=== PATIENT | female | born 1960 | race Caucasian/White ===

== ENCOUNTER → 2017-02-14 | Outpatient (CLI) | payer BC ==
[2017-02-14 17:41] LABS: CH 31.9; CHCM 33.4; HCT 45.8 % (34.0-46.0); HDW 2.67; HGB 15.3 gm/dL (11.4-16.0); MCH 32.2 pg (25.0-35.0); MCHC 33.5 g/dL (31.0-37.0); MCV 96.2 fL (80.0-100.0); Mean Platelet Volume 8.6; RBC 4.77 m/uL (3.80-5.40); RDW 13.6 % (11.5-15.5); WBC 6.2 k/uL (3.8-10.6)
[2017-02-14 17:44] LABS: ALT 60 U/L (9-52); AST 26 U/L (14-36); Alkaline Phosphatase 63 U/L (38-126); Anion Gap 8 mmol/L; Blood Urea Nitrogen 16 mg/dL (7-17); Calcium 9.8 mg/dL (8.4-10.2); Carbon Dioxide 28 mmol/L (22-30); Chloride 105 mmol/L (98-107); Cholesterol 174 mg/dL (<200); Glucose 82 mg/dL (74-99); HDL Cholesterol 48 mg/dL (40-60); Non-African American GFR(MDRD) >60 (>60 ml/min/1.73 sqM); Potassium 4.1 mmol/L (3.5-5.1); Sodium 141 mmol/L (137-145); Total Bilirubin 0.6 mg/dL (0.2-1.3); Total Protein 7.1 g/dL (6.3-8.2)
[2017-02-19 15:37] LABS: HCV Qualitative Result DETECTED (Not detected)
== END | disposition home or self-care (01) ==
LOC: LABWHC1 16:55
PROVIDERS: ATTEND Internal Medicine Gastroenterology
DX: E78.5 Hyperlipidemia, unspecified (principal); I10 Essential (primary) hypertension; B18.2 Chronic viral hepatitis C
CPT/HCPCS: 36415; 80053; 80061; 82105; 84443; 85027; 87522; 87902

== ENCOUNTER → 2019-04-04 | Outpatient (CLI) | payer BC ==
--- NOTE | 2019-04-07 09:46 | MM ---
Reason for exam: screening (asymptomatic). Last mammogram was performed 4 years and 2 months ago. History: Family history of premenopausal breast cancer in cousin at age 47. Physical Findings: A clinical breast exam by your physician is recommended on an annual basis and results should be correlated with mammographic findings. MG Screening Mammo w CAD Bilateral CC and MLO view(s) were taken. XCCL view(s) were taken of the right breast. Prior study comparison: January 25, 2015, bilateral MG screening mammo w CAD. February 14, 2010, bilateral digital screening mammogram. There are scattered fibroglandular densities. There is no discrete abnormality. No significant changes when compared with prior studies. ASSESSMENT: Negative, BI-RAD 1 RECOMMENDATION: Routine screening mammogram of both breasts in 1 year.
== END | disposition home or self-care (01) ==
LOC: RADMAMWWP 06:57
PROVIDERS: ATTEND Internal Medicine
DX: Z12.31 Encounter for screening mammogram for malignant neoplasm of breast (principal)
CPT/HCPCS: 77067

== ENCOUNTER → 2019-04-30 | Outpatient (CLI) | payer BC ==
[2019-04-30 13:01] LABS: HCT 40.4 % (34.0-46.0); HGB 13.5 gm/dL (11.4-16.0); MCH 32.2 pg (25.0-35.0); MCHC 33.4 g/dL (31.0-37.0); MCV 96.3 fL (80.0-100.0); Mean Platelet Volume 8.5; Platelet Count 146 k/uL (150-450); RBC 4.19 m/uL (3.80-5.40); RDW 13.3 % (11.5-15.5); WBC 5.5 k/uL (3.8-10.6)
[2019-04-30 13:30] LABS: Potassium 4.6 mmol/L (3.5-5.1)
== END ==
LOC: LABPAT 12:14
PROVIDERS: ATTEND Internal Medicine Interventional Cardiology
DX: Z01.812 Encounter for preprocedural laboratory examination (principal); R94.39 Abnormal result of other cardiovascular function study
CPT/HCPCS: 36415; 80051; 82565; 84520; 85027

== ENCOUNTER → 2019-05-02 | Day surgery (SDC) | payer BC ==
[2019-04-30 10:35] VITALS: BMI 33.9
[~2019-05-02] MED LIST: ALBUTEROL NEBULIZED 2.5 MG/3 ML INHALATION ONE; ALBUTEROL NEBULIZED 2.5 MG/3 ML INHALATION PRN; ALPRAZolam 0.25 MG TAB PO PRN; ALPRAZolam 0.5 MG TAB PO PRN; ASPIRIN 325 MG TAB PO STA; ASPIRIN 81 MG PO SCH; ATORVASTATIN 80 MG TAB PO STA; HEPARIN SODIUM 1,000 UN/ML (10ML VL) ONE; HYDROcodone/APAP 10-325MG 1 EACH TAB PO PRN; IOPAMIDOL-370 125ML BTL INJ ONE; ISOSORBIDE MONONITRATE ER 30 MG TAB.ER.24H PO SCH; LIDOCAINE 1% INJ 10MG/ML (20 ML MDV) ONE; LIDOCAINE 1% INJ 10MG/ML (20 ML MDV) SQ ONE; LISINOPRIL 20 MG TAB PO SCH; METOPROLOL TARTRATE 25 MG TAB PO SCH; MIDAZOLAM 2 MG/2 ML VIAL IV ONE; MONTELUKAST 10 MG TAB PO SCH; NITROGLYCERIN SL TABS 0.4 MG TAB SUBLINGUAL PRN; NON FORMULARY DRUG (Cannabidiol (Cbd) Extract [Epidiolex] 1 DOSE) PO PRN; PANTOPRAZOLE 40 MG TABLET PO PRN; RX INFO: IV CONTRAST WAS GIVEN 1 EACH MISC MISCELLANE PRN; SODIUM CHLORIDE 0.9% 1,000 ML IV SCH; SODIUM CHLORIDE 0.9% 1,000 ML in EMPTY BAG 1 BAG IV ONE; VERAPAMIL 2.5 MG/ML 2 ML AMP ONE; fentaNYL (PF) 50 MCG/ML 2 ML AMP IV ONE; fentaNYL (PF) 50 MCG/ML 2 ML AMP ONE
[2019-05-02 07:15] VITALS: RESP 18; TEMP 97.7
[2019-05-02] MEDS: VERAPAMIL SYRINGE (5 MG/10 ML) INTRAARTER ONE ×2 (07:48→08:00)
--- NOTE | 2019-05-02 08:41 | CC ---
CARDIAC CATHETERIZATION REPORT Mrs. Cain is a 59-year-old female with a known history of hypertension who has been complaining of symptoms of chest discomfort. She underwent a myocardial perfusion imaging that revealed evidence of inducible ischemia. In view of that, recommendation was made regarding cardiac catheterization. The procedure as well as the risks and complication were discussed with the patient who is in full understanding and agreement. PROCEDURE: Patient was brought to farm labor contractor in a fasting semi-sedated state after receiving fentanyl and Benadryl and achieving moderate conscious sedated state. Using Xylocaine anesthesia in the Seldinger technique, a 6-Serbian sheath was introduced in the right radial artery. Selective right and left coronary angiography performed using 5-Serbian 3.5 bend right Zion and 4 bend left Zion catheter. Multiple views of the coronary artery including hemiaxial views obtained. Following that the right Zion catheter was used to cross the aortic valve and pressures were calculated. Following that, the catheter and sheaths were removed. Hemostasis was obtained with deployment of a TR band. There was no immediate complication. Patient was returned to room in stable condition. Of note, the patient received 5000 units of intravenous heparin as well as intra-arterial verapamil. FINDINGS: LEFT MAIN: This is a large-sized vessel bifurcating left circumflex, left anterior descending artery. Left main coronary artery has no evidence of high-grade stenosis. LEFT ANTERIOR DESCENDING ARTERY: This is a large-sized vessel reaching toward the apex that tapers down in the distal third. The left anterior descending artery as well as the large first diagonal branch have no evidence of high-grade stenosis. LEFT CIRCUMFLEX: This is a nondominant vessel, large in caliber giving rise to a large obtuse marginal branch. The left circumflex as well as branches have no evidence of obstructive coronary artery disease. RIGHT CORONARY ARTERY: This is a large dominant vessel tortuous in the proximal mid segment bifurcating distally PDA posterolateral segment and branches. The right PDA reaches toward the inferoapical wall. The right coronary artery as well as branches have no evidence of obstructive coronary artery disease. LEFT VENTRICULOGRAM: Left ventriculogram is not performed. HEMODYNAMICS: There was no gradient across the aortic valve. The left ventricular end-diastolic pressure was 12 to 14 mmHg. CONCLUSION: 1. Normal coronary arteries. 2. Normal left ventricular end-diastolic pressure. RECOMMENDATION: In view of finding anatomy, recommend continue medical therapy with aggressive coronary risk modifications that have been initiated. Those findings and recommendation were discussed with the patient and her family, and they are in full understanding and agreement. DURATION OF PROCEDURE: 19 minutes. JACKELIN / PALMERN: [id number] /
--- NOTE | 2019-05-02 08:47 | LTR ---
May 02, 2019 Re: Alisa Cain Dear Dr. Potts: I had the opportunity to perform cardiac catheterization on Mrs. Cain at [facility] on the 02 of May and a full copy of the procedure note will be forwarded to you. In brief, she was found to have no evidence of high-grade stenosis and based on those findings, I recommend to continue medical therapy with aggressive coronary risk modifications that have been initiated. Thank you again for allowing me the opportunity to participate in her care. Please feel free to call for any questions. Sincerely yours, Bhavana Cutler MD [id number] / PALMERN: [id number] /
[2019-05-02 13:11] VITALS: BP 124/64; PULSE 58
== END | disposition home or self-care (01) ==
LOC: CATHCVL 06:39
PROVIDERS: ATTEND Internal Medicine Interventional Cardiology
DX: R07.89 Other chest pain (principal); I77.1 Stricture of artery; I25.9 Chronic ischemic heart disease, unspecified; R60.9 Edema, unspecified; R06.00 Dyspnea, unspecified; R26.9 Unspecified abnormalities of gait and mobility; I10 Essential (primary) hypertension; Z79.899 Other long term (current) drug therapy; Z79.82 Long term (current) use of aspirin; Z88.0 Allergy status to penicillin; Z82.49 Family history of ischemic heart disease and other diseases of the circulatory system
CPT/HCPCS: 94640; 93458; C1769; C1894; J2250; J2001; J3010; J1644; Q9967

== ENCOUNTER → 2020-08-24 | Outpatient (CLI) | payer OTHER ==
--- NOTE | 2020-08-24 16:01 | BD ---
EXAMINATION TYPE: Axial Bone Density DATE OF EXAM: 08/24/2020 COMPARISON: NONE CLINICAL HISTORY: Height: 5 FT 4 IN Weight: 209 FRAX RISK QUESTIONS: Alcohol (3 or more units per day): NO Family History (Parent hip fracture): YES Glucocorticoids (More than 3mos): NO (Ex: prednisone, prednisolone, methylprednisolone, dexamethasone, and hydrocortisone). History of Fracture in Adulthood: YES Secondary Osteoporosis: 1. Type 1 Diabetes: NO 2. Hyperthyroidism: NO 3. Menopause before 45: NO 4. Malnutrition: NO 5. Chronic liver disease: HEP C Rheumatoid Arthritis: YES Current Tobacco Use: FORMER RISK FACTORS HISTORY OF: Hip Fracture (Right/Left): LEFT HIP FX When: 2019 Surgery to Spine/Hip(right/left)/Wrist (right/left): LEFT HIP REPLACEMENT When: 2019 Family History of Osteoporosis: YES Active: YES Diet low in dairy products/other sources of calcium: NO Postmenopausal woman: PART HYST AGE 34 UNSURE MENOPAUSE SYMPTOMS Take estrogen and/or progesterone medications: NO Lost more than 2 inches in height since high school: YES MEDICATIONS: Additional Medications: METOPROLOL, ASPIRIN, SINGULAIR,PROTONIX, MEDS, FOR TREMERS Additional History: EXAM MEASUREMENTS: Bone mineral densitometry was performed using the [employer] System. Bone mineral density as measured about the Lumbar spine is: ----- L1-L4(G/cm2): 0.993 T Score Values are as follows: ----- L2: -2.7 ----- L3: -1.2 ----- L4: -0.8 ----- L1-L4: -1.6 BASELINE Bone mineral density about the R hip (g/cm2): 0.698 T Score values are as follows: -----R Neck: -2.4 -----R Total: -2.0 BASELINE IMPRESSION: Osteopenia (T Score between -2.5 and -1). There is slightly increased risk of fracture and the patient may be considered for treatment. Re-Screen 2-5 years. NOTE: T-SCORE=SD OF THE YOUNG ADULT MEAN.
--- NOTE | 2020-08-26 08:42 | MM ---
Reason for exam: screening (asymptomatic). Last mammogram was performed 1 year and 5 months ago. History: Family history of premenopausal breast cancer in cousin at age 47. Physical Findings: A clinical breast exam by your physician is recommended on an annual basis and results should be correlated with mammographic findings. MG Screening Mammo w CAD Bilateral CC and MLO view(s) were taken. Prior study comparison: April 04, 2019, bilateral MG screening mammo w CAD. January 25, 2015, bilateral MG screening mammo w CAD. There are scattered fibroglandular densities. No significant changes when compared with prior studies. ASSESSMENT: Benign, BI-RAD 2 RECOMMENDATION: Routine screening mammogram of both breasts in 1 year.
== END | disposition home or self-care (01) ==
LOC: RADMAMWWP 12:42
PROVIDERS: ATTEND Internal Medicine
DX: Z12.31 Encounter for screening mammogram for malignant neoplasm of breast (principal); Z13.820 Encounter for screening for osteoporosis; M85.89 Other specified disorders of bone density and structure, multiple sites; Z80.3 Family history of malignant neoplasm of breast
CPT/HCPCS: 77067; 77080

== ENCOUNTER 2022-06-26 11:44 | Observation (INO) | payer MEDICARE, OTHER ==
[2022-06-26] MEDS ORDERED: IPRATROPIUM-ALBUTEROL 3 ML NEB INHALATION STA ×2 (12:20→13:38)
[2022-06-26] MEDS ORDERED: methylPREDNISolone SOD SUCCI 125 MG/2 ML VIAL IV STA (12:20)
--- NOTE | 2022-06-26 12:24 | ED ---
SOB HPI - General Chief Complaint: Shortness of Breath Stated Complaint: SOPHIA Time Seen by Provider: 06/26/22 12:14 Source: patient, RN notes reviewed Mode of arrival: ambulatory Limitations: no limitations - History of Present Illness Initial Comments: 62-year-old female with a history of hypertension a history of asthma states she's been short of breath for the past 2 days with a nonproductive cough no fevers chills or sweats she states also her blood pressure is been elevated she has recently been on different blood pressure medications for which she has side effects also states she stopped putting much urine out and therefore quit the medication she did recently and put on which included a diuretic. She does state her ankles normally are swollen are not bad today. She states it feels like there is brick sitting on her chest she tried her home medication without much relief. MD Complaint: shortness of breath, cough - Related Data Home Medications Medication Instructions Recorded Confirmed ALPRAZolam [Xanax] 0.5 mg PO TID PRN 04/30/19 06/26/22 Albuterol Inhaler [Ventolin Hfa 1 - 2 puff INHALATION RT-Q6H PRN 04/30/19 06/26/22 Inhaler] Metoprolol Tartrate [Lopressor] 50 mg PO DAILY 04/30/19 06/26/22 Nitroglycerin Sl Tabs [Nitrostat] 0.4 mg SUBLINGUAL Q5M PRN 04/30/19 06/26/22 Pantoprazole Sodium [Protonix] 40 mg PO DAILY 04/30/19 06/26/22 Diclofenac Sodium Gel [Voltaren 1 applic TOPICAL QID PRN 06/26/22 06/26/22 Gel] Allergies Allergy/AdvReac Type Severity Reaction Status Date / Time adhesive tape Allergy Rash/Hives Verified 06/26/22 12:58 Review of Systems ROS Statement: Those systems with pertinent positive or pertinent negative responses have been documented in the HPI. ROS Other: All systems not noted in ROS Statement are negative. Past Medical History Past Medical History: Asthma, Chest Pain / Angina, GERD/Reflux, Hypertension, Renal Disease, Rheumatoid Arthritis (RA) Additional Past Medical History / Comment(s): irregular heart rate. 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 lt knee replacement x2. rt ring finger with screws. rt thumb I&D Past Anesthesia/Blood Transfusion Reactions: No Reported Reaction Additional Past Anesthesia/Blood Transfusion Reaction / Comment(s): previous blood transfusion with reaction Past Psychological History: Anxiety Smoking Status: Current every day smoker Past Alcohol Use History: Occasional Past Drug Use History: Marijuana - Past Family History Sister(s) Family Medical History: Coronary Artery Disease (CAD) Additional Family Medical History / Comment(s): born with hole in main valve surgery 8th grade, cabg x2 during 2nd open heart age 34 Father Family Medical History: Cancer, Myocardial Infarction (IN) Additional Family Medical History / Comment(s): from colon cancer Mother Family Medical History: Cancer Additional Family Medical History / Comment(s): from lung cancer General Exam - General Exam Comments Initial Comments: This is a well-developed well-nourished awake alert oriented 4 female demonstrate audible wheezing Limitations: no limitations General appearance: alert, anxious Head exam: Present: atraumatic, normocephalic, normal inspection Eye exam: Present: normal appearance, PERRL, EOMI. Absent: scleral icterus, conjunctival injection, periorbital swelling ENT exam: Present: normal exam, mucous membranes moist Neck exam: Present: normal inspection, full ROM, other (No surgery or bruits). Absent: tenderness, meningismus, lymphadenopathy Respiratory exam: Present: wheezes, chest wall tenderness, decreased breath sounds. Absent: respiratory distress, rales, rhonchi, stridor Cardiovascular Exam: Present: regular rate, normal rhythm, normal heart sounds. Absent: systolic murmur, diastolic murmur, rubs, gallop, clicks GI/Abdominal exam: Present: soft, normal bowel sounds. Absent: distended, tenderness, guarding, rebound, rigid Extremities exam: Present: normal inspection, full ROM, normal capillary refill. Absent: tenderness, pedal edema, joint swelling, calf tenderness Back exam: Present: normal inspection Neurological exam: Present: alert, oriented X3, CN II-XII intact Psychiatric exam: Present: normal affect, normal mood Skin exam: Present: warm, dry, intact, normal color. Absent: rash Course Vital Signs 06/26/22 06/26/22 06/26/22 12:09 12:27 13:33 Temperature 98.1 F 97.9 F Pulse Rate 90 91 81 Respiratory 18 18 17 Rate Blood Pressure 180/110 182/99 131/84 O2 Sat by Pulse 96 96 97 Oximetry 06/26/22 06/26/22 06/26/22 14:06 14:19 14:22 Temperature Pulse Rate 74 80 80 Respiratory 17 Rate Blood Pressure 165/101 O2 Sat by Pulse 96 Oximetry 06/26/22 16:05 Temperature Pulse Rate 76 Respiratory 17 Rate Blood Pressure 146/92 O2 Sat by Pulse 96 Oximetry - Reevaluation(s) Reevaluation #1: 06/26/22 16:29 Patient continued to have wheezing in spite of the treatment which included updrafts and IV steroids. Medical Decision Making - Medical Decision Making Patient continues to have wheezing in spite of treatment. Imaging does show evidence of bilateral infiltrates/nodularity. Patient will be admitted I did discuss case with Dr. Torres. He is covering for Dr. Potts. Was pt. sent in by a medical professional or institution (, PA, LABOR RELATIONS SPECIALIST, urgent care, hospital, or [facility]...) When possible be specific @ -No Did you speak to anyone other than the patient for history (EMS, parent, family, police, friend...)? What history was obtained from this source @ -No Did you review nursing and triage notes (agree or disagree)? Why? @ -I reviewed and agree with nursing and triage notes Were old charts reviewed (outside hosp., previous admission, EMS record, old EKG, old radiological studies, urgent care reports/EKG's, [facility] records)? Report findings @ - old charts were reviewed Differential Diagnosis (chest pain, altered mental status, abdominal pain women, abdominal pain men, vaginal bleeding, weakness, fever, dyspnea, syncope, headache, dizziness, GI bleed, back pain, seizure, CVA, palpatations, mental health, musculoskeletal)? @ -Dyspnea, asthma exacerbation, and pneumonitis EKG interpreted by me (3pts min.). @ -As above X-rays interpreted by me (1pt min.). @ -Yeses above CT interpreted by me (1pt min.). @ -None done U/S interpreted by me (1pt. min.). @ -None done What testing was considered but not performed or refused? (CT, X-rays, U/S, labs)? Why? @ -None What meds were considered but not given or refused? Why? @ -None Did you discuss the management of the patient with other professionals (professionals i.e. , PA, LABOR RELATIONS SPECIALIST, lab, RT, psych nurse, mental health social worker, recording engineer, teacher, aircraft electronics technical officer, case liner)? Give summary @ -After nursing Was smoking cessation discussed for >3mins.? @ -No Was critical care preformed (if so, how long)? @ -31 minutes Were there social determinants of health that impacted care today? How? (Homelessness, low income, unemployed, alcoholism, drug addiction, transportation, low edu. Level, literacy, decrease access to med. care, retirement, rehab)? @ -No Was there de-escalation of care discussed even if they declined (Discuss DNR or withdrawal of care, Hospice)? DNR status @ -No What co-morbidities impacted this encounter? (DM, HTN, Smoking, COPD, CAD, Cancer, CVA, ARF, Chemo, Hep., AIDS, mental health diagnosis, sleep apnea, morbid obesity)? @ -Asthma, hypertension, renal disease, rheumatoid arthritis Was patient admitted / discharged? Hospital course, mention meds given and route, prescriptions, significant lab abnormalities, going to OR and other pertinent info. @ -Patient was admitted for inpatient evaluation and treatment evidence of extensive and ecchymosis as well as evidence of pneumonia. 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 Clinical and x-ray evidence of pneumonia. Undiagnosed new problem with uncertain prognosis? @ -Status asthmaticus, pneumonia Drug Therapy requiring intensive monitoring for toxicity (Heparin, Nitro, Insulin, Cardizem)? @ -No Were any procedures done? @ -No Diagnosis/symptom? @ -Status asthmaticus, pneumonia, dyspnea Acute, or Chronic, or Acute on Chronic? @ -Acute Uncomplicated (without systemic symptoms) or Complicated (systemic symptoms)? @ -Complicated with systemic symptoms of dyspnea Side effects of treatment? @ -No Exacerbation, Progression, or Severe Exacerbation? @ -Asthma exacerbation Poses a threat to life or bodily function? How? (Chest pain, [place], [place], pneumonia, PE, COPD, DKA, ARF, appy, cholecystitis, CVA, Diverticulitis, Homicidal, Suicidal, threat to staff... and all critical care pts) @ -Dyspnea - Lab Data Result diagrams: 06/26/22 12:56 06/26/22 12:56 Lab Results 06/26/22 06/26/22 06/26/22 Range/Units 00:25 12:56 12:56 WBC 3.3 L (3.8-10.6) k/uL RBC 4.46 (3.80-5.40) m/uL Hgb 13.9 (11.4-16.0) gm/dL Hct 40.8 (34.0-46.0) % MCV 91.5 (80.0-100.0) fL MCH 31.1 (25.0-35.0) pg MCHC 34.0 (31.0-37.0) g/dL RDW 13.0 (11.5-15.5) % Plt Count 99 L (150-450) k/uL MPV 9.3 Neutrophils % 49 % Lymphocytes % 38 % Monocytes % 5 % Eosinophils % 6 % Basophils % 1 % Neutrophils # 1.6 (1.3-7.7) k/uL Lymphocytes # 1.3 (1.0-4.8) k/uL Monocytes # 0.2 (0-1.0) k/uL Eosinophils # 0.2 (0-0.7) k/uL Basophils # 0.0 (0-0.2) k/uL Manual Slide Review Performed PT 10.0 (9.0-12.0) sec INR 0.9 (<1.2) APTT 34.1 H (22.0-30.0) sec D-Dimer 0.41 (<0.60) mg/L FEU Sodium (137-145) mmol/L Potassium (3.5-5.1) mmol/L Chloride (98-107) mmol/L Carbon Dioxide (22-30) mmol/L Anion Gap mmol/L BUN (7-17) mg/dL Creatinine (0.52-1.04) mg/dL Est GFR (CKD-EPI)AfAm (>60 ml/min/1.73 sqM) Est GFR (CKD-EPI)NonAf (>60 ml/min/1.73 sqM) Glucose (74-99) mg/dL Plasma Lactic Acid Vivek (0.7-2.0) mmol/L Calcium (8.4-10.2) mg/dL Magnesium (1.6-2.3) mg/dL Total Bilirubin (0.2-1.3) mg/dL AST (14-36) U/L ALT (4-34) U/L Alkaline Phosphatase (38-126) U/L Creatine Kinase (30-135) U/L Troponin I (0.000-0.034) ng/mL NT-Pro-B Natriuret Pep pg/mL Total Protein (6.3-8.2) g/dL Albumin (3.5-5.0) g/dL Urine Color Urine Appearance (Clear) Urine pH (5.0-8.0) Ur Specific [place] (1.001-1.035) Urine Protein (Negative) Urine Glucose (UA) (Negative) Urine Ketones (Negative) Urine Blood (Negative) Urine Nitrite (Negative) Urine Bilirubin (Negative) Urine Urobilinogen (<2.0) mg/dL Ur Leukocyte Esterase (Negative) Influenza Type A (PCR) Not Detected (Not Detectd) Influenza Type B (PCR) Not Detected (Not Detectd) RSV (PCR) Not Detected (Not Detectd) SARS-CoV-2 (PCR) Not Detected (Not Detectd) 06/26/22 06/26/22 06/26/22 Range/Units 12:56 12:56 12:56 WBC (3.8-10.6) k/uL RBC (3.80-5.40) m/uL Hgb (11.4-16.0) gm/dL Hct (34.0-46.0) % MCV (80.0-100.0) fL MCH (25.0-35.0) pg MCHC (31.0-37.0) g/dL RDW (11.5-15.5) % Plt Count (150-450) k/uL MPV Neutrophils % % Lymphocytes % % Monocytes % % Eosinophils % % Basophils % % Neutrophils # (1.3-7.7) k/uL Lymphocytes # (1.0-4.8) k/uL Monocytes # (0-1.0) k/uL Eosinophils # (0-0.7) k/uL Basophils # (0-0.2) k/uL Manual Slide Review PT (9.0-12.0) sec INR (<1.2) APTT (22.0-30.0) sec D-Dimer (<0.60) mg/L FEU Sodium 140 (137-145) mmol/L Potassium 4.6 (3.5-5.1) mmol/L Chloride 109 H (98-107) mmol/L Carbon Dioxide 27 (22-30) mmol/L Anion Gap 4 mmol/L BUN 16 (7-17) mg/dL Creatinine 0.73 (0.52-1.04) mg/dL Est GFR (CKD-EPI)AfAm >90 (>60 ml/min/1.73 sqM) Est GFR (CKD-EPI)NonAf 88 (>60 ml/min/1.73 sqM) Glucose 112 H (74-99) mg/dL Plasma Lactic Acid Vivek 1.5 (0.7-2.0) mmol/L Calcium 9.3 (8.4-10.2) mg/dL Magnesium 1.9 (1.6-2.3) mg/dL Total Bilirubin 0.6 (0.2-1.3) mg/dL AST 30 (14-36) U/L ALT 45 H (4-34) U/L Alkaline Phosphatase 67 (38-126) U/L Creatine Kinase 31 (30-135) U/L Troponin I <0.012 (0.000-0.034) ng/mL NT-Pro-B Natriuret Pep pg/mL Total Protein 6.7 (6.3-8.2) g/dL Albumin 3.7 (3.5-5.0) g/dL Urine Color Urine Appearance (Clear) Urine pH (5.0-8.0) Ur Specific [place] (1.001-1.035) Urine Protein (Negative) Urine Glucose (UA) (Negative) Urine Ketones (Negative) Urine Blood (Negative) Urine Nitrite (Negative) Urine Bilirubin (Negative) Urine Urobilinogen (<2.0) mg/dL Ur Leukocyte Esterase (Negative) Influenza Type A (PCR) (Not Detectd) Influenza Type B (PCR) (Not Detectd) RSV (PCR) (Not Detectd) SARS-CoV-2 (PCR) (Not Detectd) 06/26/22 06/26/22 Range/Units 13:25 14:23 WBC (3.8-10.6) k/uL RBC (3.80-5.40) m/uL Hgb (11.4-16.0) gm/dL Hct (34.0-46.0) % MCV (80.0-100.0) fL MCH (25.0-35.0) pg MCHC (31.0-37.0) g/dL RDW (11.5-15.5) % Plt Count (150-450) k/uL MPV Neutrophils % % Lymphocytes % % Monocytes % % Eosinophils % % Basophils % % Neutrophils # (1.3-7.7) k/uL Lymphocytes # (1.0-4.8) k/uL Monocytes # (0-1.0) k/uL Eosinophils # (0-0.7) k/uL Basophils # (0-0.2) k/uL Manual Slide Review PT (9.0-12.0) sec INR (<1.2) APTT (22.0-30.0) sec D-Dimer (<0.60) mg/L FEU Sodium (137-145) mmol/L Potassium (3.5-5.1) mmol/L Chloride (98-107) mmol/L Carbon Dioxide (22-30) mmol/L Anion Gap mmol/L BUN (7-17) mg/dL Creatinine (0.52-1.04) mg/dL Est GFR (CKD-EPI)AfAm (>60 ml/min/1.73 sqM) Est GFR (CKD-EPI)NonAf (>60 ml/min/1.73 sqM) Glucose (74-99) mg/dL Plasma Lactic Acid Vivek (0.7-2.0) mmol/L Calcium (8.4-10.2) mg/dL Magnesium (1.6-2.3) mg/dL Total Bilirubin (0.2-1.3) mg/dL AST (14-36) U/L ALT (4-34) U/L Alkaline Phosphatase (38-126) U/L Creatine Kinase (30-135) U/L Troponin I (0.000-0.034) ng/mL NT-Pro-B Natriuret Pep 45 pg/mL Total Protein (6.3-8.2) g/dL Albumin (3.5-5.0) g/dL Urine Color Yellow Urine Appearance Clear (Clear) Urine pH 6.5 (5.0-8.0) Ur Specific [place] 1.022 (1.001-1.035) Urine Protein Negative (Negative) Urine Glucose (UA) Negative (Negative) Urine Ketones Negative (Negative) Urine Blood Negative (Negative) Urine Nitrite Negative (Negative) Urine Bilirubin Negative (Negative) Urine Urobilinogen 2.0 (<2.0) mg/dL Ur Leukocyte Esterase Negative (Negative) Influenza Type A (PCR) (Not Detectd) Influenza Type B (PCR) (Not Detectd) RSV (PCR) (Not Detectd) SARS-CoV-2 (PCR) (Not Detectd) - EKG Data -: EKG Interpreted by Me (EKG interpreted by me shows a normal sinus rhythm a 68 . We'll 152 QRS dura) - Radiology Data Interpreted by me: I did interpret the imaging evidence of bilateral infiltrates/nodularity right lower lobe and left mid lung. Critical Care Time Critical Care Time: Yes Total Critical Care Time: 31 Disposition Clinical Impression: Status asthmaticus, Pneumonia Disposition: ADMITTED IP TO THIS [facility] Condition: Fair Referrals: Telma Potts MD [Primary Care Provider] - 1-2 days Decision Date: 06/26/22 Decision Time: 16:00
[2022-06-26] MEDS ORDERED: ALBUTEROL HFA INHALER INHALATION STA (12:25)
[2022-06-26 13:23] LABS: Basophils % (A) 1 %; Eosinophils # (A) 0.2 k/uL (0-0.7); Eosinophils % (A) 6 %; HCT 40.8 % (34.0-46.0); HGB 13.9 gm/dL (11.4-16.0); Lymphocytes # (A) 1.3 k/uL (1.0-4.8); Lymphocytes % (A) 38 %; MCH 31.1 pg (25.0-35.0); MCV 91.5 fL (80.0-100.0); Mean Platelet Volume 9.3; Monocytes # (A) 0.2 k/uL (0-1.0); Monocytes % (A) 5 %; Neutrophils # (A) 1.6 k/uL (1.3-7.7); Neutrophils % (A) 49 %; RBC 4.46 m/uL (3.80-5.40); WBC 3.3 k/uL (3.8-10.6)
[2022-06-26 13:34] LABS: ALT 45 U/L (4-34); AST 30 U/L (14-36); African American GFR (CKD) >90 (>60 ml/min/1.73 sqM); Albumin 3.7 g/dL (3.5-5.0); Alkaline Phosphatase 67 U/L (38-126); Anion Gap 4 mmol/L; Blood Urea Nitrogen 16 mg/dL (7-17); Calcium 9.3 mg/dL (8.4-10.2); Carbon Dioxide 27 mmol/L (22-30); Chloride 109 mmol/L (98-107); Creatine Kinase 31 U/L (30-135); Glucose 112 mg/dL (74-99); Magnesium 1.9 mg/dL (1.6-2.3); Non-African American GFR(CKD) 88 (>60 ml/min/1.73 sqM); Potassium 4.6 mmol/L (3.5-5.1); Sodium 140 mmol/L (137-145); Total Bilirubin 0.6 mg/dL (0.2-1.3); Total Protein 6.7 g/dL (6.3-8.2)
[2022-06-26 13:35] LABS: INR 0.9 (<1.2); Partial Thromboplastin Time 34.1 sec (22.0-30.0)
[2022-06-26 14:06] LABS: Appearance,Urine Clear (Clear); Bilirubin,Urine Negative (Negative); Blood,Urine Negative (Negative); Color,Urine Yellow; Glucose,Urine (UA) Negative (Negative); Ketones,Urine Negative (Negative); Leukocyte Esterase,Urine Negative (Negative); Nitrite,Urine Negative (Negative); PH, Urine 6.5 (5.0-8.0); Protein,Urine Negative (Negative); Specific Gravity,Urine 1.022 (1.001-1.035)
[2022-06-26 14:16] LABS: Platelet Count 99 k/uL (150-450)
[2022-06-26] MEDS ORDERED: ACETAMINOPHEN TAB 325 MG TAB PO STA (14:20)
--- NOTE | 2022-06-26 15:08 | XR ---
EXAMINATION TYPE: XR chest 2V DATE OF EXAM: 06/26/2022 COMPARISON: 01/22/2015 HISTORY: Shortness of breath TECHNIQUE: Frontal and lateral views of the chest are obtained. FINDINGS: Scattered senescent parenchymal changes noted. Hyperinflation compatible with COPD. Areas of nodular density left mid lung zone and right lower lobe may reflect infiltrate. Follow-up un til resolution is advised. Clinical correlation. Heart size is stable. Mediastinal structures are stable and grossly unremarkable. No evidence for hilar prominence. Degenerative changes dorsal spine. IMPRESSION: 1. Areas of nodular density left mid lung zone and right lower lobe may reflect developing infiltrate . Follow-up until resolution is advised. Clinical correlation.
[2022-06-26] MEDS ORDERED: KETOROLAC 15 MG/ML 1 ML VIAL IVP STA (16:07)
[2022-06-26] MEDS ORDERED: PNEUMONIA PROTOCOL UTILIZED 1 EACH MISC PO PRN (16:37)
[2022-06-26] MEDS ORDERED: AZITHROMYCIN 500 MG in SODIUM CHLORIDE 0.9% 250 ML IVPB STA (16:37)
[2022-06-26] MEDS ORDERED: MAGNESIUM SULFATE-D5W PMX 1 GM in DEXTROSE/WATER 1 100ML.BAG IVPB ONE (16:39)
[2022-06-26] MEDS ORDERED: NITROGLYCERIN SL TABS 0.4 MG TAB SUBLINGUAL PRN (16:40)
[2022-06-26] MEDS: methylPREDNISolone SOD SUCCI 125 MG/2 ML VIAL IV SCH ×2 (18:17→23:07)
[2022-06-26] MEDS ORDERED: MAG HYDROX/AL HYDROX/SIMETH 30 ML, HYOSCYAMINE ELIXIR 10 ML PO ONE ×2 (19:26)
[2022-06-26] MEDS: IPRATROPIUM-ALBUTEROL 3 ML NEB INHALATION PRN ×2 (20:27→23:40)
[2022-06-26] MEDS: ACETAMINOPHEN TAB 500 MG TAB PO PRN (23:08)
[2022-06-26] MEDS: ALPRAZolam 0.5 MG TAB PO PRN (23:08)
[2022-06-27] MEDS: IPRATROPIUM-ALBUTEROL 3 ML NEB INHALATION PRN ×5 (03:02→20:42)
[2022-06-27] MEDS: methylPREDNISolone SOD SUCCI 125 MG/2 ML VIAL IV SCH ×4 (05:57→23:06)
[2022-06-27] MEDS: ALPRAZolam 0.5 MG TAB PO PRN ×3 (06:03→23:07)
[2022-06-27] MEDS: PANTOPRAZOLE 40 MG TABLET PO SCH (08:35)
[2022-06-27] MEDS: ACETAMINOPHEN TAB 500 MG TAB PO PRN ×2 (08:35→23:07)
[2022-06-27] MEDS: METOPROLOL SUCCINATE (ER) 50 MG TAB.ER.24H PO SCH (08:35)
[2022-06-27] MEDS: AZITHROMYCIN 500 MG TAB PO SCH (10:16)
[2022-06-27] MEDS ORDERED: Acetaminophen-Codeine 300-30mg TAB PO STA (11:02)
[2022-06-27] MEDS ORDERED: LOSARTAN 50 MG TAB PO SCH (15:15)
[2022-06-27] MEDS: HEPARIN SODIUM,PORCINE/PF 5,000 UNIT/0.5 ML SYRINGE SQ SCH (17:00)
[2022-06-27] MEDS: NICOTINE 14MG/24HR PATCH TRANSDERM SCH (17:00)
[2022-06-27] MEDS: amLODIPine 5 MG TAB PO SCH (18:31)
[2022-06-28] MEDS: HEPARIN SODIUM,PORCINE/PF 5,000 UNIT/0.5 ML SYRINGE SQ SCH ×4 (01:20→23:46)
--- NOTE | 2022-06-28 01:20 | P.HPIM ---
History of Present Illness H&P Date: 06/27/22 Chief Complaint: Shortness of breath Patient is a 62-year-old female with a known history of asthma, current everyday smoker, anxiety, hypertension, rheumatoid arthritis, hepatitis C and history of drug overdose in December after doing cocaine laced with fentanyl and currently everyday smoker presents to ER with complaints of worsening shortness of breath for the past 2 days. Patient has been having cough but unable to bring out sputum. Denies any fever or chills. No nausea vomiting abdominal pain or diarrhea. Patient states that she was having chest tightness and unable to breathing and tried albuterol inhaler at home., Without much relief. Patient also states that her blood pressure has been elevated recently and was on follow-up with her physician. She was given multiple medications and recently was started on a diuretic. Chest x-ray showed areas of nodular density left midlung zone and right lower lobe, reflecting developing infiltrate. Follow-up until resolution is advised. EKG showed sinus rhythm Laboratory showed WBC 3.3 hemoglobin 13.9 and platelets 99 D-dimer is 0.40 Sodium 140 potassium 4.6 chloride 109 bicarb is 27 BUN 16 and creatinine 0.73 AST 30 ALT 45 alk phos 67 proBNP 45 Urinalysis negative for infection Influenza A B and RSV PCR and COVID-19 PCR not detected. Review of Systems Constitutional: Patient denies any fever or chills . no Generalized weakness. Abdomen: Patient denied any nausea or vomiting or abd. pain Cardiovascular: Patient denies any chest pain or short of breath no palpitations. Respiratory: Patient does have cough without sputum production and chest tightness and shortness of breath. Neurologic: Patient denied any numbness or tingling headache. Musculoskeletal: Patient denies any complaints of joint swelling or deformity. Skin: Negative Psychiatric: Anxiety Endocrine: No heat or cold intolerance. No recent weight gain. Genitourinary: No dysuria or hematuria. All other 14 point ROS negative except the above Past Medical History Past Medical History: Asthma, Chest Pain / Angina, GERD/Reflux, Hypertension, Liver Disease, Rheumatoid Arthritis (RA) Additional Past Medical History / Comment(s): irregular heart rate. 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 Hepatitis C. In December Overdosed after doing cocaine laced with fentanyl. Has quit cocaine since then but smokes marijauana intermitently. History of Any Multi-Drug Resistant Organisms: None Reported Past Surgical History: Hysterectomy, Joint Replacement, Orthopedic Surgery, Tonsillectomy Additional Past Surgical History / Comment(s): lt hip fx 07/05 with pins and screws. lt knee replacement x2. rt ring finger with screws. rt thumb I&D Past Anesthesia/Blood Transfusion Reactions: No Reported Reaction Additional Past Anesthesia/Blood Transfusion Reaction / Comment(s): previous blood transfusion with reaction Past Psychological History: Anxiety Smoking Status: Current every day smoker Past Alcohol Use History: Occasional Additional Past Alcohol Use History / Comment(s): smoked 20 years 1/2ppd quit 06/22/18 Past Drug Use History: Cocaine, Marijuana Additional Drug Use History / Comment(s): cbd, edibles, quit cocaine in December 2021 - Past Family History Sister(s) Family Medical History: Coronary Artery Disease (CAD) Additional Family Medical History / Comment(s): born with hole in main valve surgery 8th grade, cabg x2 during 2nd open heart age 34 Father Family Medical History: Cancer, Myocardial Infarction ([place]) Additional Family Medical History / Comment(s): from colon cancer Mother Family Medical History: Cancer Additional Family Medical History / Comment(s): from lung cancer Medications and Allergies Home Medications Medication Instructions Recorded Confirmed Type ALPRAZolam [Xanax] 0.5 mg PO TID PRN 04/30/19 06/26/22 History Albuterol Inhaler [Ventolin Hfa 1 - 2 puff INHALATION RT-Q6H PRN 04/30/19 06/26/22 History Inhaler] Metoprolol Tartrate [Lopressor] 50 mg PO DAILY 04/30/19 06/26/22 History Nitroglycerin Sl Tabs [Nitrostat] 0.4 mg SUBLINGUAL Q5M PRN 04/30/19 06/26/22 History Pantoprazole Sodium [Protonix] 40 mg PO DAILY 04/30/19 06/26/22 History Diclofenac Sodium Gel [Voltaren 1 applic TOPICAL QID PRN 06/26/22 06/26/22 History Gel] Allergies Allergy/AdvReac Type Severity Reaction Status Date / Time adhesive tape Allergy Rash/Hives Verified 06/26/22 12:58 amoxicillin Allergy Rash/Hives Verified 06/26/22 21:15 losartan Allergy Swelling Verified 06/27/22 17:32 valsartan AdvReac Swelling Verified 06/27/22 17:34 Physical Exam Vitals: Vital Signs Temp Pulse Pulse Resp BP BP Pulse Ox 06/27/22 10:01 84 06/27/22 09:44 80 06/27/22 08:00 97.4 F L 74 20 155/79 96 06/27/22 03:52 22 06/27/22 03:15 88 06/27/22 03:02 90 06/27/22 02:00 98.6 F 95 128/66 96 06/26/22 23:53 80 06/26/22 23:40 78 06/26/22 21:11 98.1 F 96 22 164/78 95 06/26/22 20:38 80 06/26/22 20:28 78 06/26/22 19:54 97.8 F 87 18 159/103 94 L 06/26/22 18:19 89 18 167/105 95 06/26/22 17:34 80 18 161/95 95 06/26/22 16:05 76 17 146/92 96 06/26/22 14:22 80 17 165/101 96 06/26/22 14:19 80 06/26/22 14:06 74 06/26/22 13:33 97.9 F 81 17 131/84 97 Intake and Output 06/26/22 06/27/22 06/27/22 22:59 06:59 14:59 Other: Voiding Method Toilet # Voids 3 Weight 95.254 kg PHYSICAL EXAMINATION: Patient is sitting in the chair, no acute distress, awake alert and oriented.. HEENT: Normocephalic. Neck is supple. Pupils reactive. Nostrils clear. Oral cavity is moist. Neck reveals no JVD, carotid bruits, or thyromegaly. CHEST EXAMINATION: Trachea is central. Symmetrical expansion. Bilateral diffuse wheezing and rhonchi. Nonlabored breathing. CARDIAC: Normal S1, S2 with no gallops. No murmurs ABDOMEN: Soft. Bowel sounds present. Nontender. No organomegaly. No abdominal bruits. Extremities: reveal no edema. No clubbing or cyanosis Neurologically awake, alert, oriented x3 with well-coordinated movements. No focal deficits noted Skin: No rash or skin lesions. Psychiatric: Patient is anxious and agitated., Musculoskeletal: No joint swelling or deformity. Normal range of motion. Results CBC & Chem 7: 06/26/22 12:56 06/26/22 12:56 Labs: Abnormal Lab Results - Last 24 Hours (Table) 06/26/22 06/26/22 06/26/22 Range/Units 12:56 12:56 12:56 WBC 3.3 L (3.8-10.6) k/uL Plt Count 99 L (150-450) k/uL APTT 34.1 H (22.0-30.0) sec Chloride 109 H (98-107) mmol/L Glucose 112 H (74-99) mg/dL ALT 45 H (4-34) U/L Thrombosis Risk Factor Assmnt - DVT/VTE Prophylaxis DVT/VTE Prophylaxis: Pharmacologic Prophylaxis ordered - Choose All That Apply Each Factor Represents 1 point: Abnormal pulmonary function (COPD), Serious lung disease incl. pneumonia (< 1month) Other Risk Factors: Yes Each Risk Factor Represents 2 Points: Age 61-74 years Other congenital or acquired thrombophilia - If yes, enter type in comment: No Thrombosis Risk Factor Assessment Total Risk Factor Score: 4 Thrombosis Risk Factor Assessment Level: Moderate Risk Assessment and Plan Assessment: Shortness of breath secondary to acute severe persistent asthma acute COPD exacerbation. No prior history of PFTs Nodular density left midlung and right lower lobe possible pneumonia Uncontrolled hypertension Anxiety Current everyday smoker History of cocaine laced with fentanyl overdose in December 2022 Polysubstance use Occasional marijuana use Currently everyday smoker Obesity with BMI 36.0 DVT prophylaxis with heparin subcu Plan: Patient will be continued on IV Solu-Medrol 60 mg every 6 hourly continue the DuoNebs and Pulmicort inhalation was added. Patient will be continued on metoprolol and add Norvasc for better blood pressure control. Patient has allergy to losartan. Continue with oxygen supplementation as needed. Can with antibiotics ceftriaxone azithromycin. Procalcitonin level was ordered. Follow-up CBC and BMP and sputum cultures. Smoking cessation has been counseled extensively. Time with Patient: Greater than 30
[2022-06-28] MEDS: methylPREDNISolone SOD SUCCI 125 MG/2 ML VIAL IV SCH ×4 (05:18→23:46)
[2022-06-28 06:25] LABS: Basophils % (A) 0 %; Eosinophils % (A) 0 %; HGB 13.2 gm/dL (11.4-16.0); Lymphocytes # (A) 0.6 k/uL (1.0-4.8); Lymphocytes % (A) 11 %; MCH 31.5 pg (25.0-35.0); MCHC 33.8 g/dL (31.0-37.0); MCV 93.3 fL (80.0-100.0); Mean Platelet Volume 9.5; Monocytes # (A) 0.1 k/uL (0-1.0); Monocytes % (A) 2 %; Neutrophils # (A) 4.8 k/uL (1.3-7.7); Neutrophils % (A) 86 %; Platelet Count 113 k/uL (150-450); RBC 4.18 m/uL (3.80-5.40); RDW 13.1 % (11.5-15.5); WBC 5.5 k/uL (3.8-10.6)
[2022-06-28 06:34] LABS: African American GFR (CKD) 85 (>60 ml/min/1.73 sqM); Anion Gap 5 mmol/L; Blood Urea Nitrogen 19 mg/dL (7-17); Calcium 9.4 mg/dL (8.4-10.2); Carbon Dioxide 29 mmol/L (22-30); Chloride 107 mmol/L (98-107); Glucose 147 mg/dL (74-99); Non-African American GFR(CKD) 74 (>60 ml/min/1.73 sqM); Sodium 141 mmol/L (137-145)
[2022-06-28] MEDS ORDERED: BUDESONIDE 0.5 MG/2 ML NEBU INHALATION SCH ×2 (08:00→20:00)
[2022-06-28] MEDS: PANTOPRAZOLE 40 MG TABLET PO SCH (08:40)
[2022-06-28] MEDS: AZITHROMYCIN 500 MG TAB PO SCH (08:40)
[2022-06-28] MEDS: ALPRAZolam 0.5 MG TAB PO PRN ×2 (08:40→23:46)
[2022-06-28] MEDS: METOPROLOL SUCCINATE (ER) 50 MG TAB.ER.24H PO SCH (08:41)
[2022-06-28] MEDS: NICOTINE 14MG/24HR PATCH TRANSDERM SCH (08:41)
[2022-06-28] MEDS: amLODIPine 5 MG TAB PO SCH (08:41)
[2022-06-28] MEDS: IPRATROPIUM-ALBUTEROL 3 ML NEB INHALATION PRN ×3 (09:09→22:13)
[2022-06-28] MEDS: ACETAMINOPHEN TAB 500 MG TAB PO PRN ×2 (13:47→22:45)
--- NOTE | 2022-06-28 13:57 | P.CNPUL ---
History of Present Illness Consult date: 06/28/22 Requesting physician: Telma Potts Reason for consult: dyspnea, cough, asthma, pneumonia, abnormal CXR/CT Chief complaint: Shortness of breath, wheezing, chest congestion. History of present illness: Pulmonary consult dated 06/28/2022. 62-year-old female seen today in consultation, room 450. The reason for consultation shortness of breath. The patient presented to the emergency department on June 26. She apparently was complaining of shortness of breath, from the previous Sunday. The patient does have a history of chronic bronchial asthma, and hypertension. The patient complained of sweats, off, which is mostly nonproductive, wheezing, and shortness of breath. In addition, the patient had an elevated blood pressure. For this reason, the consultation was initiated. Currently, she is on room air. She's not receiving any IV fluids. Her primary care provider is Dr. Potts. The patient does have about a 15 year history of tobacco use. Other medical history includes gastroesophageal reflux disease, hypertension, rheumatoid arthritis, and chronic back pain. The patient also suffers from anxiety. White count 5.5, hemoglobin 13.2, hematocrit 39, and platelet count 113,000. D-dimer was normal at 0.41. Sodium 141, potassium 5, chlorides 107, CO2 29, BUN 19, creatinine 0.8. Troponin was less than 0.012. N-terminal proBNP was normal. Urine was negative. Testing for influenza, RSV, and coronavirus are all negative. Chest x-ray shows minimal abnormalities in the right and left lung. These areas could be developing pneumonitis, or relate to atelectasis. Review of Systems REVIEW OF SYSTEMS: CONSTITUTIONAL: Chills. NEUROLOGIC: [ Negative.] HEENT: [ Negative.] CARDIAC: [Negative.] PULMONARY: Shortness of breath, nonproductive cough, chest congestion. GI: [Negative.] : [Negative.] RHEUMATOLOGIC: [ Negative.] IMMUNOLOGIC: [ Negative.] ENDOCRINE: [Negative. ] DERMATOLOGIC: [Negative.] Past Medical History Past Medical History: Asthma, Chest Pain / Angina, GERD/Reflux, Hypertension, Liver Disease, Rheumatoid Arthritis (RA) Additional Past Medical History / Comment(s): irregular heart rate. 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 Hepatitis C. In December Overdosed after doing cocaine laced with fentanyl. Has quit cocaine since then but smokes marijauana intermitently. History of Any Multi-Drug Resistant Organisms: None Reported Past Surgical History: Hysterectomy, Joint Replacement, Orthopedic Surgery, Tonsillectomy Additional Past Surgical History / Comment(s): lt hip fx 07/05 with pins and screws. lt knee replacement x2. rt ring finger with screws. rt thumb I&D Past Anesthesia/Blood Transfusion Reactions: No Reported Reaction Additional Past Anesthesia/Blood Transfusion Reaction / Comment(s): previous blood transfusion with reaction Past Psychological History: Anxiety Smoking Status: Current every day smoker Past Alcohol Use History: Occasional Additional Past Alcohol Use History / Comment(s): smoked 20 years 1/2ppd quit 06/22/18 Past Drug Use History: Cocaine, Marijuana Additional Drug Use History / Comment(s): cbd, edibles, quit cocaine in December 2021 - Past Family History Sister(s) Family Medical History: Coronary Artery Disease (CAD) Additional Family Medical History / Comment(s): born with hole in main valve surgery 8th grade, cabg x2 during 2nd open heart age 34 Father Family Medical History: Cancer, Myocardial Infarction ([place]) Additional Family Medical History / Comment(s): from colon cancer Mother Family Medical History: Cancer Additional Family Medical History / Comment(s): from lung cancer Medications and Allergies Home Medications Medication Instructions Recorded Confirmed Type ALPRAZolam [Xanax] 0.5 mg PO TID PRN 04/30/19 06/26/22 History Albuterol Inhaler [Ventolin Hfa 1 - 2 puff INHALATION RT-Q6H PRN 04/30/19 06/26/22 History Inhaler] Metoprolol Tartrate [Lopressor] 50 mg PO DAILY 04/30/19 06/26/22 History Nitroglycerin Sl Tabs [Nitrostat] 0.4 mg SUBLINGUAL Q5M PRN 04/30/19 06/26/22 History Pantoprazole Sodium [Protonix] 40 mg PO DAILY 04/30/19 06/26/22 History Diclofenac Sodium Gel [Voltaren 1 applic TOPICAL QID PRN 06/26/22 06/26/22 History Gel] Allergies Allergy/AdvReac Type Severity Reaction Status Date / Time adhesive tape Allergy Rash/Hives Verified 06/26/22 12:58 amoxicillin Allergy Rash/Hives Verified 06/26/22 21:15 losartan Allergy Swelling Verified 06/27/22 17:32 valsartan AdvReac Swelling Verified 06/27/22 17:34 Physical Exam Osteopathic Statement: *. No significant issues noted on an osteopathic structural exam other than those noted in the History and Physical/Consult. Vitals: Vital Signs Temp Pulse Pulse Resp BP Pulse Ox 06/28/22 13:38 86 06/28/22 13:18 75 20 06/28/22 09:21 97 06/28/22 09:10 84 06/28/22 08:08 74 19 06/28/22 07:05 97.8 F 74 19 145/79 94 L 06/28/22 01:54 98 F 62 100/69 96 06/27/22 20:54 80 06/27/22 20:42 80 06/27/22 20:07 98.2 F 82 17 137/80 94 L 06/27/22 19:57 82 17 06/27/22 19:00 98 F 71 17 152/89 95 06/27/22 18:30 70 137/82 100 06/27/22 16:45 88 06/27/22 16:31 88 Intake and Output 06/27/22 06/28/22 06/28/22 22:59 06:59 14:59 Intake Total 236 Balance 236 Intake: Oral 236 Other: Voiding Method Toilet Toilet # Voids 2 3 No acute distress, oriented 3. Probable wheezing, use of accessory muscles, or conversational dyspnea. The patient is currently on room air. HEENT examination is grossly unremarkable. Neck supple. Full range of motion. No adenopathy thyromegaly or neck vein distention. Cardiovascular examination reveals regular rhythm rate. S1-S2 normal. No S3 or S4. No discernible murmur noted. Heart rate is 86 bpm. Lungs reveal inspiratory and expiratory wheezes. No rhonchi. No crackles. Breath sounds equal. Saturations are 94% on room air. Abdomen soft bowel sounds are heard. No masses or tenderness. Extremities are intact. No cyanosis clubbing or edema. Skin is without rash or lesion. Neurologic examination is brief but nonfocal. Results - Laboratory Findings CBC and BMP: 06/28/22 05:04 06/28/22 05:04 PT/INR, D-dimer PT 10.0 sec (9.0-12.0) 06/26/22 12:56 INR 0.9 (<1.2) 06/26/22 12:56 D-Dimer 0.41 mg/L FEU (<0.60) 06/26/22 12:56 Abnormal lab findings: Abnormal Labs 06/26/22 06/26/22 06/26/22 12:56 12:56 12:56 WBC 3.3 L Plt Count 99 L Lymphocytes # APTT 34.1 H Chloride 109 H BUN Glucose 112 H ALT 45 H 06/28/22 06/28/22 05:04 05:04 WBC Plt Count 113 L Lymphocytes # 0.6 L APTT Chloride BUN 19 H Glucose 147 H ALT - Diagnostic Findings Chest x-ray: image reviewed Assessment and Plan Assessment: Shortness of breath, likely related to acute bronchitis, plus or minus bronchopneumonia. Rule out underlying COPD, from previous and ongoing tobacco use. History of chronic bronchial asthma. History of gastroesophageal reflux disease. History of hypertension. History of anxiety. History of chronic tobacco use. Plan: Plan dated 06/28/2022. The patient may have a developing bronchopneumonia. A pro-calcitonin level will be ordered. Currently, the patient's getting Rocephin, as well as Solu-Medrol, nicotine patch, and budesonide. In addition, the patient is getting DuoNeb's. We will add a long-acting beta agonist to the regimen, and increase the Pulmicort 1 mg. We will check a pro-calcitonin level. Additional recommendations and suggestions are forthcoming. The patient is counseled about the importance of smoking cessation. Time with Patient: Greater than 30
--- NOTE | 2022-06-28 21:41 | P.PN ---
Subjective Progress Note Date: 06/28/22 Patient is a 62-year-old female with a known history of asthma, current everyday smoker, anxiety, hypertension, rheumatoid arthritis, hepatitis C and history of drug overdose in December after doing cocaine laced with fentanyl and currently everyday smoker presents to ER with complaints of worsening shortness of breath for the past 2 days. Patient has been having cough but unable to bring out sputum. Denies any fever or chills. No nausea vomiting abdominal pain or diarrhea. Patient states that she was having chest tightness and unable to breathing and tried albuterol inhaler at home., Without much relief. Patient also states that her blood pressure has been elevated recently and was on follow-up with her physician. She was given multiple medications and recently was started on a diuretic. Chest x-ray showed areas of nodular density left midlung zone and right lower lobe, reflecting developing infiltrate. Follow-up until resolution is advised. EKG showed sinus rhythm Laboratory showed WBC 3.3 hemoglobin 13.9 and platelets 99 D-dimer is 0.40 Sodium 140 potassium 4.6 chloride 109 bicarb is 27 BUN 16 and creatinine 0.73 AST 30 ALT 45 alk phos 67 proBNP 45 Urinalysis negative for infection Influenza A B and RSV PCR and COVID-19 PCR not detected. 06/28/2022 Patient is seen and evaluated in follow-up today continues to have wheezing and reports she does not feel much improved. Patient maintained on steroids along with breathing treatments and ceftriaxone and will consult pulmonary and appreciate input and recommendations. Patient does continue to use tobacco in again encouraged complete tobacco cessation. Patient is afebrile maintained on IV antibiotics while waiting protocol calcitonin which is currently pending. Patient has completed Zithromax and is continued on ceftriaxone. Patient is room air although does report shortness of breath during coughing spells. Gricel ent reports does not use oxygen in the outpatient setting. Patient denies chest pain or palpitations. Patient is tolerating diet no reports of nausea or vomiting noted. Encouraged increased activity as tolerated. Review of systems: Constitutional: No reports of fatigue, fever, or chills Cardiovascular: No reports of chest pain or palpitations Respiratory: reports of shortness of breath and continued cough GI: No reports of nausea, vomiting, or diarrhea : No reports of dysuria or retention Neurovascular: No reports of weakness or numbness All medications have been reviewed Active Medications Acetaminophen (Acetaminophen Tab 500 Mg Tab) 500 mg PO Q4HR PRN PRN Reason: Fever and/ or Pain Last Admin: 06/28/22 13:47 Dose: 500 mg Albuterol/Ipratropium (Ipratropium-Albuterol 3 Ml Neb) 3 ml INHALATION RT-Q4H PRN PRN Reason: shortness of breath Last Admin: 06/28/22 13:37 Dose: 3 ml Alprazolam (Alprazolam 0.5 Mg Tab) 0.5 mg PO TID PRN PRN Reason: Anxiety Last Admin: 06/28/22 08:40 Dose: 0.5 mg Amlodipine Besylate (Amlodipine 5 Mg Tab) 5 mg PO DAILY ON LICENSE OF [facility] Last Admin: 06/28/22 08:41 Dose: 5 mg Budesonide (Budesonide 1 Mg/2 Ml Nebu) 1 mg INHALATION RT-BID ON LICENSE OF [facility] Formoterol Fumarate (Formoterol Fumarate 20 Mcg/2 Ml Nebu) 20 mcg INHALATION RT -BID ON LICENSE OF [facility] Heparin Sodium (Porcine) (Heparin Sodium,Porcine/Pf 5,000 Unit/0.5 Ml Syringe) 5,000 unit SQ Q8HR ON LICENSE OF [facility] Last Admin: 06/28/22 15:04 Dose: Not Given Ceftriaxone Sodium 2 gm/ (Sodium Chloride) 50 mls @ 100 mls/hr IVPB Q24HR ON LICENSE OF [facility]; Protocol Stop: 06/30/22 09:29 Last Admin: 06/28/22 08:41 Dose: 100 mls/hr Methylprednisolone Sodium Succinate (Methylprednisolone Sod Succi 125 Mg/2 Ml Vial) 60 mg IV Q6HR ON LICENSE OF [facility] Last Admin: 06/28/22 12:44 Dose: 60 mg Metoprolol Succinate (Metoprolol Succinate (Er) 50 Mg Tab.Er.24h) 50 mg PO DAILY ON LICENSE OF [facility] Last Admin: 06/28/22 08:41 Dose: 50 mg Miscellaneous Information (Pneumonia Protocol Utilized 1 Each Misc) 1 each PO ONCE PRN PRN Reason: Per Protocol Nicotine (Nicotine 14mg/24hr Patch) 1 patch TRANSDERM DAILY ON LICENSE OF [facility] Last Admin: 06/28/22 08:41 Dose: 1 patch Nitroglycerin (Nitroglycerin Sl Tabs 0.4 Mg Tab) 0.4 mg SUBLINGUAL Q5M PRN PRN Reason: Chest Pain Pantoprazole Sodium (Pantoprazole 40 Mg Tablet) 40 mg PO DAILY ON LICENSE OF [facility] Last Admin: 06/28/22 08:40 Dose: 40 mg PHYSICAL EXAMINATION: Patient is sitting up in the bed, no acute distress, awake alert and oriented.. Obese HEENT: Normocephalic. Neck is supple. Pupils reactive. Nostrils clear. Oral cavity is moist. Neck reveals no JVD, carotid bruits, or thyromegaly. CHEST EXAMINATION: Trachea is central. Symmetrical expansion. Bilateral diffuse wheezing with inspiration and expiration along with coarse rhonchi. Nonlabored breathing. CARDIAC: Normal S1, S2 with no gallops. No murmurs ABDOMEN: Soft. Obese. Bowel sounds present. Nontender. No organomegaly. No abdominal bruits. Extremities: reveal no edema. No clubbing or cyanosis Neurologically awake, alert, oriented x3 with well-coordinated movements. No focal deficits noted Skin: No rash or skin lesions. Psychiatric: Patient is anxious and agitated although somewhat improved today Musculoskeletal: No joint swelling or deformity. Normal range of motion. Assessment: Shortness of breath secondary to acute severe persistent asthma acute COPD exacerbation. No prior history of PFTs Nodular density left midlung and right lower lobe possible pneumonia Uncontrolled hypertension Anxiety Continued ongoing nicotine dependence History of cocaine laced with fentanyl overdose in December 2022 Polysubstance use Occasional marijuana use Obesity with BMI 36.0 DVT prophylaxis with heparin subcu Plan: Patient will be continued on IV Solu-Medrol 60 mg every 6 hourly continue the DuoNebs and Pulmicort inhalation was added. Recommend pulmonary consultation appreciate input and recommendations. Patient reports she follows with Dr. Lan outpatient Patient will be continued on metoprolol and Norvasc added for better blood pressure control. Patient has allergy to losartan. Continue with oxygen supplementation as needed. Patient is currently not requiring any oxygen and maintaining oxygen saturation above 90% on room air Recommend to continue with antibiotics in the form of ceftriaxone, azithromycin has been completed. Awaiting Procalcitonin level Will follow-up with repeat labs and continue to monitor closely Smoking cessation has been counseled extensively. The impression and plan of care has been dictated by Lou Cisse, Nurse Practitioner as directed. Dr. Melissa MD I have performed a history and examination and MDM of this patient, discussed t he same with the dictator, and agree with the dictator's assessment and plan as written ,documented as a scribe. Based on total visit time, I have performed more than 50% of the visit. Objective - Vital Signs Vital signs: Vital Signs Temp 97.8 F 06/28/22 07:05 Pulse 97 06/28/22 09:21 Resp 19 06/28/22 07:05 BP 145/79 06/28/22 07:05 Pulse Ox 94 L 06/28/22 07:05 FiO2 Intake & Output 06/27/22 06/28/22 06/28/22 18:59 06:59 18:59 Intake Total 236 Balance 236 Intake: Oral 236 Other: Voiding Method Toilet Toilet # Voids 2 3 - Labs CBC & Chem 7: 06/28/22 05:04 06/28/22 05:04 Labs: Abnormal Lab Results - Last 24 Hours (Table) 06/28/22 06/28/22 Range/Units 05:04 05:04 Plt Count 113 L (150-450) k/uL Lymphocytes # 0.6 L (1.0-4.8) k/uL BUN 19 H (7-17) mg/dL Glucose 147 H (74-99) mg/dL Microbiology - Last 24 Hours (Table) 06/26/22 16:30 Blood Culture - Preliminary Blood No Growth after 24 hours 06/26/22 16:52 Blood Culture - Preliminary Blood No Growth after 24 hours
[2022-06-28] MEDS: BUDESONIDE 1 MG/2 ML NEBU INHALATION SCH (22:13)
[2022-06-28] MEDS: FORMOTEROL FUMARATE 20 MCG/2 ML NEBU INHALATION SCH (22:13)
[2022-06-29] MEDS: methylPREDNISolone SOD SUCCI 125 MG/2 ML VIAL IV SCH ×2 (05:25→11:16)
[2022-06-29] MEDS: IPRATROPIUM-ALBUTEROL 3 ML NEB INHALATION PRN ×2 (05:48→09:48)
[2022-06-29] MEDS: ACETAMINOPHEN TAB 500 MG TAB PO PRN (06:43)
[2022-06-29] MEDS: amLODIPine 5 MG TAB PO SCH (08:12)
[2022-06-29] MEDS: NICOTINE 14MG/24HR PATCH TRANSDERM SCH (08:12)
[2022-06-29] MEDS: METOPROLOL SUCCINATE (ER) 50 MG TAB.ER.24H PO SCH (08:12)
[2022-06-29] MEDS: PANTOPRAZOLE 40 MG TABLET PO SCH (08:12)
[2022-06-29] MEDS: HEPARIN SODIUM,PORCINE/PF 5,000 UNIT/0.5 ML SYRINGE SQ SCH ×2 (08:12→08:16)
[2022-06-29] MEDS: FORMOTEROL FUMARATE 20 MCG/2 ML NEBU INHALATION SCH (09:48)
[2022-06-29] MEDS: BUDESONIDE 1 MG/2 ML NEBU INHALATION SCH (09:48)
--- NOTE | 2022-06-29 10:22 | P.PN ---
Subjective Progress Note Date: 06/29/22 Principal diagnosis: Asthma exacerbation. Pulmonary consult dated 06/28/2022. 62-year-old female seen today in consultation, room 450. The reason for consultation shortness of breath. The patient presented to the emergency department on June 26. She apparently was complaining of shortness of breath, from the previous Sunday. The patient does have a history of chronic bronchial asthma, and hypertension. The patient complained of sweats, off, which is mostly nonproductive, wheezing, and shortness of breath. In addition, the patient had an elevated blood pressure. For this reason, the consultation was initiated. Currently, she is on room air. She's not receiving any IV fluids. Her primary care provider is Dr. Potts. The patient does have about a 15 year history of tobacco use. Other medical history includes gastroesophageal reflux disease, hypertension, rheumatoid arthritis, and chronic back pain. The patient also suffers from anxiety. White count 5.5, hemoglobin 13.2, hematocrit 39, and platelet count 113,000. D-dimer was normal at 0.41. Sodium 141, potassium 5, chlorides 107, CO2 29, BUN 19, creatinine 0.8. Troponin was less than 0.012. N-terminal proBNP was normal. Urine was negative. Testing for influenza, RSV, and coronavirus are all negative. Chest x-ray shows minimal abnormalities in the right and left lung. These areas could be developing pneumonitis, or relate to atelectasis. Progress note dated 06/29/2022. 62-year-old female seen today in room 450. She was seen in consultation yesterday, June 28. Currently, the patient's on room air. The patient's pro- calcitonin level was 0.05, so antibiotics were discontinued. She's not receiving any IV fluids. We do have her on bronchodilators, and corticosteroids. The patient was quite angry this morning because apparently she did not get breathing treatments last night. No new labs today. Objective - Vital Signs Vital signs: Vital Signs Temp 97.9 F 06/29/22 07:01 Pulse 78 06/29/22 10:03 Resp 17 06/29/22 08:00 BP 135/96 06/29/22 07:01 Pulse Ox 98 06/29/22 09:48 FiO2 Intake & Output 06/28/22 06/29/22 06/29/22 18:59 06:59 18:59 Intake Total 236 240 Balance 236 240 Intake: Oral 236 240 Other: Voiding Method Toilet Toilet # Voids 2 2 - Exam No acute distress, oriented 3. The patient's currently on room air. No audible wheezing, use of accessory muscles. No conversational dyspnea. HEENT examination is grossly unremarkable. Neck supple. Full range of motion. No adenopathy thyromegaly or neck vein distention. Cardiovascular examination reveals regular rhythm rate. S1-S2 normal. No S3 or S4. No discernible murmur noted. Heart rate is 80 bpm. Lungs reveal inspiratory and expiratory wheezes. No rhonchi. No crackles. Breath sounds equal. Saturations are 98 % on room air. Abdomen soft bowel sounds are heard. No masses or tenderness. Extremities are intact. No cyanosis clubbing or edema. Skin is without rash or lesion. Neurologic examination is brief but nonfocal. - Labs CBC & Chem 7: 06/28/22 05:04 06/28/22 05:04 Labs: Microbiology - Last 24 Hours (Table) 06/26/22 16:30 Blood Culture - Preliminary Blood No Growth after 48 hours 06/26/22 16:52 Blood Culture - Preliminary Blood No Growth after 48 hours Assessment and Plan Assessment: Shortness of breath, likely related to acute exacerbation of asthma, likely triggered by viral infection, without clear-cut evidence of bacterial infection. Rule out underlying COPD, from previous and ongoing tobacco use. History of chronic bronchial asthma. History of gastroesophageal reflux disease. History of hypertension. History of anxiety. History of chronic tobacco use. Plan: Plan dated 06/28/2022. The patient may have a developing bronchopneumonia. A pro-calcitonin level will be ordered. Currently, the patient's getting Rocephin, as well as Solu-Medrol, nicotine patch, and budesonide. In addition, the patient is getting DuoNeb's. We will add a long-acting beta agonist to the regimen, and increase the Pulmicort 1 mg. We will check a pro-calcitonin level. Additional recommen dations and suggestions are forthcoming. The patient is counseled about the importance of smoking cessation. Plan dated 06/29/2022. The patient's pro-calcitonin level was quite low. Hence, antibiotics were discontinued. The patient's on room air. She's not receiving any IV fluids. Today, we'll change her updrafts a bit, says that she's getting them or times a day, and as needed. All the other medications are appropriate. We will continue to follow this patient and make recommendations along the way. Prognosis is guarded. Time with Patient: Less than 30
--- NOTE | 2022-06-29 10:39 | XR ---
EXAMINATION TYPE: XR chest 2V DATE OF EXAM: 06/29/2022 COMPARISON: 06/26/2022 HISTORY: Shortness of breath TECHNIQUE: Frontal and lateral views of the chest are obtained. FINDINGS: Scattered senescent parenchymal changes noted. Hyperinflation compatible with COPD. Patchy infiltrate right lower lobe persists essentially unchanged. Improved aeration left midlung zon e. Heart size is stable. Mediastinal structures are stable and grossly unremarkable. No evidence for hilar prominence. Degenerative changes dorsal spine. IMPRESSION: 1. Patchy infiltrate right lower lobe persists essentially unchanged. Improved aeration left midlung zone.
[2022-06-29] MEDS: ALPRAZolam 0.5 MG TAB PO PRN (11:13)
[2022-06-29 11:15] LABS: African American GFR (CKD) 78.3 (60.0-200.0); Anion Gap 10.7 mmol/L (10.00-18.00); BUN/Creat Ratio 24.22 Ratio (12.00-20.00); Blood Urea Nitrogen 21.8 mg/dL (9.0-27.0); Calcium 9.4 mg/dL (8.7-10.3); Carbon Dioxide 24.3 mmol/L (20.0-27.5); Non-African American GFR(CKD) 67.6 (60.0-200.0); Potassium 4.5 mmol/L (3.5-5.5)
[2022-06-29] MEDS ORDERED: IPRATROPIUM-ALBUTEROL 3 ML NEB INHALATION SCH (12:00)
[2022-06-29 14:30] VITALS: BP 183/128; PULSE 94; RESP 18; TEMP 97.1
--- NOTE | 2022-06-30 14:35 | CDI ---
Documentation Clarification Form Date: 06/30/2022 1:58:03 PM From: Africa Landry Admit Date: 06/26/2022 4:37:00 PM Patient Name: Alisa Cain Visit Number: [id number] Discharge Date: 06/29/2022 3:13:00 PM ATTENTION: The Clinical Documentation Specialists (CDI) and [facility] Coding Staff appreciate your assistance in clarifying documentation. Please respond to the clarification below the line at the bottom and electronically sign. The CDI & [facility] Coding staff will review the response and follow-up if needed. Please note: Queries are made part of the Legal Health Record. If you have any questions, please contact the author of this message via ITS. Dr. Madisyn Torres Conflicting documentation has been found in the medical record. As attending physician, please provide clarification regarding pneumonia. 06/27/22 H&P states acute severe persistent asthma, acute COPD exacerbation, possible right lower lobe pneumonia 06/28/22 Pulmonology Consult states SOB likely related to acute bronchitis, plus or minus bronchopneumonia, rule out underlying COPD, history of chronic bronchial asthma 06/29/22 Progress note states SOB likely related to acute asthma exacerbation, likely triggered by viral infection. History/Risk Factors: patient is a 62 year old female who presented with SOB, has a history of chronic bronchial asthma, hypertension, GERD, rheumatoid arthritis, anxiety, and chronic back pain Clinical Indicators: presented with SOB, has elevated blood pressure, has a 15 year hx of tobacco use, pro-calcitonin level was 0.05 so antibiotics were discontinued Chest xray 06/26: "areas of nodular density left mid lung zone and right lower lobe may reflect developing infiltrate" chest xray 06/29: "patchy infiltrate right lower lobe persists essentially unchanged" WBC: 3.3 Treatment: rocephin, solumedrol, nicotine patch, and budesonide, long acting beta agonist, pulmicort. Antibiotics were d/claudia after pro- calcitonin level was found to be low Please clarify which diagnosis is most appropriate: [ ] Bronchopneumonia [ ] Pneumonia - viral [ x ] Pneumonia ruled out [ ] Other (please specify) [ ] Unable to determine MTDD
--- NOTE | 2022-06-30 14:36 | CDI ---
Date: 06/30/2022 1:58:03 PM From: Africa Landry Admit Date: 06/26/2022 4:37:00 PM Patient Name: Alisa Cain Visit Number: [id number] Discharge Date: 06/29/2022 3:13:00 PM ATTENTION: The Clinical Documentation Specialists (CDI) and [facility] Coding Staff appreciate your assistance in clarifying documentation. Please respond to the clarification below the line at the bottom and electronically sign. The CDI & [facility] Coding staff will review the response and follow-up if needed. Please note: Queries are made part of the Legal Health Record. If you have any questions, please contact the author of this message via ITS. Dr. Madisyn Torres Conflicting documentation has been found in the medical record. As attending physician, please provide clarification regarding acute bronchitis. 06/28/22 Pulmonology Consult states SOB likely related to acute bronchitis, plus or minus bronchopneumonia, rule out underlying COPD, history of chronic bronchial asthma 06/29/22 Progress note states SOB likely related to acute asthma exacerbation, likely triggered by viral infection. History/Risk Factors: patient is a 62 year old female who presented with SOB, has a history of chronic bronchial asthma, hypertension, GERD, rheumatoid arthritis, anxiety, and chronic back pain Clinical Indicators: presented with SOB, has elevated blood pressure, has a 15 year hx of tobacco use, pro-calcitonin level was 0.05 so antibiotics were discontinued Chest xray 06/26: "areas of nodular density left mid lung zone and right lower lobe may reflect developing infiltrate" chest xray 06/29: "patchy infiltrate right lower lobe persists essentially unchanged" Treatment: rocephin, solumedrol, nicotine patch, and budesonide, long acting beta agonist, pulmicort. Antibiotics were d/claudia after pro- calcitonin level was found to be low Please clarify which diagnosis is most appropriate: [ x ] Acute Bronchitis with Chronic bronchial asthma [ ] Chronic bronchial asthma [ ] Other (please specify) [ ] Unable to determine MTDD
--- NOTE | 2022-07-02 18:16 | P.DS ---
Providers Date of admission: 06/26/22 16:37 Expected date of discharge: 06/29/22 Attending physician: Madisyn Torres Consults: 06/28/22 12:22 Consult Physician Urgent Consulting Provider: Fernando Diaz Consult Reason/Comments: asthma exac/ shortness of breath Do you want consulting provider notified?: Yes Primary care physician: Telma Potts Hospital Course: Final diagnosis Shortness of breath secondary to Acute bronchitis with chronic bronchial asthma acute COPD exacerbation. No prior history of PFTs Nodular density left midlung , pneumonia ruled out, procalcitonin was low Uncontrolled hypertension Anxiety Continued ongoing nicotine dependence History of cocaine laced with fentanyl overdose in December 2022 Polysubstance use Occasional marijuana use Obesity with BMI 36.0 DVT prophylaxis Discharge disposition Patient is being discharged in a stable condition with guarded prognosis to home. Patient will follow-up with Dr. Potts in the outpatient setting upon discharge. Patient is to continue with prednisone taper and outpatient follow- up with pulmonary for further testing as scheduled. Total time taken is greater than 35 minutes. Hospital course This is a 62-year-old female who was recently admitted with increasing shortness of breath with concerns of bronchial asthma exacerbation COPD significant tobacco use history. Patient continues to smoke and strongly encouraged some tobacco cessation. Patient has pulmonary for outpatient follow-up. Please refer to pulmonary notes for further HPI. Currently no reports of chest pain, shortness of breath, or palpitations. Patient is afebrile. No reports of nausea or vomiting and patient is tolerating diet. Patient will be discharged home today. Physical exam: Gen: This is a 62-year-old female who is awake, alert and oriented 3, well- developed, well-nourished, obese HEENT: Head is atraumatic, normocephalic. Pupils equal, round. Sclerae is anicteric. NECK: Supple. No JVD. No lymphadenopathy. No thyromegaly. LUNGS: Diminished breath sounds bilaterally with some scattered rhonchi. No intercostal retractions. HEART: Regular rate and rhythm. No murmur. ABDOMEN: Soft. obese. Bowel sounds are present. No masses. No tenderness. EXTREMITIES: No pedal edema. No calf tenderness. NEUROLOGICAL: Patient is awake, alert and oriented x3. Cranial nerves 2 through 12 are grossly intact. Please refer to medication reconciliation sheet for a list of medications. The impression and plan of care has been dictated by Lou Cisse, Nurse Practitioner as directed. Dr. Melissa MD I have performed a history and examination and MDM of this patient, discussed the same with the dictator, and agree with the dictator's assessment and plan as written ,documented as a scribe. Based on total visit time, I have performed more than 50% of the visit. Patient Condition at Discharge: Fair Plan - Discharge Summary Discharge Rx Participant: No New Discharge Prescriptions: New Ipratropium-Albuterol Nebulize [Duoneb 0.5 mg-3 mg/3 ml Soln] 3 ml INHALATION RT-QID #100 each amLODIPine [Norvasc] 5 mg PO DAILY 30 Days #30 tab predniSONE 10 mg PO DIRECTED #30 tab Ipratropium-Albuterol Nebulize [Duoneb 0.5 mg-3 mg/3 ml Soln] 3 ml INHALATION RT-Q4H PRN each PRN Reason: shortness of breath Nicotine 14Mg/24Hr Patch [Habitrol] 1 patch TRANSDERM DAILY #30 patch Budesonide [Pulmicort] 1 mg INHALATION RT-BID #60 each Acetaminophen Tab [Tylenol] 500 mg PO Q4HR PRN tab PRN Reason: Fever And/ Or Pain Continue Albuterol Inhaler [Ventolin Hfa Inhaler] 1 - 2 puff INHALATION RT-Q6H PRN PRN Reason: Shortness Of Breath ALPRAZolam [Xanax] 0.5 mg PO TID PRN PRN Reason: Anxiety Pantoprazole Sodium [Protonix] 40 mg PO DAILY Nitroglycerin Sl Tabs [Nitrostat] 0.4 mg SUBLINGUAL Q5M PRN PRN Reason: Chest Pain Metoprolol Tartrate [Lopressor] 50 mg PO DAILY Diclofenac Sodium Gel [Voltaren Gel] 1 applic TOPICAL QID PRN PRN Reason: Pain Discharge Medication List ALPRAZolam [Xanax] 0.5 mg PO TID PRN 04/30/19 [History] Albuterol Inhaler [Ventolin Hfa Inhaler] 1 - 2 puff INHALATION RT-Q6H PRN 04/30/19 [History] Metoprolol Tartrate [Lopressor] 50 mg PO DAILY 04/30/19 [History] Nitroglycerin Sl Tabs [Nitrostat] 0.4 mg SUBLINGUAL Q5M PRN 04/30/19 [History] Pantoprazole Sodium [Protonix] 40 mg PO DAILY 04/30/19 [History] Diclofenac Sodium Gel [Voltaren Gel] 1 applic TOPICAL QID PRN 06/26/22 [History] Acetaminophen Tab [Tylenol] 500 mg PO Q4HR PRN tab 06/29/22 [Rx] Budesonide [Pulmicort] 1 mg INHALATION RT-BID #60 each 06/29/22 [Rx] Ipratropium-Albuterol Nebulize [Duoneb 0.5 mg-3 mg/3 ml Soln] 3 ml INHALATION RT-Q4H PRN each 06/29/22 [Rx] Ipratropium-Albuterol Nebulize [Duoneb 0.5 mg-3 mg/3 ml Soln] 3 ml INHALATION RT-QID #100 each 06/29/22 [Rx] Nicotine 14Mg/24Hr Patch [Habitrol] 1 patch TRANSDERM DAILY #30 patch 06/29/22 [Rx] amLODIPine [Norvasc] 5 mg PO DAILY 30 Days #30 tab 06/29/22 [Rx] predniSONE 10 mg PO DIRECTED #30 tab 06/29/22 [Rx] Follow up Appointment(s)/Referral(s): Telma Potts MD [Primary Care Provider] - 1-2 days Vani Lan MD [STAFF PHYSICIAN] - 1 Week Cathleen Erazo MD [STAFF PHYSICIAN] - 2 Weeks (call and make appointment) Activity/Diet/Wound Care/Special Instructions: Activity Limited until follow-up Follow-up with primary care provider on discharge Follow-up with pulmonary outpatient in 1-2 weeks continue taking medications as prescribed Strongly encourage complete tobacco cessation and avoiding tobacco exposure Discharge Disposition: HOME SELF-CARE
== END 2022-06-29 15:13 | disposition home or self-care (01) ==
LOC: EC 11:44 → INTOOBSV 16:37 → 4SSUR 16:37 → UNDODISIN 06-29 15:13
PROVIDERS: ADMIT Internal Medicine; ATTEND Internal Medicine
DX: J20.9 Acute bronchitis, unspecified (principal); J44.0 Chronic obstructive pulmonary disease with (acute) lower respiratory infection; J44.1 Chronic obstructive pulmonary disease with (acute) exacerbation; I10 Essential (primary) hypertension; K21.9 Gastro-esophageal reflux disease without esophagitis; M06.9 Rheumatoid arthritis, unspecified; F12.90 Cannabis use, unspecified, uncomplicated; F41.9 Anxiety disorder, unspecified; F17.200 Nicotine dependence, unspecified, uncomplicated; K76.9 Liver disease, unspecified; B19.20 Unspecified viral hepatitis C without hepatic coma; E66.9 Obesity, unspecified; Z79.899 Other long term (current) drug therapy; Z90.710 Acquired absence of both cervix and uterus; Z96.652 Presence of left artificial knee joint; Z82.49 Family history of ischemic heart disease and other diseases of the circulatory system; Z80.0 Family history of malignant neoplasm of digestive organs; Z80.1 Family history of malignant neoplasm of trachea, bronchus and lung; Z63.4 Disappearance and death of family member; Z20.822 Contact with and (suspected) exposure to COVID-19; Z88.0 Allergy status to penicillin; Z88.8 Allergy status to other drugs, medicaments and biological substances; Z68.36 Body mass index [BMI] 36.0-36.9, adult
CPT/HCPCS: 96376 ×5; 96366 ×3; 96372; 96365 ×2; 96367; 96375; 99291; 36415; 94640 ×8; 94760 ×2; 93005; 85379; 83880; 80053; 80048 ×2; 82550; 83605; 83735; 84484; 85025 ×2; 85610; 85730; 81003; 87040; 84145; 87636; 71046 ×2; G0378 ×4; S4990 ×3; J2930 ×4; J0456; J0696 ×4; J3475; J1885; J1644; 96368

== ENCOUNTER → 2022-07-14 | Outpatient (CLI) | payer MEDICARE, OTHER ==
--- NOTE | 2022-07-14 13:46 | XR ---
EXAMINATION TYPE: XR chest 2V DATE OF EXAM: 07/14/2022 COMPARISON: 06/29/2022 TECHNIQUE: PA and lateral views submitted. HISTORY: Cough FINDINGS: There remains vague peripheral lung patchy infiltrate right lower lobe. Left lung is clear. Atheroscl erotic change aorta.. Heart size normal and no overt failure. Osseous structures demonstrate hypertr ophic and degenerative changes of the spine. Hyperinflation. IMPRESSION: 1. There is improvement in the area of the suspected peripheral infiltrate which does persist within the right lower lobe. Correlate clinically. 2. Correlate for COPD.
== END | disposition home or self-care (01) ==
LOC: RADXRMAIN 12:38
PROVIDERS: ATTEND Internal Medicine
DX: R05.9 Cough, unspecified (principal); Z87.01 Personal history of pneumonia (recurrent)
CPT/HCPCS: 71046

== ENCOUNTER → 2022-08-04 | Outpatient (CLI) | payer MEDICARE, OTHER ==
--- NOTE | 2022-08-04 08:27 | CT ---
EXAMINATION TYPE: CT abdomen w con DATE OF EXAM: 08/04/2022 COMPARISON: Correlation CT chest 07/25/2022 HISTORY: 62 year-old female R68.69, abnormal clinical findings, Abnormal findings on chest CT. TECHNIQUE: Contiguous axial scanning of the abdomen following administration of 100 ml Isovue 300 IV contrast. Delayed images through the kidneys and coronal/sagittal reconstructions performed. CT DLP: 1287.7 mGycm Automated exposure control for dose reduction was used. FINDINGS: Normal size without pericardial effusion. Lung bases clear without pleural effusion. Redemonstrated 4.0 cm mass posterior right lower lobe with a peripheral nodular discontinuous enhance ment which progressively fills in on the delayed scan, following the blood pool. A second smaller but similar lesion measuring 1.4 cm more centrally inferior right liver lobe equilibrium is on the delay ed scan, likely additional small hemangioma. Portal venous system is patent. No biliary ductal dilata tion. Adrenal glands, kidneys, and pancreas within normal limits. Spleen enlarged at 14.9 cm. No dilated small bowel, free fluid, or free air. No mesenteric or retroperitoneal lymphadenopathy. Mild overall stool burden. Partially visualized normal appendix. Generalized colonic diverticulosis. No pericolic inflammatory change. Mild atherosclerotic calcifications infrarenal abdominal aorta and common iliac arteries. Partially v isualized left ovary. Pelvis not imaged. Bones: Moderate degenerative disc disease mid and lower lumbar spine. Degenerative grade 1 retrolisth esis L2-L3, L3-L4, L4-L5. Grade 1, nearly grade 2 anterolisthesis L5-S1. Hypertrophic facet arthropat hy lower lumbar spine. IMPRESSION: 1. IMAGING CONFIRMS A BENIGN 4.0 CM HEPATIC HEMANGIOMA POSTERIOR RIGHT LIVER LOBE. SUSPECT A SECOND S MALLER HEPATIC HEMANGIOMA MEASURING 1.4 CM MASS CENTRALLY IN THE INFERIOR RIGHT LIVER LOBE. 2. MILD SPLENOMEGALY OF 14.9 CM. CLINICALLY CORRELATE. 3. GENERALIZED COLONIC DIVERTICULOSIS WITHOUT ACUTE DIVERTICULITIS. 4. MODERATE SPONDYLOTIC CHANGE THROUGHOUT THE VISUALIZED MID AND LOWER LUMBAR SPINE. 5. PELVIS NOT IMAGED.
== END | disposition home or self-care (01) ==
LOC: RADCTMAIN 07:08
PROVIDERS: ATTEND Internal Medicine
DX: D18.03 Hemangioma of intra-abdominal structures (principal); R16.1 Splenomegaly, not elsewhere classified; K57.30 Diverticulosis of large intestine without perforation or abscess without bleeding; M47.816 Spondylosis without myelopathy or radiculopathy, lumbar region; R68.89 Other general symptoms and signs
CPT/HCPCS: 74160; Q9967

== ENCOUNTER → 2023-03-27 | Outpatient (CLI) | payer MEDICARE, OTHER ==
--- NOTE | 2023-04-01 14:17 | MM ---
Reason for Exam: Screening (asymptomatic). Last mammogram was performed 2 year(s) and 7 month(s) ago. Patient History: Menarche at age 10. First Full-Term at age 15. Hysterectomy at age 34. Maternal cousin had breast cancer, age 47. Risk Values: Chhaya 5 year model risk: 1.2%. NCI Lifetime model risk: 4.7%. Prior Study Comparison: 01/25/2015 Bilateral Screening Mammogram, [facility]. 04/04/2019 Bilateral Screening Mammogram, [facility]. 08/24/2020 Bilateral Screening Mammogram, [facility]. Tissue Density: There are scattered fibroglandular densities. Findings: Analyzed By CAD. The pattern is symmetrical and stable. No significant interval changes. Benign calcification in the subareolar right breast No suspicious groups of microcalcifications, spiculated or lobular masses, architectural distortion or other secondary signs of malignancy are mammographically apparent. Overall Assessment: Benign, BI-RAD 2 Management: Screening Mammogram of both breasts in 1 year. A negative mammogram report should not preclude additional follow up of suspicious palpable abnormalities. Patient should continue monthly self breast exam. A clinical breast exam by your physician is recommended on an annual basis and results should be correlated with mammographic findings. Electronically signed and approved by: Anuel Mariano D.O. Radiologis
== END | disposition home or self-care (01) ==
LOC: RADMAMWWP 15:08
PROVIDERS: ATTEND Internal Medicine
DX: Z12.31 Encounter for screening mammogram for malignant neoplasm of breast (principal); Z80.3 Family history of malignant neoplasm of breast
CPT/HCPCS: 77067

== ENCOUNTER 2023-04-27 08:13 | Inpatient (IN) | payer MEDICARE, OTHER ==
[2023-04-27] MEDS: IBUPROFEN 600 MG TAB PO STA (09:11)
[2023-04-27] MEDS: methylPREDNISolone SOD SUCCI 125 MG/2 ML VIAL IV STA (09:13)
[2023-04-27] MEDS: SODIUM CHLORIDE 0.9% 500 ML 500 ML IV STA (09:15)
[2023-04-27 09:41] LABS: Basophils % (A) 0 %; Eosinophils % (A) 1 %; HCT 37.5 % (34.0-46.0); Lymphocytes # (A) 0.4 k/uL (1.0-4.8); Lymphocytes % (A) 8 %; MCH 31.6 pg (25.0-35.0); MCHC 34.6 g/dL (31.0-37.0); MCV 91.3 fL (80.0-100.0); Mean Platelet Volume 9.6; Monocytes # (A) 0.3 k/uL (0-1.0); Monocytes % (A) 7 %; Neutrophils # (A) 3.4 k/uL (1.3-7.7); Neutrophils % (A) 82 %; Platelet Count 100 k/uL (150-450); RBC 4.11 m/uL (3.80-5.40); RDW 13.2 % (11.5-15.5); WBC 4.2 k/uL (3.8-10.6)
--- NOTE | 2023-04-27 09:45 | XR ---
EXAMINATION TYPE: XR chest 2V DATE OF EXAM: 04/27/2023 COMPARISON: 07/14/2022 TECHNIQUE: PA and lateral views submitted. HISTORY: Pain FINDINGS: The lungs are clear and there is no pneumothorax, pleural effusion, or focal pneumonia. Heart is enl arged but no overt failure. Osseous structures demonstrate hypertrophic and degenerative changes of t he spine. Underlying COPD. Diffuse osteopenia and arthropathy of the shoulders with previous trauma l eft humerus. IMPRESSION: 1. No acute process. 2. Cardiomegaly correlate for COPD.
[2023-04-27 09:50] LABS: ALT 27 U/L (4-34); AST 28 U/L (14-36); African American GFR (CKD) 81 (>60 ml/min/1.73 sqM); Albumin 3.8 g/dL (3.5-5.0); Alkaline Phosphatase 60 U/L (38-126); Anion Gap 8 mmol/L; Blood Urea Nitrogen 12 mg/dL (7-17); Calcium 9.5 mg/dL (8.4-10.2); Carbon Dioxide 23 mmol/L (22-30); Chloride 108 mmol/L (98-107); Glucose 103 mg/dL (74-99); Magnesium 2.1 mg/dL (1.6-2.3); Non-African American GFR(CKD) 70 (>60 ml/min/1.73 sqM); Potassium 4.1 mmol/L (3.5-5.1); Sodium 139 mmol/L (137-145); Total Protein 6.7 g/dL (6.3-8.2)
[2023-04-27] MEDS: IPRATROPIUM-ALBUTEROL 3 ML NEB INHALATION STA (10:53)
[2023-04-27] MEDS ORDERED: NALOXONE 0.4 MG/ML 1 ML VIAL IV PRN (11:03)
--- NOTE | 2023-04-27 11:03 | ED ---
URI HPI - General Chief Complaint: Upper Respiratory Infection Stated Complaint: Low O2 Time Seen by Provider: 04/27/23 08:19 Source: patient, RN notes reviewed Mode of arrival: ambulatory Limitations: no limitations - History of Present Illness Initial Comments: 62-year-old female presents emergency department chief complaint of shortness of breath. Patient states she has had increasing shortness of breath, wheezing, fevers and chills over the last several days. Patient states she has a history of COPD, smoker. She states she has been using her 's updrafts, inhalers. Patient has not taken any recent ibuprofen for her fever she states she took some acetaminophen this morning. She has a minimally productive cough. - Related Data Home Medications Medication Instructions Recorded Confirmed ALPRAZolam [Xanax] 0.5 mg PO TID PRN 04/30/19 04/27/23 Albuterol Inhaler [Ventolin Hfa 1 - 2 puff INHALATION RT-Q6H PRN 04/30/19 04/27/23 Inhaler] Metoprolol Tartrate [Lopressor] 50 mg PO DAILY 04/30/19 04/27/23 Pantoprazole Sodium [Protonix] 40 mg PO DAILY 04/30/19 04/27/23 Acetaminophen Tab [Tylenol] 650 mg PO Q6H PRN 04/27/23 04/27/23 Ergocalciferol [Vitamin D2 (1250 1,250 mcg PO WE 04/27/23 04/27/23 Mcg = 93621 Iu)] Furosemide [Lasix] 20 mg PO DAILY 04/27/23 04/27/23 lisinopriL [Zestril] 20 mg PO DAILY 04/27/23 04/27/23 Previous Rx's Medication Instructions Recorded amLODIPine [Norvasc] 5 mg PO DAILY 30 Days #30 tab 06/29/22 Allergies Allergy/AdvReac Type Severity Reaction Status Date / Time adhesive tape Allergy Rash/Hives Verified 04/27/23 09:07 amoxicillin Allergy Rash/Hives Verified 04/27/23 09:07 losartan Allergy Swelling Verified 04/27/23 09:07 valsartan Allergy Swelling Verified 04/27/23 09:07 Review of Systems ROS Statement: Those systems with pertinent positive or pertinent negative responses have been documented in the HPI. ROS Other: All systems not noted in ROS Statement are negative. Past Medical History Past Medical History: Asthma, Chest Pain / Angina, GERD/Reflux, Hypertension, Liver Disease, Rheumatoid Arthritis (RA) Additional Past Medical History / Comment(s): irregular heart rate. 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 Hepatitis C. In December Overdosed after doing cocaine laced with fentanyl. Has quit cocaine since then but smokes marijauana intermitently. History of Any Multi-Drug Resistant Organisms: None Reported Past Surgical History: Hysterectomy, Joint Replacement, Orthopedic Surgery, Tonsillectomy Additional Past Surgical History / Comment(s): lt hip fx 07/05 with pins and screws. lt knee replacement x2. rt ring finger with screws. rt thumb I&D Past Anesthesia/Blood Transfusion Reactions: No Reported Reaction Additional Past Anesthesia/Blood Transfusion Reaction / Comment(s): previous blood transfusion with reaction Past Psychological History: Anxiety Smoking Status: Current every day smoker Past Alcohol Use History: Occasional Past Drug Use History: Cocaine, Marijuana - Past Family History Sister(s) Family Medical History: Coronary Artery Disease (CAD) Additional Family Medical History / Comment(s): born with hole in main valve surgery 8th grade, cabg x2 during 2nd open heart age 34 Father Family Medical History: Cancer, Myocardial Infarction ([place]) Additional Family Medical History / Comment(s): from colon cancer Mother Family Medical History: Cancer Additional Family Medical History / Comment(s): from lung cancer General Exam Limitations: no limitations General appearance: alert, in no apparent distress Head exam: Present: atraumatic, normocephalic, normal inspection ENT exam: Present: normal exam, mucous membranes moist Neck exam: Present: normal inspection, full ROM. Absent: tenderness, meningismus, lymphadenopathy Respiratory exam: Present: respiratory distress, wheezes. Absent: normal lung sounds bilaterally, rales, rhonchi, stridor Cardiovascular Exam: Present: regular rate, normal rhythm, normal heart sounds. Absent: systolic murmur, diastolic murmur, rubs, gallop, clicks GI/Abdominal exam: Present: soft, normal bowel sounds. Absent: distended, tenderness, guarding, rebound, rigid Course Vital Signs 04/27/23 04/27/23 04/27/23 08:15 08:17 09:17 Temperature 100.5 F H Pulse Rate 103 H 85 85 Respiratory 24 20 20 Rate Blood Pressure 164/100 134/88 134/88 O2 Sat by Pulse 91 L 94 L 94 L Oximetry 04/27/23 04/27/23 04/27/23 10:53 11:00 11:30 Temperature Pulse Rate 86 85 Respiratory 18 18 20 Rate Blood Pressure 114/71 O2 Sat by Pulse 94 L Oximetry Medical Decision Making - Medical Decision Making Was pt. sent in by a medical professional or institution (, PA, ENTERPRISE SOFTWARE ENGINEER, urgent care, hospital, or long-term...) When possible be specific @ -No Did you speak to anyone other than the patient for history (EMS, parent, family, police, friend...)? What history was obtained from this source @ -No Did you review nursing and triage notes (agree or disagree)? Why? @ -I reviewed and agree with nursing and triage notes Were old charts reviewed (outside hosp., previous admission, EMS record, old EKG, old radiological studies, urgent care reports/EKG's, long-term records)? Report findings @ -No old charts were reviewed Differential Diagnosis (chest pain, altered mental status, abdominal pain women, abdominal pain men, vaginal bleeding, weakness, fever, dyspnea, syncope, headache, dizziness, GI bleed, back pain, seizure, CVA, palpatations, mental health, musculoskeletal)? @ -[Differential Dyspnea: Coronary syndrome, arrhythmia, tamponade, asthma, COPD, pulmonary embolism, pneumonia, pneumothorax, pulmonary effusion, anaphylaxis, diabetic ketoacidosis, flailed chest, pulmonary contusion, diaphragmatic rupture, anemia, neuromuscular, this is not meant to be an all-inclusive list. EKG interpreted by me (3pts min.). @ -As above X-rays interpreted by me (1pt min.). @ -[Chest strays show COPD changes, no definite infiltrate CT interpreted by me (1pt min.). @ -None done U/S interpreted by me (1pt. min.). @ -None done What testing was considered but not performed or refused? (CT, X-rays, U/S, labs)? Why? @ -None What meds were considered but not given or refused? Why? @ -None Did you discuss the management of the patient with other professionals (professionals i.e. , ERNIE, ENTERPRISE SOFTWARE ENGINEER, lab, RT, psych nurse, social service manager, commercial construction superintendent, teacher, textile technical officer, case management assistant)? Give summary @ -[Dr. Potts for admission with consult to pulmonology Was smoking cessation discussed for >3mins.? @ -No Was critical care preformed (if so, how long)? @ -No Were there social determinants of health that impacted care today? How? (Homelessness, low income, unemployed, alcoholism, drug addiction, transportation, low edu. Level, literacy, decrease access to med. care, alf, rehab)? @ -No Was there de-escalation of care discussed even if they declined (Discuss DNR or withdrawal of care, Hospice)? DNR status @ -No What co-morbidities impacted this encounter? (DM, HTN, Smoking, COPD, CAD, Cancer, CVA, ARF, Chemo, Hep., AIDS, mental health diagnosis, sleep apnea, morbid obesity)? @ -None Was patient admitted / discharged? Hospital course, mention meds given and route, prescriptions, significant lab abnormalities, going to OR and other pertinent info. @ -[Admitted patient is currently hypoxic, COPD exacerbation patient will be admitted for IV steroids, breathing treatments and further management evaluation. Patient is influenza A positive. Undiagnosed new problem with uncertain prognosis? @ -No Drug Therapy requiring intensive monitoring for toxicity (Heparin, Nitro, Insulin, Cardizem)? @ -No Were any procedures done? @ -No Diagnosis/symptom? @ -[Influenza, COPD exacerbation, hypoxia Acute, or Chronic, or Acute on Chronic? @ -Acute Uncomplicated (without systemic symptoms) or Complicated (systemic symptoms)? @ -[duncomplicated Side effects of treatment? @ -[No Exacerbation, Progression, or Severe Exacerbation? @ -No Poses a threat to life or bodily function? How? (Chest pain, [place], [place], pneumonia, PE, COPD, DKA, ARF, appy, cholecystitis, CVA, Diverticulitis, Homicidal, Suicidal, threat to staff... and all critical care pts) @ -No - Lab Data Result diagrams: 04/27/23 08:26 04/27/23 08:26 Lab Results 04/27/23 04/27/23 04/27/23 Range/Units 08:26 08:26 08:26 WBC 4.2 (3.8-10.6) k/uL RBC 4.11 (3.80-5.40) m/uL Hgb 13.0 (11.4-16.0) gm/dL Hct 37.5 (34.0-46.0) % MCV 91.3 (80.0-100.0) fL MCH 31.6 (25.0-35.0) pg MCHC 34.6 (31.0-37.0) g/dL RDW 13.2 (11.5-15.5) % Plt Count 100 L (150-450) k/uL MPV 9.6 Neutrophils % 82 % Lymphocytes % 8 % Monocytes % 7 % Eosinophils % 1 % Basophils % 0 % Neutrophils # 3.4 (1.3-7.7) k/uL Lymphocytes # 0.4 L (1.0-4.8) k/uL Monocytes # 0.3 (0-1.0) k/uL Eosinophils # 0.0 (0-0.7) k/uL Basophils # 0.0 (0-0.2) k/uL Sodium 139 (137-145) mmol/L Potassium 4.1 (3.5-5.1) mmol/L Chloride 108 H (98-107) mmol/L Carbon Dioxide 23 (22-30) mmol/L Anion Gap 8 mmol/L BUN 12 (7-17) mg/dL Creatinine 0.88 (0.52-1.04) mg/dL Est GFR (CKD-EPI)AfAm 81 (>60 ml/min/1.73 sqM) Est GFR (CKD-EPI)NonAf 70 (>60 ml/min/1.73 sqM) Glucose 103 H (74-99) mg/dL Plasma Lactic Acid Vivek 1.5 (0.7-2.0) mmol/L Calcium 9.5 (8.4-10.2) mg/dL Magnesium 2.1 (1.6-2.3) mg/dL Total Bilirubin 1.0 (0.2-1.3) mg/dL AST 28 (14-36) U/L ALT 27 (4-34) U/L Alkaline Phosphatase 60 (38-126) U/L Total Protein 6.7 (6.3-8.2) g/dL Albumin 3.8 (3.5-5.0) g/dL Influenza Type A (PCR) (Not Detectd) Influenza Type B (PCR) (Not Detectd) RSV (PCR) (Not Detectd) SARS-CoV-2 (PCR) (Not Detectd) 04/27/23 Range/Units 08:27 WBC (3.8-10.6) k/uL RBC (3.80-5.40) m/uL Hgb (11.4-16.0) gm/dL Hct (34.0-46.0) % MCV (80.0-100.0) fL MCH (25.0-35.0) pg MCHC (31.0-37.0) g/dL RDW (11.5-15.5) % Plt Count (150-450) k/uL MPV Neutrophils % % Lymphocytes % % Monocytes % % Eosinophils % % Basophils % % Neutrophils # (1.3-7.7) k/uL Lymphocytes # (1.0-4.8) k/uL Monocytes # (0-1.0) k/uL Eosinophils # (0-0.7) k/uL Basophils # (0-0.2) k/uL Sodium (137-145) mmol/L Potassium (3.5-5.1) mmol/L Chloride (98-107) mmol/L Carbon Dioxide (22-30) mmol/L Anion Gap mmol/L BUN (7-17) mg/dL Creatinine (0.52-1.04) mg/dL Est GFR (CKD-EPI)AfAm (>60 ml/min/1.73 sqM) Est GFR (CKD-EPI)NonAf (>60 ml/min/1.73 sqM) Glucose (74-99) mg/dL Plasma Lactic Acid Vivek (0.7-2.0) mmol/L Calcium (8.4-10.2) mg/dL Magnesium (1.6-2.3) mg/dL Total Bilirubin (0.2-1.3) mg/dL AST (14-36) U/L ALT (4-34) U/L Alkaline Phosphatase (38-126) U/L Total Protein (6.3-8.2) g/dL Albumin (3.5-5.0) g/dL Influenza Type A (PCR) Detected A (Not Detectd) Influenza Type B (PCR) Not Detected (Not Detectd) RSV (PCR) Not Detected (Not Detectd) SARS-CoV-2 (PCR) Not Detected (Not Detectd) - EKG Data -: EKG Interpreted by Me EKG Comments: EKG performed at 8: 41 sinus rhythm rate of 87 AL 154 QRS 95 QT/QTc 334/378 Disposition Clinical Impression: COPD exacerbation, Influenza A Disposition: ADMITTED IP TO THIS HOSP Time of Disposition: 10:41
[2023-04-27] MEDS: SODIUM CHLORIDE 0.9% 1,000 ML IV SCH (11:33)
[2023-04-27] MEDS ORDERED: NON FORMULARY DRUG (Albuterol Inhaler 90 MCG Puff) INHALATION PRN (12:12)
[2023-04-27] MEDS ORDERED: ACETAMINOPHEN TAB 325 MG TAB PO PRN (12:12)
[2023-04-27] MEDS: methylPREDNISolone SOD SUCCI 125 MG/2 ML VIAL IV SCH (12:30)
[2023-04-27] MEDS: ALPRAZolam 0.5 MG TAB PO PRN (13:13)
[2023-04-27] MEDS: IPRATROPIUM-ALBUTEROL 3 ML NEB INHALATION SCH (15:12)
[2023-04-27] MEDS: HEPARIN SODIUM,PORCINE 5,000 UNIT/ML 1 ML VIAL SQ SCH (21:02)
[2023-04-28] MEDS: ACETAMINOPHEN TAB 325 MG TAB PO PRN (00:52)
[2023-04-28] MEDS: PANTOPRAZOLE 40 MG TABLET PO SCH (05:36)
[2023-04-28] MEDS: FUROSEMIDE 20 MG TAB PO SCH (08:37)
[2023-04-28] MEDS: lisinopriL 20 MG TAB PO SCH (08:38)
[2023-04-28] MEDS: amLODIPine 5 MG TAB PO SCH (08:38)
[2023-04-28] MEDS: METOPROLOL TARTRATE 50 MG TAB PO SCH (08:38)
--- NOTE | 2023-04-28 10:56 | P.HPIM ---
History of Present Illness H&P Date: 04/27/23 Alisa Cain, is a 62-year-old female who presented to [facility] emergency room with a chief complaint of cough and worsening shortness of breath She was evaluated in the emergency room vital examination on presentation revealed a temperature of 100.5 pulse 103 respiration 24 blood pressure 164/100 pulse ox 91% on room air Laboratory data reveals a white blood count of 4.2 hemoglobin 13.0 platelet count 100 BUN 12 creatinine 0.88 influenza A PCR was positive Testing in the emergency room revealed chest x-ray done in the emergency room revealed no acute process Patient was admitted to medical floor for further evaluation and treatment Past Medical History Past Medical History: Asthma, Chest Pain / Angina, GERD/Reflux, Hypertension, Liver Disease, Rheumatoid Arthritis (RA) Additional Past Medical History / Comment(s): irregular heart rate. 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 Hepatitis C. In December Overdosed after doing cocaine laced with fentanyl. Has quit cocaine since then but smokes marijauana intermitently. History of Any Multi-Drug Resistant Organisms: None Reported Past Surgical History: Hysterectomy, Joint Replacement, Orthopedic Surgery, Tonsillectomy Additional Past Surgical History / Comment(s): lt hip fx 07/05 with pins and screws. lt knee replacement x2. rt ring finger with screws. rt thumb I&D Past Anesthesia/Blood Transfusion Reactions: No Reported Reaction Additional Past Anesthesia/Blood Transfusion Reaction / Comment(s): previous blood transfusion with reaction Past Psychological History: Anxiety Smoking Status: Current every day smoker Past Alcohol Use History: Occasional Past Drug Use History: Cocaine, Marijuana - Past Family History Sister(s) Family Medical History: Coronary Artery Disease (CAD) Additional Family Medical History / Comment(s): born with hole in main valve surgery 8th grade, cabg x2 during 2nd open heart age 34 Father Family Medical History: Cancer, Myocardial Infarction ([place]) Additional Family Medical History / Comment(s): from colon cancer Mother Family Medical History: Cancer Additional Family Medical History / Comment(s): from lung cancer Medications and Allergies Home Medications Medication Instructions Recorded Confirmed Type ALPRAZolam [Xanax] 0.5 mg PO TID PRN 04/30/19 04/27/23 History Albuterol Inhaler [Ventolin Hfa 1 - 2 puff INHALATION RT-Q6H PRN 04/30/19 04/27/23 History Inhaler] Metoprolol Tartrate [Lopressor] 50 mg PO DAILY 04/30/19 04/27/23 History Pantoprazole Sodium [Protonix] 40 mg PO DAILY 04/30/19 04/27/23 History amLODIPine [Norvasc] 5 mg PO DAILY 30 Days #30 tab 06/29/22 04/27/23 Rx Acetaminophen Tab [Tylenol] 650 mg PO Q6H PRN 04/27/23 04/27/23 History Ergocalciferol [Vitamin D2 (1250 1,250 mcg PO WE 04/27/23 04/27/23 History Mcg = 04679 Iu)] Furosemide [Lasix] 20 mg PO DAILY 04/27/23 04/27/23 History lisinopriL [Zestril] 20 mg PO DAILY 04/27/23 04/27/23 History Allergies Allergy/AdvReac Type Severity Reaction Status Date / Time adhesive tape Allergy Rash/Hives Verified 04/27/23 09:07 amoxicillin Allergy Rash/Hives Verified 04/27/23 09:07 losartan Allergy Swelling Verified 04/27/23 09:07 valsartan Allergy Swelling Verified 04/27/23 09:07 Physical Exam Vitals: Vital Signs Temp Pulse Resp BP Pulse Ox 04/27/23 11:30 20 04/27/23 11:00 85 18 114/71 94 L 04/27/23 10:53 86 18 04/27/23 09:17 85 20 134/88 94 L 04/27/23 08:17 85 20 134/88 94 L 04/27/23 08:15 100.5 F H 103 H 24 164/100 91 L Intake and Output 04/26/23 04/27/23 04/27/23 22:59 06:59 14:59 Other: Weight 107.501 kg In general patient is alert and oriented ?-3 in no distress HEENT head normocephalic and atraumatic Neck is supple no JVD no goiter no lymphadenopathy no carotid bruit Chest examination reveals a crackles in both lung lópez with wheezing Cardiac exam reveals regular heart sounds S1 and S2 no gallops no murmurs Abdomen is soft nontender no organomegaly with normal bowel sounds Extremity exam reveals no edema no cyanosis or clubbing Neurological examination reveals no gross focal deficits Results CBC & Chem 7: 04/27/23 08:26 04/27/23 08:26 Labs: Abnormal Lab Results - Last 24 Hours (Table) 04/27/23 04/27/23 04/27/23 Range/Units 08:26 08:26 08:27 Plt Count 100 L (150-450) k/uL Lymphocytes # 0.4 L (1.0-4.8) k/uL Chloride 108 H (98-107) mmol/L Glucose 103 H (74-99) mg/dL Influenza Type A (PCR) Detected A (Not Detectd) Assessment and Plan Plan: Acute exacerbation of chronic obstructive pulmonary disease Acute influenza A infection Continued tobacco abuse Previous history of cocaine abuse Underlying history of hypertension Underlying history of rheumatoid arthritis Underlying history of gastroesophageal reflux disease Underlying history of anxiety disorder At this time patient was admitted to medical floor Home medications reviewed and reordered Pulmonary consultation was requested She was started on IV Solu-Medrol, inhaled bronchodilators, and oral Tamiflu For DVT prophylaxis she was started on subcu Lovenox For GI prophylaxis Protonix was continued Will monitor closely
--- NOTE | 2023-04-28 10:58 | P.PN ---
Subjective Progress Note Date: 04/28/23 Alisa Cain, is a 62-year-old female who presented to [facility] emergency room with a chief complaint of cough and worsening shortness of breath She was evaluated in the emergency room vital examination on presentation revealed a temperature of 100.5 pulse 103 respiration 24 blood pressure 164/100 pulse ox 91% on room air Laboratory data reveals a white blood count of 4.2 hemoglobin 13.0 platelet count 100 BUN 12 creatinine 0.88 influenza A PCR was positive Testing in the emergency room revealed chest x-ray done in the emergency room revealed no acute process Patient was admitted to medical floor for further evaluation and treatment On 04/28/2023 patient was seen and examined on the medical floor she is alert and oriented 3 in no apparent distress she is still complaining of severe cough and requesting cough medication, she is reporting some improvement in her short ness of breath, otherwise she denies any complaints there is no fever or chills no headache or dizziness no chest pain no palpitation no nausea or vomiting no abdominal pain or diarrhea no blood in the stools no burning with urination no frequency or urgency and no hematuria no weakness or numbness in any of her extremities no change in vision speech or gait Objective - Vital Signs Vital signs: Vital Signs Temp 97.7 F 04/28/23 07:00 Pulse 76 04/28/23 07:55 Resp 16 04/28/23 08:46 BP 107/73 04/28/23 07:00 Pulse Ox 97 04/28/23 07:45 FiO2 Intake & Output 04/27/23 04/28/23 04/28/23 18:59 06:59 18:59 Intake Total 280 Balance 280 Weight 107.501 kg Intake: Oral 280 Other: Voiding Method Toilet Toilet Toilet # Voids 1 - Exam In general patient is alert and oriented x 3 in no distress HEENT head normocephalic and atraumatic Neck is supple no JVD no goiter no lymphadenopathy no carotid bruit Chest examination reveals a crackles in both lung lópez with wheezing Cardiac exam reveals regular heart sounds S1 and S2 no gallops no murmurs Abdomen is soft nontender no organomegaly with normal bowel sounds Extremity exam reveals no edema no cyanosis or clubbing Neurological examination reveals no gross focal deficits - Labs CBC & Chem 7: 04/27/23 08:04/27/23 08:26 Assessment and Plan Plan: Acute exacerbation of chronic obstructive pulmonary disease Acute influenza A infection Continued tobacco abuse Previous history of cocaine abuse Underlying history of hypertension Underlying history of rheumatoid arthritis Underlying history of gastroesophageal reflux disease Underlying history of anxiety disorder At this time patient was admitted to medical floor Home medications reviewed and reordered Pulmonary consultation was requested She was started on IV Solu-Medrol, inhaled bronchodilators, and oral Tamiflu For DVT prophylaxis she was started on subcu Lovenox For GI prophylaxis Protonix was continued Will monitor closely
[2023-04-28 11:55] LABS: ALT 31 U/L (8-44); AST 30 U/L (13-35); Albumin 3.8 g/dL (3.8-4.9); Albumin/Globulin Ratio 1.65 Ratio (1.60-3.17); Alkaline Phosphatase 48 U/L (41-126); BUN/Creat Ratio 16.78 Ratio (12.00-20.00); Blood Urea Nitrogen 15.1 mg/dL (9.0-27.0); Calcium 9.7 mg/dL (8.7-10.3); Carbon Dioxide 24.1 mmol/L (21.6-31.8); Chloride 108 mmol/L (96-109); Globulin 2.3 g/dL (1.6-3.3); Glucose 150 mg/dL (70-110); Potassium 4.4 mmol/L (3.5-5.5); Sodium 142 mmol/L (135-145); Total Bilirubin 0.4 mg/dL (0.3-1.2); Total Protein 6.1 g/dL (6.2-8.2)
--- NOTE | 2023-04-28 12:18 | P.CNPUL ---
History of Present Illness Consult date: 04/28/23 Reason for consult: dyspnea, COPD History of present illness: 62-year-old female patient with known history of COPD/asthma who is also an active smoker who smokes about 1 pack of cigarettes a day. The patient has had also issues with RA, hypertension, chronic liver disease secondary hepatitis C as the patient has utilize drugs in the past. The patient's last hospitalization for pneumonia was back in June 2022 and at that time the patient was treated and the patient was discharged home. The patient comes back to the hospital because of 3 days history of decreased Fatigue, weakness, tiredness, lethargy along with increased dyspnea cough chest tightness and wheezing. In the emergency, the patient was diagnosed having influenza A infe ction. Electrolytes were normal. There was a +4.2 with a hemoglobin of 17, BUN is at 12 with a creatinine of 0.8. The patient is currently on 2 L of O2 nasal cannula with a pulse ox of 97%. Chest x-ray that was done in the ED showed no acute cardiopulmonary abnormalities and showed some cardiomegaly and background COPD. Noted the patient has only an albuterol rescue inhaler. She does not uti lize any form of maintenance respiratory medications on outpatient basis. She is not oxygen dependent. She has not received the vaccination for influenza for this current year. The rest of the viral panel was negative. Review of Systems Constitutional: Reports fatigue, Reports fever, Reports weakness Eyes: denies as per HPI, denies blurred vision, denies bulging eye, denies decreased vision, denies diplopia, denies discharge, denies dry eye, denies irritation, denies itching, denies pain, denies photophobia, denies loss of per ipheral vision, denies loss of vision, denies tunnel vision/blind spots Ears: deny: decreased hearing, ear discharge, earache, tinnitus Ears, nose, mouth and throat: Reports as per HPI Breasts: absent: as per HPI, change in shape, gynecomastia, masses, nipple discharge, pain, skin changes, swelling Cardiovascular: Reports as per HPI, Reports decreased exercise tolerance, Reports dyspnea on exertion Respiratory: Reports congestion, Reports cough, Reports dyspnea, Reports wheezing Genitourinary: Reports as per HPI Menstruation: Reports as per HPI Musculoskeletal: Reports as per HPI Musculoskeletal: absent: ankle pain, ankle stiffness, ankle swelling Integumentary: Reports as per HPI Neurological: Reports as per HPI Psychiatric: Reports as per HPI Endocrine: Reports as per HPI Hematologic/Lymphatic: Reports as per HPI Allergic/Immunologic: Reports as per HPI Past Medical History Past Medical History: Asthma, COPD, GERD/Reflux, Hypertension, Liver Disease, Rheumatoid Arthritis (RA) Additional Past Medical History / Comment(s): 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 Hepatitis C. In 2022 Overdosed after doing cocaine laced with fentanyl. Has quit cocaine and marijiana. pt states she takes edibles. History of Any Multi-Drug Resistant Organisms: None Reported Past Surgical History: Hysterectomy, Joint Replacement, Orthopedic Surgery, Tonsillectomy Additional Past Surgical History / Comment(s): lt hip fx 07/05 with pins and screws. lt knee replacement x2. rt ring finger with screws. rt thumb I&D Past Anesthesia/Blood Transfusion Reactions: No Reported Reaction Additional Past Anesthesia/Blood Transfusion Reaction / Comment(s): previous blood transfusion with reaction Past Psychological History: Anxiety Smoking Status: Current every day smoker Past Alcohol Use History: Occasional Additional Past Alcohol Use History / Comment(s): smoked 20 years 1/2ppd quit 04/23/23 Past Drug Use History: Cocaine, Marijuana Additional Drug Use History / Comment(s): cbd, edibles, quit cocaine in December 2021 - Past Family History Sister(s) Family Medical History: Coronary Artery Disease (CAD) Additional Family Medical History / Comment(s): born with hole in main valve surgery 8th grade, cabg x2 during 2nd open heart age 34 Father Family Medical History: Cancer, Myocardial Infarction (MT) Additional Family Medical History / Comment(s): from colon cancer Mother Family Medical History: Cancer Additional Family Medical History / Comment(s): from lung cancer Medications and Allergies Home Medications Medication Instructions Recorded Confirmed Type ALPRAZolam [Xanax] 0.5 mg PO TID PRN 04/30/19 04/27/23 History Albuterol Inhaler [Ventolin Hfa 1 - 2 puff INHALATION RT-Q6H PRN 04/30/19 04/27/23 History Inhaler] Metoprolol Tartrate [Lopressor] 50 mg PO DAILY 04/30/19 04/27/23 History Pantoprazole Sodium [Protonix] 40 mg PO DAILY 04/30/19 04/27/23 History amLODIPine [Norvasc] 5 mg PO DAILY 30 Days #30 tab 06/29/22 04/27/23 Rx Acetaminophen Tab [Tylenol] 650 mg PO Q6H PRN 04/27/23 04/27/23 History Ergocalciferol [Vitamin D2 (1250 1,250 mcg PO WE 04/27/23 04/27/23 History Mcg = 65130 Iu)] Furosemide [Lasix] 20 mg PO DAILY 04/27/23 04/27/23 History lisinopriL [Zestril] 20 mg PO DAILY 04/27/23 04/27/23 History Allergies Allergy/AdvReac Type Severity Reaction Status Date / Time adhesive tape Allergy Rash/Hives Verified 04/27/23 09:07 amoxicillin Allergy Rash/Hives Verified 04/27/23 09:07 losartan Allergy Swelling Verified 04/27/23 09:07 valsartan Allergy Swelling Verified 04/27/23 09:07 Physical Exam Vitals: Vital Signs Temp Pulse Pulse Resp BP BP Pulse Ox 04/28/23 07:55 76 04/28/23 07:45 72 97 04/28/23 07:00 97.7 F 74 16 107/73 97 04/28/23 01:36 97.8 F 78 16 104/64 96 04/27/23 21:45 85 04/27/23 21:36 81 04/27/23 21:02 76 04/27/23 19:33 98.2 F 76 16 99/63 97 04/27/23 16:21 72 18 04/27/23 16:02 98.5 F 72 18 120/63 95 04/27/23 15:18 80 16 04/27/23 15:15 97 04/27/23 15:12 79 18 04/27/23 15:00 74 18 107/54 94 L 04/27/23 11:30 20 04/27/23 11:00 85 18 114/71 94 L 04/27/23 10:53 86 18 Intake and Output 04/27/23 04/28/23 04/28/23 22:59 06:59 14:59 Intake Total 280 Balance 280 Intake: Oral 280 Other: Voiding Method Toilet # Voids 1 Weight 107.501 kg General appearance calm comfortable no acute distress currently on 2 L of oxygen by nasal cannula The patient appeared well nourished and normally developed. Vital signs as documented. Head exam is unremarkable. No scleral icterus or corneal arcus noted. Neck is without jugular venous distension, thyromegaly, or carotid bruits. Carotid upstrokes are brisk bilaterally. Lungs are diminished breath sound bilateral lungs with scant expiratory wheezes.. Cardiac exam reveals the PMI to be normally sized and situated. Rhythm is regular. First and second heart sounds normal. No murmurs, rubs or gallops. Abdominal exam reveals normal bowel sounds, no masses, no organomegaly and no aortic enlargement. Extremities are nonedematous and both femoral and pedal pulses are normal. Examination of the skin revealed no evidence of significant rashes, suspicious appearing nevi or other concerning lesions. Neurologically, the patient is awake and alert and the patient does not have any focal neurological deficit. Cranial nerves are essentially intact. Results - Laboratory Findings CBC and BMP: 04/27/23 08:26 04/28/23 05:26 Abnormal lab findings: Abnormal Labs 04/27/23 04/27/23 04/27/23 08:26 08:26 08:27 Plt Count 100 L Lymphocytes # 0.4 L Chloride 108 H Glucose 103 H Influenza Type A (PCR) Detected A - Diagnostic Findings Chest x-ray: image reviewed Assessment and Plan Plan: Acute exacerbation of COPD secondary to influenza A infection Acute hypoxic respiratory failure the patient is currently on oxygen at 2 L/min nasal cannula Acute influenza A infection, unvaccinated Shortness of breath secondary to above History of chronic liver disease/hepatitis C Hypertension Rheumatoid arthritis Acid reflux History of polysubstance abuse and and this includes cocaine and marijuana and she states that she takes edibles for now. Plan This is a simple exacerbation the patient is optimized for the next 24 to 48 hours. Continue DuoNeb updrafts. Continue IV Solu-Medrol. Start the patient on Tamiflu as the patient's symptoms started approximately 72 hours ago. She may still benefit from Tamiflu although it seems that the patient is outside the window. Resume home medications. Titrate oxygen flow to maintain saturation above 90%. Continue to follow.
[2023-04-28 12:35] LABS: Basophils # (A) 0 X 10*3/uL (0.00-0.10); Basophils % (A) 0 %; Eosinophils # (A) 0 X 10*3/uL (0.04-0.35); Eosinophils % (A) 0 %; HCT 37.8 % (37.2-46.3); HGB 12.2 g/dL (12.0-15.0); Lymphocytes # (A) 0.42 X 10*3/uL (0.90-5.00); Lymphocytes % (A) 13.4 %; MCH 30.9 pg (27.0-32.0); MCHC 32.3 g/dL (32.0-37.0); MCV 95.7 FL (80.0-97.0); Mean Platelet Volume 12.9 FL (9.5-12.2); Monocytes # (A) 0.15 X 10*3/uL (0.20-1.00); Monocytes % (A) 4.8 %; NRBC Per 100 WBC 0 X 10*3/uL (0.00-0.01); Neutrophils # (A) 2.56 X 10*3/uL (1.80-7.70); Neutrophils % (A) 81.5 %; Platelet Count 87 X 10*3/uL (140-440); RBC 3.95 X 10*6/uL (4.10-5.20); RBC Morphology Normal (Normal); RDW 12.7 % (11.5-14.5); WBC 3.14 X 10*3/uL (4.50-10.00)
[2023-04-28] MEDS: OSELTAMIVIR 75 MG CAP PO SCH (12:39)
[2023-04-28] MEDS: guaiFENesin-Coden 100-10MG/5ML 10 ML CUP PO PRN (18:01)
[2023-04-28] MEDS: OSELTAMIVIR 60 MG/10 ML ORAL SYRINGE PO SCH (21:06)
--- NOTE | 2023-04-29 09:40 | P.PN ---
Subjective Progress Note Date: 04/29/23 Alisa Cain, is a 62-year-old female who presented to [facility] emergency room with a chief complaint of cough and worsening shortness of breath She was evaluated in the emergency room vital examination on presentation revealed a temperature of 100.5 pulse 103 respiration 24 blood pressure 164/100 pulse ox 91% on room air Laboratory data reveals a white blood count of 4.2 hemoglobin 13.0 platelet count 100 BUN 12 creatinine 0.88 influenza A PCR was positive Testing in the emergency room revealed chest x-ray done in the emergency room revealed no acute process Patient was admitted to medical floor for further evaluation and treatment On 04/28/2023 patient was seen and examined on the medical floor she is alert and oriented 3 in no apparent distress she is still complaining of severe cough and requesting cough medication, she is reporting some improvement in her short ness of breath, otherwise she denies any complaints there is no fever or chills no headache or dizziness no chest pain no palpitation no nausea or vomiting no abdominal pain or diarrhea no blood in the stools no burning with urination no frequency or urgency and no hematuria no weakness or numbness in any of her extremities no change in vision speech or gait On 04/29/2022 for patients alert and oriented 3. Patient complains of generalized pain. Patient is maintained on room air. Current vital signs temp 97.7, heart rate 65, respiratory rate 16, blood pressure 130/70 with a pulse ox of 95% on room air. Patient remains on Tamiflu and IV steroids. Anticipate discharge in the next 24-48 hours Objective - Vital Signs Vital signs: Vital Signs Temp 97.7 F 04/29/23 07:00 Pulse 80 04/29/23 08:50 Resp 16 04/29/23 07:00 BP 130/70 04/29/23 07:00 Pulse Ox 97 04/29/23 08:39 FiO2 21 04/29/23 08:39 Intake & Output 04/28/23 04/29/23 04/29/23 18:59 06:59 18:59 Intake Total 398 Balance 398 Intake: Oral 398 Other: Voiding Method Toilet # Voids 2 2 - Exam In general patient is alert and oriented x 3 in no distress HEENT head normocephalic and atraumatic Neck is supple no JVD no goiter no lymphadenopathy no carotid bruit Chest examination reveals a crackles in both lung lópez with wheezing Cardiac exam reveals regular heart sounds S1 and S2 no gallops no murmurs Abdomen is soft nontender no organomegaly with normal bowel sounds Extremity exam reveals no edema no cyanosis or clubbing Neurological examination reveals no gross focal deficits - Labs CBC & Chem 7: 04/28/23 05:26 04/28/23 05:26 Labs: Abnormal Lab Results - Last 24 Hours (Table) 04/28/23 04/28/23 Range/Units 05:26 05:26 WBC 3.14 L (4.50-10.00) X 10*3/uL RBC 3.95 L (4.10-5.20) X 10*6/uL Plt Count 87 L (140-440) X 10*3/uL MPV 12.9 H (9.5-12.2) FL Lymphocytes # 0.42 L (0.90-5.00) X 10*3/uL Monocytes # 0.15 L (0.20-1.00) X 10*3/uL Eosinophils # 0 L (0.04-0.35) X 10*3/uL Glucose 150 H (70-110) mg/dL Total Protein 6.1 L (6.2-8.2) g/dL Microbiology - Last 24 Hours (Table) 04/27/23 08:41 Blood Culture - Preliminary Blood 04/27/23 08:26 Blood Culture - Preliminary Blood Assessment and Plan Assessment: Acute exacerbation of chronic obstructive pulmonary disease Acute influenza A infection Continued tobacco abuse Previous history of cocaine abuse Underlying history of hypertension Underlying history of rheumatoid arthritis Underlying history of gastroesophageal reflux disease Underlying history of anxiety disorder At this time patient was admitted to medical floor Home medications reviewed and reordered Pulmonary consultation was requested She was started on IV Solu-Medrol, inhaled bronchodilators, and oral Tamiflu For DVT prophylaxis she was started on subcu Lovenox For GI prophylaxis Protonix was continued Will monitor closely
[2023-04-29 09:53] LABS: Basophils # (A) 0 X 10*3/uL (0.00-0.10); Basophils % (A) 0 %; Eosinophils # (A) 0 X 10*3/uL (0.04-0.35); Eosinophils % (A) 0 %; HCT 36.5 % (37.2-46.3); Lymphocytes # (A) 0.44 X 10*3/uL (0.90-5.00); Lymphocytes % (A) 7.9 %; MCH 30.9 pg (27.0-32.0); MCHC 32.9 g/dL (32.0-37.0); MCV 94.1 FL (80.0-97.0); Mean Platelet Volume 13.3 FL (9.5-12.2); Monocytes # (A) 0.14 X 10*3/uL (0.20-1.00); Monocytes % (A) 2.5 %; NRBC Per 100 WBC 0 X 10*3/uL (0.00-0.01); Neutrophils # (A) 4.99 X 10*3/uL (1.80-7.70); Neutrophils % (A) 89.2 %; Platelet Count 99 X 10*3/uL (140-440); RBC 3.88 X 10*6/uL (4.10-5.20); RDW 12.8 % (11.5-14.5); WBC 5.59 X 10*3/uL (4.50-10.00)
[2023-04-29 09:54] LABS: ALT 26 U/L (8-44); AST 36 U/L (13-35); Albumin 3.5 g/dL (3.8-4.9); Albumin/Globulin Ratio 1.59 Ratio (1.60-3.17); Alkaline Phosphatase 46 U/L (41-126); Blood Urea Nitrogen 24.1 mg/dL (9.0-27.0); Calcium 9.7 mg/dL (8.7-10.3); Carbon Dioxide 26.3 mmol/L (21.6-31.8); Chloride 106 mmol/L (96-109); Globulin 2.2 g/dL (1.6-3.3); Glucose 143 mg/dL (70-110); Potassium 4.9 mmol/L (3.5-5.5); Sodium 140 mmol/L (135-145); Total Bilirubin 0.3 mg/dL (0.3-1.2); Total Protein 5.7 g/dL (6.2-8.2)
--- NOTE | 2023-04-29 14:03 | P.PN ---
Subjective Progress Note Date: 04/29/23 62-year-old female patient with known history of COPD/asthma who is also an active smoker who smokes about 1 pack of cigarettes a day. The patient has had also issues with RA, hypertension, chronic liver disease secondary hepatitis C as the patient has utilize drugs in the past. The patient's last hosp italization for pneumonia was back in June 2022 and at that time the patient was treated and the patient was discharged home. The patient comes back to the hospital because of 3 days history of decreased Fatigue, weakness, tiredness, lethargy along with increased dyspnea cough chest tightness and wheezing. In the emergency, the patient was diagnosed having influenza A infection. Electrolytes were normal. There was a +4.2 with a hemoglobin of 17, BUN is at 12 with a creatinine of 0.8. The patient is currently on 2 L of O2 nasal cannula with a pulse ox of 97%. Chest x-ray that was done in the ED showed no acute cardiopulmonary abnormalities and showed some cardiomegaly and background COPD. Noted the patient has only an albuterol rescue inhaler. She does not utilize any form of maintenance respiratory medications on outpatient basis. She is not oxygen dependent. She has not received the vaccination for influenza for this current year. The rest of the viral panel was negative. 04/29/2023, the patient is being seen for a follow-up. Patient is feeling slightly improved compared to yesterday. The patient was infected with influenza A and the patient is currently on Tamiflu. COPD also exacerbated and the patient is currently on a combination of DuoNeb updrafts and IV Solu-Medrol. No nausea. No vomiting. She is having some bodyaches and chills. No fever. Shortness of breath this seems to be improving and the patient is also being hydrated with normal saline at rate of 75 cc an hour. White cell count of 5.5 with a hemoglobin of 12 and a platelet count of 99. Sodium is 140, potassium is at 4.9, BUN is at 24 with a creatinine of 1.0. Note that the patient has not been vaccinated for influenza for this current season. Objective - Vital Signs Vital signs: Vital Signs Temp 97.7 F 04/29/23 07:00 Pulse 80 04/29/23 08:50 Resp 16 04/29/23 08:36 BP 130/70 04/29/23 07:00 Pulse Ox 97 04/29/23 08:39 FiO2 21 04/29/23 08:39 Intake & Output 04/28/23 04/29/23 04/29/23 18:59 06:59 18:59 Intake Total 398 Balance 398 Intake: Oral 398 Other: Voiding Method Toilet Toilet # Voids 2 2 - Exam General appearance calm comfortable no acute distress currently on 2 L of oxygen by nasal cannula The patient appeared well nourished and normally developed. Vital signs as documented. Head exam is unremarkable. No scleral icterus or corneal arcus noted. Neck is without jugular venous distension, thyromegaly, or carotid bruits. Carotid upstrokes are brisk bilaterally. Lungs are diminished breath sound bilateral lungs with scant expiratory wheezes.. Cardiac exam reveals the PMI to be normally sized and situated. Rhythm is regular. First and second heart sounds normal. No murmurs, rubs or gallops. Abdominal exam reveals normal bowel sounds, no masses, no organomegaly and no aortic enlargement. Extremities are nonedematous and both femoral and pedal pulses are normal. Examination of the skin revealed no evidence of significant rashes, suspicious appearing nevi or other concerning lesions. Neurologically, the patient is awake and alert and the patient does not have any focal neurological deficit. Cranial nerves are essentially intact. - Labs CBC & Chem 7: 04/29/23 06:20 04/29/23 06:20 Labs: Abnormal Lab Results - Last 24 Hours (Table) 04/28/23 04/28/23 04/29/23 Range/Units 05:26 05:26 06:20 WBC 3.14 L (4.50-10.00) X 10*3/uL RBC 3.95 L 3.88 L (4.10-5.20) X 10*6/uL Hct 36.5 L (37.2-46.3) % Plt Count 87 L 99 L (140-440) X 10*3/uL MPV 12.9 H 13.3 H (9.5-12.2) FL Lymphocytes # 0.42 L 0.44 L (0.90-5.00) X 10*3/uL Monocytes # 0.15 L 0.14 L (0.20-1.00) X 10*3/uL Eosinophils # 0 L 0 L (0.04-0.35) X 10*3/uL BUN/Creatinine Ratio (12.00-20.00) Ratio Glucose 150 H (70-110) mg/dL AST (13-35) U/L Total Protein 6.1 L (6.2-8.2) g/dL Albumin (3.8-4.9) g/dL Albumin/Globulin Ratio (1.60-3.17) Ratio 04/29/23 Range/Units 06:20 WBC (4.50-10.00) X 10*3/uL RBC (4.10-5.20) X 10*6/uL Hct (37.2-46.3) % Plt Count (140-440) X 10*3/uL MPV (9.5-12.2) FL Lymphocytes # (0.90-5.00) X 10*3/uL Monocytes # (0.20-1.00) X 10*3/uL Eosinophils # (0.04-0.35) X 10*3/uL BUN/Creatinine Ratio 24.10 H (12.00-20.00) Ratio Glucose 143 H (70-110) mg/dL AST 36 H (13-35) U/L Total Protein 5.7 L (6.2-8.2) g/dL Albumin 3.5 L (3.8-4.9) g/dL Albumin/Globulin Ratio 1.59 L (1.60-3.17) Ratio Microbiology - Last 24 Hours (Table) 04/27/23 08:41 Blood Culture - Preliminary Blood 04/27/23 08:26 Blood Culture - Preliminary Blood Assessment and Plan Plan: Acute exacerbation of COPD secondary to influenza A infection Acute hypoxic respiratory failure the patient is currently on oxygen at 2 L/min nasal cannula Acute influenza A infection, unvaccinated Shortness of breath secondary to above History of chronic liver disease/hepatitis C Hypertension Rheumatoid arthritis Acid reflux History of polysubstance abuse and and this includes cocaine and marijuana and she states that she takes edibles for now. Plan Will continue same treatment for now. Slight improvement compared to yesterday. This is a exacerbation the patient is optimized for the next 24 to 48 hours. Continue DuoNeb updrafts. Continue IV Solu-Medrol. Start the patient on Tamiflu as the patient's symptoms started approximately 72 hours ago. She may still benefit from Tamiflu although it seems that the patient is outside the window. Resume home medications. Titrate oxygen flow to maintain saturation above 90%. Continue to follow.
[2023-04-30] MEDS: SYMBICORT 160-4.5 MCG INHALER INHALATION SCH (09:00)
--- NOTE | 2023-04-30 13:09 | P.PN ---
Subjective Progress Note Date: 04/30/23 62-year-old female patient with known history of COPD/asthma who is also an active smoker who smokes about 1 pack of cigarettes a day. The patient has had also issues with RA, hypertension, chronic liver disease secondary hepatitis C as the patient has utilize drugs in the past. The patient's last hospi talization for pneumonia was back in June 2022 and at that time the patient was treated and the patient was discharged home. The patient comes back to the hospital because of 3 days history of decreased Fatigue, weakness, tiredness, lethargy along with increased dyspnea cough chest tightness and wheezing. In the emergency, the patient was diagnosed having influenza A infection. Electrolytes were normal. There was a +4.2 with a hemoglobin of 17, BUN is at 12 with a creatinine of 0.8. The patient is currently on 2 L of O2 nasal cannula with a pulse ox of 97%. Chest x-ray that was done in the ED showed no acute cardiopulmonary abnormalities and showed some cardiomegaly and background COPD. Noted the patient has only an albuterol rescue inhaler. She does not utilize any form of maintenance respiratory medications on outpatient basis. She is not oxygen dependent. She has not received the vaccination for influenza for this current year. The rest of the viral panel was negative. 04/29/2023, the patient is being seen for a follow-up. Patient is feeling slightly improved compared to yesterday. The patient was infected with influenza A and the patient is currently on Tamiflu. COPD also exacerbated and the patient is currently on a combination of DuoNeb updrafts and IV Solu-Medrol. No nausea. No vomiting. She is having some bodyaches and chills. No fever. Shortness of breath this seems to be improving and the patient is also being hydrated with normal saline at rate of 75 cc an hour. White cell count of 5.5 with a hemoglobin of 12 and a platelet count of 99. Sodium is 140, potassium is at 4.9, BUN is at 24 with a creatinine of 1.0. Note that the patient has not been vaccinated for influenza for this current season. The patient is seen today April 30, 2023 and follow-up on the regular medical floor. She is currently sitting up at the bedside. Awake and alert in no acute distress. Maintaining O2 saturations in the 90s on room air. She is still feeling quite congested. She has a dry cough. Blood cultures reveal no growth. No new labs today. She is continued on DuoNeb ventilations, Solu-Medrol, Tamiflu. Heparin for DVT prophylaxis. Objective - Vital Signs Vital signs: Vital Signs Temp 97.4 F L 04/30/23 07:25 Pulse 72 04/30/23 11:59 Resp 18 04/30/23 09:28 BP 109/60 04/30/23 07:25 Pulse Ox 93 L 04/30/23 07:25 FiO2 21 04/29/23 08:39 Intake & Output 04/29/23 04/30/23 04/30/23 18:59 06:59 18:59 Intake Total 118 Balance 118 Intake: Oral 118 Other: Voiding Method Toilet Toilet Toilet # Voids 2 1 - Exam GENERAL EXAM: Alert, 62-year-old female, on room air, comfortable in no apparent distress. HEAD: Normocephalic. EYES: Normal reaction of pupils, equal size. NOSE: Clear with pink turbinates. THROAT: No erythema or exudates. NECK: No masses, no JVD. CHEST: No chest wall deformity. LUNGS: Equal air entry with few bilateral scattered rhonchi. CVS: S1 and S2 normal with no audible murmur, regular rhythm. ABDOMEN: No hepatosplenomegaly, normal bowel sounds, no guarding or rigidity. SPINE: No scoliosis or deformity SKIN: No rashes CENTRAL NERVOUS SYSTEM: No focal deficits, tone is normal in all 4 extremities. EXTREMITIES: There is no peripheral edema. No clubbing, no cyanosis. Peripheral pulses are intact. - Labs CBC & Chem 7: 04/29/23 06:20 04/29/23 06:20 Labs: Microbiology - Last 24 Hours (Table) 04/27/23 08:41 Blood Culture - Preliminary Blood 04/27/23 08:26 Blood Culture - Preliminary Blood Assessment and Plan Assessment: Acute exacerbation of COPD secondary to influenza A infection Acute hypoxic respiratory failure, recovered, currently on room air Acute influenza A infection, unvaccinated Shortness of breath secondary to above History of chronic liver disease/hepatitis C Hypertension Rheumatoid arthritis Acid reflux History of polysubstance abuse and and this includes cocaine and marijuana and she states that she takes edibles for now. Plan: The patient was seen and evaluated Currently stable and on room air Not quite back to her baseline Add Symbicort Continue DuoNeb ventilations, Solu-Medrol Continue Tamiflu Probable discharge in the a.m. We will continue to follow I have personally seen and examined the patient, performed the documentation and the assessment and plan as written. Number of minutes spent on the visit: 10.
--- NOTE | 2023-04-30 14:59 | P.PN ---
Subjective Progress Note Date: 04/30/23 Alisa Cain, is a 62-year-old female who presented to [facility] emergency room with a chief complaint of cough and worsening shortness of breath She was evaluated in the emergency room vital examination on presentation revealed a temperature of 100.5 pulse 103 respiration 24 blood pressure 164/100 pulse ox 91% on room air Laboratory data reveals a white blood count of 4.2 hemoglobin 13.0 platelet count 100 BUN 12 creatinine 0.88 influenza A PCR was positive Testing in the emergency room revealed chest x-ray done in the emergency room revealed no acute process Patient was admitted to medical floor for further evaluation and treatment On 04/28/2023 patient was seen and examined on the medical floor she is alert and oriented 3 in no apparent distress she is still complaining of severe cough and requesting cough medication, she is reporting some improvement in her short ness of breath, otherwise she denies any complaints there is no fever or chills no headache or dizziness no chest pain no palpitation no nausea or vomiting no abdominal pain or diarrhea no blood in the stools no burning with urination no frequency or urgency and no hematuria no weakness or numbness in any of her extremities no change in vision speech or gait On 04/29/2022 for patients alert and oriented 3. Patient complains of generalized pain. Patient is maintained on room air. Current vital signs temp 97.7, heart rate 65, respiratory rate 16, blood pressure 130/70 with a pulse ox of 95% on room air. Patient remains on Tamiflu and IV steroids. Anticipate discharge in the next 24-48 hours Objective - Vital Signs Vital signs: Vital Signs Temp 97.6 F 04/30/23 14:15 Pulse 66 04/30/23 14:15 Resp 18 04/30/23 14:15 BP 144/82 04/30/23 14:15 Pulse Ox 95 04/30/23 14:15 FiO2 21 04/29/23 08:39 Intake & Output 04/29/23 04/30/23 04/30/23 18:59 06:59 18:59 Intake Total 536 Balance 536 Intake: Oral 536 Other: Voiding Method Toilet Toilet Toilet # Voids 2 1 - Exam In general patient is alert and oriented x 3 in no distress HEENT head normocephalic and atraumatic Neck is supple no JVD no goiter no lymphadenopathy no carotid bruit Chest examination reveals a crackles in both lung lópez with wheezing Cardiac exam reveals regular heart sounds S1 and S2 no gallops no murmurs Abdomen is soft nontender no organomegaly with normal bowel sounds Extremity exam reveals no edema no cyanosis or clubbing Neurological examination reveals no gross focal deficits - Labs CBC & Chem 7: 04/29/23 06:20 04/29/23 06:20 Labs: Microbiology - Last 24 Hours (Table) 04/27/23 08:41 Blood Culture - Preliminary Blood 04/27/23 08:26 Blood Culture - Preliminary Blood Assessment and Plan Plan: Acute exacerbation of chronic obstructive pulmonary disease Acute influenza A infection Continued tobacco abuse Previous history of cocaine abuse Underlying history of hypertension Underlying history of rheumatoid arthritis Underlying history of gastroesophageal reflux disease Underlying history of anxiety disorder At this time patient was admitted to medical floor Home medications reviewed and reordered Pulmonary consultation was requested She was started on IV Solu-Medrol, inhaled bronchodilators, and oral Tamiflu For DVT prophylaxis she was started on subcu Lovenox For GI prophylaxis Protonix was continued Will monitor closely
[2023-05-01 11:47] LABS: Basophils # (A) 0.01 X 10*3/uL (0.00-0.10); Basophils % (A) 0.2 %; Eosinophils # (A) 0 X 10*3/uL (0.04-0.35); Eosinophils % (A) 0 %; HGB 13.2 g/dL (12.0-15.0); Lymphocytes # (A) 0.56 X 10*3/uL (0.90-5.00); Lymphocytes % (A) 13.9 %; MCH 30.3 pg (27.0-32.0); MCHC 32.2 g/dL (32.0-37.0); Monocytes # (A) 0.12 X 10*3/uL (0.20-1.00); NRBC Per 100 WBC 0 X 10*3/uL (0.00-0.01); Neutrophils % (A) 82.2 %; Platelet Count 100 X 10*3/uL (140-440); RBC 4.36 X 10*6/uL (4.10-5.20); RDW 12.5 % (11.5-14.5); WBC 4.02 X 10*3/uL (4.50-10.00)
[2023-05-01 11:53] LABS: ALT 44 U/L (8-44); AST 30 U/L (13-35); Albumin 3.8 g/dL (3.8-4.9); Albumin/Globulin Ratio 1.46 Ratio (1.60-3.17); Alkaline Phosphatase 50 U/L (41-126); Blood Urea Nitrogen 24.6 mg/dL (9.0-27.0); Calcium 10.1 mg/dL (8.7-10.3); Carbon Dioxide 25.8 mmol/L (21.6-31.8); Chloride 104 mmol/L (96-109); Globulin 2.6 g/dL (1.6-3.3); Glucose 132 mg/dL (70-110); Potassium 5.1 mmol/L (3.5-5.5); Sodium 140 mmol/L (135-145); Total Bilirubin 0.3 mg/dL (0.3-1.2); Total Protein 6.4 g/dL (6.2-8.2)
--- NOTE | 2023-05-01 12:56 | P.PN ---
Subjective Progress Note Date: 05/01/23 62-year-old female patient with known history of COPD/asthma who is also an active smoker who smokes about 1 pack of cigarettes a day. The patient has had also issues with RA, hypertension, chronic liver disease secondary hepatitis C as the patient has utilize drugs in the past. The patient's last hospi talization for pneumonia was back in June 2022 and at that time the patient was treated and the patient was discharged home. The patient comes back to the hospital because of 3 days history of decreased Fatigue, weakness, tiredness, lethargy along with increased dyspnea cough chest tightness and wheezing. In the emergency, the patient was diagnosed having influenza A infection. Electrolytes were normal. There was a +4.2 with a hemoglobin of 17, BUN is at 12 with a creatinine of 0.8. The patient is currently on 2 L of O2 nasal cannula with a pulse ox of 97%. Chest x-ray that was done in the ED showed no acute cardiopulmonary abnormalities and showed some cardiomegaly and background COPD. Noted the patient has only an albuterol rescue inhaler. She does not utilize any form of maintenance respiratory medications on outpatient basis. She is not oxygen dependent. She has not received the vaccination for influenza for this current year. The rest of the viral panel was negative. 04/29/2023, the patient is being seen for a follow-up. Patient is feeling slightly improved compared to yesterday. The patient was infected with influenza A and the patient is currently on Tamiflu. COPD also exacerbated and the patient is currently on a combination of DuoNeb updrafts and IV Solu-Medrol. No nausea. No vomiting. She is having some bodyaches and chills. No fever. Shortness of breath this seems to be improving and the patient is also being hydrated with normal saline at rate of 75 cc an hour. White cell count of 5.5 with a hemoglobin of 12 and a platelet count of 99. Sodium is 140, potassium is at 4.9, BUN is at 24 with a creatinine of 1.0. Note that the patient has not been vaccinated for influenza for this current season. The patient is seen today April 30, 2023 and follow-up on the regular medical floor. She is currently sitting up at the bedside. Awake and alert in no acute distress. Maintaining O2 saturations in the 90s on room air. She is still feeling quite congested. She has a dry cough. Blood cultures reveal no growth. No new labs today. She is continued on DuoNeb ventilations, Solu-Medrol, Tamiflu. Heparin for DVT prophylaxis. The patient is seen today May 01, 2023 in follow-up on the regular medical floor. She is currently sitting up in bed. Awake and alert in no acute distress. Maintaining good O2 saturations in the 90s on room air. She has been afebrile. Hemodynamically stable. Not quite back to her baseline. She is maintained on Solu-Medrol, DuoNeb ventilations, Tamiflu. Heparin for DVT prophylaxis. White count 4.0. Hemoglobin 13.2. Platelets 100,000. Sodium 140. Potassium 5.1. Bicarb 26. BUN 25. Creatinine 1.0. Glucose 132. Objective - Vital Signs Vital signs: Vital Signs Temp 98.0 F 05/01/23 07:00 Pulse 76 05/01/23 12:34 Resp 15 05/01/23 07:00 BP 135/90 05/01/23 07:00 Pulse Ox 96 05/01/23 07:00 FiO2 21 04/29/23 08:39 Intake & Output 04/30/23 05/01/23 05/01/23 18:59 06:59 18:59 Intake Total 772 210 Balance 772 210 Intake: Oral 772 210 Other: Voiding Method Toilet Toilet # Voids 1 - Exam GENERAL EXAM: Alert, 62-year-old female, sitting in bed, on room air, comfortable in no apparent distress. HEAD: Normocephalic. EYES: Normal reaction of pupils, equal size. NOSE: Clear with pink turbinates. THROAT: No erythema or exudates. NECK: No masses, no JVD. CHEST: No chest wall deformity. LUNGS: Equal air entry with few bilateral scattered rhonchi. CVS: S1 and S2 normal with no audible murmur, regular rhythm. ABDOMEN: No hepatosplenomegaly, normal bowel sounds, no guarding or rigidity. SPINE: No scoliosis or deformity SKIN: No rashes CENTRAL NERVOUS SYSTEM: No focal deficits, tone is normal in all 4 extremities. EXTREMITIES: There is no peripheral edema. No clubbing, no cyanosis. Peripheral pulses are intact. - Labs CBC & Chem 7: 05/01/23 06:50 05/01/23 06:50 Labs: Abnormal Lab Results - Last 24 Hours (Table) 05/01/23 05/01/23 Range/Units 06:50 06:50 WBC 4.02 L (4.50-10.00) X 10*3/uL Plt Count 100 L (140-440) X 10*3/uL MPV 13.0 H (9.5-12.2) FL Lymphocytes # 0.56 L (0.90-5.00) X 10*3/uL Monocytes # 0.12 L (0.20-1.00) X 10*3/uL Eosinophils # 0 L (0.04-0.35) X 10*3/uL BUN/Creatinine Ratio 24.60 H (12.00-20.00) Ratio Glucose 132 H (70-110) mg/dL Albumin/Globulin Ratio 1.46 L (1.60-3.17) Ratio Microbiology - Last 24 Hours (Table) 04/27/23 08:41 Blood Culture - Preliminary Blood 04/27/23 08:26 Blood Culture - Preliminary Blood Assessment and Plan Assessment: Acute exacerbation of COPD secondary to influenza A infection Acute hypoxic respiratory failure, recovered, currently on room air Acute influenza A infection, unvaccinated, receiving Tamiflu Shortness of breath secondary to above History of chronic liver disease/hepatitis C Hypertension Rheumatoid arthritis Acid reflux History of polysubstance abuse and and this includes cocaine and marijuana and she states that she takes edibles for now Plan: The patient was seen and evaluated Currently stable and on room air Not quite back to her baseline Continue the current treatment plan Increase her activity as tolerated We will continue to follow I have personally seen and examined the patient, performed the documentation and the assessment and plan as written. Number of minutes spent on the visit: 10.
--- NOTE | 2023-05-01 15:01 | P.PN ---
Subjective Progress Note Date: 05/01/23 Alisa Cain, is a 62-year-old female who presented to [facility] emergency room with a chief complaint of cough and worsening shortness of breath She was evaluated in the emergency room vital examination on presentation revealed a temperature of 100.5 pulse 103 respiration 24 blood pressure 164/100 pulse ox 91% on room air Laboratory data reveals a white blood count of 4.2 hemoglobin 13.0 platelet count 100 BUN 12 creatinine 0.88 influenza A PCR was positive Testing in the emergency room revealed chest x-ray done in the emergency room revealed no acute process Patient was admitted to medical floor for further evaluation and treatment On 04/28/2023 patient was seen and examined on the medical floor she is alert and oriented 3 in no apparent distress she is still complaining of severe cough and requesting cough medication, she is reporting some improvement in her short ness of breath, otherwise she denies any complaints there is no fever or chills no headache or dizziness no chest pain no palpitation no nausea or vomiting no abdominal pain or diarrhea no blood in the stools no burning with urination no frequency or urgency and no hematuria no weakness or numbness in any of her extremities no change in vision speech or gait On 04/29/2022 for patients alert and oriented 3. Patient complains of generalized pain. Patient is maintained on room air. Current vital signs temp 97.7, heart rate 65, respiratory rate 16, blood pressure 130/70 with a pulse ox of 95% on room air. Patient remains on Tamiflu and IV steroids. Anticipate discharge in the next 24-48 hours On 04/30/2022 for patients alert and oriented 3. Patient complains of generalized pain. Patient is maintained on room air. Current vital signs temp 97.7, heart rate 65, respiratory rate 16, blood pressure 130/70 with a pulse ox of 95% on room air. Patient remains on Tamiflu and IV steroids. On 05/01/2023 patient was seen and examined on the medical floor she is alert and oriented 3 in no apparent distress she is still complaining of shortness of breath cough and wheezing otherwise she denies any complaints there is no fever or chills no headache or dizziness no chest pain no nausea or vomiting no abdominal pain no diarrhea and no urinary symptoms, she is still having significant breathing complaints, she is not ready to be discharged to home today. Objective - Vital Signs Vital signs: Vital Signs Temp 98.0 F 05/01/23 07:00 Pulse 76 05/01/23 12:34 Resp 15 05/01/23 07:00 BP 135/90 05/01/23 07:00 Pulse Ox 96 05/01/23 07:00 FiO2 21 04/29/23 08:39 Intake & Output 04/30/23 05/01/23 05/01/23 18:59 06:59 18:59 Intake Total 772 210 Balance 772 210 Intake: Oral 772 210 Other: Voiding Method Toilet Toilet # Voids 1 - Exam In general patient is alert and oriented x 3 in no distress HEENT head normocephalic and atraumatic Neck is supple no JVD no goiter no lymphadenopathy no carotid bruit Chest examination reveals a crackles in both lung lópez with wheezing Cardiac exam reveals regular heart sounds S1 and S2 no gallops no murmurs Abdomen is soft nontender no organomegaly with normal bowel sounds Extremity exam reveals no edema no cyanosis or clubbing Neurological examination reveals no gross focal deficits - Labs CBC & Chem 7: 05/01/23 06:50 05/01/23 06:50 Labs: Abnormal Lab Results - Last 24 Hours (Table) 05/01/23 05/01/23 Range/Units 06:50 06:50 WBC 4.02 L (4.50-10.00) X 10*3/uL Plt Count 100 L (140-440) X 10*3/uL MPV 13.0 H (9.5-12.2) FL Lymphocytes # 0.56 L (0.90-5.00) X 10*3/uL Monocytes # 0.12 L (0.20-1.00) X 10*3/uL Eosinophils # 0 L (0.04-0.35) X 10*3/uL BUN/Creatinine Ratio 24.60 H (12.00-20.00) Ratio Glucose 132 H (70-110) mg/dL Albumin/Globulin Ratio 1.46 L (1.60-3.17) Ratio Microbiology - Last 24 Hours (Table) 04/27/23 08:41 Blood Culture - Preliminary Blood 04/27/23 08:26 Blood Culture - Preliminary Blood Assessment and Plan Plan: Acute exacerbation of chronic obstructive pulmonary disease Acute influenza A infection Continued tobacco abuse Previous history of cocaine abuse Underlying history of hypertension Underlying history of rheumatoid arthritis Underlying history of gastroesophageal reflux disease Underlying history of anxiety disorder At this time patient was admitted to medical floor Home medications reviewed and reordered Pulmonary consultation was requested She was started on IV Solu-Medrol, inhaled bronchodilators, and oral Tamiflu For DVT prophylaxis she was started on subcu Lovenox For GI prophylaxis Protonix was continued Will monitor closely
[2023-05-02] MEDS: ERGOCALCIFEROL 1,250 MCG (50,000 IU) CAPSULE PO SCH (09:51)
--- NOTE | 2023-05-02 11:39 | P.PN ---
Subjective Progress Note Date: 05/02/23 62-year-old female patient with known history of COPD/asthma who is also an active smoker who smokes about 1 pack of cigarettes a day. The patient has had also issues with RA, hypertension, chronic liver disease secondary hepatitis C as the patient has utilize drugs in the past. The patient's last hospi talization for pneumonia was back in June 2022 and at that time the patient was treated and the patient was discharged home. The patient comes back to the hospital because of 3 days history of decreased Fatigue, weakness, tiredness, lethargy along with increased dyspnea cough chest tightness and wheezing. In the emergency, the patient was diagnosed having influenza A infection. Electrolytes were normal. There was a +4.2 with a hemoglobin of 17, BUN is at 12 with a creatinine of 0.8. The patient is currently on 2 L of O2 nasal cannula with a pulse ox of 97%. Chest x-ray that was done in the ED showed no acute cardiopulmonary abnormalities and showed some cardiomegaly and background COPD. Noted the patient has only an albuterol rescue inhaler. She does not utilize any form of maintenance respiratory medications on outpatient basis. She is not oxygen dependent. She has not received the vaccination for influenza for this current year. The rest of the viral panel was negative. 04/29/2023, the patient is being seen for a follow-up. Patient is feeling slightly improved compared to yesterday. The patient was infected with influenza A and the patient is currently on Tamiflu. COPD also exacerbated and the patient is currently on a combination of DuoNeb updrafts and IV Solu-Medrol. No nausea. No vomiting. She is having some bodyaches and chills. No fever. Shortness of breath this seems to be improving and the patient is also being hydrated with normal saline at rate of 75 cc an hour. White cell count of 5.5 with a hemoglobin of 12 and a platelet count of 99. Sodium is 140, potassium is at 4.9, BUN is at 24 with a creatinine of 1.0. Note that the patient has not been vaccinated for influenza for this current season. The patient is seen today April 30, 2023 and follow-up on the regular medical floor. She is currently sitting up at the bedside. Awake and alert in no acute distress. Maintaining O2 saturations in the 90s on room air. She is still feeling quite congested. She has a dry cough. Blood cultures reveal no growth. No new labs today. She is continued on DuoNeb ventilations, Solu-Medrol, Tamiflu. Heparin for DVT prophylaxis. The patient is seen today May 01, 2023 in follow-up on the regular medical floor. She is currently sitting up in bed. Awake and alert in no acute distress. Maintaining good O2 saturations in the 90s on room air. She has been afebrile. Hemodynamically stable. Not quite back to her baseline. She is maintained on Solu-Medrol, DuoNeb ventilations, Tamiflu. Heparin for DVT prophylaxis. White count 4.0. Hemoglobin 13.2. Platelets 100,000. Sodium 140. Potassium 5.1. Bicarb 26. BUN 25. Creatinine 1.0. Glucose 132. The patient is seen today May 02, 2023 in follow-up on the regular medical floor. She is resting flat in bed. Awake and alert in no acute distress. Maintaining O2 saturations in the 90s on room air. She continues to have issues with shortness of breath, cough and congestion. Unable to expectorate mucus. She remains on DuoNeb elations, Symbicort, Solu-Medrol. Remains on Robitussin. Remains on Tamiflu. Blood cultures revealed no growth. Objective - Vital Signs Vital signs: Vital Signs Temp 98.3 F 05/02/23 07:00 Pulse 68 05/02/23 08:26 Resp 16 05/02/23 07:00 BP 127/77 05/02/23 07:00 Pulse Ox 96 05/02/23 08:18 FiO2 21 05/02/23 08:18 Intake & Output 05/01/23 05/02/23 05/02/23 18:59 06:59 18:59 Intake Total 432 Balance 432 Intake: Oral 432 Other: Voiding Method Toilet # Voids 2 2 - Exam GENERAL EXAM: Alert, 62-year-old female, on room air, in no apparent distress. HEAD: Normocephalic. EYES: Normal reaction of pupils, equal size. NOSE: Clear with pink turbinates. THROAT: No erythema or exudates. NECK: No masses, no JVD. CHEST: No chest wall deformity. LUNGS: Equal air entry with few bilateral scattered rhonchi. CVS: S1 and S2 normal with no audible murmur, regular rhythm. ABDOMEN: No hepatosplenomegaly, normal bowel sounds, no guarding or rigidity. SPINE: No scoliosis or deformity SKIN: No rashes CENTRAL NERVOUS SYSTEM: No focal deficits, tone is normal in all 4 extremities. EXTREMITIES: There is no peripheral edema. No clubbing, no cyanosis. Peripheral pulses are intact. - Labs CBC & Chem 7: 05/01/23 06:50 05/01/23 06:50 Labs: Abnormal Lab Results - Last 24 Hours (Table) 05/01/23 05/01/23 Range/Units 06:50 06:50 WBC 4.02 L (4.50-10.00) X 10*3/uL Plt Count 100 L (140-440) X 10*3/uL MPV 13.0 H (9.5-12.2) FL Lymphocytes # 0.56 L (0.90-5.00) X 10*3/uL Monocytes # 0.12 L (0.20-1.00) X 10*3/uL Eosinophils # 0 L (0.04-0.35) X 10*3/uL BUN/Creatinine Ratio 24.60 H (12.00-20.00) Ratio Glucose 132 H (70-110) mg/dL Albumin/Globulin Ratio 1.46 L (1.60-3.17) Ratio Assessment and Plan Assessment: Acute exacerbation of COPD secondary to influenza A infection Acute hypoxic respiratory failure, recovered, currently on room air Acute influenza A infection, unvaccinated, receiving Tamiflu Shortness of breath secondary to above History of chronic liver disease/hepatitis C Hypertension Rheumatoid arthritis Acid reflux History of polysubstance abuse and and this includes cocaine and marijuana and she states that she takes edibles for now Plan: The patient was seen and evaluated Medications reviewed Currently stable and on room air Still not quite back to her baseline We will plan for bronchoscopy with BAL tomorrow N.p.o. after midnight Increase activity as tolerated We will continue to follow I have personally seen and examined the patient, performed the documentation and the assessment and plan as written. Number of minutes spent on the visit: 10.
--- NOTE | 2023-05-02 13:18 | P.PN ---
Subjective Progress Note Date: 05/02/23 Alisa Cain, is a 62-year-old female who presented to [facility] emergency room with a chief complaint of cough and worsening shortness of breath She was evaluated in the emergency room vital examination on presentation revealed a temperature of 100.5 pulse 103 respiration 24 blood pressure 164/100 pulse ox 91% on room air Laboratory data reveals a white blood count of 4.2 hemoglobin 13.0 platelet count 100 BUN 12 creatinine 0.88 influenza A PCR was positive Testing in the emergency room revealed chest x-ray done in the emergency room revealed no acute process Patient was admitted to medical floor for further evaluation and treatment On 04/28/2023 patient was seen and examined on the medical floor she is alert and oriented 3 in no apparent distress she is still complaining of severe cough and requesting cough medication, she is reporting some improvement in her short ness of breath, otherwise she denies any complaints there is no fever or chills no headache or dizziness no chest pain no palpitation no nausea or vomiting no abdominal pain or diarrhea no blood in the stools no burning with urination no frequency or urgency and no hematuria no weakness or numbness in any of her extremities no change in vision speech or gait On 04/29/2022 for patients alert and oriented 3. Patient complains of generalized pain. Patient is maintained on room air. Current vital signs temp 97.7, heart rate 65, respiratory rate 16, blood pressure 130/70 with a pulse ox of 95% on room air. Patient remains on Tamiflu and IV steroids. Anticipate discharge in the next 24-48 hours On 04/30/2022 for patients alert and oriented 3. Patient complains of generalized pain. Patient is maintained on room air. Current vital signs temp 97.7, heart rate 65, respiratory rate 16, blood pressure 130/70 with a pulse ox of 95% on room air. Patient remains on Tamiflu and IV steroids. On 05/01/2023 patient was seen and examined on the medical floor she is alert and oriented 3 in no apparent distress she is still complaining of shortness of breath cough and wheezing otherwise she denies any complaints there is no fever or chills no headache or dizziness no chest pain no nausea or vomiting no abdominal pain no diarrhea and no urinary symptoms, she is still having significant breathing complaints, she is not ready to be discharged to home today. On 05/02/2023 patient was seen and examined on the medical floor she is alert and oriented 3 in no apparent distress she is still complaining of shortness of breath and cough, otherwise she denies any complaints there is no fever or chills no headache or dizziness no chest pain no palpitation no nausea or vomiting no abdominal pain no diarrhea and no urinary symptoms. Input from pulmonary reviewed patient is scheduled for bronchoscopy in a.m. tomorrow with continued follow. Objective - Vital Signs Vital signs: Vital Signs Temp 98.3 F 05/02/23 07:00 Pulse 68 05/02/23 12:01 Resp 16 05/02/23 07:00 BP 127/77 05/02/23 07:00 Pulse Ox 96 05/02/23 08:18 FiO2 21 05/02/23 08:18 Intake & Output 05/01/23 05/02/23 05/02/23 18:59 06:59 18:59 Intake Total 432 Balance 432 Intake: Oral 432 Other: Voiding Method Toilet # Voids 2 2 - Exam In general patient is alert and oriented x 3 in no distress HEENT head normocephalic and atraumatic Neck is supple no JVD no goiter no lymphadenopathy no carotid bruit Chest examination reveals a crackles in both lung lópez with wheezing Cardiac exam reveals regular heart sounds S1 and S2 no gallops no murmurs Abdomen is soft nontender no organomegaly with normal bowel sounds Extremity exam reveals no edema no cyanosis or clubbing Neurological examination reveals no gross focal deficits - Labs CBC & Chem 7: 05/01/23 06:50 05/01/23 06:50 Assessment and Plan Plan: Acute exacerbation of chronic obstructive pulmonary disease Acute influenza A infection Continued tobacco abuse Previous history of cocaine abuse Underlying history of hypertension Underlying history of rheumatoid arthritis Underlying history of gastroesophageal reflux disease Underlying history of anxiety disorder At this time patient was admitted to medical floor Home medications reviewed and reordered Pulmonary consultation was requested She was started on IV Solu-Medrol, inhaled bronchodilators, and oral Tamiflu For DVT prophylaxis she was started on subcu Lovenox For GI prophylaxis Protonix was continued Will monitor closely
[2023-05-03 08:45] LABS: ALT 42 U/L (8-44); AST 16 U/L (13-35); Albumin 3.3 g/dL (3.8-4.9); Albumin/Globulin Ratio 1.57 Ratio (1.60-3.17); Alkaline Phosphatase 43 U/L (41-126); BUN/Creat Ratio 25.22 Ratio (12.00-20.00); Blood Urea Nitrogen 22.7 mg/dL (9.0-27.0); Calcium 9.6 mg/dL (8.7-10.3); Carbon Dioxide 29.6 mmol/L (21.6-31.8); Chloride 103 mmol/L (96-109); Globulin 2.1 g/dL (1.6-3.3); Glucose 144 mg/dL (70-110); Potassium 4.4 mmol/L (3.5-5.5); Sodium 141 mmol/L (135-145); Total Bilirubin 0.3 mg/dL (0.3-1.2); Total Protein 5.4 g/dL (6.2-8.2)
--- NOTE | 2023-05-03 08:57 | P.PN ---
Subjective Progress Note Date: 05/03/23 Alisa Cain, is a 62-year-old female who presented to [facility] emergency room with a chief complaint of cough and worsening shortness of breath She was evaluated in the emergency room vital examination on presentation revealed a temperature of 100.5 pulse 103 respiration 24 blood pressure 164/100 pulse ox 91% on room air Laboratory data reveals a white blood count of 4.2 hemoglobin 13.0 platelet count 100 BUN 12 creatinine 0.88 influenza A PCR was positive Testing in the emergency room revealed chest x-ray done in the emergency room revealed no acute process Patient was admitted to medical floor for further evaluation and treatment On 04/28/2023 patient was seen and examined on the medical floor she is alert and oriented 3 in no apparent distress she is still complaining of severe cough and requesting cough medication, she is reporting some improvement in her short ness of breath, otherwise she denies any complaints there is no fever or chills no headache or dizziness no chest pain no palpitation no nausea or vomiting no abdominal pain or diarrhea no blood in the stools no burning with urination no frequency or urgency and no hematuria no weakness or numbness in any of her extremities no change in vision speech or gait On 04/29/2022 for patients alert and oriented 3. Patient complains of generalized pain. Patient is maintained on room air. Current vital signs temp 97.7, heart rate 65, respiratory rate 16, blood pressure 130/70 with a pulse ox of 95% on room air. Patient remains on Tamiflu and IV steroids. Anticipate discharge in the next 24-48 hours On 04/30/2022 for patients alert and oriented 3. Patient complains of generalized pain. Patient is maintained on room air. Current vital signs temp 97.7, heart rate 65, respiratory rate 16, blood pressure 130/70 with a pulse ox of 95% on room air. Patient remains on Tamiflu and IV steroids. On 05/01/2023 patient was seen and examined on the medical floor she is alert and oriented 3 in no apparent distress she is still complaining of shortness of breath cough and wheezing otherwise she denies any complaints there is no fever or chills no headache or dizziness no chest pain no nausea or vomiting no abdominal pain no diarrhea and no urinary symptoms, she is still having significant breathing complaints, she is not ready to be discharged to home today. On 05/02/2023 patient was seen and examined on the medical floor she is alert and oriented 3 in no apparent distress she is still complaining of shortness of breath and cough, otherwise she denies any complaints there is no fever or chills no headache or dizziness no chest pain no palpitation no nausea or vomiting no abdominal pain no diarrhea and no urinary symptoms. Input from pulmonary reviewed patient is scheduled for bronchoscopy in a.m. tomorrow with continued follow. On 05/03/2009 for patients alert and oriented 3. Tentative plans for bronchoscopy today. Patient still complaining of shortness of breath and increased nonproductive cough. Current vital signs have 97.9, heart 65, respiratory rate 17, blood pressure 141/90 with a pulse ox of 96% on room air very patient remains on IV steroids Objective - Vital Signs Vital signs: Vital Signs Temp 97.9 F 05/03/23 07:25 Pulse 72 05/03/23 08:39 Resp 17 05/03/23 07:25 BP 141/90 05/03/23 07:25 Pulse Ox 96 05/03/23 08:29 FiO2 21 05/02/23 08:18 Intake & Output 05/02/23 05/03/23 05/03/23 18:59 06:59 18:59 Other: Voiding Method Toilet # Voids 1 2 - Exam In general patient is alert and oriented x 3 in no distress HEENT head normocephalic and atraumatic Neck is supple no JVD no goiter no lymphadenopathy no carotid bruit Chest examination reveals a crackles in both lung lópez with wheezing Cardiac exam reveals regular heart sounds S1 and S2 no gallops no murmurs Abdomen is soft nontender no organomegaly with normal bowel sounds Extremity exam reveals no edema no cyanosis or clubbing Neurological examination reveals no gross focal deficits - Labs CBC & Chem 7: 05/01/23 06:50 05/03/23 05:48 Labs: Abnormal Lab Results - Last 24 Hours (Table) 05/03/23 Range/Units 05:48 BUN/Creatinine Ratio 25.22 H (12.00-20.00) Ratio Glucose 144 H (70-110) mg/dL Total Protein 5.4 L (6.2-8.2) g/dL Albumin 3.3 L (3.8-4.9) g/dL Albumin/Globulin Ratio 1.57 L (1.60-3.17) Ratio Microbiology - Last 24 Hours (Table) 04/27/23 08:41 Blood Culture - Final Blood 04/27/23 08:26 Blood Culture - Final Blood Assessment and Plan Plan: Acute exacerbation of chronic obstructive pulmonary disease Acute influenza A infection Continued tobacco abuse Previous history of cocaine abuse Underlying history of hypertension Underlying history of rheumatoid arthritis Underlying history of gastroesophageal reflux disease Underlying history of anxiety disorder At this time patient was admitted to medical floor Home medications reviewed and reordered Pulmonary consultation was requested She was started on IV Solu-Medrol, inhaled bronchodilators, and oral Tamiflu Plans for bronchoscopy today 05/03/2023 For DVT prophylaxis she was started on subcu Lovenox For GI prophylaxis Protonix was continued Will monitor closely
[2023-05-03 09:38] LABS: Basophils # (A) 0.01 X 10*3/uL (0.00-0.10); Basophils % (A) 0.2 %; Eosinophils # (A) 0 X 10*3/uL (0.04-0.35); Eosinophils % (A) 0 %; HCT 36.2 % (37.2-46.3); HGB 12.5 g/dL (12.0-15.0); Lymphocytes # (A) 0.82 X 10*3/uL (0.90-5.00); Lymphocytes % (A) 16.1 %; MCH 31.7 pg (27.0-32.0); MCHC 34.5 g/dL (32.0-37.0); MCV 91.9 FL (80.0-97.0); Mean Platelet Volume 11.7 FL (9.5-12.2); Monocytes # (A) 0.23 X 10*3/uL (0.20-1.00); Monocytes % (A) 4.5 %; NRBC Per 100 WBC 0 X 10*3/uL (0.00-0.01); Neutrophils # (A) 3.89 X 10*3/uL (1.80-7.70); Neutrophils % (A) 76.6 %; Platelet Count 130 X 10*3/uL (140-440); RBC 3.94 X 10*6/uL (4.10-5.20); RBC Morphology Normal (Normal); RDW 12.3 % (11.5-14.5); WBC 5.08 X 10*3/uL (4.50-10.00)
[2023-05-03] MEDS ORDERED: GLYCOPYRROLATE 0.2 MG/ML 2 ML VIAL ONE (10:25)
[2023-05-03] MEDS ORDERED: MIDAZOLAM 2 MG/2 ML VIAL ONE (10:25)
[2023-05-03] MEDS ORDERED: fentaNYL (PF) 50 MCG/ML 2 ML AMP ONE (10:25)
[2023-05-03] MEDS ORDERED: PROPOFOL 10 MG/ML 20 ML VIAL IV ONE (10:25)
[2023-05-03] MEDS ORDERED: KETAMINE HCL IN 0.9 % NACL 50 MG/5 ML SYRINGE ONE (10:25)
[2023-05-03] MEDS ORDERED: LIDOCAINE 2% (PF) 20 MG/ML 5 ML VIAL ONE (10:25)
[2023-05-03] MEDS: SODIUM CHLORIDE 0.9% 500 ML 500 ML IV ONE (10:29)
[2023-05-03] MEDS: FLUCONAZOLE 100 MG TAB PO SCH (11:51)
--- NOTE | 2023-05-03 12:31 | PCN ---
PROCEDURE NOTE PROCEDURE PERFORMED: Bronchoscopy and bronchoalveolar lavage/random BAL and random bronchial washing of both lungs. PREOPERATIVE DIAGNOSES: Acute exacerbation of COPD, purulent tracheobronchitis, inability to clear secretions. POSTOPERATIVE DIAGNOSIS: Acute exacerbation of COPD, purulent tracheobronchitis, inability to clear secretions, however, I also suspect most likely Shena tracheobronchitis. ANESTHESIA USED: The patient received IV conscious sedation. DESCRIPTION OF PROCEDURE: The patient was prepared according to the bronchoscopy protocol. She was brought in to the bronchoscopy suite, placed in a supine position, O2 was applied via Ventimask. The patient was monitored with pulse oximetry, cardiac rhythm was monitored, blood pressure was intermittently monitored. After adequate IV conscious sedation, bronchoscope was inserted through a bite block which was placed earlier and advanced to the area of the vocal cords. Significant purulent secretions were noted around the vocal cords, these were suctioned. Lidocaine was instilled over the vocal cords, and the bronchoscope was advanced further down to the trachea. Thorough examination was done of the trachea, michael, right upper lobe, right middle lobe, right lower lobe, left upper lobe, lingula, and left lower lobe. There was evidence of significant copious amount of secretions noted in the airways including the trachea, right upper lobe, right middle lobe, right lower lobe, left upper lobe lingula, and left lower lobe. Bronchoalveolar lavage was done from each lobe, and until all secretions were cleared. At the end of the operative procedure, I clearly noted there was whitish cheesy plaques noted on the airway including the posterior wall of the trachea, left and right mainstem mucosa. Highly suggestive of Shena or fungal infection involving the trachea and the airways. At any rate, samples were sent for different diagnostic studies and the procedure was well tolerated, no complications. MMODL / IJN: [id number] /
--- NOTE | 2023-05-03 12:36 | P.PN ---
Subjective Progress Note Date: 05/03/23 62-year-old female patient with known history of COPD/asthma who is also an active smoker who smokes about 1 pack of cigarettes a day. The patient has had also issues with RA, hypertension, chronic liver disease secondary hepatitis C as the patient has utilize drugs in the past. The patient's last hospi talization for pneumonia was back in June 2022 and at that time the patient was treated and the patient was discharged home. The patient comes back to the hospital because of 3 days history of decreased Fatigue, weakness, tiredness, lethargy along with increased dyspnea cough chest tightness and wheezing. In the emergency, the patient was diagnosed having influenza A infection. Electrolytes were normal. There was a +4.2 with a hemoglobin of 17, BUN is at 12 with a creatinine of 0.8. The patient is currently on 2 L of O2 nasal cannula with a pulse ox of 97%. Chest x-ray that was done in the ED showed no acute cardiopulmonary abnormalities and showed some cardiomegaly and background COPD. Noted the patient has only an albuterol rescue inhaler. She does not utilize any form of maintenance respiratory medications on outpatient basis. She is not oxygen dependent. She has not received the vaccination for influenza for this current year. The rest of the viral panel was negative. 04/29/2023, the patient is being seen for a follow-up. Patient is feeling slightly improved compared to yesterday. The patient was infected with influenza A and the patient is currently on Tamiflu. COPD also exacerbated and the patient is currently on a combination of DuoNeb updrafts and IV Solu-Medrol. No nausea. No vomiting. She is having some bodyaches and chills. No fever. Shortness of breath this seems to be improving and the patient is also being hydrated with normal saline at rate of 75 cc an hour. White cell count of 5.5 with a hemoglobin of 12 and a platelet count of 99. Sodium is 140, potassium is at 4.9, BUN is at 24 with a creatinine of 1.0. Note that the patient has not been vaccinated for influenza for this current season. The patient is seen today April 30, 2023 and follow-up on the regular medical floor. She is currently sitting up at the bedside. Awake and alert in no acute distress. Maintaining O2 saturations in the 90s on room air. She is still feeling quite congested. She has a dry cough. Blood cultures reveal no growth. No new labs today. She is continued on DuoNeb ventilations, Solu-Medrol, Tamiflu. Heparin for DVT prophylaxis. The patient is seen today May 01, 2023 in follow-up on the regular medical floor. She is currently sitting up in bed. Awake and alert in no acute distress. Maintaining good O2 saturations in the 90s on room air. She has been afebrile. Hemodynamically stable. Not quite back to her baseline. She is maintained on Solu-Medrol, DuoNeb ventilations, Tamiflu. Heparin for DVT prophylaxis. White count 4.0. Hemoglobin 13.2. Platelets 100,000. Sodium 140. Potassium 5.1. Bicarb 26. BUN 25. Creatinine 1.0. Glucose 132. The patient is seen today May 02, 2023 in follow-up on the regular medical floor. She is resting flat in bed. Awake and alert in no acute distress. Maintaining O2 saturations in the 90s on room air. She continues to have issues with shortness of breath, cough and congestion. Unable to expectorate mucus. She remains on DuoNeb elations, Symbicort, Solu-Medrol. Remains on Robitussin. Remains on Tamiflu. Blood cultures revealed no growth. The patient is seen today May 03, 2023 in follow-up on the regular medical floor. She is sitting up in bed. Awake and alert in no acute distress. Continues with a loose nonproductive cough. Maintaining O2 saturations in the 90s on 2 L nasal cannula. She has been afebrile. Hemodynamically stable. Blood cultures revealed no growth. White count 5.0. Hemoglobin 12.5. Platelets 130,000. Sodium 141. Potassium 4.4. Bicarb 30. BUN 23. Creatinine 0.9. Glucose 144. She remains on DuoNeb ventilations, Symbicort, Solu-Medrol. Heparin for DVT prophylaxis. Objective - Vital Signs Vital signs: Vital Signs Temp 98.7 F 05/03/23 11:00 Pulse 73 05/03/23 12:00 Resp 17 05/03/23 07:25 BP 157/92 05/03/23 12:00 Pulse Ox 94 L 05/03/23 12:00 FiO2 21 05/02/23 08:18 Intake & Output 05/02/23 05/03/23 05/03/23 18:59 06:59 18:59 Intake Total 200 Balance 200 Intake: IV 200 Other: Voiding Method Toilet # Voids 1 2 - Exam GENERAL EXAM: Alert, 63-year-old female, sitting up at the bedside, on room air, in no apparent distress. HEAD: Normocephalic. EYES: Normal reaction of pupils, equal size. NOSE: Clear with pink turbinates. THROAT: No erythema or exudates. NECK: No masses, no JVD. CHEST: No chest wall deformity. LUNGS: Equal air entry with few bilateral scattered rhonchi. CVS: S1 and S2 normal with no audible murmur, regular rhythm. ABDOMEN: No hepatosplenomegaly, normal bowel sounds, no guarding or rigidity. SPINE: No scoliosis or deformity SKIN: No rashes CENTRAL NERVOUS SYSTEM: No focal deficits, tone is normal in all 4 extremities. EXTREMITIES: There is no peripheral edema. No clubbing, no cyanosis. Peripheral pulses are intact. - Labs CBC & Chem 7: 05/03/23 05:48 05/03/23 05:48 Labs: Abnormal Lab Results - Last 24 Hours (Table) 05/03/23 05/03/23 Range/Units 05:48 05:48 RBC 3.94 L (4.10-5.20) X 10*6/uL Hct 36.2 L (37.2-46.3) % Plt Count 130 L (140-440) X 10*3/uL Immature Gran # 0.13 H (0.00-0.04) X 10*3/uL Lymphocytes # 0.82 L (0.90-5.00) X 10*3/uL Eosinophils # 0 L (0.04-0.35) X 10*3/uL BUN/Creatinine Ratio 25.22 H (12.00-20.00) Ratio Glucose 144 H (70-110) mg/dL Total Protein 5.4 L (6.2-8.2) g/dL Albumin 3.3 L (3.8-4.9) g/dL Albumin/Globulin Ratio 1.57 L (1.60-3.17) Ratio Microbiology - Last 24 Hours (Table) 04/27/23 08:41 Blood Culture - Final Blood 04/27/23 08:26 Blood Culture - Final Blood Assessment and Plan Assessment: Acute exacerbation of COPD secondary to influenza A infection Acute hypoxic respiratory failure secondary to above, recovered, currently on room air Acute influenza A infection, unvaccinated, receiving Tamiflu Shortness of breath secondary to above History of chronic liver disease/hepatitis C Hypertension Rheumatoid arthritis Acid reflux History of polysubstance abuse and and this includes cocaine and marijuana and she states that she takes edibles for now Plan: The patient was seen and evaluated Labs and medications reviewed Currently stable and on room air Plan for bronchoscopy with BAL today Continue the current treatment plan We will continue to follow I have personally seen and examined the patient, performed the documentation and the assessment and plan as written. Number of minutes spent on the visit: 10.
[2023-05-04 08:46] VITALS: BMI 40.6
--- NOTE | 2023-05-04 09:53 | P.PN ---
Subjective Progress Note Date: 05/04/23 Alisa Cain, is a 62-year-old female who presented to [facility] emergency room with a chief complaint of cough and worsening shortness of breath She was evaluated in the emergency room vital examination on presentation revealed a temperature of 100.5 pulse 103 respiration 24 blood pressure 164/100 pulse ox 91% on room air Laboratory data reveals a white blood count of 4.2 hemoglobin 13.0 platelet count 100 BUN 12 creatinine 0.88 influenza A PCR was positive Testing in the emergency room revealed chest x-ray done in the emergency room revealed no acute process Patient was admitted to medical floor for further evaluation and treatment On 04/28/2023 patient was seen and examined on the medical floor she is alert and oriented 3 in no apparent distress she is still complaining of severe cough and requesting cough medication, she is reporting some improvement in her short ness of breath, otherwise she denies any complaints there is no fever or chills no headache or dizziness no chest pain no palpitation no nausea or vomiting no abdominal pain or diarrhea no blood in the stools no burning with urination no frequency or urgency and no hematuria no weakness or numbness in any of her extremities no change in vision speech or gait On 04/29/2022 for patients alert and oriented 3. Patient complains of generalized pain. Patient is maintained on room air. Current vital signs temp 97.7, heart rate 65, respiratory rate 16, blood pressure 130/70 with a pulse ox of 95% on room air. Patient remains on Tamiflu and IV steroids. Anticipate discharge in the next 24-48 hours On 04/30/2022 for patients alert and oriented 3. Patient complains of generalized pain. Patient is maintained on room air. Current vital signs temp 97.7, heart rate 65, respiratory rate 16, blood pressure 130/70 with a pulse ox of 95% on room air. Patient remains on Tamiflu and IV steroids. On 05/01/2023 patient was seen and examined on the medical floor she is alert and oriented 3 in no apparent distress she is still complaining of shortness of breath cough and wheezing otherwise she denies any complaints there is no fever or chills no headache or dizziness no chest pain no nausea or vomiting no abdominal pain no diarrhea and no urinary symptoms, she is still having significant breathing complaints, she is not ready to be discharged to home today. On 05/02/2023 patient was seen and examined on the medical floor she is alert and oriented 3 in no apparent distress she is still complaining of shortness of breath and cough, otherwise she denies any complaints there is no fever or chills no headache or dizziness no chest pain no palpitation no nausea or vomiting no abdominal pain no diarrhea and no urinary symptoms. Input from pulmonary reviewed patient is scheduled for bronchoscopy in a.m. tomorrow with continued follow. On 05/03/2009 for patients alert and oriented 3. Tentative plans for bronchoscopy today. Patient still complaining of shortness of breath and increased nonproductive cough. Current vital signs have 97.9, heart 65, respiratory rate 17, blood pressure 141/90 with a pulse ox of 96% on room air very patient remains on IV steroids On 05/04/2023 patient is alert and oriented 3. Patient underwent bronchoscopy yesterday with pulmonary services suspicious for Shena albicans. Patient started on Diflucan per pulmonary. Patient reports slight improvement. Current vital signs temp 98.1, heart rate 68, respiratory rate 16, blood pressure 120/76 with pulse ox 95% room air Objective - Vital Signs Vital signs: Vital Signs Temp 98.1 F 05/04/23 08:25 Pulse 103 H 05/04/23 08:25 Resp 18 05/04/23 08:25 BP 154/93 05/04/23 08:25 Pulse Ox 93 L 05/04/23 08:25 FiO2 21 05/04/23 07:56 Intake & Output 05/03/23 05/04/23 05/04/23 18:59 06:59 18:59 Intake Total 318 236 Balance 318 236 Weight 107.501 kg Intake: IV 200 Oral 118 236 Other: Voiding Method Toilet # Voids 3 2 - Exam In general patient is alert and oriented x 3 in no distress HEENT head normocephalic and atraumatic Neck is supple no JVD no goiter no lymphadenopathy no carotid bruit Chest examination reveals a crackles in both lung lópez with wheezing Cardiac exam reveals regular heart sounds S1 and S2 no gallops no murmurs Abdomen is soft nontender no organomegaly with normal bowel sounds Extremity exam reveals no edema no cyanosis or clubbing Neurological examination reveals no gross focal deficits - Labs CBC & Chem 7: 05/03/23 05:48 05/03/23 05:48 Assessment and Plan Plan: Acute exacerbation of chronic obstructive pulmonary disease Acute influenza A infection Continued tobacco abuse Previous history of cocaine abuse Underlying history of hypertension Underlying history of rheumatoid arthritis Underlying history of gastroesophageal reflux disease Underlying history of anxiety disorder Shena tracheobronchitis. Patient started on Diflucan At this time patient was admitted to medical floor Home medications reviewed and reordered Pulmonary consultation was requested She was started on IV Solu-Medrol, inhaled bronchodilators, and oral Tamiflu Status post bronchoscopy on 05/03/2023 For DVT prophylaxis she was started on subcu Lovenox For GI prophylaxis Protonix was continued Will monitor closely
[2023-05-04 11:13] LABS: Basophils # (A) 0.01 X 10*3/uL (0.00-0.10); Basophils % (A) 0.2 %; Eosinophils # (A) 0 X 10*3/uL (0.04-0.35); Eosinophils % (A) 0 %; HCT 37.1 % (37.2-46.3); HGB 12.6 g/dL (12.0-15.0); Lymphocytes # (A) 0.83 X 10*3/uL (0.90-5.00); Lymphocytes % (A) 16.3 %; MCV 91.4 FL (80.0-97.0); Mean Platelet Volume 11.7 FL (9.5-12.2); Monocytes # (A) 0.17 X 10*3/uL (0.20-1.00); Monocytes % (A) 3.3 %; NRBC Per 100 WBC 0 X 10*3/uL (0.00-0.01); Neutrophils # (A) 3.86 X 10*3/uL (1.80-7.70); Neutrophils % (A) 75.9 %; Platelet Count 150 X 10*3/uL (140-440); RBC 4.06 X 10*6/uL (4.10-5.20); RDW 12.3 % (11.5-14.5); WBC 5.09 X 10*3/uL (4.50-10.00)
[2023-05-04 11:24] LABS: ALT 42 U/L (8-44); AST 16 U/L (13-35); Albumin 3.2 g/dL (3.8-4.9); Albumin/Globulin Ratio 1.52 Ratio (1.60-3.17); Alkaline Phosphatase 41 U/L (41-126); BUN/Creat Ratio 24.44 Ratio (12.00-20.00); Calcium 9.4 mg/dL (8.7-10.3); Carbon Dioxide 29.9 mmol/L (21.6-31.8); Chloride 105 mmol/L (96-109); Globulin 2.1 g/dL (1.6-3.3); Glucose 141 mg/dL (70-110); Potassium 4.9 mmol/L (3.5-5.5); Sodium 142 mmol/L (135-145); Total Bilirubin 0.4 mg/dL (0.3-1.2); Total Protein 5.3 g/dL (6.2-8.2)
--- NOTE | 2023-05-04 12:15 | P.PN ---
Subjective Progress Note Date: 05/04/23 62-year-old female patient with known history of COPD/asthma who is also an active smoker who smokes about 1 pack of cigarettes a day. The patient has had also issues with RA, hypertension, chronic liver disease secondary hepatitis C as the patient has utilize drugs in the past. The patient's last hospi talization for pneumonia was back in June 2022 and at that time the patient was treated and the patient was discharged home. The patient comes back to the hospital because of 3 days history of decreased Fatigue, weakness, tiredness, lethargy along with increased dyspnea cough chest tightness and wheezing. In the emergency, the patient was diagnosed having influenza A infection. Electrolytes were normal. There was a +4.2 with a hemoglobin of 17, BUN is at 12 with a creatinine of 0.8. The patient is currently on 2 L of O2 nasal cannula with a pulse ox of 97%. Chest x-ray that was done in the ED showed no acute cardiopulmonary abnormalities and showed some cardiomegaly and background COPD. Noted the patient has only an albuterol rescue inhaler. She does not utilize any form of maintenance respiratory medications on outpatient basis. She is not oxygen dependent. She has not received the vaccination for influenza for this current year. The rest of the viral panel was negative. 04/29/2023, the patient is being seen for a follow-up. Patient is feeling slightly improved compared to yesterday. The patient was infected with influenza A and the patient is currently on Tamiflu. COPD also exacerbated and the patient is currently on a combination of DuoNeb updrafts and IV Solu-Medrol. No nausea. No vomiting. She is having some bodyaches and chills. No fever. Shortness of breath this seems to be improving and the patient is also being hydrated with normal saline at rate of 75 cc an hour. White cell count of 5.5 with a hemoglobin of 12 and a platelet count of 99. Sodium is 140, potassium is at 4.9, BUN is at 24 with a creatinine of 1.0. Note that the patient has not been vaccinated for influenza for this current season. The patient is seen today April 30, 2023 and follow-up on the regular medical floor. She is currently sitting up at the bedside. Awake and alert in no acute distress. Maintaining O2 saturations in the 90s on room air. She is still feeling quite congested. She has a dry cough. Blood cultures reveal no growth. No new labs today. She is continued on DuoNeb ventilations, Solu-Medrol, Tamiflu. Heparin for DVT prophylaxis. The patient is seen today May 01, 2023 in follow-up on the regular medical floor. She is currently sitting up in bed. Awake and alert in no acute distress. Maintaining good O2 saturations in the 90s on room air. She has been afebrile. Hemodynamically stable. Not quite back to her baseline. She is maintained on Solu-Medrol, DuoNeb ventilations, Tamiflu. Heparin for DVT prophylaxis. White count 4.0. Hemoglobin 13.2. Platelets 100,000. Sodium 140. Potassium 5.1. Bicarb 26. BUN 25. Creatinine 1.0. Glucose 132. The patient is seen today May 02, 2023 in follow-up on the regular medical floor. She is resting flat in bed. Awake and alert in no acute distress. Maintaining O2 saturations in the 90s on room air. She continues to have issues with shortness of breath, cough and congestion. Unable to expectorate mucus. She remains on DuoNeb elations, Symbicort, Solu-Medrol. Remains on Robitussin. Remains on Tamiflu. Blood cultures revealed no growth. The patient is seen today May 03, 2023 in follow-up on the regular medical floor. She is sitting up in bed. Awake and alert in no acute distress. Continues with a loose nonproductive cough. Maintaining O2 saturations in the 90s on 2 L nasal cannula. She has been afebrile. Hemodynamically stable. Blood cultures revealed no growth. White count 5.0. Hemoglobin 12.5. Platelets 130,000. Sodium 141. Potassium 4.4. Bicarb 30. BUN 23. Creatinine 0.9. Glucose 144. She remains on DuoNeb ventilations, Symbicort, Solu-Medrol. Heparin for DVT prophylaxis. The patient is seen today May 04, 2023 in follow-up on the regular medical floor. She is awake and alert in no acute distress. Sitting up in bed. She was having some chest wall pain from coughing. She is breathing easier today compared to yesterday. She did undergo bronchoscopy with BAL and much mucus removed. Cultures and cytology pending. She was initiated on Diflucan for oral candidiasis noted during the bronchoscopy. She is continued on DuoNeb inhalations, Symbicort, Solu-Medrol. Remains on Robitussin. Heparin for DVT prophylaxis. White count 5.0. Hemoglobin 12.6. Platelets 150. Sodium 142. Potassium 4.9. Bicarb 30. BUN 22. Creatinine 0.9. Glucose 141. Objective - Vital Signs Vital signs: Vital Signs Temp 98.1 F 05/04/23 08:25 Pulse 76 05/04/23 11:45 Resp 18 05/04/23 09:00 BP 154/93 05/04/23 08:25 Pulse Ox 93 L 05/04/23 08:25 FiO2 21 05/04/23 07:56 Intake & Output 05/03/23 05/04/23 05/04/23 18:59 06:59 18:59 Intake Total 318 236 Balance 318 236 Weight 107.501 kg Intake: IV 200 Oral 118 236 Other: Voiding Method Toilet Toilet # Voids 3 2 - Exam GENERAL EXAM: Alert, oriented 63-year-old female, resting in bedside, on room air, in no apparent distress. HEAD: Normocephalic. EYES: Normal reaction of pupils, equal size. NOSE: Clear with pink turbinates. THROAT: No erythema or exudates. NECK: No masses, no JVD. CHEST: No chest wall deformity. LUNGS: Equal air entry with few bilateral scattered rhonchi. CVS: S1 and S2 normal with no audible murmur, regular rhythm. ABDOMEN: No hepatosplenomegaly, normal bowel sounds, no guarding or rigidity. SPINE: No scoliosis or deformity SKIN: No rashes CENTRAL NERVOUS SYSTEM: No focal deficits, tone is normal in all 4 extremities. EXTREMITIES: There is no peripheral edema. No clubbing, no cyanosis. Peripheral pulses are intact. - Labs CBC & Chem 7: 05/04/23 06:46 05/04/23 06:46 Labs: Abnormal Lab Results - Last 24 Hours (Table) 05/04/23 05/04/23 Range/Units 06:46 06:46 RBC 4.06 L (4.10-5.20) X 10*6/uL Hct 37.1 L (37.2-46.3) % Immature Gran # 0.22 H (0.00-0.04) X 10*3/uL Lymphocytes # 0.83 L (0.90-5.00) X 10*3/uL Monocytes # 0.17 L (0.20-1.00) X 10*3/uL Eosinophils # 0 L (0.04-0.35) X 10*3/uL BUN/Creatinine Ratio 24.44 H (12.00-20.00) Ratio Glucose 141 H (70-110) mg/dL Total Protein 5.3 L (6.2-8.2) g/dL Albumin 3.2 L (3.8-4.9) g/dL Albumin/Globulin Ratio 1.52 L (1.60-3.17) Ratio Assessment and Plan Assessment: Acute exacerbation of COPD secondary to influenza A infection. Status post bronchoscopy with BAL 05/03/2023, cytology and cultures pending Acute hypoxic respiratory failure secondary to above, recovered, currently on room air Acute influenza A infection, unvaccinated, completed Tamiflu Oral candidiasis, initiated on Diflucan History of chronic liver disease/hepatitis C Hypertension Rheumatoid arthritis Acid reflux History of polysubstance abuse and this includes cocaine and marijuana and she states that she takes edibles for now Plan: The patient was seen and evaluated Labs and medications reviewed Currently stable and on room air Continue the current treatment plan Patient on Diflucan yesterday for oral candidiasis Probable discharge in the a.m. We will continue to follow I have personally seen and examined the patient, performed the documentation and the assessment and plan as written. Number of minutes spent on the visit: 10.
[2023-05-04 22:00] LABS: Appearance,Urine Cloudy (Clear); Bacteria,Urine Many /hpf; Bilirubin,Urine Negative (Negative); Blood,Urine Negative (Negative); Color,Urine Yellow; Glucose,Urine (UA) Negative (Negative); Ketones,Urine Negative (Negative); Leukocyte Esterase,Urine Large (Negative); Mucus,Urine Rare /hpf; Nitrite,Urine Positive (Negative); PH, Urine 8.5 (5.0-8.0); Protein,Urine Trace (Negative); RBC,Urine 2 /hpf (0-5); Specific Gravity,Urine 1.017 (1.001-1.035); Squamous Epithelial Cell,Urine <1 /hpf (0-4); Urobilinogen,Urine <2.0 mg/dL (<2.0); WBC,Urine 13 /hpf (0-5)
[2023-05-04] MEDS: CIPROFLOXACIN HCL 250 MG TAB PO SCH (22:32)
--- NOTE | 2023-05-05 11:29 | P.PN ---
Subjective Progress Note Date: 05/05/23 Alisa Cain, is a 62-year-old female who presented to [facility] emergency room with a chief complaint of cough and worsening shortness of breath She was evaluated in the emergency room vital examination on presentation revealed a temperature of 100.5 pulse 103 respiration 24 blood pressure 164/100 pulse ox 91% on room air Laboratory data reveals a white blood count of 4.2 hemoglobin 13.0 platelet count 100 BUN 12 creatinine 0.88 influenza A PCR was positive Testing in the emergency room revealed chest x-ray done in the emergency room revealed no acute process Patient was admitted to medical floor for further evaluation and treatment On 04/28/2023 patient was seen and examined on the medical floor she is alert and oriented 3 in no apparent distress she is still complaining of severe cough and requesting cough medication, she is reporting some improvement in her short ness of breath, otherwise she denies any complaints there is no fever or chills no headache or dizziness no chest pain no palpitation no nausea or vomiting no abdominal pain or diarrhea no blood in the stools no burning with urination no frequency or urgency and no hematuria no weakness or numbness in any of her extremities no change in vision speech or gait On 04/29/2022 for patients alert and oriented 3. Patient complains of generalized pain. Patient is maintained on room air. Current vital signs temp 97.7, heart rate 65, respiratory rate 16, blood pressure 130/70 with a pulse ox of 95% on room air. Patient remains on Tamiflu and IV steroids. Anticipate discharge in the next 24-48 hours On 04/30/2022 for patients alert and oriented 3. Patient complains of generalized pain. Patient is maintained on room air. Current vital signs temp 97.7, heart rate 65, respiratory rate 16, blood pressure 130/70 with a pulse ox of 95% on room air. Patient remains on Tamiflu and IV steroids. On 05/01/2023 patient was seen and examined on the medical floor she is alert and oriented 3 in no apparent distress she is still complaining of shortness of breath cough and wheezing otherwise she denies any complaints there is no fever or chills no headache or dizziness no chest pain no nausea or vomiting no abdominal pain no diarrhea and no urinary symptoms, she is still having significant breathing complaints, she is not ready to be discharged to home today. On 05/02/2023 patient was seen and examined on the medical floor she is alert and oriented 3 in no apparent distress she is still complaining of shortness of breath and cough, otherwise she denies any complaints there is no fever or chills no headache or dizziness no chest pain no palpitation no nausea or vomiting no abdominal pain no diarrhea and no urinary symptoms. Input from pulmonary reviewed patient is scheduled for bronchoscopy in a.m. tomorrow with continued follow. On 05/03/2009 for patients alert and oriented 3. Tentative plans for bronchoscopy today. Patient still complaining of shortness of breath and increased nonproductive cough. Current vital signs have 97.9, heart 65, respiratory rate 17, blood pressure 141/90 with a pulse ox of 96% on room air very patient remains on IV steroids On 05/04/2023 patient is alert and oriented 3. Patient underwent bronchoscopy yesterday with pulmonary services suspicious for Shena albicans. Patient started on Diflucan per pulmonary. Patient reports slight improvement. Current vital signs temp 98.1, heart rate 68, respiratory rate 16, blood pressure 120/76 with pulse ox 95% room air. 05/05/2023 patient was seen and examined on the medical floor she is alert and oriented 3 in no apparent distress, she is still complaining of chest tightness, shortness of breath and wheezing, otherwise she denies any complaints there is no chest pain no fever or chills no nausea or vomiting no abdominal pain no diarrhea and no urinary symptoms. Objective - Vital Signs Vital signs: Vital Signs Temp 98.1 F 05/05/23 07:49 Pulse 72 05/05/23 08:30 Resp 16 05/05/23 08:00 BP 132/77 05/05/23 07:49 Pulse Ox 94 L 05/05/23 07:49 FiO2 21 05/04/23 07:56 Intake & Output 05/04/23 05/05/23 05/05/23 18:59 06:59 18:59 Intake Total 1116 Balance 1116 Weight 107.501 kg Intake: Oral 1116 Other: Voiding Method Toilet Toilet Toilet # Voids 3 2 - Exam In general patient is alert and oriented x 3 in no distress HEENT head normocephalic and atraumatic Neck is supple no JVD no goiter no lymphadenopathy no carotid bruit Chest examination reveals a crackles in both lung lópez with wheezing Cardiac exam reveals regular heart sounds S1 and S2 no gallops no murmurs Abdomen is soft nontender no organomegaly with normal bowel sounds Extremity exam reveals no edema no cyanosis or clubbing Neurological examination reveals no gross focal deficits - Labs CBC & Chem 7: 05/04/23 06:46 05/04/23 06:46 Labs: Abnormal Lab Results - Last 24 Hours (Table) 05/04/23 Range/Units 21:00 Urine Appearance Cloudy H (Clear) Urine pH 8.5 H (5.0-8.0) Urine Protein Trace H (Negative) Urine Nitrite Positive H (Negative) Ur Leukocyte Esterase Large H (Negative) Urine WBC 13 H (0-5) /hpf Urine Bacteria Many H (None) /hpf Urine Mucus Rare H (None) /hpf Assessment and Plan Plan: Acute exacerbation of chronic obstructive pulmonary disease Acute influenza A infection Continued tobacco abuse Previous history of cocaine abuse Underlying history of hypertension Underlying history of rheumatoid arthritis Underlying history of gastroesophageal reflux disease Underlying history of anxiety disorder Shena tracheobronchitis. Patient started on Diflucan At this time patient was admitted to medical floor Home medications reviewed and reordered Pulmonary consultation was requested She was started on IV Solu-Medrol, inhaled bronchodilators, and oral Tamiflu Status post bronchoscopy on 05/03/2023 For DVT prophylaxis she was started on subcu Lovenox For GI prophylaxis Protonix was continued Will monitor closely
--- NOTE | 2023-05-05 13:22 | P.PN ---
Subjective Progress Note Date: 05/05/23 62-year-old female patient with known history of COPD/asthma who is also an active smoker who smokes about 1 pack of cigarettes a day. The patient has had also issues with RA, hypertension, chronic liver disease secondary hepatitis C as the patient has utilize drugs in the past. The patient's last hospi talization for pneumonia was back in June 2022 and at that time the patient was treated and the patient was discharged home. The patient comes back to the hospital because of 3 days history of decreased Fatigue, weakness, tiredness, lethargy along with increased dyspnea cough chest tightness and wheezing. In the emergency, the patient was diagnosed having influenza A infection. Electrolytes were normal. There was a +4.2 with a hemoglobin of 17, BUN is at 12 with a creatinine of 0.8. The patient is currently on 2 L of O2 nasal cannula with a pulse ox of 97%. Chest x-ray that was done in the ED showed no acute cardiopulmonary abnormalities and showed some cardiomegaly and background COPD. Noted the patient has only an albuterol rescue inhaler. She does not utilize any form of maintenance respiratory medications on outpatient basis. She is not oxygen dependent. She has not received the vaccination for influenza for this current year. The rest of the viral panel was negative. 04/29/2023, the patient is being seen for a follow-up. Patient is feeling slightly improved compared to yesterday. The patient was infected with influenza A and the patient is currently on Tamiflu. COPD also exacerbated and the patient is currently on a combination of DuoNeb updrafts and IV Solu-Medrol. No nausea. No vomiting. She is having some bodyaches and chills. No fever. Shortness of breath this seems to be improving and the patient is also being hydrated with normal saline at rate of 75 cc an hour. White cell count of 5.5 with a hemoglobin of 12 and a platelet count of 99. Sodium is 140, potassium is at 4.9, BUN is at 24 with a creatinine of 1.0. Note that the patient has not been vaccinated for influenza for this current season. The patient is seen today April 30, 2023 and follow-up on the regular medical floor. She is currently sitting up at the bedside. Awake and alert in no acute distress. Maintaining O2 saturations in the 90s on room air. She is still feeling quite congested. She has a dry cough. Blood cultures reveal no growth. No new labs today. She is continued on DuoNeb ventilations, Solu-Medrol, Tamiflu. Heparin for DVT prophylaxis. The patient is seen today May 01, 2023 in follow-up on the regular medical floor. She is currently sitting up in bed. Awake and alert in no acute distress. Maintaining good O2 saturations in the 90s on room air. She has been afebrile. Hemodynamically stable. Not quite back to her baseline. She is maintained on Solu-Medrol, DuoNeb ventilations, Tamiflu. Heparin for DVT prophylaxis. White count 4.0. Hemoglobin 13.2. Platelets 100,000. Sodium 140. Potassium 5.1. Bicarb 26. BUN 25. Creatinine 1.0. Glucose 132. The patient is seen today May 02, 2023 in follow-up on the regular medical floor. She is resting flat in bed. Awake and alert in no acute distress. Maintaining O2 saturations in the 90s on room air. She continues to have issues with shortness of breath, cough and congestion. Unable to expectorate mucus. She remains on DuoNeb elations, Symbicort, Solu-Medrol. Remains on Robitussin. Remains on Tamiflu. Blood cultures revealed no growth. The patient is seen today May 03, 2023 in follow-up on the regular medical floor. She is sitting up in bed. Awake and alert in no acute distress. Continues with a loose nonproductive cough. Maintaining O2 saturations in the 90s on 2 L nasal cannula. She has been afebrile. Hemodynamically stable. Blood cultures revealed no growth. White count 5.0. Hemoglobin 12.5. Platelets 130,000. Sodium 141. Potassium 4.4. Bicarb 30. BUN 23. Creatinine 0.9. Glucose 144. She remains on DuoNeb ventilations, Symbicort, Solu-Medrol. Heparin for DVT prophylaxis. The patient is seen today May 04, 2023 in follow-up on the regular medical floor. She is awake and alert in no acute distress. Sitting up in bed. She was having some chest wall pain from coughing. She is breathing easier today compared to yesterday. She did undergo bronchoscopy with BAL and much mucus removed. Cultures and cytology pending. She was initiated on Diflucan for oral candidiasis noted during the bronchoscopy. She is continued on DuoNeb inhalations, Symbicort, Solu-Medrol. Remains on Robitussin. Heparin for DVT prophylaxis. White count 5.0. Hemoglobin 12.6. Platelets 150. Sodium 142. Potassium 4.9. Bicarb 30. BUN 22. Creatinine 0.9. Glucose 141. The patient is seen today May 05, 2023 and follow-up on the regular medical floor. She is resting comfortably in bed. Awake and alert in no acute dist ress. Feeling better today compared to yesterday. Still not back to her baseline. She is now found to have a urinary tract infection. Currently on Cipro. She is maintaining O2 saturations in the 90s on room air. Less wheezing. Continue on DuoNeb elations, Symbicort, Solu-Medrol. Heparin for DVT prophylaxis. Remains on oral diuretics. Objective - Vital Signs Vital signs: Vital Signs Temp 98.1 F 05/05/23 07:49 Pulse 88 05/05/23 11:59 Resp 16 05/05/23 08:00 BP 132/77 05/05/23 07:49 Pulse Ox 94 L 05/05/23 07:49 FiO2 21 05/04/23 07:56 Intake & Output 05/04/23 05/05/23 05/05/23 18:59 06:59 18:59 Intake Total 1116 Balance 1116 Weight 107.501 kg Intake: Oral 1116 Other: Voiding Method Toilet Toilet Toilet # Voids 3 2 - Exam GENERAL EXAM: Alert, 63-year-old female, resting in bed, on room air, in no apparent distress. HEAD: Normocephalic. EYES: Normal reaction of pupils, equal size. NOSE: Clear with pink turbinates. THROAT: No erythema or exudates. NECK: No masses, no JVD. CHEST: No chest wall deformity. LUNGS: Equal air entry with few bilateral scattered wheeze. CVS: S1 and S2 normal with no audible murmur, regular rhythm. ABDOMEN: No hepatosplenomegaly, normal bowel sounds, no guarding or rigidity. SPINE: No scoliosis or deformity SKIN: No rashes CENTRAL NERVOUS SYSTEM: No focal deficits, tone is normal in all 4 extremities. EXTREMITIES: There is no peripheral edema. No clubbing, no cyanosis. Periph eral pulses are intact. - Labs CBC & Chem 7: 05/04/23 06:46 05/04/23 06:46 Labs: Abnormal Lab Results - Last 24 Hours (Table) 05/04/23 Range/Units 21:00 Urine Appearance Cloudy H (Clear) Urine pH 8.5 H (5.0-8.0) Urine Protein Trace H (Negative) Urine Nitrite Positive H (Negative) Ur Leukocyte Esterase Large H (Negative) Urine WBC 13 H (0-5) /hpf Urine Bacteria Many H (None) /hpf Urine Mucus Rare H (None) /hpf Assessment and Plan Assessment: Acute exacerbation of COPD secondary to influenza A infection. Status post bronchoscopy with BAL 05/03/2023, cytology and cultures pending Acute hypoxic respiratory failure secondary to above, recovered, currently on room air Acute influenza A infection, unvaccinated, completed Tamiflu Oral candidiasis, initiated on Diflucan History of chronic liver disease/hepatitis C Hypertension Rheumatoid arthritis Acid reflux History of polysubstance abuse and this includes cocaine and marijuana and she states that she takes edibles for now Plan: The patient was seen and evaluated Labs and medications reviewed Now with urinary tract infection Initiated on Cipro Continued on bronchodilators, steroids Completed Tamiflu Increase her activity as tolerated We will continue to follow I have personally seen and examined the patient, performed the documentation and the assessment and plan as written. Number of minutes spent on the visit: 10.
[2023-05-06] MEDS: BUDESONIDE 1 MG/2 ML NEBU INHALATION SCH (08:14)
[2023-05-06] MEDS: FORMOTEROL FUMARATE 20 MCG/2 ML NEBU INHALATION SCH (08:15)
--- NOTE | 2023-05-06 09:37 | P.PN ---
Subjective Progress Note Date: 05/06/23 Alisa Cain, is a 62-year-old female who presented to [facility] emergency room with a chief complaint of cough and worsening shortness of breath She was evaluated in the emergency room vital examination on presentation revealed a temperature of 100.5 pulse 103 respiration 24 blood pressure 164/100 pulse ox 91% on room air Laboratory data reveals a white blood count of 4.2 hemoglobin 13.0 platelet count 100 BUN 12 creatinine 0.88 influenza A PCR was positive Testing in the emergency room revealed chest x-ray done in the emergency room revealed no acute process Patient was admitted to medical floor for further evaluation and treatment On 04/28/2023 patient was seen and examined on the medical floor she is alert and oriented 3 in no apparent distress she is still complaining of severe cough and requesting cough medication, she is reporting some improvement in her shortness of breath, otherwise she denies any complaints there is no fever or chills no headache or dizziness no chest pain no palpitation no nausea or vomiting no abdominal pain or diarrhea no blood in the stools no burning with urination no frequency or urgency and no hematuria no weakness or numbness in any of her extremities no change in vision speech or gait On 04/29/2022 for patients alert and oriented 3. Patient complains of generalized pain. Patient is maintained on room air. Current vital signs temp 97.7, heart rate 65, respiratory rate 16, blood pressure 130/70 with a pulse ox of 95% on room air. Patient remains on Tamiflu and IV steroids. Anticipate discharge in the next 24-48 hours On 04/30/2022 for patients alert and oriented 3. Patient complains of generalized pain. Patient is maintained on room air. Current vital signs temp 97.7, heart rate 65, respiratory rate 16, blood pressure 130/70 with a pulse ox of 95% on room air. Patient remains on Tamiflu and IV steroids. On 05/01/2023 patient was seen and examined on the medical floor she is alert and oriented 3 in no apparent distress she is still complaining of shortness of breath cough and wheezing otherwise she denies any complaints there is no fever or chills no headache or dizziness no chest pain no nausea or vomiting no abdominal pain no diarrhea and no urinary symptoms, she is still having significant breathing complaints, she is not ready to be discharged to home today. On 05/02/2023 patient was seen and examined on the medical floor she is alert and oriented 3 in no apparent distress she is still complaining of shortness of breath and cough, otherwise she denies any complaints there is no fever or chills no headache or dizziness no chest pain no palpitation no nausea or vomiting no abdominal pain no diarrhea and no urinary symptoms. Input from pulmonary reviewed patient is scheduled for bronchoscopy in a.m. tomorrow with continued follow. On 05/03/2009 for patients alert and oriented 3. Tentative plans for bronchoscopy today. Patient still complaining of shortness of breath and increased nonproductive cough. Current vital signs have 97.9, heart 65, respiratory rate 17, blood pressure 141/90 with a pulse ox of 96% on room air very patient remains on IV steroids On 05/04/2023 patient is alert and oriented 3. Patient underwent bronchoscopy yesterday with pulmonary services suspicious for Shena albicans. Patient started on Diflucan per pulmonary. Patient reports slight improvement. Current vital signs temp 98.1, heart rate 68, respiratory rate 16, blood pressure 120/76 with pulse ox 95% room air. 05/05/2023 patient was seen and examined on the medical floor she is alert and oriented 3 in no apparent distress, she is still complaining of chest tightness, shortness of breath and wheezing, otherwise she denies any complaints there is no chest pain no fever or chills no nausea or vomiting no abdominal pain no diarrhea and no urinary symptoms. On for patients alert and oriented 3. Current vital signs temp 90.3, heart rate 75, respiratory rate 18, blood pressure 129/83 with pulse ox 94% on room air. Patient still having some cough and shortness of breath. Patient denies chest pain. Patient denies nausea vomiting or diarrhea. Patient denies any urinary burning or frequency. Patient was started on Cipro for UTI and maintained on Diflucan. Pulmonary services following Objective - Vital Signs Vital signs: Vital Signs Temp 98.3 F 05/06/23 07:43 Pulse 76 05/06/23 07:52 Resp 18 05/06/23 07:43 BP 129/83 05/06/23 07:43 Pulse Ox 94 L 05/06/23 07:43 FiO2 21 05/04/23 07:56 Intake & Output 05/05/23 05/06/23 05/06/23 18:59 06:59 18:59 Other: Voiding Method Toilet Toilet # Voids 2 2 2 - Exam In general patient is alert and oriented x 3 in no distress HEENT head normocephalic and atraumatic Neck is supple no JVD no goiter no lymphadenopathy no carotid bruit Chest examination reveals a crackles in both lung lópez with wheezing Cardiac exam reveals regular heart sounds S1 and S2 no gallops no murmurs Abdomen is soft nontender no organomegaly with normal bowel sounds Extremity exam reveals no edema no cyanosis or clubbing Neurological examination reveals no gross focal deficits - Labs CBC & Chem 7: 05/04/23 06:46 05/04/23 06:46 Labs: Microbiology - Last 24 Hours (Table) 05/03/23 10:43 Gram Stain - Preliminary Bronchoalviolar Lavage - Left Assessment and Plan Assessment: Acute exacerbation of chronic obstructive pulmonary disease Acute influenza A infection Urinary tract infection. Patient started on Cipro Continued tobacco abuse Previous history of cocaine abuse Underlying history of hypertension Underlying history of rheumatoid arthritis Underlying history of gastroesophageal reflux disease Underlying history of anxiety disorder Shena tracheobronchitis. Patient started on Diflucan At this time patient was admitted to medical floor Home medications reviewed and reordered Pulmonary consultation was requested She was started on IV Solu-Medrol, inhaled bronchodilators, and oral Tamiflu Status post bronchoscopy on 05/03/2023 For DVT prophylaxis she was started on subcu Lovenox For GI prophylaxis Protonix was continued Will monitor closely
[2023-05-06] MEDS ORDERED: VANCOMYCIN IV PER PHARMACY 1 EACH MISC MISCELLANE PRN (13:17)
--- NOTE | 2023-05-06 13:19 | P.PN ---
Subjective Progress Note Date: 05/06/23 62-year-old female patient with known history of COPD/asthma who is also an active smoker who smokes about 1 pack of cigarettes a day. The patient has had also issues with RA, hypertension, chronic liver disease secondary hepatitis C as the patient has utilize drugs in the past. The patient's last hospi talization for pneumonia was back in June 2022 and at that time the patient was treated and the patient was discharged home. The patient comes back to the hospital because of 3 days history of decreased Fatigue, weakness, tiredness, lethargy along with increased dyspnea cough chest tightness and wheezing. In the emergency, the patient was diagnosed having influenza A infection. Electrolytes were normal. There was a +4.2 with a hemoglobin of 17, BUN is at 12 with a creatinine of 0.8. The patient is currently on 2 L of O2 nasal cannula with a pulse ox of 97%. Chest x-ray that was done in the ED showed no acute cardiopulmonary abnormalities and showed some cardiomegaly and background COPD. Noted the patient has only an albuterol rescue inhaler. She does not utilize any form of maintenance respiratory medications on outpatient basis. She is not oxygen dependent. She has not received the vaccination for influenza for this current year. The rest of the viral panel was negative. 04/29/2023, the patient is being seen for a follow-up. Patient is feeling slightly improved compared to yesterday. The patient was infected with influenza A and the patient is currently on Tamiflu. COPD also exacerbated and the patient is currently on a combination of DuoNeb updrafts and IV Solu-Medrol. No nausea. No vomiting. She is having some bodyaches and chills. No fever. Shortness of breath this seems to be improving and the patient is also being hydrated with normal saline at rate of 75 cc an hour. White cell count of 5.5 with a hemoglobin of 12 and a platelet count of 99. Sodium is 140, potassium is at 4.9, BUN is at 24 with a creatinine of 1.0. Note that the patient has not been vaccinated for influenza for this current season. The patient is seen today April 30, 2023 and follow-up on the regular medical floor. She is currently sitting up at the bedside. Awake and alert in no acute distress. Maintaining O2 saturations in the 90s on room air. She is still feeling quite congested. She has a dry cough. Blood cultures reveal no growth. No new labs today. She is continued on DuoNeb ventilations, Solu-Medrol, Tamiflu. Heparin for DVT prophylaxis. The patient is seen today May 01, 2023 in follow-up on the regular medical floor. She is currently sitting up in bed. Awake and alert in no acute distress. Maintaining good O2 saturations in the 90s on room air. She has been afebrile. Hemodynamically stable. Not quite back to her baseline. She is maintained on Solu-Medrol, DuoNeb ventilations, Tamiflu. Heparin for DVT prophylaxis. White count 4.0. Hemoglobin 13.2. Platelets 100,000. Sodium 140. Potassium 5.1. Bicarb 26. BUN 25. Creatinine 1.0. Glucose 132. The patient is seen today May 02, 2023 in follow-up on the regular medical floor. She is resting flat in bed. Awake and alert in no acute distress. Maintaining O2 saturations in the 90s on room air. She continues to have issues with shortness of breath, cough and congestion. Unable to expectorate mucus. She remains on DuoNeb elations, Symbicort, Solu-Medrol. Remains on Robitussin. Remains on Tamiflu. Blood cultures revealed no growth. The patient is seen today May 03, 2023 in follow-up on the regular medical floor. She is sitting up in bed. Awake and alert in no acute distress. Continues with a loose nonproductive cough. Maintaining O2 saturations in the 90s on 2 L nasal cannula. She has been afebrile. Hemodynamically stable. Blood cultures revealed no growth. White count 5.0. Hemoglobin 12.5. Platelets 130,000. Sodium 141. Potassium 4.4. Bicarb 30. BUN 23. Creatinine 0.9. Glucose 144. She remains on DuoNeb ventilations, Symbicort, Solu-Medrol. Heparin for DVT prophylaxis. The patient is seen today May 04, 2023 in follow-up on the regular medical floor. She is awake and alert in no acute distress. Sitting up in bed. She was having some chest wall pain from coughing. She is breathing easier today compared to yesterday. She did undergo bronchoscopy with BAL and much mucus removed. Cultures and cytology pending. She was initiated on Diflucan for oral candidiasis noted during the bronchoscopy. She is continued on DuoNeb inhalations, Symbicort, Solu-Medrol. Remains on Robitussin. Heparin for DVT prophylaxis. White count 5.0. Hemoglobin 12.6. Platelets 150. Sodium 142. Potassium 4.9. Bicarb 30. BUN 22. Creatinine 0.9. Glucose 141. The patient is seen today May 05, 2023 and follow-up on the regular medical floor. She is resting comfortably in bed. Awake and alert in no acute dist ress. Feeling better today compared to yesterday. Still not back to her baseline. She is now found to have a urinary tract infection. Currently on Cipro. She is maintaining O2 saturations in the 90s on room air. Less wheezing. Continue on DuoNeb elations, Symbicort, Solu-Medrol. Heparin for DVT prophylaxis. Remains on oral diuretics. The patient is seen today May 06, 2023 in follow-up on the regular medical floor. She is awake and alert in no acute distress. Resting comfortably in bed. Feeling a bit better today compared to yesterday. She has been slow to progress. She remains on DuoNeb ventilations, Pulmicort and performance inhalations, IV Solu-Medrol. She is continued on antibiotics in the form of Cipro. Bronchial wash cultures are now revealing presumptive Staph aureus. Objective - Vital Signs Vital signs: Vital Signs Temp 98.3 F 05/06/23 07:43 Pulse 76 05/06/23 11:24 Resp 18 05/06/23 08:00 BP 129/83 05/06/23 07:43 Pulse Ox 94 L 05/06/23 07:43 FiO2 21 05/04/23 07:56 Intake & Output 05/05/23 05/06/23 05/06/23 18:59 06:59 18:59 Other: Voiding Method Toilet Toilet Toilet # Voids 2 2 2 - Exam GENERAL EXAM: Alert, 63-year-old female, on room air, in no apparent distress. HEAD: Normocephalic. EYES: Normal reaction of pupils, equal size. NOSE: Clear with pink turbinates. THROAT: No erythema or exudates. NECK: No masses, no JVD. CHEST: No chest wall deformity. LUNGS: Equal air entry with few bilateral scattered wheeze. CVS: S1 and S2 normal with no audible murmur, regular rhythm. ABDOMEN: No hepatosplenomegaly, normal bowel sounds, no guarding or rigidity. SPINE: No scoliosis or deformity SKIN: No rashes CENTRAL NERVOUS SYSTEM: No focal deficits, tone is normal in all 4 extremities. EXTREMITIES: There is no peripheral edema. No clubbing, no cyanosis. Peripheral pulses are intact. - Labs CBC & Chem 7: 05/04/23 06:46 05/04/23 06:46 Labs: Microbiology - Last 24 Hours (Table) 05/03/23 10:43 Gram Stain - Preliminary Bronchoalviolar Lavage - Left Bronchial Washings Culture - Preliminary Presumptive Staph aureus Assessment and Plan Assessment: Acute exacerbation of COPD secondary to influenza A infection. Status post bronchoscopy with BAL 05/03/2023, preliminary cultures revealing presumptive Staph aureus and cytology pending Acute hypoxic respiratory failure secondary to above, recovered, currently on room air Acute influenza A infection, unvaccinated, completed Tamiflu Urinary tract infection, on Cipro Oral candidiasis, initiated on Diflucan History of chronic liver disease/hepatitis C Hypertension Rheumatoid arthritis Acid reflux History of polysubstance abuse and this includes cocaine and marijuana and she states that she takes edibles for now Plan: The patient was seen and evaluated Labs and medications reviewed Bronchial wash cultures showing presumptive Staph aureus Will initiate vancomycin Continued on bronchodilators, steroids Increase her activity as tolerated We will continue to follow I have personally seen and examined the patient, performed the documentation and the assessment and plan as written. Number of minutes spent on the visit: 10.
[2023-05-06] MEDS: VANCOMYCIN 1,750 MG in SODIUM CHLORIDE 0.9% 500 ML 500 ML IVPB ONE (15:15)
[2023-05-07] MEDS: VANCOMYCIN 1,750 MG in SODIUM CHLORIDE 0.9% 500 ML 500 ML IVPB SCH (05:56)
[2023-05-07] MEDS: IPRATROPIUM-ALBUTEROL 3 ML NEB INHALATION PRN (06:11)
[2023-05-07 11:39] LABS: Basophils # (M) 0 X 10*3/uL (0.00-0.10); Eosinophils # (M) 0 X 10*3/uL (0.04-0.35); HCT 40.7 % (37.2-46.3); HGB 13.5 g/dL (12.0-15.0); Lymphocytes # (M) 0.92 X 10*3/uL (0.90-5.00); MCHC 33.2 g/dL (32.0-37.0); MCV 93.6 FL (80.0-97.0); Mean Platelet Volume 11.4 FL (9.5-12.2); Metamyelocytes % 4 % (0-0); Monocytes # (M) 0.18 X 10*3/uL (0.20-1.00); Myelocytes % 1 % (0-0); NRBC Per 100 WBC 0 X 10*3/uL (0.00-0.01); Neutrophils # (M) 7.62 X 10*3/uL (1.80-7.70); Neutrophils % (M) 83 %; Platelet Count 123 X 10*3/uL (140-440); RBC 4.35 X 10*6/uL (4.10-5.20); RBC Morphology Normal (Normal); RDW 12.4 % (11.5-14.5); WBC 9.18 X 10*3/uL (4.50-10.00)
[2023-05-07 11:42] LABS: ALT 60 U/L (8-44); AST 13 U/L (13-35); Albumin 3.5 g/dL (3.8-4.9); Albumin/Globulin Ratio 1.59 Ratio (1.60-3.17); Alkaline Phosphatase 51 U/L (41-126); BUN/Creat Ratio 25.67 Ratio (12.00-20.00); Blood Urea Nitrogen 23.1 mg/dL (9.0-27.0); Calcium 9.4 mg/dL (8.7-10.3); Carbon Dioxide 27.3 mmol/L (21.6-31.8); Chloride 104 mmol/L (96-109); Globulin 2.2 g/dL (1.6-3.3); Glucose 191 mg/dL (70-110); Potassium 4.4 mmol/L (3.5-5.5); Sodium 142 mmol/L (135-145); Total Bilirubin 0.3 mg/dL (0.3-1.2); Total Protein 5.7 g/dL (6.2-8.2)
--- NOTE | 2023-05-07 13:03 | P.PN ---
Subjective Progress Note Date: 05/07/23 62-year-old female patient with known history of COPD/asthma who is also an active smoker who smokes about 1 pack of cigarettes a day. The patient has had also issues with RA, hypertension, chronic liver disease secondary hepatitis C as the patient has utilize drugs in the past. The patient's last hospi talization for pneumonia was back in June 2022 and at that time the patient was treated and the patient was discharged home. The patient comes back to the hospital because of 3 days history of decreased Fatigue, weakness, tiredness, lethargy along with increased dyspnea cough chest tightness and wheezing. In the emergency, the patient was diagnosed having influenza A infection. Electrolytes were normal. There was a +4.2 with a hemoglobin of 17, BUN is at 12 with a creatinine of 0.8. The patient is currently on 2 L of O2 nasal cannula with a pulse ox of 97%. Chest x-ray that was done in the ED showed no acute cardiopulmonary abnormalities and showed some cardiomegaly and background COPD. Noted the patient has only an albuterol rescue inhaler. She does not utilize any form of maintenance respiratory medications on outpatient basis. She is not oxygen dependent. She has not received the vaccination for influenza for this current year. The rest of the viral panel was negative. 04/29/2023, the patient is being seen for a follow-up. Patient is feeling slightly improved compared to yesterday. The patient was infected with influenza A and the patient is currently on Tamiflu. COPD also exacerbated and the patient is currently on a combination of DuoNeb updrafts and IV Solu-Medrol. No nausea. No vomiting. She is having some bodyaches and chills. No fever. Shortness of breath this seems to be improving and the patient is also being hydrated with normal saline at rate of 75 cc an hour. White cell count of 5.5 with a hemoglobin of 12 and a platelet count of 99. Sodium is 140, potassium is at 4.9, BUN is at 24 with a creatinine of 1.0. Note that the patient has not been vaccinated for influenza for this current season. The patient is seen today April 30, 2023 and follow-up on the regular medical floor. She is currently sitting up at the bedside. Awake and alert in no acute distress. Maintaining O2 saturations in the 90s on room air. She is still feeling quite congested. She has a dry cough. Blood cultures reveal no growth. No new labs today. She is continued on DuoNeb ventilations, Solu-Medrol, Tamiflu. Heparin for DVT prophylaxis. The patient is seen today May 01, 2023 in follow-up on the regular medical floor. She is currently sitting up in bed. Awake and alert in no acute distress. Maintaining good O2 saturations in the 90s on room air. She has been afebrile. Hemodynamically stable. Not quite back to her baseline. She is maintained on Solu-Medrol, DuoNeb ventilations, Tamiflu. Heparin for DVT prophylaxis. White count 4.0. Hemoglobin 13.2. Platelets 100,000. Sodium 140. Potassium 5.1. Bicarb 26. BUN 25. Creatinine 1.0. Glucose 132. The patient is seen today May 02, 2023 in follow-up on the regular medical floor. She is resting flat in bed. Awake and alert in no acute distress. Maintaining O2 saturations in the 90s on room air. She continues to have issues with shortness of breath, cough and congestion. Unable to expectorate mucus. She remains on DuoNeb elations, Symbicort, Solu-Medrol. Remains on Robitussin. Remains on Tamiflu. Blood cultures revealed no growth. The patient is seen today May 03, 2023 in follow-up on the regular medical floor. She is sitting up in bed. Awake and alert in no acute distress. Continues with a loose nonproductive cough. Maintaining O2 saturations in the 90s on 2 L nasal cannula. She has been afebrile. Hemodynamically stable. Blood cultures revealed no growth. White count 5.0. Hemoglobin 12.5. Platelets 130,000. Sodium 141. Potassium 4.4. Bicarb 30. BUN 23. Creatinine 0.9. Glucose 144. She remains on DuoNeb ventilations, Symbicort, Solu-Medrol. Heparin for DVT prophylaxis. The patient is seen today May 04, 2023 in follow-up on the regular medical floor. She is awake and alert in no acute distress. Sitting up in bed. She was having some chest wall pain from coughing. She is breathing easier today compared to yesterday. She did undergo bronchoscopy with BAL and much mucus removed. Cultures and cytology pending. She was initiated on Diflucan for oral candidiasis noted during the bronchoscopy. She is continued on DuoNeb inhalations, Symbicort, Solu-Medrol. Remains on Robitussin. Heparin for DVT prophylaxis. White count 5.0. Hemoglobin 12.6. Platelets 150. Sodium 142. Potassium 4.9. Bicarb 30. BUN 22. Creatinine 0.9. Glucose 141. The patient is seen today May 05, 2023 and follow-up on the regular medical floor. She is resting comfortably in bed. Awake and alert in no acute dist ress. Feeling better today compared to yesterday. Still not back to her baseline. She is now found to have a urinary tract infection. Currently on Cipro. She is maintaining O2 saturations in the 90s on room air. Less wheezing. Continue on DuoNeb elations, Symbicort, Solu-Medrol. Heparin for DVT prophylaxis. Remains on oral diuretics. The patient is seen today May 06, 2023 in follow-up on the regular medical floor. She is awake and alert in no acute distress. Resting comfortably in bed. Feeling a bit better today compared to yesterday. She has been slow to progress. She remains on DuoNeb ventilations, Pulmicort and performance inhalations, IV Solu-Medrol. She is continued on antibiotics in the form of Cipro. Bronchial wash cultures are now revealing presumptive Staph aureus. The patient is seen today May 07, 2023 in follow-up on the regular medical floor. She is currently resting in bed. Awake and alert in no acute distress. She is maintaining O2 saturations in the 90s on room air. Bronchial lavage cultures were positive for bacillin sensitive Staphylococcus aureus. Count 9.1. Hemoglobin 13.5. Platelets 123. Sodium 142. Potassium 4.4. Bicarb 27. BUN 23. Creatinine 0.9. She is continued on antibiotics in the form of cefazolin. Remains on bronchodilators and steroids. Remains on diuretics. Objective - Vital Signs Vital signs: Vital Signs Temp 97.7 F 05/07/23 07:25 Pulse 76 05/07/23 11:34 Resp 17 05/07/23 07:25 BP 156/91 05/07/23 10:12 Pulse Ox 97 05/07/23 10:30 FiO2 21 05/04/23 07:56 Intake & Output 05/06/23 05/07/2324 18:59 06:59 18:59 Intake Total 472 Balance 472 Intake: Oral 472 Other: Voiding Method Toilet Toilet Toilet # Voids 4 2 - Exam GENERAL EXAM: Alert, obese 63-year-old female, laying in bed, on room air, in no apparent distress. HEAD: Normocephalic. EYES: Normal reaction of pupils, equal size. NOSE: Clear with pink turbinates. THROAT: No erythema or exudates. NECK: No masses, no JVD. CHEST: No chest wall deformity. LUNGS: Equal air entry with few bilateral scattered wheeze. CVS: S1 and S2 normal with no audible murmur, regular rhythm. ABDOMEN: No hepatosplenomegaly, normal bowel sounds, no guarding or rigidity. SPINE: No scoliosis or deformity SKIN: No rashes CENTRAL NERVOUS SYSTEM: No focal deficits, tone is normal in all 4 extremities. EXTREMITIES: There is no peripheral edema. No clubbing, no cyanosis. Peripheral pulses are intact. - Labs CBC & Chem 7: 05/07/23 06:04 05/07/23 06:04 Labs: Abnormal Lab Results - Last 24 Hours (Table) 05/07/23 05/07/23 Range/Units 06:04 06:04 Plt Count 123 L (140-440) X 10*3/uL Monocytes # (Manual) 0.18 L (0.20-1.00) X 10*3/uL Eosinophils # (Manual) 0 L (0.04-0.35) X 10*3/uL BUN/Creatinine Ratio 25.67 H (12.00-20.00) Ratio Glucose 191 H (70-110) mg/dL ALT 60 H (8-44) U/L Total Protein 5.7 L (6.2-8.2) g/dL Albumin 3.5 L (3.8-4.9) g/dL Albumin/Globulin Ratio 1.59 L (1.60-3.17) Ratio Microbiology - Last 24 Hours (Table) 05/03/23 10:43 Gram Stain - Final Bronchoalviolar Lavage - Left Bronchial Washings Culture - Final Staphylococcus aureus 05/03/23 10:43 Acid Fast Bacilli Smear - Preliminary Bronchoalviolar Lavage - Left Assessment and Plan Assessment: Acute exacerbation of COPD secondary to influenza A infection. Status post bronchoscopy with BAL 05/03/2023, cultures revealing methicillin sensitive Staph aureus, cytology pending Acute hypoxic respiratory failure secondary to above, recovered, currently on room air Acute influenza A infection, unvaccinated, completed Tamiflu Urinary tract infection, treated with Cipro Oral candidiasis, initiated on Diflucan History of chronic liver disease/hepatitis C Hypertension Rheumatoid arthritis Acid reflux History of polysubstance abuse and this includes cocaine and marijuana and she states that she takes edibles for now Plan: The patient was seen and evaluated Labs and medications reviewed ID service on the case regarding antibiotics Continued on bronchodilators, steroids Dr. Diaz encouraged her to be up out of bed and in the chair to improve her pulmonary status I have personally seen and examined the patient, performed the documentation and the assessment and plan as written. Number of minutes spent on the visit: 10.
--- NOTE | 2023-05-07 17:50 | P.PN ---
Subjective Progress Note Date: 05/07/23 Alisa Cain, is a 62-year-old female who presented to [facility] emergency room with a chief complaint of cough and worsening shortness of breath She was evaluated in the emergency room vital examination on presentation revealed a temperature of 100.5 pulse 103 respiration 24 blood pressure 164/100 pulse ox 91% on room air Laboratory data reveals a white blood count of 4.2 hemoglobin 13.0 platelet count 100 BUN 12 creatinine 0.88 influenza A PCR was positive Testing in the emergency room revealed chest x-ray done in the emergency room revealed no acute process Patient was admitted to medical floor for further evaluation and treatment On 04/28/2023 patient was seen and examined on the medical floor she is alert and oriented 3 in no apparent distress she is still complaining of severe cough and requesting cough medication, she is reporting some improvement in her short ness of breath, otherwise she denies any complaints there is no fever or chills no headache or dizziness no chest pain no palpitation no nausea or vomiting no abdominal pain or diarrhea no blood in the stools no burning with urination no frequency or urgency and no hematuria no weakness or numbness in any of her extremities no change in vision speech or gait On 04/29/2022 for patients alert and oriented 3. Patient complains of generalized pain. Patient is maintained on room air. Current vital signs temp 97.7, heart rate 65, respiratory rate 16, blood pressure 130/70 with a pulse ox of 95% on room air. Patient remains on Tamiflu and IV steroids. Anticipate discharge in the next 24-48 hours On 04/30/2022 for patients alert and oriented 3. Patient complains of generalized pain. Patient is maintained on room air. Current vital signs temp 97.7, heart rate 65, respiratory rate 16, blood pressure 130/70 with a pulse ox of 95% on room air. Patient remains on Tamiflu and IV steroids. On 05/01/2023 patient was seen and examined on the medical floor she is alert and oriented 3 in no apparent distress she is still complaining of shortness of breath cough and wheezing otherwise she denies any complaints there is no fever or chills no headache or dizziness no chest pain no nausea or vomiting no abdominal pain no diarrhea and no urinary symptoms, she is still having significant breathing complaints, she is not ready to be discharged to home today. On 05/02/2023 patient was seen and examined on the medical floor she is alert and oriented 3 in no apparent distress she is still complaining of shortness of breath and cough, otherwise she denies any complaints there is no fever or chills no headache or dizziness no chest pain no palpitation no nausea or vomiting no abdominal pain no diarrhea and no urinary symptoms. Input from pulmonary reviewed patient is scheduled for bronchoscopy in a.m. tomorrow with continued follow. On 05/03/2009 for patients alert and oriented 3. Tentative plans for bronchoscopy today. Patient still complaining of shortness of breath and increased nonproductive cough. Current vital signs have 97.9, heart 65, respiratory rate 17, blood pressure 141/90 with a pulse ox of 96% on room air very patient remains on IV steroids On 05/04/2023 patient is alert and oriented 3. Patient underwent bronchoscopy yesterday with pulmonary services suspicious for Shena albicans. Patient started on Diflucan per pulmonary. Patient reports slight improvement. Current vital signs temp 98.1, heart rate 68, respiratory rate 16, blood pressure 120/76 with pulse ox 95% room air. 05/05/2023 patient was seen and examined on the medical floor she is alert and oriented 3 in no apparent distress, she is still complaining of chest tightness, shortness of breath and wheezing, otherwise she denies any complaints there is no chest pain no fever or chills no nausea or vomiting no abdominal pain no diarrhea and no urinary symptoms. On 05/06/2023 patients alert and oriented 3. Current vital signs temp 90.3, heart rate 75, respiratory rate 18, blood pressure 129/83 with pulse ox 94% on room air. Patient still having some cough and shortness of breath. Patient denies chest pain. Patient denies nausea vomiting or diarrhea. Patient denies any urinary burning or frequency. Patient was started on Cipro for UTI and maintained on Diflucan. Pulmonary services following On 05/07/2023 patient was seen and examined on the medical floor is alert and oriented 3 in no apparent distress she is still complaining of cough and shortness of breath otherwise she denies any complaints there is no fever or chills no headache or dizziness no chest pain no nausea or vomiting no abdominal pain no diarrhea and no urinary symptoms bronchoalveolar lavage is positive for Staphylococcus aureus consultation for infectious disease was initiated will follow closely Objective - Vital Signs Vital signs: Vital Signs Temp 97.7 F 05/07/23 07:25 Pulse 88 05/07/23 07:25 Resp 17 05/07/23 07:25 BP 112/73 05/07/23 07:25 Pulse Ox 95 05/07/23 07:25 FiO2 21 05/04/23 07:56 Intake & Output 05/06/23 05/07/23 05/07/23 18:59 06:59 18:59 Other: Voiding Method Toilet Toilet # Voids 4 2 - Exam In general patient is alert and oriented x 3 in no distress HEENT head normocephalic and atraumatic Neck is supple no JVD no goiter no lymphadenopathy no carotid bruit Chest examination reveals a crackles in both lung lópez with wheezing Cardiac exam reveals regular heart sounds S1 and S2 no gallops no murmurs Abdomen is soft nontender no organomegaly with normal bowel sounds Extremity exam reveals no edema no cyanosis or clubbing Neurological examination reveals no gross focal deficits - Labs CBC & Chem 7: 05/07/23 06:04 05/07/23 06:04 Labs: Microbiology - Last 24 Hours (Table) 05/03/23 10:43 Acid Fast Bacilli Smear - Preliminary Bronchoalviolar Lavage - Left 05/03/23 10:43 Gram Stain - Preliminary Bronchoalviolar Lavage - Left Bronchial Washings Culture - Preliminary Presumptive Staph aureus Assessment and Plan Plan: Acute exacerbation of chronic obstructive pulmonary disease Acute influenza A infection Continued tobacco abuse Previous history of cocaine abuse Underlying history of hypertension Underlying history of rheumatoid arthritis Underlying history of gastroesophageal reflux disease Underlying history of anxiety disorder Shena tracheobronchitis. Patient started on Diflucan At this time patient was admitted to medical floor Home medications reviewed and reordered Pulmonary consultation was requested She was started on IV Solu-Medrol, inhaled bronchodilators, and oral Tamiflu Status post bronchoscopy on 05/03/2023 For DVT prophylaxis she was started on subcu Lovenox For GI prophylaxis Protonix was continued Will monitor closely
[2023-05-07] MEDS: HYDROcodone/APAP 7.5-325MG 1 EACH TAB PO PRN (22:00)
[2023-05-08] MEDS ORDERED: VANCOMYCIN 1,750 MG in SODIUM CHLORIDE 0.9% 500 ML 500 ML IVPB SCH (02:00)
[2023-05-08] MEDS: SYMBICORT 160-4.5 MCG INHALER INHALATION SCH (07:56)
--- NOTE | 2023-05-08 08:16 | P.CONS ---
History of Present Illness - Reason for Consult Consult date: 05/07/23 Staph aureus lung culture, UTI Requesting physician: Telma Potts - Chief Complaint Shortness of breath x days - History of Present Illness Patient is a 63-year-old female with a past medical history significant for hypertension reflux rheumatoid arthritis COPD patient presented to hospital about 10 days ago on 04/27/2023 for evaluation of shortness of breath and wheezing fever and chills over the last several days patient was evaluated on presentation patient did have low-grade fever 100.5 treated for right however no fever has been recorded since then patient was hypoxic requiring supplemental oxygen however the patient has been off supplemental oxygen the last few days patient did not have any elevated white count during this admission creatinine has been normal liver isms are normal urine was mildly positive on admission blood cultures were negative patient did have blood cultures are negative patient did have bronchoscopy and lavage on 05/03/2023 that is currently growing MSSA patient did have a chest x-ray on admission did acute cardiopulmonary disease process patient was started on vancomycin yesterday infectious disease was consulted today for further management of antibiotic therapy. Patient denies having any fever or any chills however has been complaining of shortness of breath on minimal exertion still complaining of wheezing chest patient did have a cough mild to moderate intensity with occasional sputum no hemoptysis no pleuritic chest pain no nausea no vomiting no abdominal pain and no diarrhea Review of Systems Positive point and negatives has been mentioned in the HPI, complete review of systems was performed and all other systems are negative Past Medical History Past Medical History: Asthma, COPD, GERD/Reflux, Hypertension, Liver Disease, Rheumatoid Arthritis (RA) Additional Past Medical History / Comment(s): 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 Hepatitis C. In 2022 Overdosed after doing cocaine laced with fentanyl. Has quit cocaine and marijiana. pt states she takes edibles. History of Any Multi-Drug Resistant Organisms: None Reported Past Surgical History: Hysterectomy, Joint Replacement, Orthopedic Surgery, Tonsillectomy Additional Past Surgical History / Comment(s): lt hip fx 07/05 with pins and screws. lt knee replacement x2. rt ring finger with screws. rt thumb I&D Past Anesthesia/Blood Transfusion Reactions: No Reported Reaction Additional Past Anesthesia/Blood Transfusion Reaction / Comm: previous blood transfusion with reaction Smoking Status: Current every day smoker - Past Family History Sister(s) Family Medical History: Coronary Artery Disease (CAD) Additional Family Medical History / Comment(s): born with hole in main valve surgery 8th grade, cabg x2 during 2nd open heart age 34 Father Family Medical History: Cancer, Myocardial Infarction (OK) Additional Family Medical History / Comment(s): from colon cancer Mother Family Medical History: Cancer Additional Family Medical History / Comment(s): from lung cancer Medications and Allergies Home Medications Medication Instructions Recorded Confirmed Type ALPRAZolam [Xanax] 0.5 mg PO TID PRN 04/30/19 04/27/23 History Albuterol Inhaler [Ventolin Hfa 1 - 2 puff INHALATION RT-Q6H PRN 04/30/19 04/27/23 History Inhaler] Metoprolol Tartrate [Lopressor] 50 mg PO DAILY 04/30/19 04/27/23 History Pantoprazole Sodium [Protonix] 40 mg PO DAILY 04/30/19 04/27/23 History amLODIPine [Norvasc] 5 mg PO DAILY 30 Days #30 tab 06/29/22 04/27/23 Rx Acetaminophen Tab [Tylenol] 650 mg PO Q6H PRN 04/27/23 04/27/23 History Ergocalciferol [Vitamin D2 (1250 1,250 mcg PO WE 04/27/23 04/27/23 History Mcg = 79759 Iu)] Furosemide [Lasix] 20 mg PO DAILY 04/27/23 04/27/23 History lisinopriL [Zestril] 20 mg PO DAILY 04/27/23 04/27/23 History Sulfamethox-Tmp 800-160Mg [Bactrim 1 each PO BID 5 Days #10 tab 05/11/23 Rx DS 800-160 mg] predniSONE [Deltasone] 40 mg PO DAILY 16 Days #20 tab 05/11/23 Rx Allergies Allergy/AdvReac Type Severity Reaction Status Date / Time adhesive tape Allergy Rash/Hives Verified 04/27/23 09:07 amoxicillin Allergy Rash/Hives Verified 04/27/23 09:07 losartan Allergy Swelling Verified 04/27/23 09:07 valsartan Allergy Swelling Verified 04/27/23 09:07 Physical Exam Vitals: Vital Signs Temp Pulse Pulse Resp BP Pulse Ox 05/07/23 11:34 76 05/07/23 11:19 72 05/07/23 10:30 97 05/07/23 10:12 102 H 156/91 05/07/23 10:00 102 H 05/07/23 08:54 88 05/07/23 08:39 88 05/07/23 07:25 97.7 F 88 17 112/73 95 05/07/23 06:20 80 05/07/23 06:11 76 05/07/23 03:00 98.2 F 70 18 119/77 93 L 05/06/23 21:15 74 19 05/06/23 20:34 80 05/06/23 20:23 80 05/06/23 20:22 80 05/06/23 20:08 80 05/06/23 19:58 98.2 F 74 19 125/74 94 L 05/06/23 15:31 81 05/06/23 15:20 79 05/06/23 14:00 98.3 F 69 19 139/89 94 L Intake and Output 05/06/23 05/07/23 05/07/23 22:59 06:59 14:59 Intake Total 472 Balance 472 Intake: Oral 472 Other: Voiding Method Toilet Toilet # Voids 4 2 GENERAL DESCRIPTION: Elderly female up in bed, no distress. No tachypnea or accessory muscle of respiration use. HEENT: Shows Pallor , no scleral icterus. Oral mucous membrane is dry. No ph aryngeal erythema or thrush NECK: Trachea central, no thyromegaly. LUNGS: Unlabored breathing. Coarse breath sounds and bilateral expiratory wheeze HEART: S1, S2, regular rate and rhythm. ABDOMEN: Soft, no tenderness , guarding or rigidity, no organomegaly EXTREMITIES: No edema of feet. SKIN: No rash, no masses palpable. NEUROLOGICAL: The patient is awake, alert, oriented x3, mood and affect normal. Results CBC & Chem 7: 05/11/23 05:48 05/11/23 05:48 Labs: Abnormal Lab Results - Last 24 Hours (Table) 05/07/23 05/07/23 Range/Units 06:04 06:04 Plt Count 123 L (140-440) X 10*3/uL Monocytes # (Manual) 0.18 L (0.20-1.00) X 10*3/uL Eosinophils # (Manual) 0 L (0.04-0.35) X 10*3/uL BUN/Creatinine Ratio 25.67 H (12.00-20.00) Ratio Glucose 191 H (70-110) mg/dL ALT 60 H (8-44) U/L Total Protein 5.7 L (6.2-8.2) g/dL Albumin 3.5 L (3.8-4.9) g/dL Albumin/Globulin Ratio 1.59 L (1.60-3.17) Ratio Microbiology - Last 24 Hours (Table) 05/03/23 10:43 Gram Stain - Final Bronchoalviolar Lavage - Left Bronchial Washings Culture - Final Staphylococcus aureus 05/03/23 10:43 Acid Fast Bacilli Smear - Preliminary Bronchoalviolar Lavage - Left Assessment and Plan (1) Penicillin allergy Status: Acute Code(s): Z88.0 - ALLERGY STATUS TO PENICILLIN SNOMED Code(s): 48655265 (2) Pneumonia Status: Acute Code(s): J18.9 - PNEUMONIA, UNSPECIFIED ORGANISM SNOMED Code(s): 433630861 (3) MRSA (methicillin resistant staph aureus) culture positive Status: Acute Code(s): Z22.322 - CARRIER OR SUSPECTED CARRIER OF METHICILLIN RESIS STAPH SNOMED Code(s): 202535550 Plan: 1patient presented to hospital with increasing shortness of breath and cough about 10 days ago and this patient did have low-grade fever initial chest x-ray was negative and has been treated for COPD exacerbation patient did have b ronchoscopy on 05/03/2023 which is now growing MSSA with a question of possible tracheobronchitis or developing pneumonia 2-we will repeat a chest x-ray and also check a CRP and a procalcitonin 3-patient to have a penicillin allergy with a rash no history of anaphylaxis 4-discontinue vancomycin 5-we will start patient cefazolin 2 g every 8 hours for clinical response We will follow on clinical condition and cultures to further adjust medication if needed Thank you for this consultation we will follow the patient along with you Dictation was produced using [employer] dictation software. please excuse any grammatical, word or spelling errors. Time with Patient: Greater than 30
[2023-05-08 08:50] LABS: ALT 65 U/L (8-44); AST 15 U/L (13-35); Albumin 3.6 g/dL (3.8-4.9); Alkaline Phosphatase 49 U/L (41-126); BUN/Creat Ratio 26.22 Ratio (12.00-20.00); Blood Urea Nitrogen 23.6 mg/dL (9.0-27.0); Calcium 9.1 mg/dL (8.7-10.3); Carbon Dioxide 27.1 mmol/L (21.6-31.8); Chloride 104 mmol/L (96-109); Globulin 2.4 g/dL (1.6-3.3); Glucose 159 mg/dL (70-110); Potassium 4.6 mmol/L (3.5-5.5); Sodium 141 mmol/L (135-145); Total Bilirubin 0.3 mg/dL (0.3-1.2)
--- NOTE | 2023-05-08 09:14 | P.PN ---
Subjective Progress Note Date: 05/08/23 Alisa Cain, is a 62-year-old female who presented to [facility] emergency room with a chief complaint of cough and worsening shortness of breath She was evaluated in the emergency room vital examination on presentation revealed a temperature of 100.5 pulse 103 respiration 24 blood pressure 164/100 pulse ox 91% on room air Laboratory data reveals a white blood count of 4.2 hemoglobin 13.0 platelet count 100 BUN 12 creatinine 0.88 influenza A PCR was positive Testing in the emergency room revealed chest x-ray done in the emergency room revealed no acute process Patient was admitted to medical floor for further evaluation and treatment On 04/28/2023 patient was seen and examined on the medical floor she is alert and oriented 3 in no apparent distress she is still complaining of severe cough and requesting cough medication, she is reporting some improvement in her short ness of breath, otherwise she denies any complaints there is no fever or chills no headache or dizziness no chest pain no palpitation no nausea or vomiting no abdominal pain or diarrhea no blood in the stools no burning with urination no frequency or urgency and no hematuria no weakness or numbness in any of her extremities no change in vision speech or gait On 04/29/2022 for patients alert and oriented 3. Patient complains of generalized pain. Patient is maintained on room air. Current vital signs temp 97.7, heart rate 65, respiratory rate 16, blood pressure 130/70 with a pulse ox of 95% on room air. Patient remains on Tamiflu and IV steroids. Anticipate discharge in the next 24-48 hours On 04/30/2022 for patients alert and oriented 3. Patient complains of generalized pain. Patient is maintained on room air. Current vital signs temp 97.7, heart rate 65, respiratory rate 16, blood pressure 130/70 with a pulse ox of 95% on room air. Patient remains on Tamiflu and IV steroids. On 05/01/2023 patient was seen and examined on the medical floor she is alert and oriented 3 in no apparent distress she is still complaining of shortness of breath cough and wheezing otherwise she denies any complaints there is no fever or chills no headache or dizziness no chest pain no nausea or vomiting no abdominal pain no diarrhea and no urinary symptoms, she is still having significant breathing complaints, she is not ready to be discharged to home today. On 05/02/2023 patient was seen and examined on the medical floor she is alert and oriented 3 in no apparent distress she is still complaining of shortness of breath and cough, otherwise she denies any complaints there is no fever or chills no headache or dizziness no chest pain no palpitation no nausea or vomiting no abdominal pain no diarrhea and no urinary symptoms. Input from pulmonary reviewed patient is scheduled for bronchoscopy in a.m. tomorrow with continued follow. On 05/03/2009 for patients alert and oriented 3. Tentative plans for bronchoscopy today. Patient still complaining of shortness of breath and increased nonproductive cough. Current vital signs have 97.9, heart 65, respiratory rate 17, blood pressure 141/90 with a pulse ox of 96% on room air very patient remains on IV steroids On 05/04/2023 patient is alert and oriented 3. Patient underwent bronchoscopy yesterday with pulmonary services suspicious for Shena albicans. Patient started on Diflucan per pulmonary. Patient reports slight improvement. Current vital signs temp 98.1, heart rate 68, respiratory rate 16, blood pressure 120/76 with pulse ox 95% room air. 05/05/2023 patient was seen and examined on the medical floor she is alert and oriented 3 in no apparent distress, she is still complaining of chest tightness, shortness of breath and wheezing, otherwise she denies any complaints there is no chest pain no fever or chills no nausea or vomiting no abdominal pain no diarrhea and no urinary symptoms. On 05/06/2023 patients alert and oriented 3. Current vital signs temp 90.3, heart rate 75, respiratory rate 18, blood pressure 129/83 with pulse ox 94% on room air. Patient still having some cough and shortness of breath. Patient denies chest pain. Patient denies nausea vomiting or diarrhea. Patient denies any urinary burning or frequency. Patient was started on Cipro for UTI and maintained on Diflucan. Pulmonary services following On 05/07/2023 patient was seen and examined on the medical floor is alert and oriented 3 in no apparent distress she is still complaining of cough and shortness of breath otherwise she denies any complaints there is no fever or chills no headache or dizziness no chest pain no nausea or vomiting no abdominal pain no diarrhea and no urinary symptoms bronchoalveolar lavage is positive for Staphylococcus aureus consultation for infectious disease was initiated will follow closely On 05/08/2022 for patients alert and oriented 3. Patient was started on IV Kefzol for infectious disease. Pulmonary services are still following. Patient still having some pleural discomfort. Current vital signs temp 97.9, heart rate 70, blood pressure 150/87 with a pulse ox of 95% on room air Objective - Vital Signs Vital signs: Vital Signs Temp 97.9 F 05/08/23 07:35 Pulse 72 05/08/23 08:09 Resp 18 05/08/23 07:35 BP 150/87 05/08/23 07:35 Pulse Ox 96 05/08/23 07:57 FiO2 21 05/04/23 07:56 Intake & Output 05/07/23 05/08/23 05/08/23 18:59 06:59 18:59 Intake Total 1180 Balance 1180 Intake: Oral 1180 Other: Voiding Method Toilet Toilet # Voids 2 - Exam In general patient is alert and oriented x 3 in no distress HEENT head normocephalic and atraumatic Neck is supple no JVD no goiter no lymphadenopathy no carotid bruit Chest examination reveals a crackles in both lung lópez with wheezing Cardiac exam reveals regular heart sounds S1 and S2 no gallops no murmurs Abdomen is soft nontender no organomegaly with normal bowel sounds Extremity exam reveals no edema no cyanosis or clubbing Neurological examination reveals no gross focal deficits - Labs CBC & Chem 7: 05/07/23 06:04 05/08/23 05:27 Labs: Abnormal Lab Results - Last 24 Hours (Table) 05/07/23 05/07/23 05/08/23 Range/Units 06:04 06:04 05:27 Plt Count 123 L (140-440) X 10*3/uL Monocytes # (Manual) 0.18 L (0.20-1.00) X 10*3/uL Eosinophils # (Manual) 0 L (0.04-0.35) X 10*3/uL BUN/Creatinine Ratio 25.67 H 26.22 H (12.00-20.00) Ratio Glucose 191 H 159 H (70-110) mg/dL ALT 60 H 65 H (8-44) U/L Total Protein 5.7 L 6.0 L (6.2-8.2) g/dL Albumin 3.5 L 3.6 L (3.8-4.9) g/dL Albumin/Globulin Ratio 1.59 L 1.50 L (1.60-3.17) Ratio Microbiology - Last 24 Hours (Table) 05/06/23 16:04 Nasal Screen MRSA/MSSA - Final Nasopharyngeal Swab 05/03/23 10:43 Gram Stain - Final Bronchoalviolar Lavage - Left Bronchial Washings Culture - Final Staphylococcus aureus Assessment and Plan Plan: Acute exacerbation of chronic obstructive pulmonary disease Acute influenza A infection Continued tobacco abuse Previous history of cocaine abuse Underlying history of hypertension Underlying history of rheumatoid arthritis Underlying history of gastroesophageal reflux disease Underlying history of anxiety disorder Shena tracheobronchitis. Patient started on Diflucan At this time patient was admitted to medical floor Home medications reviewed and reordered Pulmonary consultation was requested She was started on IV Solu-Medrol, inhaled bronchodilators, and oral Tamiflu Status post bronchoscopy on 05/03/2023 For DVT prophylaxis she was started on subcu Lovenox For GI prophylaxis Protonix was continued Will monitor closely
--- NOTE | 2023-05-08 10:21 | XR ---
EXAMINATION TYPE: XR chest 2V DATE OF EXAM: 05/08/2023 COMPARISON: 04/27/2023 TECHNIQUE: PA and lateral views submitted. HISTORY: Difficulty breathing FINDINGS: There is a nodular area of density in the left upper lobe measuring 1.7 cm. Osteopenia, shoulder arth ropathy and degenerative change of the spine. Ectasia of the aorta. No overt failure, pleural effusio n or pneumothorax. Emphysematous changes noted. IMPRESSION: 1. There is a 1.7 cm nodule or mass within the left upper lobe may represent neoplasm or early develo ping pneumonia. Recommend CT of the chest.
[2023-05-08] MEDS: predniSONE 20 MG TAB PO SCH (10:58)
--- NOTE | 2023-05-08 11:04 | P.PN ---
Subjective Progress Note Date: 05/08/23 62-year-old female patient with known history of COPD/asthma who is also an active smoker who smokes about 1 pack of cigarettes a day. The patient has had also issues with RA, hypertension, chronic liver disease secondary hepatitis C as the patient has utilize drugs in the past. The patient's last hospi talization for pneumonia was back in June 2022 and at that time the patient was treated and the patient was discharged home. The patient comes back to the hospital because of 3 days history of decreased Fatigue, weakness, tiredness, lethargy along with increased dyspnea cough chest tightness and wheezing. In the emergency, the patient was diagnosed having influenza A infection. Electrolytes were normal. There was a +4.2 with a hemoglobin of 17, BUN is at 12 with a creatinine of 0.8. The patient is currently on 2 L of O2 nasal cannula with a pulse ox of 97%. Chest x-ray that was done in the ED showed no acute cardiopulmonary abnormalities and showed some cardiomegaly and background COPD. Noted the patient has only an albuterol rescue inhaler. She does not utilize any form of maintenance respiratory medications on outpatient basis. She is not oxygen dependent. She has not received the vaccination for influenza for this current year. The rest of the viral panel was negative. 04/29/2023, the patient is being seen for a follow-up. Patient is feeling slightly improved compared to yesterday. The patient was infected with influenza A and the patient is currently on Tamiflu. COPD also exacerbated and the patient is currently on a combination of DuoNeb updrafts and IV Solu-Medrol. No nausea. No vomiting. She is having some bodyaches and chills. No fever. Shortness of breath this seems to be improving and the patient is also being hydrated with normal saline at rate of 75 cc an hour. White cell count of 5.5 with a hemoglobin of 12 and a platelet count of 99. Sodium is 140, potassium is at 4.9, BUN is at 24 with a creatinine of 1.0. Note that the patient has not been vaccinated for influenza for this current season. The patient is seen today April 30, 2023 and follow-up on the regular medical floor. She is currently sitting up at the bedside. Awake and alert in no acute distress. Maintaining O2 saturations in the 90s on room air. She is still feeling quite congested. She has a dry cough. Blood cultures reveal no growth. No new labs today. She is continued on DuoNeb ventilations, Solu-Medrol, Tamiflu. Heparin for DVT prophylaxis. The patient is seen today May 01, 2023 in follow-up on the regular medical floor. She is currently sitting up in bed. Awake and alert in no acute distress. Maintaining good O2 saturations in the 90s on room air. She has been afebrile. Hemodynamically stable. Not quite back to her baseline. She is maintained on Solu-Medrol, DuoNeb ventilations, Tamiflu. Heparin for DVT prophylaxis. White count 4.0. Hemoglobin 13.2. Platelets 100,000. Sodium 140. Potassium 5.1. Bicarb 26. BUN 25. Creatinine 1.0. Glucose 132. The patient is seen today May 02, 2023 in follow-up on the regular medical floor. She is resting flat in bed. Awake and alert in no acute distress. Maintaining O2 saturations in the 90s on room air. She continues to have issues with shortness of breath, cough and congestion. Unable to expectorate mucus. She remains on DuoNeb elations, Symbicort, Solu-Medrol. Remains on Robitussin. Remains on Tamiflu. Blood cultures revealed no growth. The patient is seen today May 03, 2023 in follow-up on the regular medical floor. She is sitting up in bed. Awake and alert in no acute distress. Continues with a loose nonproductive cough. Maintaining O2 saturations in the 90s on 2 L nasal cannula. She has been afebrile. Hemodynamically stable. Blood cultures revealed no growth. White count 5.0. Hemoglobin 12.5. Platelets 130,000. Sodium 141. Potassium 4.4. Bicarb 30. BUN 23. Creatinine 0.9. Glucose 144. She remains on DuoNeb ventilations, Symbicort, Solu-Medrol. Heparin for DVT prophylaxis. The patient is seen today May 04, 2023 in follow-up on the regular medical floor. She is awake and alert in no acute distress. Sitting up in bed. She was having some chest wall pain from coughing. She is breathing easier today compared to yesterday. She did undergo bronchoscopy with BAL and much mucus removed. Cultures and cytology pending. She was initiated on Diflucan for oral candidiasis noted during the bronchoscopy. She is continued on DuoNeb inhalations, Symbicort, Solu-Medrol. Remains on Robitussin. Heparin for DVT prophylaxis. White count 5.0. Hemoglobin 12.6. Platelets 150. Sodium 142. Potassium 4.9. Bicarb 30. BUN 22. Creatinine 0.9. Glucose 141. The patient is seen today May 05, 2023 and follow-up on the regular medical floor. She is resting comfortably in bed. Awake and alert in no acute dist ress. Feeling better today compared to yesterday. Still not back to her baseline. She is now found to have a urinary tract infection. Currently on Cipro. She is maintaining O2 saturations in the 90s on room air. Less wheezing. Continue on DuoNeb elations, Symbicort, Solu-Medrol. Heparin for DVT prophylaxis. Remains on oral diuretics. The patient is seen today May 06, 2023 in follow-up on the regular medical floor. She is awake and alert in no acute distress. Resting comfortably in bed. Feeling a bit better today compared to yesterday. She has been slow to progress. She remains on DuoNeb ventilations, Pulmicort and performance inhalations, IV Solu-Medrol. She is continued on antibiotics in the form of Cipro. Bronchial wash cultures are now revealing presumptive Staph aureus. The patient is seen today May 07, 2023 in follow-up on the regular medical floor. She is currently resting in bed. Awake and alert in no acute distress. She is maintaining O2 saturations in the 90s on room air. Bronchial lavage cultures were positive for bacillin sensitive Staphylococcus aureus. Count 9.1. Hemoglobin 13.5. Platelets 123. Sodium 142. Potassium 4.4. Bicarb 27. BUN 23. Creatinine 0.9. She is continued on antibiotics in the form of cefazolin. Remains on bronchodilators and steroids. Remains on diuretics. The patient is seen today May 08, 2023 in follow-up on the regular medical floor. She is currently up ambulating in her room. Awake and alert in no acute distress. Breathing easier today compared to yesterday. Chest x-ray report reveals a 1.7 cm nodule of the left upper lobe suspect early pneumonia versus neoplasm. Not seen on previous chest x-ray from 04/27/2023. Her bronchial wash cultures were positive for methicillin sensitive Staphylococcus aureus. Cytology is pending. Sodium 141. Potassium 4.6. Bicarb 27. BUN 24. Creatinine 0.9. Glucose 159. He is continued on DuoNeb ventilations, Symbicort, prednisone taper. Continued on antibiotics in the form of cefazolin and Cipro. Objective - Vital Signs Vital signs: Vital Signs Temp 97.9 F 05/08/23 07:35 Pulse 72 05/08/23 08:09 Resp 18 05/08/23 07:35 BP 150/87 05/08/23 07:35 Pulse Ox 96 05/08/23 07:57 FiO2 21 05/04/23 07:56 Intake & Output 05/07/23 05/08/23 05/08/23 18:59 06:59 18:59 Intake Total 1180 236 Balance 1180 236 Intake: Oral 1180 236 Other: Voiding Method Toilet Toilet # Voids 2 - Exam GENERAL EXAM: Alert, obese 63-year-old female, ambulating in her room, on room air, in no apparent distress. HEAD: Normocephalic. EYES: Normal reaction of pupils, equal size. NOSE: Clear with pink turbinates. THROAT: No erythema or exudates. NECK: No masses, no JVD. CHEST: No chest wall deformity. LUNGS: Equal air entry with few bilateral scattered wheeze. CVS: S1 and S2 normal with no audible murmur, regular rhythm. ABDOMEN: No hepatosplenomegaly, normal bowel sounds, no guarding or rigidity. SPINE: No scoliosis or deformity SKIN: No rashes CENTRAL NERVOUS SYSTEM: No focal deficits, tone is normal in all 4 extremities. EXTREMITIES: There is no peripheral edema. No clubbing, no cyanosis. Perip heral pulses are intact. - Labs CBC & Chem 7: 05/07/23 06:04 05/08/23 05:27 Labs: Abnormal Lab Results - Last 24 Hours (Table) 05/07/23 05/07/23 05/08/23 Range/Units 06:04 06:04 05:27 Plt Count 123 L (140-440) X 10*3/uL Monocytes # (Manual) 0.18 L (0.20-1.00) X 10*3/uL Eosinophils # (Manual) 0 L (0.04-0.35) X 10*3/uL BUN/Creatinine Ratio 25.67 H 26.22 H (12.00-20.00) Ratio Glucose 191 H 159 H (70-110) mg/dL ALT 60 H 65 H (8-44) U/L Total Protein 5.7 L 6.0 L (6.2-8.2) g/dL Albumin 3.5 L 3.6 L (3.8-4.9) g/dL Albumin/Globulin Ratio 1.59 L 1.50 L (1.60-3.17) Ratio Microbiology - Last 24 Hours (Table) 05/06/23 16:04 Nasal Screen MRSA/MSSA - Final Nasopharyngeal Swab 05/03/23 10:43 Gram Stain - Final Bronchoalviolar Lavage - Left Bronchial Washings Culture - Final Staphylococcus aureus Assessment and Plan Assessment: Acute exacerbation of COPD secondary to influenza A infection. Status post bronchoscopy with BAL 05/03/2023, cultures revealing methicillin sensitive Staph aureus, cytology pending Acute hypoxic respiratory failure secondary to above, recovered, currently on room air Acute influenza A infection, unvaccinated, completed Tamiflu Urinary tract infection, treated with Cipro Oral candidiasis, initiated on Diflucan History of chronic liver disease/hepatitis C Hypertension Rheumatoid arthritis Acid reflux History of polysubstance abuse and this includes cocaine and marijuana and she states that she takes edibles for now Plan: The patient was seen and evaluated Chest x-ray, labs and medications reviewed May consider outpatient CT scan of the chest Antibiotics per ID service Continued on bronchodilators, steroids Stable and on room air Increase her activity as tolerated Follow-up in our office 1 week postdischarge This patient was seen independently by the pulmonary nurse practitioner addressing pulmonary issues I have personally seen and examined the patient, performed the documentation and the assessment and plan as written. Number of minutes spent on the visit: 24.
[2023-05-08 11:28] LABS: Basophils # (M) 0 X 10*3/uL (0.00-0.10); Eosinophils # (M) 0 X 10*3/uL (0.04-0.35); HCT 41.9 % (37.2-46.3); Lymphocytes # (M) 0.58 X 10*3/uL (0.90-5.00); MCHC 33.4 g/dL (32.0-37.0); MCV 92.9 FL (80.0-97.0); Mean Platelet Volume 11.1 FL (9.5-12.2); Monocytes # (M) 0.15 X 10*3/uL (0.20-1.00); Myelocytes % 2 % (0-0); NRBC Per 100 WBC 0 X 10*3/uL (0.00-0.01); Neutrophils # (M) 13.55 X 10*3/uL (1.80-7.70); Neutrophils % (M) 93 %; Platelet Count 134 X 10*3/uL (140-440); RBC 4.51 X 10*6/uL (4.10-5.20); RBC Morphology Normal (Normal); RDW 12.7 % (11.5-14.5); WBC 14.57 X 10*3/uL (4.50-10.00)
[2023-05-08] MEDS ORDERED: RX INFO: IV CONTRAST WAS GIVEN 1 EACH MISC MISCELLANE PRN (12:36)
--- NOTE | 2023-05-08 12:38 | P.PN ---
Subjective Progress Note Date: 05/08/23 Principal diagnosis: Reason for follow-up is pneumonia Patient is a 63-year-old female with a past medical history significant for hypertension reflux rheumatoid arthritis COPD patient presented to hospital for evaluation of increasing shortness of breath and wheezing she did have a low-grade fever on admission subsequently the patient did have a bronchoscopy on 05/03/2023 culture grew MSSA On today's evaluation that is 05/08/2023, the patient continues to be afebrile, the patient is on room air and breathing comfortably, The patient has been complaining of lower rib cage chest pain and also complaining of cough not bring up any sputum, the patient denies having any abdominal pain no vomiting or any diarrhea has been reported by the nursing staff. Patient white count is 14.57, creatinine 0.9, chest x-ray with the 1.5 cm nodular mass within the left upper lobe question of developing pneumonia Objective - Vital Signs Vital signs: Vital Signs Temp 97.9 F 05/08/23 07:35 Pulse 72 05/08/23 08:09 Resp 18 05/08/23 07:35 BP 150/87 05/08/23 07:35 Pulse Ox 96 05/08/23 07:57 FiO2 21 05/04/23 07:56 Intake & Output 05/07/23 05/08/23 05/08/23 18:59 06:59 18:59 Intake Total 1180 236 Balance 1180 236 Intake: Oral 1180 236 Other: Voiding Method Toilet Toilet # Voids 2 - Exam GENERAL DESCRIPTION: An elderly female lying in bed in no distress RESPIRATORY SYSTEM: Unlabored breathing , bilateral wheezes HEART: S1 S2 regular rate and rhythm , ABDOMEN: Soft , no tenderness EXTREMITIES: 1+ edema feet - Labs CBC & Chem 7: 05/08/23 05:27 05/08/23 05:27 Labs: Abnormal Lab Results - Last 24 Hours (Table) 05/07/23 05/07/23 05/08/23 Range/Units 06:04 06:04 05:27 Plt Count 123 L (140-440) X 10*3/uL Monocytes # (Manual) 0.18 L (0.20-1.00) X 10*3/uL Eosinophils # (Manual) 0 L (0.04-0.35) X 10*3/uL BUN/Creatinine Ratio 25.67 H 26.22 H (12.00-20.00) Ratio Glucose 191 H 159 H (70-110) mg/dL ALT 60 H 65 H (8-44) U/L Total Protein 5.7 L 6.0 L (6.2-8.2) g/dL Albumin 3.5 L 3.6 L (3.8-4.9) g/dL Albumin/Globulin Ratio 1.59 L 1.50 L (1.60-3.17) Ratio Microbiology - Last 24 Hours (Table) 05/06/23 16:04 Nasal Screen MRSA/MSSA - Final Nasopharyngeal Swab 05/03/23 10:43 Gram Stain - Final Bronchoalviolar Lavage - Left Bronchial Washings Culture - Final Staphylococcus aureus Assessment and Plan (1) Abnormal chest x-ray Current Visit: Yes Status: Acute Code(s): R93.89 - ABNORMAL FINDINGS ON DX IMAGING OF OTH BODY STRUCTURES SNOMED Code(s): 074456648 (2) Pneumonia Current Visit: No Status: Acute Code(s): J18.9 - PNEUMONIA, UNSPECIFIED ORGANISM SNOMED Code(s): 354648433 Plan: 1patient presented to hospital with increasing shortness of breath and cough, did have low-grade fever initial chest x-ray was negative and has been treated for COPD exacerbation patient did have bronchoscopy on 05/03/2023 which is now growing MSSA with a question of possible tracheobronchitis or developing pneumonia 2-patient did have chest x-ray concerning for mass versus pneumonia 3-we will obtain a CT of the chest for better definition of the abnormality seen on the chest x-ray 4patient will continue with the cefazolin and monitor clinical course closely Dictation was produced using [employer] dictation software. please excuse any gramm atical, word or spelling errors. Time with Patient: Less than 30
--- NOTE | 2023-05-08 22:16 | CT ---
EXAMINATION TYPE: CT chest w con CT DLP: 787 mGycm, Automated exposure control for dose reduction was used. DATE OF EXAM: 05/08/2023 4:11 PM COMPARISON: 07/25/2022 CT chest. Chest x-ray earlier today at 9:55 AM . CLINICAL INDICATION:Female, 63 years old with history of Abnormal x-ray question of mass versus pneum onia; PHH, vince/lung nodule TECHNIQUE: Multiple axial images were obtained through the chest. Sagittal and coronal reformats were created for review. Contrast used:100 mL of Isovue 300 with IV Contrast (None if empty) Oral contrast used: (None if empty) FINDINGS: LUNGS/ PLEURA: A left upper lobe focal nodular density measuring up to 1.7 cm in size image 17 series 4, and a 1.4 cm similar density immediately adjacent image 19 which may be contiguous. Similar 0.7 c m nodular densities in the right upper lobe image 21, 0.7 cm in the lateral right upper lobe image 30 , and 0.7 cm subpleural nodule in the lateral right lower lobe image 33. Additionally there are multi ple vague patchy groundglass opacities seen throughout both lungs, with a predilection for the upper lobes but seem to be present in all lobes to some degree. Subsegmental atelectatic changes in the low er lungs bilaterally. No pleural effusion or pneumothorax. AIRWAY: Central airways are patent. LOWER NECK: No significant findings. MEDIASTINUM: No gross evidence of adenopathy. HEART: Heart size upper normal. Mild to moderate coronary artery calcification and/or stents. No appr eciable pericardial effusion. VASCULATURE: Mild/moderate atherosclerotic calcification of the aorta, mostly along the aortic arch and in the proximal left subclavian artery. No significant stenosis or dissection. There is fusiform aneurysmal dilatation of the ascending aorta measuring up to 4 cm, stable from 07/25/2022. The descendi ng aorta is 2.6 cm. Pulmonary trunk measures 3.6 cm, appears slightly larger than on the prior. The pulmonary trunk is en larged (>3cm), this can be seen with pulmonary hypertension. Grossly preserved enhancement of the pul monary arteries, in the limits of non-CTA exam. SOFT TISSUES/LYMPH NODES: Scattered fibroglandular appearing breast tissues without clear evidence of any mass by CT. No enlarged axillary nodes. UPPER ABDOMEN: Liver is incompletely seen but measures at least 15.1 cm craniocaudal, suggesting some degree of hepatomegaly. The imaged spleen is at least 12.4 cm, and may suggest an element of splenom egaly as well. 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 A couple of additional smaller hypodense lesions are also seen in the right lobe images 54 an d 65 which are not fully characterized. Mild calcification of the upper abdominal aorta. No mass of t he visualized adrenals. MUSCULOSKELETAL: No acute osseous abnormalities. Mild to moderate disc degeneration changes are prese nt throughout the thoracolumbar spine. Remote appearing mild rib deformities. IMPRESSION: 1. A few small nodular densities in both lungs, up to 1.7 cm in the left upper lobe, as well as mult ifocal patchy groundglass opacities bilaterally. An infectious/inflammatory process is favored. Rasta mmend 4-[address] chest to help exclude other etiologies. 2. Stable 4 cm fusiform ectasia of the ascending aorta. 3. Enlargement of the main pulmonary artery, can be seen with pulmonary arterial hypertension. 4. Stable 4 cm right lobe hepatic lesion, likely benign hemangioma. A couple of additional small hyp odensities in the liver are too small to characterize. If further evaluation is clinically warranted, hepatic mass protocol MRI may be considered. 5. Suspect at least mild hepatosplenomegaly.
[2023-05-09 07:20] LABS: Basophils % (A) 0 %; Eosinophils % (A) 0 %; HCT 39.7 % (34.0-46.0); HGB 13.4 gm/dL (11.4-16.0); Lymphocytes # (A) 1.5 k/uL (1.0-4.8); Lymphocytes % (A) 12 %; MCH 31.3 pg (25.0-35.0); MCHC 33.8 g/dL (31.0-37.0); MCV 92.4 fL (80.0-100.0); Mean Platelet Volume 10.1; Monocytes # (A) 0.5 k/uL (0-1.0); Monocytes % (A) 4 %; Neutrophils # (A) 10.5 k/uL (1.3-7.7); Neutrophils % (A) 83 %; Platelet Count 107 k/uL (150-450); RBC 4.29 m/uL (3.80-5.40); RDW 12.9 % (11.5-15.5); WBC 12.6 k/uL (3.8-10.6)
[2023-05-09 07:38] LABS: ALT 47 U/L (4-34); AST 26 U/L (14-36); African American GFR (CKD) 79 (>60 ml/min/1.73 sqM); Albumin 2.9 g/dL (3.5-5.0); Albumin/Globulin Ratio 1.1; Alkaline Phosphatase 54 U/L (38-126); Anion Gap 3 mmol/L; Blood Urea Nitrogen 32 mg/dL (7-17); Calcium 9.2 mg/dL (8.4-10.2); Carbon Dioxide 27 mmol/L (22-30); Chloride 106 mmol/L (98-107); Globulin 2.7 g/dL; Glucose 97 mg/dL (74-99); Non-African American GFR(CKD) 68 (>60 ml/min/1.73 sqM); Potassium 4.6 mmol/L (3.5-5.1); Sodium 136 mmol/L (137-145); Total Bilirubin 0.7 mg/dL (0.2-1.3); Total Protein 5.6 g/dL (6.3-8.2)
--- NOTE | 2023-05-09 10:03 | P.PN ---
Subjective Progress Note Date: 05/09/23 Alisa Cain, is a 62-year-old female who presented to [facility] emergency room with a chief complaint of cough and worsening shortness of breath She was evaluated in the emergency room vital examination on presentation revealed a temperature of 100.5 pulse 103 respiration 24 blood pressure 164/100 pulse ox 91% on room air Laboratory data reveals a white blood count of 4.2 hemoglobin 13.0 platelet count 100 BUN 12 creatinine 0.88 influenza A PCR was positive Testing in the emergency room revealed chest x-ray done in the emergency room revealed no acute process Patient was admitted to medical floor for further evaluation and treatment On 04/28/2023 patient was seen and examined on the medical floor she is alert and oriented 3 in no apparent distress she is still complaining of severe cough and requesting cough medication, she is reporting some improvement in her shortness of breath, otherwise she denies any complaints there is no fever or chills no headache or dizziness no chest pain no palpitation no nausea or vomiting no abdominal pain or diarrhea no blood in the stools no burning with urination no frequency or urgency and no hematuria no weakness or numbness in any of her extremities no change in vision speech or gait On 04/29/2022 for patients alert and oriented 3. Patient complains of generalized pain. Patient is maintained on room air. Current vital signs temp 97.7, heart rate 65, respiratory rate 16, blood pressure 130/70 with a pulse ox of 95% on room air. Patient remains on Tamiflu and IV steroids. Anticipate discharge in the next 24-48 hours On 04/30/2022 for patients alert and oriented 3. Patient complains of generalized pain. Patient is maintained on room air. Current vital signs temp 97.7, heart rate 65, respiratory rate 16, blood pressure 130/70 with a pulse ox of 95% on room air. Patient remains on Tamiflu and IV steroids. On 05/01/2023 patient was seen and examined on the medical floor she is alert and oriented 3 in no apparent distress she is still complaining of shortness of breath cough and wheezing otherwise she denies any complaints there is no fever or chills no headache or dizziness no chest pain no nausea or vomiting no abdominal pain no diarrhea and no urinary symptoms, she is still having significant breathing complaints, she is not ready to be discharged to home today. On 05/02/2023 patient was seen and examined on the medical floor she is alert and oriented 3 in no apparent distress she is still complaining of shortness of breath and cough, otherwise she denies any complaints there is no fever or chills no headache or dizziness no chest pain no palpitation no nausea or vomiting no abdominal pain no diarrhea and no urinary symptoms. Input from pulmonary reviewed patient is scheduled for bronchoscopy in a.m. tomorrow with continued follow. On 05/03/2009 for patients alert and oriented 3. Tentative plans for bronchoscopy today. Patient still complaining of shortness of breath and increased nonproductive cough. Current vital signs have 97.9, heart 65, respiratory rate 17, blood pressure 141/90 with a pulse ox of 96% on room air very patient remains on IV steroids On 05/04/2023 patient is alert and oriented 3. Patient underwent bronchoscopy yesterday with pulmonary services suspicious for Shena albicans. Patient started on Diflucan per pulmonary. Patient reports slight improvement. Current vital signs temp 98.1, heart rate 68, respiratory rate 16, blood pressure 120/76 with pulse ox 95% room air. 05/05/2023 patient was seen and examined on the medical floor she is alert and oriented 3 in no apparent distress, she is still complaining of chest tightness, shortness of breath and wheezing, otherwise she denies any complaints there is no chest pain no fever or chills no nausea or vomiting no abdominal pain no diarrhea and no urinary symptoms. On 05/06/2023 patients alert and oriented 3. Current vital signs temp 90.3, heart rate 75, respiratory rate 18, blood pressure 129/83 with pulse ox 94% on room air. Patient still having some cough and shortness of breath. Patient denies chest pain. Patient denies nausea vomiting or diarrhea. Patient denies any urinary burning or frequency. Patient was started on Cipro for UTI and maintained on Diflucan. Pulmonary services following On 05/07/2023 patient was seen and examined on the medical floor is alert and oriented 3 in no apparent distress she is still complaining of cough and shortness of breath otherwise she denies any complaints there is no fever or chills no headache or dizziness no chest pain no nausea or vomiting no abdominal pain no diarrhea and no urinary symptoms bronchoalveolar lavage is positive for Staphylococcus aureus consultation for infectious disease was initiated hanane mcdaniel On 05/08/2023 for patients alert and oriented 3. Patient was started on IV Kefzol for infectious disease. Pulmonary services are still following. Patient still having some pleural discomfort. Current vital signs temp 97.9, heart rate 70, blood pressure 150/87 with a pulse ox of 95% on room air On 05/09/2023 for patients alert and oriented 3. Patient still complaining of shortness breath and pleuritic chest pain. Current vital signs temp 97.8, heart rate 73, respiratory rate 16, blood pressure 146/81 with pulse ox 100% on room air. Pulmonary and infectious disease services following Objective - Vital Signs Vital signs: Vital Signs Temp 97.8 F 05/09/23 08:00 Pulse 80 05/09/23 09:18 Resp 16 05/09/23 08:00 BP 146/81 05/09/23 08:00 Pulse Ox 94 L 05/09/23 09:09 FiO2 21 05/04/23 07:56 Intake & Output 05/08/23 05/09/23 05/09/23 18:59 06:59 18:59 Intake Total 826 Balance 826 Intake: Oral 826 Other: Voiding Method Toilet Toilet # Voids 3 2 - Exam In general patient is alert and oriented x 3 in no distress HEENT head normocephalic and atraumatic Neck is supple no JVD no goiter no lymphadenopathy no carotid bruit Chest examination reveals a crackles in both lung lópez with wheezing Cardiac exam reveals regular heart sounds S1 and S2 no gallops no murmurs Abdomen is soft nontender no organomegaly with normal bowel sounds Extremity exam reveals no edema no cyanosis or clubbing Neurological examination reveals no gross focal deficits - Labs CBC & Chem 7: 05/09/23 05:56 05/09/23 05:56 Labs: Abnormal Lab Results - Last 24 Hours (Table) 05/03/23 05/08/23 05/09/23 Range/Units 10:43 05:27 05:56 WBC 14.57 H 12.6 H (4.50-10.00) X 10*3/uL Plt Count 134 L 107 L (140-440) X 10*3/uL Neutrophils # 10.5 H (1.3-7.7) k/uL Neutrophils # (Manual) 13.55 H (1.80-7.70) X 10*3/uL Lymphocytes # (Manual) 0.58 L (0.90-5.00) X 10*3/uL Monocytes # (Manual) 0.15 L (0.20-1.00) X 10*3/uL Eosinophils # (Manual) 0 L (0.04-0.35) X 10*3/uL Sodium (137-145) mmol/L BUN (7-17) mg/dL ALT (4-34) U/L Total Protein (6.3-8.2) g/dL Albumin (3.5-5.0) g/dL HSV I DNA PCR DETECTED A (Not detected) Influenza Type A (PCR) DETECTED A (Not detected) 05/09/23 Range/Units 05:56 WBC (4.50-10.00) X 10*3/uL Plt Count (140-440) X 10*3/uL Neutrophils # (1.3-7.7) k/uL Neutrophils # (Manual) (1.80-7.70) X 10*3/uL Lymphocytes # (Manual) (0.90-5.00) X 10*3/uL Monocytes # (Manual) (0.20-1.00) X 10*3/uL Eosinophils # (Manual) (0.04-0.35) X 10*3/uL Sodium 136 L (137-145) mmol/L BUN 32 H (7-17) mg/dL ALT 47 H (4-34) U/L Total Protein 5.6 L (6.3-8.2) g/dL Albumin 2.9 L (3.5-5.0) g/dL HSV I DNA PCR (Not detected) Influenza Type A (PCR) (Not detected) Assessment and Plan Assessment: Acute exacerbation of chronic obstructive pulmonary disease Acute influenza A infection Continued tobacco abuse Previous history of cocaine abuse Underlying history of hypertension Underlying history of rheumatoid arthritis Underlying history of gastroesophageal reflux disease Underlying history of anxiety disorder Shena tracheobronchitis. Patient started on Diflucan At this time patient was admitted to medical floor Home medications reviewed and reordered Pulmonary consultation was requested She was started on IV Solu-Medrol, inhaled bronchodilators, and oral Tamiflu Status post bronchoscopy on 05/03/2023 For DVT prophylaxis she was started on subcu Lovenox For GI prophylaxis Protonix was continued Will monitor closely
--- NOTE | 2023-05-09 11:18 | P.PN ---
Subjective Progress Note Date: 05/09/23 62-year-old female patient with known history of COPD/asthma who is also an active smoker who smokes about 1 pack of cigarettes a day. The patient has had also issues with RA, hypertension, chronic liver disease secondary hepatitis C as the patient has utilize drugs in the past. The patient's last hospi talization for pneumonia was back in June 2022 and at that time the patient was treated and the patient was discharged home. The patient comes back to the hospital because of 3 days history of decreased Fatigue, weakness, tiredness, lethargy along with increased dyspnea cough chest tightness and wheezing. In the emergency, the patient was diagnosed having influenza A infection. Electrolytes were normal. There was a +4.2 with a hemoglobin of 17, BUN is at 12 with a creatinine of 0.8. The patient is currently on 2 L of O2 nasal cannula with a pulse ox of 97%. Chest x-ray that was done in the ED showed no acute cardiopulmonary abnormalities and showed some cardiomegaly and background COPD. Noted the patient has only an albuterol rescue inhaler. She does not utilize any form of maintenance respiratory medications on outpatient basis. She is not oxygen dependent. She has not received the vaccination for influenza for this current year. The rest of the viral panel was negative. 04/29/2023, the patient is being seen for a follow-up. Patient is feeling slightly improved compared to yesterday. The patient was infected with influenza A and the patient is currently on Tamiflu. COPD also exacerbated and the patient is currently on a combination of DuoNeb updrafts and IV Solu-Medrol. No nausea. No vomiting. She is having some bodyaches and chills. No fever. Shortness of breath this seems to be improving and the patient is also being hydrated with normal saline at rate of 75 cc an hour. White cell count of 5.5 with a hemoglobin of 12 and a platelet count of 99. Sodium is 140, potassium is at 4.9, BUN is at 24 with a creatinine of 1.0. Note that the patient has not been vaccinated for influenza for this current season. The patient is seen today April 30, 2023 and follow-up on the regular medical floor. She is currently sitting up at the bedside. Awake and alert in no acute distress. Maintaining O2 saturations in the 90s on room air. She is still feeling quite congested. She has a dry cough. Blood cultures reveal no growth. No new labs today. She is continued on DuoNeb ventilations, Solu-Medrol, Tamiflu. Heparin for DVT prophylaxis. The patient is seen today May 01, 2023 in follow-up on the regular medical floor. She is currently sitting up in bed. Awake and alert in no acute distress. Maintaining good O2 saturations in the 90s on room air. She has been afebrile. Hemodynamically stable. Not quite back to her baseline. She is maintained on Solu-Medrol, DuoNeb ventilations, Tamiflu. Heparin for DVT prophylaxis. White count 4.0. Hemoglobin 13.2. Platelets 100,000. Sodium 140. Potassium 5.1. Bicarb 26. BUN 25. Creatinine 1.0. Glucose 132. The patient is seen today May 02, 2023 in follow-up on the regular medical floor. She is resting flat in bed. Awake and alert in no acute distress. Maintaining O2 saturations in the 90s on room air. She continues to have issues with shortness of breath, cough and congestion. Unable to expectorate mucus. She remains on DuoNeb elations, Symbicort, Solu-Medrol. Remains on Robitussin. Remains on Tamiflu. Blood cultures revealed no growth. The patient is seen today May 03, 2023 in follow-up on the regular medical floor. She is sitting up in bed. Awake and alert in no acute distress. Continues with a loose nonproductive cough. Maintaining O2 saturations in the 90s on 2 L nasal cannula. She has been afebrile. Hemodynamically stable. Blood cultures revealed no growth. White count 5.0. Hemoglobin 12.5. Platelets 130,000. Sodium 141. Potassium 4.4. Bicarb 30. BUN 23. Creatinine 0.9. Glucose 144. She remains on DuoNeb ventilations, Symbicort, Solu-Medrol. Heparin for DVT prophylaxis. The patient is seen today May 04, 2023 in follow-up on the regular medical floor. She is awake and alert in no acute distress. Sitting up in bed. She was having some chest wall pain from coughing. She is breathing easier today compared to yesterday. She did undergo bronchoscopy with BAL and much mucus removed. Cultures and cytology pending. She was initiated on Diflucan for oral candidiasis noted during the bronchoscopy. She is continued on DuoNeb inhalations, Symbicort, Solu-Medrol. Remains on Robitussin. Heparin for DVT prophylaxis. White count 5.0. Hemoglobin 12.6. Platelets 150. Sodium 142. Potassium 4.9. Bicarb 30. BUN 22. Creatinine 0.9. Glucose 141. The patient is seen today May 05, 2023 and follow-up on the regular medical floor. She is resting comfortably in bed. Awake and alert in no acute dist ress. Feeling better today compared to yesterday. Still not back to her baseline. She is now found to have a urinary tract infection. Currently on Cipro. She is maintaining O2 saturations in the 90s on room air. Less wheezing. Continue on DuoNeb elations, Symbicort, Solu-Medrol. Heparin for DVT prophylaxis. Remains on oral diuretics. The patient is seen today May 06, 2023 in follow-up on the regular medical floor. She is awake and alert in no acute distress. Resting comfortably in bed. Feeling a bit better today compared to yesterday. She has been slow to progress. She remains on DuoNeb ventilations, Pulmicort and performance inhalations, IV Solu-Medrol. She is continued on antibiotics in the form of Cipro. Bronchial wash cultures are now revealing presumptive Staph aureus. The patient is seen today May 07, 2023 in follow-up on the regular medical floor. She is currently resting in bed. Awake and alert in no acute distress. She is maintaining O2 saturations in the 90s on room air. Bronchial lavage cultures were positive for bacillin sensitive Staphylococcus aureus. Count 9.1. Hemoglobin 13.5. Platelets 123. Sodium 142. Potassium 4.4. Bicarb 27. BUN 23. Creatinine 0.9. She is continued on antibiotics in the form of cefazolin. Remains on bronchodilators and steroids. Remains on diuretics. The patient is seen today May 08, 2023 in follow-up on the regular medical floor. She is currently up ambulating in her room. Awake and alert in no acute distress. Breathing easier today compared to yesterday. Chest x-ray report reveals a 1.7 cm nodule of the left upper lobe suspect early pneumonia versus neoplasm. Not seen on previous chest x-ray from 04/27/2023. Her bronchial wash cultures were positive for methicillin sensitive Staphylococcus aureus. Cytology is pending. Sodium 141. Potassium 4.6. Bicarb 27. BUN 24. Creatinine 0.9. Glucose 159. He is continued on DuoNeb ventilations, Symbicort, prednisone taper. Continued on antibiotics in the form of cefazolin and Cipro. The patient is seen today May 09, 2023 in follow-up on the regular medical floor. She is currently sitting up in a chair. Awake and alert in no acute distress. She denies any worsening shortness of breath, cough or congestion. Her main complaint now is that of back pain. CT scan of the chest revealed few small nodular densities bilaterally. Up to 1.7 cm in the left upper lobe and multifocal patchy groundglass opacities bilaterally. An infectious/inflammatory process is favored. Follow-up CT scan of the chest in 4 to 6 months re commended. She is being treated for methicillin sensitive Staph aureus from her bronchial wash. Blood cultures revealed no growth. White count 12.6. Hemoglobin 13.4. Platelets 107. Sodium 136. Potassium 4.6. Bicarb 27. BUN 32. Creatinine 0.89. AST 26. ALT 47. Objective - Vital Signs Vital signs: Vital Signs Temp 97.8 F 05/09/23 08:00 Pulse 80 05/09/23 09:18 Resp 16 05/09/23 08:00 BP 146/81 05/09/23 08:00 Pulse Ox 94 L 05/09/23 09:09 FiO2 21 05/04/23 07:56 Intake & Output 05/08/23 05/09/23 05/09/23 18:59 06:59 18:59 Intake Total 826 Balance 826 Intake: Oral 826 Other: Voiding Method Toilet Toilet # Voids 3 2 - Exam GENERAL EXAM: Alert, obese 63-year-old female, up in a chair, on room air, in no apparent distress. HEAD: Normocephalic. EYES: Normal reaction of pupils, equal size. NOSE: Clear with pink turbinates. THROAT: No erythema or exudates. NECK: No masses, no JVD. CHEST: No chest wall deformity. LUNGS: Equal air entry with few bilateral scattered wheeze. CVS: S1 and S2 normal with no audible murmur, regular rhythm. ABDOMEN: No hepatosplenomegaly, normal bowel sounds, no guarding or rigidity. SPINE: No scoliosis or deformity SKIN: No rashes CENTRAL NERVOUS SYSTEM: No focal deficits, tone is normal in all 4 extremities. EXTREMITIES: There is no peripheral edema. No clubbing, no cyanosis. Perip heral pulses are intact. - Labs CBC & Chem 7: 05/09/23 05:56 05/09/23 05:56 Labs: Abnormal Lab Results - Last 24 Hours (Table) 05/03/23 05/08/23 05/09/23 Range/Units 10:43 05:27 05:56 WBC 14.57 H 12.6 H (4.50-10.00) X 10*3/uL Plt Count 134 L 107 L (140-440) X 10*3/uL Neutrophils # 10.5 H (1.3-7.7) k/uL Neutrophils # (Manual) 13.55 H (1.80-7.70) X 10*3/uL Lymphocytes # (Manual) 0.58 L (0.90-5.00) X 10*3/uL Monocytes # (Manual) 0.15 L (0.20-1.00) X 10*3/uL Eosinophils # (Manual) 0 L (0.04-0.35) X 10*3/uL Sodium (137-145) mmol/L BUN (7-17) mg/dL ALT (4-34) U/L Total Protein (6.3-8.2) g/dL Albumin (3.5-5.0) g/dL HSV I DNA PCR DETECTED A (Not detected) Influenza Type A (PCR) DETECTED A (Not detected) 05/09/23 Range/Units 05:56 WBC (4.50-10.00) X 10*3/uL Plt Count (140-440) X 10*3/uL Neutrophils # (1.3-7.7) k/uL Neutrophils # (Manual) (1.80-7.70) X 10*3/uL Lymphocytes # (Manual) (0.90-5.00) X 10*3/uL Monocytes # (Manual) (0.20-1.00) X 10*3/uL Eosinophils # (Manual) (0.04-0.35) X 10*3/uL Sodium 136 L (137-145) mmol/L BUN 32 H (7-17) mg/dL ALT 47 H (4-34) U/L Total Protein 5.6 L (6.3-8.2) g/dL Albumin 2.9 L (3.5-5.0) g/dL HSV I DNA PCR (Not detected) Influenza Type A (PCR) (Not detected) Assessment and Plan Assessment: Acute exacerbation of COPD secondary to influenza A infection. Status post bronchoscopy with BAL 05/03/2023, cultures revealing methicillin sensitive Staph aureus, cytology negative for malignancy. CT scan of the chest reveals small bilateral pulmonary nodules 1 and 1.7 cm nodule in the left upper lobe. Multiple vague patchy groundglass opacities bilaterally. Recommend follow-up CT scan in 4 to 6 months. Acute hypoxic respiratory failure secondary to above, recovered, currently on room air Acute influenza A infection, unvaccinated, completed Tamiflu Urinary tract infection, treated with Cipro Oral candidiasis, initiated on Diflucan History of chronic liver disease/hepatitis C. CT scan of the chest revealed stable 4 cm right lobe hepatic lesion, likely benign hemangioma. Couple of additional small hypodensities in the liver are too small to characterize. Hypertension Rheumatoid arthritis Acid reflux History of polysubstance abuse and this includes cocaine and marijuana and she states that she takes edibles for now Plan: The patient was seen and evaluated CT scan of the chest, labs and medications reviewed Follow-up CT scan in 4 to 6 months recommended Continued on bronchodilators, steroids Stable and on room air Antibiotics per ID service Increase her activity as tolerated This patient was seen independently by the pulmonary nurse practitioner addressing pulmonary issues I have personally seen and examined the patient, performed the documentation and the assessment and plan as written. Number of minutes spent on the visit: 22.
[2023-05-10 08:46] LABS: ALT 49 U/L (8-44); AST 20 U/L (13-35); Albumin 3.2 g/dL (3.8-4.9); Albumin/Globulin Ratio 1.52 Ratio (1.60-3.17); Alkaline Phosphatase 45 U/L (41-126); BUN/Creat Ratio 20.91 Ratio (12.00-20.00); Calcium 8.7 mg/dL (8.7-10.3); Carbon Dioxide 27.7 mmol/L (21.6-31.8); Chloride 102 mmol/L (96-109); Globulin 2.1 g/dL (1.6-3.3); Glucose 99 mg/dL (70-110); Potassium 3.9 mmol/L (3.5-5.5); Sodium 138 mmol/L (135-145); Total Bilirubin 0.3 mg/dL (0.3-1.2); Total Protein 5.3 g/dL (6.2-8.2)
[2023-05-10] MEDS: SULFAMETHOX-TMP 800-160MG 1 EACH TAB PO SCH (09:49)
[2023-05-10 10:51] LABS: Basophils # (A) 0.05 X 10*3/uL (0.00-0.10); Basophils % (A) 0.5 %; Eosinophils # (A) 0.01 X 10*3/uL (0.04-0.35); Eosinophils % (A) 0.1 %; HCT 40.7 % (37.2-46.3); HGB 13.4 g/dL (12.0-15.0); Lymphocytes # (A) 1.57 X 10*3/uL (0.90-5.00); MCH 31.3 pg (27.0-32.0); MCHC 32.9 g/dL (32.0-37.0); MCV 95.1 FL (80.0-97.0); Mean Platelet Volume 11.7 FL (9.5-12.2); Monocytes # (A) 0.51 X 10*3/uL (0.20-1.00); Monocytes % (A) 4.9 %; NRBC Per 100 WBC 0 X 10*3/uL (0.00-0.01); Neutrophils # (A) 8.01 X 10*3/uL (1.80-7.70); Neutrophils % (A) 76.4 %; Platelet Count 86 X 10*3/uL (140-440); RBC 4.28 X 10*6/uL (4.10-5.20); RDW 13.2 % (11.5-14.5); WBC 10.48 X 10*3/uL (4.50-10.00)
--- NOTE | 2023-05-10 11:35 | P.PN ---
Subjective Progress Note Date: 05/10/23 62-year-old female patient with known history of COPD/asthma who is also an active smoker who smokes about 1 pack of cigarettes a day. The patient has had also issues with RA, hypertension, chronic liver disease secondary hepatitis C as the patient has utilize drugs in the past. The patient's last hospi talization for pneumonia was back in June 2022 and at that time the patient was treated and the patient was discharged home. The patient comes back to the hospital because of 3 days history of decreased Fatigue, weakness, tiredness, lethargy along with increased dyspnea cough chest tightness and wheezing. In the emergency, the patient was diagnosed having influenza A infection. Electrolytes were normal. There was a +4.2 with a hemoglobin of 17, BUN is at 12 with a creatinine of 0.8. The patient is currently on 2 L of O2 nasal cannula with a pulse ox of 97%. Chest x-ray that was done in the ED showed no acute cardiopulmonary abnormalities and showed some cardiomegaly and background COPD. Noted the patient has only an albuterol rescue inhaler. She does not utilize any form of maintenance respiratory medications on outpatient basis. She is not oxygen dependent. She has not received the vaccination for influenza for this current year. The rest of the viral panel was negative. 04/29/2023, the patient is being seen for a follow-up. Patient is feeling slightly improved compared to yesterday. The patient was infected with influenza A and the patient is currently on Tamiflu. COPD also exacerbated and the patient is currently on a combination of DuoNeb updrafts and IV Solu-Medrol. No nausea. No vomiting. She is having some bodyaches and chills. No fever. Shortness of breath this seems to be improving and the patient is also being hydrated with normal saline at rate of 75 cc an hour. White cell count of 5.5 with a hemoglobin of 12 and a platelet count of 99. Sodium is 140, potassium is at 4.9, BUN is at 24 with a creatinine of 1.0. Note that the patient has not been vaccinated for influenza for this current season. The patient is seen today April 30, 2023 and follow-up on the regular medical floor. She is currently sitting up at the bedside. Awake and alert in no acute distress. Maintaining O2 saturations in the 90s on room air. She is still feeling quite congested. She has a dry cough. Blood cultures reveal no growth. No new labs today. She is continued on DuoNeb ventilations, Solu-Medrol, Tamiflu. Heparin for DVT prophylaxis. The patient is seen today May 01, 2023 in follow-up on the regular medical floor. She is currently sitting up in bed. Awake and alert in no acute distress. Maintaining good O2 saturations in the 90s on room air. She has been afebrile. Hemodynamically stable. Not quite back to her baseline. She is maintained on Solu-Medrol, DuoNeb ventilations, Tamiflu. Heparin for DVT prophylaxis. White count 4.0. Hemoglobin 13.2. Platelets 100,000. Sodium 140. Potassium 5.1. Bicarb 26. BUN 25. Creatinine 1.0. Glucose 132. The patient is seen today May 02, 2023 in follow-up on the regular medical floor. She is resting flat in bed. Awake and alert in no acute distress. Maintaining O2 saturations in the 90s on room air. She continues to have issues with shortness of breath, cough and congestion. Unable to expectorate mucus. She remains on DuoNeb elations, Symbicort, Solu-Medrol. Remains on Robitussin. Remains on Tamiflu. Blood cultures revealed no growth. The patient is seen today May 03, 2023 in follow-up on the regular medical floor. She is sitting up in bed. Awake and alert in no acute distress. Continues with a loose nonproductive cough. Maintaining O2 saturations in the 90s on 2 L nasal cannula. She has been afebrile. Hemodynamically stable. Blood cultures revealed no growth. White count 5.0. Hemoglobin 12.5. Platelets 130,000. Sodium 141. Potassium 4.4. Bicarb 30. BUN 23. Creatinine 0.9. Glucose 144. She remains on DuoNeb ventilations, Symbicort, Solu-Medrol. Heparin for DVT prophylaxis. The patient is seen today May 04, 2023 in follow-up on the regular medical floor. She is awake and alert in no acute distress. Sitting up in bed. She was having some chest wall pain from coughing. She is breathing easier today compared to yesterday. She did undergo bronchoscopy with BAL and much mucus removed. Cultures and cytology pending. She was initiated on Diflucan for oral candidiasis noted during the bronchoscopy. She is continued on DuoNeb inhalations, Symbicort, Solu-Medrol. Remains on Robitussin. Heparin for DVT prophylaxis. White count 5.0. Hemoglobin 12.6. Platelets 150. Sodium 142. Potassium 4.9. Bicarb 30. BUN 22. Creatinine 0.9. Glucose 141. The patient is seen today May 05, 2023 and follow-up on the regular medical floor. She is resting comfortably in bed. Awake and alert in no acute dist ress. Feeling better today compared to yesterday. Still not back to her baseline. She is now found to have a urinary tract infection. Currently on Cipro. She is maintaining O2 saturations in the 90s on room air. Less wheezing. Continue on DuoNeb elations, Symbicort, Solu-Medrol. Heparin for DVT prophylaxis. Remains on oral diuretics. The patient is seen today May 06, 2023 in follow-up on the regular medical floor. She is awake and alert in no acute distress. Resting comfortably in bed. Feeling a bit better today compared to yesterday. She has been slow to progress. She remains on DuoNeb ventilations, Pulmicort and performance inhalations, IV Solu-Medrol. She is continued on antibiotics in the form of Cipro. Bronchial wash cultures are now revealing presumptive Staph aureus. The patient is seen today May 07, 2023 in follow-up on the regular medical floor. She is currently resting in bed. Awake and alert in no acute distress. She is maintaining O2 saturations in the 90s on room air. Bronchial lavage cultures were positive for bacillin sensitive Staphylococcus aureus. Count 9.1. Hemoglobin 13.5. Platelets 123. Sodium 142. Potassium 4.4. Bicarb 27. BUN 23. Creatinine 0.9. She is continued on antibiotics in the form of cefazolin. Remains on bronchodilators and steroids. Remains on diuretics. The patient is seen today May 08, 2023 in follow-up on the regular medical floor. She is currently up ambulating in her room. Awake and alert in no acute distress. Breathing easier today compared to yesterday. Chest x-ray report reveals a 1.7 cm nodule of the left upper lobe suspect early pneumonia versus neoplasm. Not seen on previous chest x-ray from 04/27/2023. Her bronchial wash cultures were positive for methicillin sensitive Staphylococcus aureus. Cytology is pending. Sodium 141. Potassium 4.6. Bicarb 27. BUN 24. Creatinine 0.9. Glucose 159. He is continued on DuoNeb ventilations, Symbicort, prednisone taper. Continued on antibiotics in the form of cefazolin and Cipro. The patient is seen today May 09, 2023 in follow-up on the regular medical floor. She is currently sitting up in a chair. Awake and alert in no acute distress. She denies any worsening shortness of breath, cough or congestion. Her main complaint now is that of back pain. CT scan of the chest revealed few small nodular densities bilaterally. Up to 1.7 cm in the left upper lobe and multifocal patchy groundglass opacities bilaterally. An infectious/inflammatory process is favored. Follow-up CT scan of the chest in 4 to 6 months re commended. She is being treated for methicillin sensitive Staph aureus from her bronchial wash. Blood cultures revealed no growth. White count 12.6. Hemoglobin 13.4. Platelets 107. Sodium 136. Potassium 4.6. Bicarb 27. BUN 32. Creatinine 0.89. AST 26. ALT 47. The patient is seen today May 10, 2023 in follow-up on the regular medical floor. She is awake and alert in no acute distress. Sitting up in a chair. Continues to have complaints of back pain. No worsening shortness of breath, cough or congestion. She is continued on bronchodilators and steroids. Continued on heparin for DVT prophylaxis. She remains on oral diuretics. Remains on Ancef. She is being treated for methicillin sensitive Staph aureus from her bronchial wash. White count 10.4. Hemoglobin 13.4. Platelets 86,000. Sodium 138. Potassium 3.9. Bicarb 28. BUN 23. Creatinine 1.1. Glucose 99. AST 49. ALT 45. Objective - Vital Signs Vital signs: Vital Signs Temp 97.9 F 05/10/23 08:00 Pulse 76 05/10/23 08:25 Resp 16 05/10/23 08:00 BP 125/92 05/10/23 08:00 Pulse Ox 93 L 05/10/23 08:00 FiO2 21 05/04/23 07:56 Intake & Output 05/09/23 05/10/23 05/10/23 18:59 06:59 18:59 Intake Total 822 120 Balance 822 120 Intake: Oral 822 120 Other: Voiding Method Toilet # Voids 2 3 - Exam GENERAL EXAM: Alert, obese 63-year-old female, sitting up in a chair, in no apparent distress. HEAD: Normocephalic. EYES: Normal reaction of pupils, equal size. NOSE: Clear with pink turbinates. THROAT: No erythema or exudates. NECK: No masses, no JVD. CHEST: No chest wall deformity. LUNGS: Equal air entry with few bilateral scattered wheeze. On room air, CVS: S1 and S2 normal with no audible murmur, regular rhythm. ABDOMEN: No hepatosplenomegaly, normal bowel sounds, no guarding or rigidity. SPINE: No scoliosis or deformity SKIN: No rashes CENTRAL NERVOUS SYSTEM: No focal deficits, tone is normal in all 4 extremities. EXTREMITIES: There is no peripheral edema. No clubbing, no cyanosis. Peripheral pulses are intact. - Labs CBC & Chem 7: 05/10/23 05:23 05/10/23 05:23 Labs: Abnormal Lab Results - Last 24 Hours (Table) 05/10/23 05/10/23 Range/Units 05:23 05:23 WBC 10.48 H (4.50-10.00) X 10*3/uL Plt Count 86 L (140-440) X 10*3/uL Immature Gran # 0.33 H (0.00-0.04) X 10*3/uL Neutrophils # 8.01 H (1.80-7.70) X 10*3/uL Eosinophils # 0.01 L (0.04-0.35) X 10*3/uL Est GFR (CKD-EPI) 56 L (>=60) BUN/Creatinine Ratio 20.91 H (12.00-20.00) Ratio ALT 49 H (8-44) U/L Total Protein 5.3 L (6.2-8.2) g/dL Albumin 3.2 L (3.8-4.9) g/dL Albumin/Globulin Ratio 1.52 L (1.60-3.17) Ratio Assessment and Plan Assessment: Acute exacerbation of COPD secondary to influenza A infection. Status post bronchoscopy with BAL 05/03/2023, cultures revealing methicillin sensitive Staph aureus, cytology negative for malignancy. CT scan of the chest reveals small bilateral pulmonary nodules 1 and 1.7 cm nodule in the left upper lobe. Multiple vague patchy groundglass opacities bilaterally. Recommend follow-up CT scan in 4 to 6 months. Acute hypoxic respiratory failure secondary to above, recovered, currently on room air Acute influenza A infection, unvaccinated, completed Tamiflu Urinary tract infection, treated with Cipro Oral candidiasis, initiated on Diflucan History of chronic liver disease/hepatitis C. CT scan revealed stable 4 cm right lobe hepatic lesion, likely benign hemangioma. Couple of additional small hypodensities in the liver are too small to characterize. Hypertension Rheumatoid arthritis Acid reflux History of polysubstance abuse and this includes cocaine and marijuana and she states that she takes edibles for now Plan: The patient was seen and evaluated Labs and medications reviewed Continued on bronchodilators, steroids Discontinue Ancef Initiate Bactrim Stable and on room air Increase her activity as tolerated May need subacute rehabilitation versus home with home care This patient was seen independently by the pulmonary nurse practitioner addressing pulmonary issues I have personally seen and examined the patient, performed the documentation and the assessment and plan as written. Number of minutes spent on the visit: 24.
--- NOTE | 2023-05-10 11:57 | P.PN ---
Subjective Progress Note Date: 05/09/23 Principal diagnosis: Reason for follow-up is pneumonia Patient is a 63-year-old female with a past medical history significant for hypertension reflux rheumatoid arthritis COPD patient presented to hospital for evaluation of increasing shortness of breath and wheezing she did have a low-grade fever on admission subsequently the patient did have a bronchoscopy on 05/03/2023 culture grew MSSA On today's evaluation that is 05/09/2023, Patient is afebrile patient is cur rently on room air and denies having breathing slightly comfortably, the patient complaining of some posterior left lower rib cage chest pain denies any worsening cough, the patient denies any nausea vomiting did not have any abdominal pain and no diarrhea. Patient white count is down to 12.6, creatinine 0.89 Objective - Vital Signs Vital signs: Vital Signs Temp 97.8 F 05/09/23 08:00 Pulse 80 05/09/23 09:18 Resp 16 05/09/23 08:00 BP 146/81 05/09/23 08:00 Pulse Ox 94 L 05/09/23 09:09 FiO2 21 05/04/23 07:56 Intake & Output 05/08/23 05/09/23 05/09/23 18:59 06:59 18:59 Intake Total 826 Balance 826 Intake: Oral 826 Other: Voiding Method Toilet Toilet # Voids 3 2 - Exam GENERAL DESCRIPTION: An elderly female lying in bed in no distress RESPIRATORY SYSTEM: Unlabored breathing , bilateral wheezes HEART: S1 S2 regular rate and rhythm , ABDOMEN: Soft , no tenderness EXTREMITIES: 1+ edema feet - Labs CBC & Chem 7: 05/10/23 05:23 05/10/23 05:23 Labs: Abnormal Lab Results - Last 24 Hours (Table) 05/03/23 05/08/23 05/09/23 Range/Units 10:43 05:27 05:56 WBC 14.57 H 12.6 H (4.50-10.00) X 10*3/uL Plt Count 134 L 107 L (140-440) X 10*3/uL Neutrophils # 10.5 H (1.3-7.7) k/uL Neutrophils # (Manual) 13.55 H (1.80-7.70) X 10*3/uL Lymphocytes # (Manual) 0.58 L (0.90-5.00) X 10*3/uL Monocytes # (Manual) 0.15 L (0.20-1.00) X 10*3/uL Eosinophils # (Manual) 0 L (0.04-0.35) X 10*3/uL Sodium (137-145) mmol/L BUN (7-17) mg/dL ALT (4-34) U/L Total Protein (6.3-8.2) g/dL Albumin (3.5-5.0) g/dL HSV I DNA PCR DETECTED A (Not detected) Influenza Type A (PCR) DETECTED A (Not detected) 05/09/23 Range/Units 05:56 WBC (4.50-10.00) X 10*3/uL Plt Count (140-440) X 10*3/uL Neutrophils # (1.3-7.7) k/uL Neutrophils # (Manual) (1.80-7.70) X 10*3/uL Lymphocytes # (Manual) (0.90-5.00) X 10*3/uL Monocytes # (Manual) (0.20-1.00) X 10*3/uL Eosinophils # (Manual) (0.04-0.35) X 10*3/uL Sodium 136 L (137-145) mmol/L BUN 32 H (7-17) mg/dL ALT 47 H (4-34) U/L Total Protein 5.6 L (6.3-8.2) g/dL Albumin 2.9 L (3.5-5.0) g/dL HSV I DNA PCR (Not detected) Influenza Type A (PCR) (Not detected) Assessment and Plan (1) Abnormal chest x-ray Current Visit: Yes Status: Acute Code(s): R93.89 - ABNORMAL FINDINGS ON DX IMAGING OF OTH BODY STRUCTURES SNOMED Code(s): 959696600 (2) Pneumonia Current Visit: No Status: Acute Code(s): J18.9 - PNEUMONIA, UNSPECIFIED ORGANISM SNOMED Code(s): 766736005 Plan: 1patient presented to hospital with increasing shortness of breath and cough, did have low-grade fever initial chest x-ray was negative and has been treated for COPD exacerbation patient did have bronchoscopy on 05/03/2023 which is now growing MSSA with a question of possible tracheobronchitis or developing pneumonia 2-patient did have chest x-ray concerning for mass versus pneumonia 3- CT of the chest did show some small nodular densities and multifocal patchy groundglass opacities, pulmonary is following the patient 4patient will continue with the cefazolin while inpatient and monitor clinical course closely Dictation was produced using [employer] dictation software. please excuse any gram matical, word or spelling errors.
--- NOTE | 2023-05-10 15:12 | P.PN ---
Subjective Progress Note Date: 05/10/23 Principal diagnosis: Reason for follow-up is pneumonia Patient is a 63-year-old female with a past medical history significant for hypertension reflux rheumatoid arthritis COPD patient presented to hospital for evaluation of increasing shortness of breath and wheezing she did have a low-grade fever on admission subsequently the patient did have a bronchoscopy on 05/03/2023 culture grew MSSA On today's evaluation that is 05/10/2023,the patient denies any fever or any chills, patient is currently on room air still complaining of some shortness of breath on minimal exertion she also have a cough not bring any sputum no nausea vomiting no abdominal pain no diarrhea. Patient white count is down to 10.40 creatinine is 1.1 Objective - Vital Signs Vital signs: Vital Signs Temp 97.9 F 05/10/23 08:00 Pulse 76 05/10/23 08:25 Resp 16 05/10/23 08:00 BP 125/92 05/10/23 08:00 Pulse Ox 93 L 05/10/23 08:00 FiO2 21 05/04/23 07:56 Intake & Output 05/09/23 05/10/23 05/10/23 18:59 06:59 18:59 Intake Total 822 120 Balance 822 120 Intake: Oral 822 120 Other: Voiding Method Toilet Toilet # Voids 2 3 - Exam GENERAL DESCRIPTION: An elderly female lying in bed in no distress RESPIRATORY SYSTEM: Unlabored breathing , bilateral wheezes HEART: S1 S2 regular rate and rhythm , ABDOMEN: Soft , no tenderness EXTREMITIES: 1+ edema feet - Labs CBC & Chem 7: 05/10/23 05:23 05/10/23 05:23 Labs: Abnormal Lab Results - Last 24 Hours (Table) 05/10/23 05/10/23 Range/Units 05:23 05:23 WBC 10.48 H (4.50-10.00) X 10*3/uL Plt Count 86 L (140-440) X 10*3/uL Immature Gran # 0.33 H (0.00-0.04) X 10*3/uL Neutrophils # 8.01 H (1.80-7.70) X 10*3/uL Eosinophils # 0.01 L (0.04-0.35) X 10*3/uL Est GFR (CKD-EPI) 56 L (>=60) BUN/Creatinine Ratio 20.91 H (12.00-20.00) Ratio ALT 49 H (8-44) U/L Total Protein 5.3 L (6.2-8.2) g/dL Albumin 3.2 L (3.8-4.9) g/dL Albumin/Globulin Ratio 1.52 L (1.60-3.17) Ratio Assessment and Plan (1) Abnormal chest x-ray Current Visit: Yes Status: Acute Code(s): R93.89 - ABNORMAL FINDINGS ON DX IMAGING OF OTH BODY STRUCTURES SNOMED Code(s): 554934797 (2) Pneumonia Current Visit: No Status: Acute Code(s): J18.9 - PNEUMONIA, UNSPECIFIED ORGANISM SNOMED Code(s): 333673170 Plan: 1patient presented to hospital with increasing shortness of breath and cough, did have low-grade fever initial chest x-ray was negative and has been treated for COPD exacerbation patient did have bronchoscopy on 05/03/2023 which is now growing MSSA with a question of possible tracheobronchitis or developing pneumonia 2-patient did have chest x-ray concerning for mass versus pneumonia, patient subsequently did have CT of the chest did show some small nodular densities and multifocal patchy groundglass opacities, pulmonary is following the patient 3patient is afebrile white count has normalized continue cefazolin finish therapy with oral Keflex x 7 to 10 days Dictation was produced using [employer] dictation software. please excuse any grammatical, word or spelling errors. Time with Patient: Less than 30
[2023-05-10] MEDS: FUROSEMIDE 10 MG/ML 2 ML VIAL IV ONE (15:41)
--- NOTE | 2023-05-10 16:48 | P.PN ---
Subjective Progress Note Date: 05/10/23 Alisa Cain, is a 62-year-old female who presented to [facility] emergency room with a chief complaint of cough and worsening shortness of breath She was evaluated in the emergency room vital examination on presentation revealed a temperature of 100.5 pulse 103 respiration 24 blood pressure 164/100 pulse ox 91% on room air Laboratory data reveals a white blood count of 4.2 hemoglobin 13.0 platelet count 100 BUN 12 creatinine 0.88 influenza A PCR was positive Testing in the emergency room revealed chest x-ray done in the emergency room revealed no acute process Patient was admitted to medical floor for further evaluation and treatment On 04/28/2023 patient was seen and examined on the medical floor she is alert and oriented 3 in no apparent distress she is still complaining of severe cough and requesting cough medication, she is reporting some improvement in her short ness of breath, otherwise she denies any complaints there is no fever or chills no headache or dizziness no chest pain no palpitation no nausea or vomiting no abdominal pain or diarrhea no blood in the stools no burning with urination no frequency or urgency and no hematuria no weakness or numbness in any of her extremities no change in vision speech or gait On 04/29/2022 for patients alert and oriented 3. Patient complains of generalized pain. Patient is maintained on room air. Current vital signs temp 97.7, heart rate 65, respiratory rate 16, blood pressure 130/70 with a pulse ox of 95% on room air. Patient remains on Tamiflu and IV steroids. Anticipate discharge in the next 24-48 hours On 04/30/2022 for patients alert and oriented 3. Patient complains of generalized pain. Patient is maintained on room air. Current vital signs temp 97.7, heart rate 65, respiratory rate 16, blood pressure 130/70 with a pulse ox of 95% on room air. Patient remains on Tamiflu and IV steroids. On 05/01/2023 patient was seen and examined on the medical floor she is alert and oriented 3 in no apparent distress she is still complaining of shortness of breath cough and wheezing otherwise she denies any complaints there is no fever or chills no headache or dizziness no chest pain no nausea or vomiting no abdominal pain no diarrhea and no urinary symptoms, she is still having significant breathing complaints, she is not ready to be discharged to home today. On 05/02/2023 patient was seen and examined on the medical floor she is alert and oriented 3 in no apparent distress she is still complaining of shortness of breath and cough, otherwise she denies any complaints there is no fever or chills no headache or dizziness no chest pain no palpitation no nausea or vomiting no abdominal pain no diarrhea and no urinary symptoms. Input from pulmonary reviewed patient is scheduled for bronchoscopy in a.m. tomorrow with continued follow. On 05/03/2009 for patients alert and oriented 3. Tentative plans for bronchoscopy today. Patient still complaining of shortness of breath and increased nonproductive cough. Current vital signs have 97.9, heart 65, respiratory rate 17, blood pressure 141/90 with a pulse ox of 96% on room air very patient remains on IV steroids On 05/04/2023 patient is alert and oriented 3. Patient underwent bronchoscopy yesterday with pulmonary services suspicious for Shena albicans. Patient started on Diflucan per pulmonary. Patient reports slight improvement. Current vital signs temp 98.1, heart rate 68, respiratory rate 16, blood pressure 120/76 with pulse ox 95% room air. 05/05/2023 patient was seen and examined on the medical floor she is alert and oriented 3 in no apparent distress, she is still complaining of chest tightness, shortness of breath and wheezing, otherwise she denies any complaints there is no chest pain no fever or chills no nausea or vomiting no abdominal pain no diarrhea and no urinary symptoms. On 05/06/2023 patients alert and oriented 3. Current vital signs temp 90.3, heart rate 75, respiratory rate 18, blood pressure 129/83 with pulse ox 94% on room air. Patient still having some cough and shortness of breath. Patient denies chest pain. Patient denies nausea vomiting or diarrhea. Patient denies any urinary burning or frequency. Patient was started on Cipro for UTI and maintained on Diflucan. Pulmonary services following On 05/07/2023 patient was seen and examined on the medical floor is alert and oriented 3 in no apparent distress she is still complaining of cough and shortness of breath otherwise she denies any complaints there is no fever or chills no headache or dizziness no chest pain no nausea or vomiting no abdominal pain no diarrhea and no urinary symptoms bronchoalveolar lavage is positive for Staphylococcus aureus consultation for infectious disease was initiated will follow closely On 05/08/2022 for patients alert and oriented 3. Patient was started on IV Kefzol for infectious disease. Pulmonary services are still following. Patient still having some pleural discomfort. Current vital signs temp 97.9, heart rate 70, blood pressure 150/87 with a pulse ox of 95% on room air On 05/09/2023 for patients alert and oriented 3. Patient still complaining of shortness breath and pleuritic chest pain. Current vital signs temp 97.8, heart rate 73, respiratory rate 16, blood pressure 146/81 with pulse ox 100% on room air. Pulmonary and infectious disease services following On 05/10/2023 patient was seen and examined on the medical floor she is alert and oriented 3 in no apparent distress she is still complaining of cough shortness of breath and wheezing she is also complaining of worsening bilateral lower extremity edema, otherwise she denies any complaints there is no chest pain no nausea or vomiting no abdominal pain no diarrhea and no urinary sy mptoms. At this time will give 1 dose of IV Lasix, continue with current antibiotics awaiting further input from pulmonary and infectious disease. Objective - Vital Signs Vital signs: Vital Signs Temp 97.9 F 05/10/23 08:00 Pulse 76 05/10/23 08:25 Resp 16 05/10/23 08:00 BP 125/92 05/10/23 08:00 Pulse Ox 93 L 05/10/23 08:00 FiO2 21 05/04/23 07:56 Intake & Output 05/09/23 05/10/23 05/10/23 18:59 06:59 18:59 Intake Total 822 120 Balance 822 120 Intake: Oral 822 120 Other: Voiding Method Toilet Toilet # Voids 2 3 - Exam In general patient is alert and oriented x 3 in no distress HEENT head normocephalic and atraumatic Neck is supple no JVD no goiter no lymphadenopathy no carotid bruit Chest examination reveals a crackles in both lung lópez with wheezing Cardiac exam reveals regular heart sounds S1 and S2 no gallops no murmurs Abdomen is soft nontender no organomegaly with normal bowel sounds Extremity exam reveals no edema no cyanosis or clubbing Neurological examination reveals no gross focal deficits - Labs CBC & Chem 7: 05/10/23 05:23 05/10/23 05:23 Labs: Abnormal Lab Results - Last 24 Hours (Table) 05/10/23 05/10/23 Range/Units 05:23 05:23 WBC 10.48 H (4.50-10.00) X 10*3/uL Plt Count 86 L (140-440) X 10*3/uL Immature Gran # 0.33 H (0.00-0.04) X 10*3/uL Neutrophils # 8.01 H (1.80-7.70) X 10*3/uL Eosinophils # 0.01 L (0.04-0.35) X 10*3/uL Est GFR (CKD-EPI) 56 L (>=60) BUN/Creatinine Ratio 20.91 H (12.00-20.00) Ratio ALT 49 H (8-44) U/L Total Protein 5.3 L (6.2-8.2) g/dL Albumin 3.2 L (3.8-4.9) g/dL Albumin/Globulin Ratio 1.52 L (1.60-3.17) Ratio Assessment and Plan Plan: Acute exacerbation of chronic obstructive pulmonary disease Acute influenza A infection Continued tobacco abuse Previous history of cocaine abuse Underlying history of hypertension Underlying history of rheumatoid arthritis Underlying history of gastroesophageal reflux disease Underlying history of anxiety disorder Shena tracheobronchitis. Patient started on Diflucan At this time patient was admitted to medical floor Home medications reviewed and reordered Pulmonary consultation was requested She was started on IV Solu-Medrol, inhaled bronchodilators, and oral Tamiflu Status post bronchoscopy on 05/03/2023 For DVT prophylaxis she was started on subcu Lovenox For GI prophylaxis Protonix was continued Will monitor closely
[2023-05-11 08:17] VITALS: BP 114/78; RESP 18; TEMP 98.8
--- NOTE | 2023-05-11 10:58 | P.DS ---
Providers Date of admission: 04/27/23 12:02 Expected date of discharge: 05/11/23 Attending physician: Telma Potts Consults: 04/27/23 11:03 Consult Physician Urgent Consulting Provider: Raza Ann Consult Reason/Comments: COPD exacerbation Do you want consulting provider notified?: Yes 05/07/23 11:04 Consult Physician Routine Consulting Provider: Carie Adler Consult Reason/Comments: staph aureus lung culture, uti Do you want consulting provider notified?: Yes Primary care physician: Telma Potts [facility] Course: Discharge diagnosis Acute exacerbation of chronic obstructive pulmonary disease Acute influenza A infection Continued tobacco abuse Previous history of cocaine abuse Underlying history of hypertension Underlying history of rheumatoid arthritis Underlying history of gastroesophageal reflux disease Underlying history of anxiety disorder Shena tracheobronchitis. Patient started on Diflucan Hospital course Alisa Cain, is a 62-year-old female who presented to [facility] emergency room with a chief complaint of cough and worsening shortness of breath She was evaluated in the emergency room vital examination on presentation revealed a temperature of 100.5 pulse 103 respiration 24 blood pressure 164/100 pulse ox 91% on room air Laboratory data reveals a white blood count of 4.2 hemoglobin 13.0 platelet count 100 BUN 12 creatinine 0.88 influenza A PCR was positive Testing in the emergency room revealed chest x-ray done in the emergency room revealed no acute process Patient was admitted to medical floor for further evaluation and treatment On 04/28/2023 patient was seen and examined on the medical floor she is alert and oriented 3 in no apparent distress she is still complaining of severe cough and requesting cough medication, she is reporting some improvement in her shortness of breath, otherwise she denies any complaints there is no fever or chills no headache or dizziness no chest pain no palpitation no nausea or vomiting no abdominal pain or diarrhea no blood in the stools no burning with urination no frequency or urgency and no hematuria no weakness or numbness in any of her extremities no change in vision speech or gait On 04/29/2022 for patients alert and oriented 3. Patient complains of generalized pain. Patient is maintained on room air. Current vital signs temp 97.7, heart rate 65, respiratory rate 16, blood pressure 130/70 with a pulse ox of 95% on room air. Patient remains on Tamiflu and IV steroids. Anticipate discharge in the next 24-48 hours On 04/30/2022 for patients alert and oriented 3. Patient complains of generalized pain. Patient is maintained on room air. Current vital signs temp 97.7, heart rate 65, respiratory rate 16, blood pressure 130/70 with a pulse ox of 95% on room air. Patient remains on Tamiflu and IV steroids. On 05/01/2023 patient was seen and examined on the medical floor she is alert and oriented 3 in no apparent distress she is still complaining of shortness of breath cough and wheezing otherwise she denies any complaints there is no fever or chills no headache or dizziness no chest pain no nausea or vomiting no abdominal pain no diarrhea and no urinary symptoms, she is still having significant breathing complaints, she is not ready to be discharged to home today. On 05/02/2023 patient was seen and examined on the medical floor she is alert and oriented 3 in no apparent distress she is still complaining of shortness of breath and cough, otherwise she denies any complaints there is no fever or chills no headache or dizziness no chest pain no palpitation no nausea or vomiting no abdominal pain no diarrhea and no urinary symptoms. Input from pulmonary reviewed patient is scheduled for bronchoscopy in a.m. tomorrow with continued follow. On 05/03/2009 for patients alert and oriented 3. Tentative plans for bronchoscopy today. Patient still complaining of shortness of breath and increased nonproductive cough. Current vital signs have 97.9, heart 65, respiratory rate 17, blood pressure 141/90 with a pulse ox of 96% on room air very patient remains on IV steroids On 05/04/2023 patient is alert and oriented 3. Patient underwent bronchoscopy yesterday with pulmonary services suspicious for Shena albicans. Patient started on Diflucan per pulmonary. Patient reports slight improvement. Current vital signs temp 98.1, heart rate 68, respiratory rate 16, blood pressure 120/76 with pulse ox 95% room air. 05/05/2023 patient was seen and examined on the medical floor she is alert and oriented 3 in no apparent distress, she is still complaining of chest tightness, shortness of breath and wheezing, otherwise she denies any complaints there is no chest pain no fever or chills no nausea or vomiting no abdominal pain no diarrhea and no urinary symptoms. On 05/06/2023 patients alert and oriented 3. Current vital signs temp 90.3, heart rate 75, respiratory rate 18, blood pressure 129/83 with pulse ox 94% on room air. Patient still having some cough and shortness of breath. Patient denies chest pain. Patient denies nausea vomiting or diarrhea. Patient denies any urinary burning or frequency. Patient was started on Cipro for UTI and maintained on Diflucan. Pulmonary services following On 05/07/2023 patient was seen and examined on the medical floor is alert and oriented 3 in no apparent distress she is still complaining of cough and shortness of breath otherwise she denies any complaints there is no fever or chills no headache or dizziness no chest pain no nausea or vomiting no abdominal pain no diarrhea and no urinary symptoms bronchoalveolar lavage is positive for Staphylococcus aureus consultation for infectious disease was initiated will follow closely On 05/08/2022 for patients alert and oriented 3. Patient was started on IV Kefzol for infectious disease. Pulmonary services are still following. Patient still having some pleural discomfort. Current vital signs temp 97.9, heart rate 70, blood pressure 150/87 with a pulse ox of 95% on room air On 05/09/2023 for patients alert and oriented 3. Patient still complaining of shortness breath and pleuritic chest pain. Current vital signs temp 97.8, heart rate 73, respiratory rate 16, blood pressure 146/81 with pulse ox 100% on room air. Pulmonary and infectious disease services following On 05/10/2023 patient was seen and examined on the medical floor she is alert and oriented 3 in no apparent distress she is still complaining of cough shortness of breath and wheezing she is also complaining of worsening bilateral lower extremity edema, otherwise she denies any complaints there is no chest pain no nausea or vomiting no abdominal pain no diarrhea and no urinary symptoms. At this time will give 1 dose of IV Lasix, continue with current antibiotics awaiting further input from pulmonary and infectious disease. On 05/11/2023 patients alert and oriented 3. Patient has been cleared for discharge per pulmonary services. Patient to continue Bactrim and prednisone taper upon discharge no need for further Diflucan upon discharge. Patient is currently on room air. Current vital signs temp 98.8, heart rate 100, respiratory rate 18, blood pressure 114/78 with a pulse ox of 92% on room air. Patient to follow-up with PCP and pulmonary services for further management Patient Condition at Discharge: Stable Plan - Discharge Summary Discharge Rx Participant: No New Discharge Prescriptions: New predniSONE [Deltasone] 40 mg PO DAILY 16 Days #20 tab Sulfamethox-Tmp 800-160Mg [Bactrim DS 800-160 mg] 1 each PO BID 5 Days #10 tab Continue Albuterol Inhaler [Ventolin Hfa Inhaler] 1 - 2 puff INHALATION RT-Q6H PRN PRN Reason: Shortness Of Breath ALPRAZolam [Xanax] 0.5 mg PO TID PRN PRN Reason: Anxiety Pantoprazole Sodium [Protonix] 40 mg PO DAILY Metoprolol Tartrate [Lopressor] 50 mg PO DAILY amLODIPine [Norvasc] 5 mg PO DAILY 30 Days #30 tab Furosemide [Lasix] 20 mg PO DAILY Acetaminophen Tab [Tylenol] 650 mg PO Q6H PRN PRN Reason: Fever And/ Or Pain Ergocalciferol [Vitamin D2 (1250 Mcg = 90373 Iu)] 1,250 mcg PO WE lisinopriL [Zestril] 20 mg PO DAILY Discharge Medication List ALPRAZolam [Xanax] 0.5 mg PO TID PRN 04/30/19 [History] Albuterol Inhaler [Ventolin Hfa Inhaler] 1 - 2 puff INHALATION RT-Q6H PRN 04/30/19 [History] Metoprolol Tartrate [Lopressor] 50 mg PO DAILY 04/30/19 [History] Pantoprazole Sodium [Protonix] 40 mg PO DAILY 04/30/19 [History] amLODIPine [Norvasc] 5 mg PO DAILY 30 Days #30 tab 06/29/22 [Rx] Acetaminophen Tab [Tylenol] 650 mg PO Q6H PRN 04/27/23 [History] Ergocalciferol [Vitamin D2 (1250 Mcg = 75508 Iu)] 1,250 mcg PO WE 04/27/23 [History] Furosemide [Lasix] 20 mg PO DAILY 04/27/23 [History] lisinopriL [Zestril] 20 mg PO DAILY 04/27/23 [History] Sulfamethox-Tmp 800-160Mg [Bactrim DS 800-160 mg] 1 each PO BID 5 Days #10 tab 05/11/23 [Rx] predniSONE [Deltasone] 40 mg PO DAILY 16 Days #20 tab 05/11/23 [Rx] Follow up Appointment(s)/Referral(s): Vani Lan MD [STAFF PHYSICIAN] - 05/17/23 9:30 am Telma Potts MD [Primary Care Provider] - 1-2 days Activity/Diet/Wound Care/Special Instructions: Activity as tolerated Diet heart healthy Discharge Disposition: HOME SELF-CARE
--- NOTE | 2023-05-11 11:15 | P.PN ---
Subjective Progress Note Date: 05/11/23 62-year-old female patient with known history of COPD/asthma who is also an active smoker who smokes about 1 pack of cigarettes a day. The patient has had also issues with RA, hypertension, chronic liver disease secondary hepatitis C as the patient has utilize drugs in the past. The patient's last hospi talization for pneumonia was back in June 2022 and at that time the patient was treated and the patient was discharged home. The patient comes back to the hospital because of 3 days history of decreased Fatigue, weakness, tiredness, lethargy along with increased dyspnea cough chest tightness and wheezing. In the emergency, the patient was diagnosed having influenza A infection. Electrolytes were normal. There was a +4.2 with a hemoglobin of 17, BUN is at 12 with a creatinine of 0.8. The patient is currently on 2 L of O2 nasal cannula with a pulse ox of 97%. Chest x-ray that was done in the ED showed no acute cardiopulmonary abnormalities and showed some cardiomegaly and background COPD. Noted the patient has only an albuterol rescue inhaler. She does not utilize any form of maintenance respiratory medications on outpatient basis. She is not oxygen dependent. She has not received the vaccination for influenza for this current year. The rest of the viral panel was negative. 04/29/2023, the patient is being seen for a follow-up. Patient is feeling slightly improved compared to yesterday. The patient was infected with influenza A and the patient is currently on Tamiflu. COPD also exacerbated and the patient is currently on a combination of DuoNeb updrafts and IV Solu-Medrol. No nausea. No vomiting. She is having some bodyaches and chills. No fever. Shortness of breath this seems to be improving and the patient is also being hydrated with normal saline at rate of 75 cc an hour. White cell count of 5.5 with a hemoglobin of 12 and a platelet count of 99. Sodium is 140, potassium is at 4.9, BUN is at 24 with a creatinine of 1.0. Note that the patient has not been vaccinated for influenza for this current season. The patient is seen today April 30, 2023 and follow-up on the regular medical floor. She is currently sitting up at the bedside. Awake and alert in no acute distress. Maintaining O2 saturations in the 90s on room air. She is still feeling quite congested. She has a dry cough. Blood cultures reveal no growth. No new labs today. She is continued on DuoNeb ventilations, Solu-Medrol, Tamiflu. Heparin for DVT prophylaxis. The patient is seen today May 01, 2023 in follow-up on the regular medical floor. She is currently sitting up in bed. Awake and alert in no acute distress. Maintaining good O2 saturations in the 90s on room air. She has been afebrile. Hemodynamically stable. Not quite back to her baseline. She is maintained on Solu-Medrol, DuoNeb ventilations, Tamiflu. Heparin for DVT prophylaxis. White count 4.0. Hemoglobin 13.2. Platelets 100,000. Sodium 140. Potassium 5.1. Bicarb 26. BUN 25. Creatinine 1.0. Glucose 132. The patient is seen today May 02, 2023 in follow-up on the regular medical floor. She is resting flat in bed. Awake and alert in no acute distress. Maintaining O2 saturations in the 90s on room air. She continues to have issues with shortness of breath, cough and congestion. Unable to expectorate mucus. She remains on DuoNeb elations, Symbicort, Solu-Medrol. Remains on Robitussin. Remains on Tamiflu. Blood cultures revealed no growth. The patient is seen today May 03, 2023 in follow-up on the regular medical floor. She is sitting up in bed. Awake and alert in no acute distress. Continues with a loose nonproductive cough. Maintaining O2 saturations in the 90s on 2 L nasal cannula. She has been afebrile. Hemodynamically stable. Blood cultures revealed no growth. White count 5.0. Hemoglobin 12.5. Platelets 130,000. Sodium 141. Potassium 4.4. Bicarb 30. BUN 23. Creatinine 0.9. Glucose 144. She remains on DuoNeb ventilations, Symbicort, Solu-Medrol. Heparin for DVT prophylaxis. The patient is seen today May 04, 2023 in follow-up on the regular medical floor. She is awake and alert in no acute distress. Sitting up in bed. She was having some chest wall pain from coughing. She is breathing easier today compared to yesterday. She did undergo bronchoscopy with BAL and much mucus removed. Cultures and cytology pending. She was initiated on Diflucan for oral candidiasis noted during the bronchoscopy. She is continued on DuoNeb inhalations, Symbicort, Solu-Medrol. Remains on Robitussin. Heparin for DVT prophylaxis. White count 5.0. Hemoglobin 12.6. Platelets 150. Sodium 142. Potassium 4.9. Bicarb 30. BUN 22. Creatinine 0.9. Glucose 141. The patient is seen today May 05, 2023 and follow-up on the regular medical floor. She is resting comfortably in bed. Awake and alert in no acute dist ress. Feeling better today compared to yesterday. Still not back to her baseline. She is now found to have a urinary tract infection. Currently on Cipro. She is maintaining O2 saturations in the 90s on room air. Less wheezing. Continue on DuoNeb elations, Symbicort, Solu-Medrol. Heparin for DVT prophylaxis. Remains on oral diuretics. The patient is seen today May 06, 2023 in follow-up on the regular medical floor. She is awake and alert in no acute distress. Resting comfortably in bed. Feeling a bit better today compared to yesterday. She has been slow to progress. She remains on DuoNeb ventilations, Pulmicort and performance inhalations, IV Solu-Medrol. She is continued on antibiotics in the form of Cipro. Bronchial wash cultures are now revealing presumptive Staph aureus. The patient is seen today May 07, 2023 in follow-up on the regular medical floor. She is currently resting in bed. Awake and alert in no acute distress. She is maintaining O2 saturations in the 90s on room air. Bronchial lavage cultures were positive for bacillin sensitive Staphylococcus aureus. Count 9.1. Hemoglobin 13.5. Platelets 123. Sodium 142. Potassium 4.4. Bicarb 27. BUN 23. Creatinine 0.9. She is continued on antibiotics in the form of cefazolin. Remains on bronchodilators and steroids. Remains on diuretics. The patient is seen today May 08, 2023 in follow-up on the regular medical floor. She is currently up ambulating in her room. Awake and alert in no acute distress. Breathing easier today compared to yesterday. Chest x-ray report reveals a 1.7 cm nodule of the left upper lobe suspect early pneumonia versus neoplasm. Not seen on previous chest x-ray from 04/27/2023. Her bronchial wash cultures were positive for methicillin sensitive Staphylococcus aureus. Cytology is pending. Sodium 141. Potassium 4.6. Bicarb 27. BUN 24. Creatinine 0.9. Glucose 159. He is continued on DuoNeb ventilations, Symbicort, prednisone taper. Continued on antibiotics in the form of cefazolin and Cipro. The patient is seen today May 09, 2023 in follow-up on the regular medical floor. She is currently sitting up in a chair. Awake and alert in no acute distress. She denies any worsening shortness of breath, cough or congestion. Her main complaint now is that of back pain. CT scan of the chest revealed few small nodular densities bilaterally. Up to 1.7 cm in the left upper lobe and multifocal patchy groundglass opacities bilaterally. An infectious/inflammatory process is favored. Follow-up CT scan of the chest in 4 to 6 months re commended. She is being treated for methicillin sensitive Staph aureus from her bronchial wash. Blood cultures revealed no growth. White count 12.6. Hemoglobin 13.4. Platelets 107. Sodium 136. Potassium 4.6. Bicarb 27. BUN 32. Creatinine 0.89. AST 26. ALT 47. The patient is seen today May 10, 2023 in follow-up on the regular medical floor. She is awake and alert in no acute distress. Sitting up in a chair. Continues to have complaints of back pain. No worsening shortness of breath, cough or congestion. She is continued on bronchodilators and steroids. Continued on heparin for DVT prophylaxis. She remains on oral diuretics. Remains on Ancef. She is being treated for methicillin sensitive Staph aureus from her bronchial wash. White count 10.4. Hemoglobin 13.4. Platelets 86,000. Sodium 138. Potassium 3.9. Bicarb 28. BUN 23. Creatinine 1.1. Glucose 99. AST 49. ALT 45. The patient is seen today May 11, 2023 in follow-up on the regular medical floor. Sitting up in a chair. Awake and alert in no acute distress. Continues to maintain good O2 saturations in the 90s on room air. She remains on antibiotics in the form of Bactrim. She remains on a prednisone taper. She continued on bronchodilators. Remains on oral diuretics. Pain is well-con trolled. Heparin for DVT prophylaxis. No new labs today. Objective - Vital Signs Vital signs: Vital Signs Temp 98.8 F 02/23/24 07:53 Pulse 100 05/11/23 08:48 Resp 18 05/11/23 08:00 BP 114/78 05/11/23 07:53 Pulse Ox 92 L 05/11/23 07:53 FiO2 21 05/04/23 07:56 Intake & Output 05/10/23 05/11/23 05/11/23 18:59 06:59 18:59 Intake Total 478 Balance 478 Intake: Oral 478 Other: Voiding Method Toilet Toilet Toilet # Voids 3 1 - Exam GENERAL EXAM: Alert, obese 63-year-old female, on room air, sitting up in a chair, in no apparent distress. HEAD: Normocephalic. EYES: Normal reaction of pupils, equal size. NOSE: Clear with pink turbinates. THROAT: No erythema or exudates. NECK: No masses, no JVD. CHEST: No chest wall deformity. LUNGS: Equal air entry with few bilateral scattered wheeze. CVS: S1 and S2 normal with no audible murmur, regular rhythm. ABDOMEN: No hepatosplenomegaly, normal bowel sounds, no guarding or rigidity. SPINE: No scoliosis or deformity SKIN: No rashes CENTRAL NERVOUS SYSTEM: No focal deficits, tone is normal in all 4 extremities. EXTREMITIES: There is no peripheral edema. No clubbing, no cyanosis. Pe ripheral pulses are intact. - Labs CBC & Chem 7: 05/10/23 05:23 05/10/23 05:23 Assessment and Plan Assessment: Acute exacerbation of COPD secondary to influenza A infection. Status post bronchoscopy with BAL 05/03/2023, cultures revealing methicillin sensitive Staph aureus, cytology negative for malignancy. CT scan of the chest reveals small bilateral pulmonary nodules 1 and 1.7 cm nodule in the left upper lobe. Multiple vague patchy groundglass opacities bilaterally. Recommend follow-up CT scan in 4 to 6 months. Acute hypoxic respiratory failure secondary to above, recovered, currently on room air Acute influenza A infection, unvaccinated, completed Tamiflu Urinary tract infection, treated with Cipro Oral candidiasis, initiated on Diflucan History of chronic liver disease/hepatitis C. CT scan revealed stable 4 cm right lobe hepatic lesion, likely benign hemangioma. Couple of additional small hypodensities in the liver are too small to characterize. Hypertension Rheumatoid arthritis Acid reflux History of polysubstance abuse and this includes cocaine and marijuana and she states that she takes edibles for now Plan: The patient was seen and evaluated Medications reviewed She remains stable and on room air Continued on Bactrim Continue on bronchodilators and a prednisone taper Cleared for discharge from the pulmonary standpoint Will need follow-up CT scan of the chest in 4 to 6 months Follow-up with Dr. Lan in our office in 1 week This patient was seen independently by the pulmonary nurse practitioner addressing pulmonary issues I have personally seen and examined the patient, performed the documentation and the assessment and plan as written. Number of minutes spent on the visit: 22.
[2023-05-11 11:23] LABS: ALT 51 U/L (8-44); AST 24 U/L (13-35); Albumin 3.4 g/dL (3.8-4.9); Albumin/Globulin Ratio 1.36 Ratio (1.60-3.17); Alkaline Phosphatase 43 U/L (41-126); BUN/Creat Ratio 22.56 Ratio (12.00-20.00); Blood Urea Nitrogen 20.3 mg/dL (9.0-27.0); Calcium 9.4 mg/dL (8.7-10.3); Carbon Dioxide 25.3 mmol/L (21.6-31.8); Chloride 102 mmol/L (96-109); Globulin 2.5 g/dL (1.6-3.3); Glucose 78 mg/dL (70-110); Potassium 4.1 mmol/L (3.5-5.5); Sodium 139 mmol/L (135-145); Total Bilirubin 0.6 mg/dL (0.3-1.2); Total Protein 5.9 g/dL (6.2-8.2)
[2023-05-11 11:46] LABS: HCT 42.5 % (37.2-46.3); HGB 14.1 g/dL (12.0-15.0); Immature Platelet Fraction 7.2 % (1.1-6.1); MCH 30.7 pg (27.0-32.0); MCHC 33.2 g/dL (32.0-37.0); MCV 92.6 FL (80.0-97.0); Mean Platelet Volume 11.3 FL (9.5-12.2); NRBC Per 100 WBC 0 X 10*3/uL (0.00-0.01); Platelet Count 79 X 10*3/uL (140-440); RBC 4.59 X 10*6/uL (4.10-5.20); RDW 13.4 % (11.5-14.5); WBC 10.53 X 10*3/uL (4.50-10.00)
[2023-05-11 11:47] LABS: Basophils # (A) 0.03 X 10*3/uL (0.00-0.10); Basophils % (A) 0.3 %; Eosinophils # (A) 0.02 X 10*3/uL (0.04-0.35); Eosinophils % (A) 0.2 %; Lymphocytes # (A) 1.96 X 10*3/uL (0.90-5.00); Lymphocytes % (A) 18.6 %; Monocytes # (A) 0.51 X 10*3/uL (0.20-1.00); Monocytes % (A) 4.8 %; Neutrophils # (A) 7.82 X 10*3/uL (1.80-7.70); Neutrophils % (A) 74.3 %; RBC Morphology Normal (Normal)
[2023-05-11 12:05] VITALS: PULSE 100
--- NOTE | 2023-05-11 14:36 | P.PN ---
Subjective Progress Note Date: 05/11/23 Principal diagnosis: Reason for follow-up is pneumonia Patient is a 63-year-old female with a past medical history significant for hypertension reflux rheumatoid arthritis COPD patient presented to hospital for evaluation of increasing shortness of breath and wheezing she did have a low-grade fever on admission subsequently the patient did have a bronchoscopy on 05/03/2023 culture grew MSSA On today's evaluation that is 05/11/2023,the patient remains to be afebrile, patient is on room air not requiring supplemental oxygen, patient mention breathing more comfortably denies any chest pain no worsening cough or sputum production no vomiting or diarrhea. Patient white count is 10.5 today, creatinine is 0.9 Objective - Vital Signs Vital signs: Vital Signs Temp 98.8 F 05/11/23 07:53 Pulse 100 05/11/23 11:38 Resp 18 05/11/23 08:00 BP 114/78 05/11/23 07:53 Pulse Ox 92 L 05/11/23 07:53 FiO2 21 05/04/23 07:56 Intake & Output 05/10/23 05/11/23 05/11/23 18:59 06:59 18:59 Intake Total 478 Balance 478 Intake: Oral 478 Other: Voiding Method Toilet Toilet Toilet # Voids 3 1 - Exam GENERAL DESCRIPTION: An elderly female lying in bed in no distress RESPIRATORY SYSTEM: Unlabored breathing , bilateral wheezes HEART: S1 S2 regular rate and rhythm , ABDOMEN: Soft , no tenderness EXTREMITIES: 1+ edema feet - Labs CBC & Chem 7: 05/11/23 05:48 05/11/23 05:48 Labs: Abnormal Lab Results - Last 24 Hours (Table) 05/11/23 05/11/23 Range/Units 05:48 05:48 WBC 10.53 H (4.50-10.00) X 10*3/uL Plt Count 79 L (140-440) X 10*3/uL Immature Gran # 0.19 H (0.00-0.04) X 10*3/uL Neutrophils # 7.82 H (1.80-7.70) X 10*3/uL Eosinophils # 0.02 L (0.04-0.35) X 10*3/uL Immature Plt Fraction 7.2 H (1.1-6.1) % BUN/Creatinine Ratio 22.56 H (12.00-20.00) Ratio ALT 51 H (8-44) U/L Total Protein 5.9 L (6.2-8.2) g/dL Albumin 3.4 L (3.8-4.9) g/dL Albumin/Globulin Ratio 1.36 L (1.60-3.17) Ratio Assessment and Plan (1) Abnormal chest x-ray Status: Acute Code(s): R93.89 - ABNORMAL FINDINGS ON DX IMAGING OF OTH BODY STRUCTURES SNOMED Code(s): 528663719 (2) Pneumonia Status: Acute Code(s): J18.9 - PNEUMONIA, UNSPECIFIED ORGANISM SNOMED Code(s): 898166451 Plan: 1patient presented to hospital with increasing shortness of breath and cough, did have low-grade fever initial chest x-ray was negative and has been treated for COPD exacerbation patient did have bronchoscopy on 05/03/2023 which is now growing MSSA with a question of possible tracheobronchitis or developing pneumonia 2-patient did have chest x-ray concerning for mass versus pneumonia, patient subsequently did have CT of the chest did show some small nodular densities and multifocal patchy groundglass opacities, pulmonary is following the patient 3patient is afebrile white count has normalized antibiotic has been switched over to Bactrim DS by pulmonary, though cefazolin/Keflex better drug for MSSA we will leave the final decision of discharge antibiotic to admitting team Dictation was produced using [employer] dictation software. please excuse any grammatical, word or spelling errors. Time with Patient: Less than 30
== END 2023-05-11 13:24 | disposition home or self-care (01) | DRG 190 ==
LOC: EC 08:13 → 6NMEDSUR 12:01 → OBSVTOIN 12:02 → 6NMEDSUR 14:46
PROVIDERS: ADMIT Internal Medicine; ATTEND Internal Medicine
PROC: 3E0F7SF Introduction of Other Gas into Respiratory Tract, Via Natural or Artificial Opening (ICD-10-PCS; 2023-05-03)
PROC: 0B9M7ZX Drainage of Bilateral Lungs, Via Natural or Artificial Opening, Diagnostic (ICD-10-PCS; principal; 2023-05-03 12:00)
DX: J44.1 Chronic obstructive pulmonary disease with (acute) exacerbation (principal); B37.1 Pulmonary candidiasis; J10.00 Influenza due to other identified influenza virus with unspecified type of pneumonia; J96.01 Acute respiratory failure with hypoxia; B37.0 Candidal stomatitis; N39.0 Urinary tract infection, site not specified; T17.890A Other foreign object in other parts of respiratory tract causing asphyxiation, initial encounter; F14.19 Cocaine abuse with unspecified cocaine-induced disorder; F17.210 Nicotine dependence, cigarettes, uncomplicated; B95.62 Methicillin resistant Staphylococcus aureus infection as the cause of diseases classified elsewhere; Z11.52 Encounter for screening for COVID-19; Z71.6 Tobacco abuse counseling; I10 Essential (primary) hypertension; F14.10 Cocaine abuse, uncomplicated; F12.10 Cannabis abuse, uncomplicated; K21.9 Gastro-esophageal reflux disease without esophagitis; M06.9 Rheumatoid arthritis, unspecified; F41.9 Anxiety disorder, unspecified; F17.200 Nicotine dependence, unspecified, uncomplicated; Z79.899 Other long term (current) drug therapy; Z90.710 Acquired absence of both cervix and uterus; Z88.0 Allergy status to penicillin; Z96.652 Presence of left artificial knee joint; Z82.49 Family history of ischemic heart disease and other diseases of the circulatory system; Z88.1 Allergy status to other antibiotic agents; Z91.048 Other nonmedicinal substance allergy status; J20.8 Acute bronchitis due to other specified organisms
CPT/HCPCS: 31624; 36415; 71046; 71260; 80053; 81001; 83605; 83735; 85025; 87040; 87070; 87077; 87102; 87116; 87186; 87205; 87206; 87636; 88108; 88305; 89050; 93005; 94640; 94667; 94668; 94760; 96361; 96374; 96376; 99285

== ENCOUNTER 2023-05-12 18:31 | Observation (INO) | payer MEDICARE, OTHER ==
--- NOTE | 2023-05-12 19:14 | ED ---
General Adult HPI - General Chief complaint: Shortness of Breath Stated complaint: SOB Time Seen by Provider: 05/12/23 18:46 Source: patient Mode of arrival: wheelchair Limitations: no limitations - History of Present Illness Initial comments: Dictation was produced using [employer] dictation software. please excuse any grammatical, word or spelling errors. Chief Complaint: 63-year-old female presents to the emergency department for shortness of breath History of Present Illness: Patient 63-year-old female she just discharged yesterday from inpatient hospitalization for respiratory failure secondary to methicillin sensitive Staph aureus, acute influenza A infection. States that she was discharged yesterday. She states that today her symptoms felt like they were worse than when she was at home. States that she has got also a pain in her left lateral chest. States that pain is worse when she takes deep breath. Patient denies any history of cardiomyopathy. Denies any fever or constitutional symptoms. She is coughing. The ROS documented in this emergency department record has been reviewed and confirmed by me. Those systems with pertinent positive or negative responses have been documented in the HPI. All other systems are other negative and/or noncontributory. - Related Data Home Medications Medication Instructions Recorded Confirmed ALPRAZolam [Xanax] 0.5 mg PO TID PRN 04/30/19 04/27/23 Albuterol Inhaler [Ventolin Hfa 1 - 2 puff INHALATION RT-Q6H PRN 04/30/19 04/27/23 Inhaler] Metoprolol Tartrate [Lopressor] 50 mg PO DAILY 04/30/19 04/27/23 Pantoprazole Sodium [Protonix] 40 mg PO DAILY 04/30/19 04/27/23 Acetaminophen Tab [Tylenol] 650 mg PO Q6H PRN 04/27/23 04/27/23 Ergocalciferol [Vitamin D2 (1250 1,250 mcg PO WE 04/27/23 04/27/23 Mcg = 37184 Iu)] Furosemide [Lasix] 20 mg PO DAILY 04/27/23 04/27/23 lisinopriL [Zestril] 20 mg PO DAILY 04/27/23 04/27/23 Previous Rx's Medication Instructions Recorded amLODIPine [Norvasc] 5 mg PO DAILY 30 Days #30 tab 06/29/22 Sulfamethox-Tmp 800-160Mg [Bactrim 1 each PO BID 5 Days #10 tab 05/11/23 DS 800-160 mg] predniSONE [Deltasone] 40 mg PO DAILY 16 Days #20 tab 05/11/23 Allergies Allergy/AdvReac Type Severity Reaction Status Date / Time adhesive tape Allergy Rash/Hives Verified 05/12/23 18:44 amoxicillin Allergy Rash/Hives Verified 05/12/23 18:44 losartan Allergy Swelling Verified 05/12/23 18:44 valsartan Allergy Swelling Verified 05/12/23 18:44 Review of Systems ROS Statement: Those systems with pertinent positive or pertinent negative responses have been documented in the HPI. ROS Other: All systems not noted in ROS Statement are negative. 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 Hepatitis C. In 2022 Overdosed after doing cocaine laced with fentanyl. Has quit cocaine and marijiana. pt states she takes edibles. History of Any Multi-Drug Resistant Organisms: None Reported Past Surgical History: Hysterectomy, Joint Replacement, Orthopedic Surgery, Tonsillectomy Additional Past Surgical History / Comment(s): lt hip fx 07/05 with pins and screws. lt knee replacement x2. rt ring finger with screws. rt thumb I&D Past Anesthesia/Blood Transfusion Reactions: No Reported Reaction Additional Past Anesthesia/Blood Transfusion Reaction / Comment(s): previous blood transfusion with reaction Past Psychological History: Anxiety Smoking Status: Current every day smoker, Former smoker Past Alcohol Use History: None Reported Past Drug Use History: None Reported - Past Family History Sister(s) Family Medical History: Coronary Artery Disease (CAD) Additional Family Medical History / Comment(s): born with hole in main valve surgery 8th grade, cabg x2 during 2nd open heart age 36 Father Family Medical History: Cancer, Myocardial Infarction (MS) Additional Family Medical History / Comment(s): from colon cancer Mother Family Medical History: Cancer Additional Family Medical History / Comment(s): from lung cancer General Exam - General Exam Comments Initial Comments: PHYSICAL EXAM: General Impression: Alert and oriented x3, not in acute distress HEENT: Normocephalic atraumatic, extra-ocular movements intact, pupils equal and reactive to light bilaterally, mucous membranes moist. Cardiovascular: Heart regular rate and rhythm Chest: Diffuse lung rhonchi, able to complete full sentences though slightly winded Abdomen: abdomen soft, non-tender, non-distended, no organomegaly Musculoskeletal: Pulses present and equal in all extremities, 2+ pitting edema to the bilateral lower extremities Motor: no focal deficits noted Neurological: CN II-XII grossly intact, no focal motor or sensory deficits noted Skin: Intact with no visualized rashes Psych: Normal affect and mood Limitations: no limitations Course Vital Signs 05/12/23 05/12/23 05/12/23 18:40 18:44 20:00 Temperature 98.6 F Pulse Rate 110 H 104 H 97 Respiratory 18 18 22 Rate Blood Pressure 143/86 128/85 119/74 O2 Sat by Pulse 93 L 94 L 93 L Oximetry EKG Findings - EKG Comments: EKG Findings:: My EKG interpretation: Ventricular rate 100, sinus tachycardia,. 120, QRS 80, QTc 362. No GA prolongation, no QTC prolongation, no ST or T-wave changes noted. Overall, this EKG is unremarkable Medical Decision Making - Medical Decision Making Was pt. sent in by a medical professional or institution (, PA, CONDITIONING YARD SUPERVISOR, urgent care, hospital, or senior care...) When possible be specific @ -No Did you speak to anyone other than the patient for history (EMS, parent, family, police, friend...)? What history was obtained from this source @ -No Did you review nursing and triage notes (agree or disagree)? Why? @ -I reviewed and agree with nursing and triage notes Were old charts reviewed (outside hosp., previous admission, EMS record, old EKG, old radiological studies, urgent care reports/EKG's, senior care records)? Report findings @ -See above Differential Diagnosis (chest pain, altered mental status, abdominal pain women, abdominal pain men, vaginal bleeding, musculoskeletal, weakness, fever, dyspnea, syncope, headache, dizziness, GI bleed, back pain, seizure, CVA, palpatations, mental health)? @ -Differential Dyspnea: Coronary syndrome, arrhythmia, tamponade, asthma, COPD, pulmonary embolism, pneumonia, pneumothorax, pulmonary effusion, anaphylaxis, diabetic ketoacidosis, flailed chest, pulmonary contusion, diaphragmatic rupture, anemia, neuromuscular, this is not meant to be an all-inclusive list. EKG interpreted by me (3pts min.). @ -See above X-rays interpreted by me (1pt min.). @ -Two-view chest x-ray shows stable findings CT interpreted by me (1pt min.). @ -None done U/S interpreted by me (1pt. min.). @ -None done What testing was considered but not performed or refused? (CT, X-rays, U/S, labs)? Why? @ -None What meds were considered but not given or refused? Why? @ -None Did you discuss the management of the patient with other professionals (professionals i.e. DrDae, PA, CONDITIONING YARD SUPERVISOR, lab, RT, psych nurse, social services analyst, beveler, teacher, weapons electrical engineering officer, case making machine operator)? Give summary @ -Case discussed with hospitalist for admission Was smoking cessation discussed for >3mins.? @ -No Was critical care preformed (if so, how long)? @ -No Were there social determinants of health that impacted care today? How? (Homelessness, low income, unemployed, alcoholism, drug addiction, transportation, low edu. Level, literacy, decrease access to med. care, halfway, rehab)? @ -No Was there de-escalation of care discussed even if they declined (Discuss DNR or withdrawal of care, Hospice)? DNR status @ -No What co-morbidities impacted this encounter? (DM, HTN, Smoking, COPD, CAD, Cancer, CVA, ARF, Chemo, Hep., AIDS, mental health diagnosis, sleep apnea, morbid obesity)? @ -None Was patient admitted / discharged? Hospital course, mention meds given and route, prescriptions, significant lab abnormalities, going to OR and other pertinent info. @ -63-year-old female presents to the emergency department after short hospitalization for recurrence of dyspnea. Vital signs upon arrival shows mild tachycardia of 110, 93% on room air. Patient wheezing mildly dyspneic at the bedside. Laboratory evaluation obtained. CBC, coag panel metabolic panel within acceptable limits. Troponin and BNP is negative. Patient be admitted observation with consultation of pulmonology. Undiagnosed new problem with uncertain prognosis? @ -No Drug Therapy requiring intensive monitoring for toxicity (Heparin, Nitro, Insulin, Cardizem)? @ -No Were any procedures done? @ -No Diagnosis/symptom? Acute, or Chronic, or Acute on Chronic? Uncomplicated (without systemic symptoms) or Complicated (systemic symptoms)? @ -Respiratory failure Side effects of treatment? @ -No Exacerbation, Progression, or Severe Exacerbation? @ -No Poses a threat to life or bodily function? How? (Chest pain, USA, MS, pneumonia, PE, COPD, DKA, ARF, appy, cholecystitis, CVA, Diverticulitis, Homicidal, Suicidal, threat to staff... and all critical care pts) @ -yes - Lab Data Result diagrams: 05/12/23 19:18 05/12/23 19:18 Lab Results 05/12/23 05/12/23 05/12/23 Range/Units 19:18 19:18 19:18 WBC 10.6 (3.8-10.6) k/uL RBC 4.45 (3.80-5.40) m/uL Hgb 14.3 (11.4-16.0) gm/dL Hct 41.4 (34.0-46.0) % MCV 93.0 (80.0-100.0) fL MCH 32.1 (25.0-35.0) pg MCHC 34.5 (31.0-37.0) g/dL RDW 13.1 (11.5-15.5) % Plt Count 82 L (150-450) k/uL MPV 8.7 Neutrophils % 89 % Lymphocytes % 6 % Monocytes % 3 % Eosinophils % 0 % Basophils % 0 % Neutrophils # 9.5 H (1.3-7.7) k/uL Lymphocytes # 0.7 L (1.0-4.8) k/uL Monocytes # 0.3 (0-1.0) k/uL Eosinophils # 0.1 (0-0.7) k/uL Basophils # 0.0 (0-0.2) k/uL PT 10.2 (10.0-12.5) sec INR 0.9 (<1.2) APTT 26.8 (22.0-30.0) sec Sodium 139 (137-145) mmol/L Potassium 4.5 (3.5-5.1) mmol/L Chloride 107 (98-107) mmol/L Carbon Dioxide 25 (22-30) mmol/L Anion Gap 7 mmol/L BUN 26 H (7-17) mg/dL Creatinine 0.87 (0.52-1.04) mg/dL Est GFR (CKD-EPI)AfAm 81 (>60 ml/min/1.73 sqM) Est GFR (CKD-EPI)NonAf 70 (>60 ml/min/1.73 sqM) Glucose 160 H (74-99) mg/dL Calcium 9.3 (8.4-10.2) mg/dL Total Bilirubin 0.8 (0.2-1.3) mg/dL AST 23 (14-36) U/L ALT 37 H (4-34) U/L Alkaline Phosphatase 59 (38-126) U/L Troponin I (0.000-0.034) ng/mL NT-Pro-B Natriuret Pep 185 pg/mL Total Protein 6.3 (6.3-8.2) g/dL Albumin 3.4 L (3.5-5.0) g/dL 05/12/23 Range/Units 19:18 WBC (3.8-10.6) k/uL RBC (3.80-5.40) m/uL Hgb (11.4-16.0) gm/dL Hct (34.0-46.0) % MCV (80.0-100.0) fL MCH (25.0-35.0) pg MCHC (31.0-37.0) g/dL RDW (11.5-15.5) % Plt Count (150-450) k/uL MPV Neutrophils % % Lymphocytes % % Monocytes % % Eosinophils % % Basophils % % Neutrophils # (1.3-7.7) k/uL Lymphocytes # (1.0-4.8) k/uL Monocytes # (0-1.0) k/uL Eosinophils # (0-0.7) k/uL Basophils # (0-0.2) k/uL PT (10.0-12.5) sec INR (<1.2) APTT (22.0-30.0) sec Sodium (137-145) mmol/L Potassium (3.5-5.1) mmol/L Chloride (98-107) mmol/L Carbon Dioxide (22-30) mmol/L Anion Gap mmol/L BUN (7-17) mg/dL Creatinine (0.52-1.04) mg/dL Est GFR (CKD-EPI)AfAm (>60 ml/min/1.73 sqM) Est GFR (CKD-EPI)NonAf (>60 ml/min/1.73 sqM) Glucose (74-99) mg/dL Calcium (8.4-10.2) mg/dL Total Bilirubin (0.2-1.3) mg/dL AST (14-36) U/L ALT (4-34) U/L Alkaline Phosphatase (38-126) U/L Troponin I <0.012 (0.000-0.034) ng/mL NT-Pro-B Natriuret Pep pg/mL Total Protein (6.3-8.2) g/dL Albumin (3.5-5.0) g/dL Disposition Clinical Impression: Respiratory failure Disposition: ADMITTED IP TO THIS [facility] Condition: Fair Referrals: None,Stated [REFERRING] - 1-2 days Decision Time: 20:22
[2023-05-12 19:27] LABS: Basophils % (A) 0 %; Eosinophils # (A) 0.1 k/uL (0-0.7); Eosinophils % (A) 0 %; HCT 41.4 % (34.0-46.0); HGB 14.3 gm/dL (11.4-16.0); Lymphocytes # (A) 0.7 k/uL (1.0-4.8); Lymphocytes % (A) 6 %; MCH 32.1 pg (25.0-35.0); MCHC 34.5 g/dL (31.0-37.0); Mean Platelet Volume 8.7; Monocytes # (A) 0.3 k/uL (0-1.0); Monocytes % (A) 3 %; Neutrophils # (A) 9.5 k/uL (1.3-7.7); Neutrophils % (A) 89 %; RBC 4.45 m/uL (3.80-5.40); RDW 13.1 % (11.5-15.5); WBC 10.6 k/uL (3.8-10.6)
[2023-05-12 19:36] LABS: INR 0.9 (<1.2); Partial Thromboplastin Time 26.8 sec (22.0-30.0); Prothrombin Time 10.2 sec (10.0-12.5)
[2023-05-12 19:37] LABS: ALT 37 U/L (4-34); AST 23 U/L (14-36); African American GFR (CKD) 81 (>60 ml/min/1.73 sqM); Albumin 3.4 g/dL (3.5-5.0); Alkaline Phosphatase 59 U/L (38-126); Blood Urea Nitrogen 26 mg/dL (7-17); Calcium 9.3 mg/dL (8.4-10.2); Carbon Dioxide 25 mmol/L (22-30); Chloride 107 mmol/L (98-107); Glucose 160 mg/dL (74-99); Non-African American GFR(CKD) 70 (>60 ml/min/1.73 sqM); Total Bilirubin 0.8 mg/dL (0.2-1.3); Total Protein 6.3 g/dL (6.3-8.2)
[2023-05-12 19:41] LABS: Anion Gap 7 mmol/L; Potassium 4.5 mmol/L (3.5-5.1); Sodium 139 mmol/L (137-145)
[2023-05-12 19:46] LABS: NT-Pro-B-Type Natriuretic Pept 185 pg/mL
[2023-05-12 20:04] LABS: Platelet Count 82 k/uL (150-450)
--- NOTE | 2023-05-12 20:13 | XR ---
EXAMINATION TYPE: XR chest 2V DATE OF EXAM: 05/12/2023 7:26 PM CLINICAL INDICATION:Female, 63 years old with history of vince; [facility] COMPARISON: Chest radiographs from 05/08/2023 TECHNIQUE: XR chest 2V Frontal and lateral views of the chest. FINDINGS: Lungs/Pleura: There is no evidence of pleural effusion, focal consolidation, or pneumothorax. Pulmonary vascularity: Unremarkable. Heart/mediastinum: Cardiomediastinal silhouette is unremarkable. Musculoskeletal: No acute osseous pathology. IMPRESSION: Stable exam, No acute cardiopulmonary disease/process.
[2023-05-12] MEDS ORDERED: NALOXONE 0.4 MG/ML 1 ML VIAL IVP PRN (20:20)
[2023-05-12] MEDS: IPRATROPIUM-ALBUTEROL 3 ML NEB INHALATION STA (20:45)
[2023-05-12] MEDS: SULFAMETHOX-TMP 800-160MG 1 EACH TAB PO SCH (21:08)
[2023-05-12] MEDS: ALPRAZolam 0.5 MG TAB PO PRN (23:26)
[2023-05-13] MEDS: PANTOPRAZOLE 40 MG TABLET PO SCH (06:23)
--- NOTE | 2023-05-13 08:17 | P.CNPUL ---
History of Present Illness Consult date: 05/13/23 Requesting physician: Telma Potst Reason for consult: dyspnea, cough, COPD Chief complaint: Shortness of breath. History of present illness: Pulmonary consult dated May 13, 2023. This is a 63-year-old female with a history of COPD, who was in the hospital between April 27 and May 11. The patient was home less than 24 hours, and she came back to the emergency room, at 1831, on May 12. The patient came in complaining of being short of breath. The patient at that time, tested positive for influenza, and had a bronchoscopy, done on May 03, which revealed methicillin sensitive Staph aureus. The patient was treated, and eventually discharged home on Bactrim. Currently, she is on 2 L of oxygen. No IV fluids. Her chest x-ray was normal. Her complaints include primarily shortness of breath, chest congestion, and cough. Again, her chest x-ray was completely normal. No fever. No chills. She has a history of COPD, gastroesophageal reflux disease, hypertension, and rheumatoid arthritis. Patient does have a history of previous heavy tobacco use. Labs include a white count 10.6, hemoglobin 14.3, hematocrit 41.4, and a platelet count of 82,000. Coagulation studies were normal. Sodium 139, potassium 4.5, chlorides 107, CO2 25, BUN 26, and creatinine 0.87. Albumin is 3.4. N-terminal proBNP was 185. Review of Systems REVIEW OF SYSTEMS: CONSTITUTIONAL: [Negative.] NEUROLOGIC: [ Negative.] HEENT: [ Negative.] CARDIAC: [Negative.] PULMONARY: Shortness of breath, cough, chest congestion. GI: [Negative.] : [Negative.] RHEUMATOLOGIC: [ Negative.] IMMUNOLOGIC: [ Negative.] ENDOCRINE: [Negative. ] DERMATOLOGIC: [Negative.] Past Medical History Past Medical History: Asthma, COPD, GERD/Reflux, Hypertension, Liver Disease, Rheumatoid Arthritis (RA) Additional Past Medical History / Comment(s): influenza A 04/27/23. 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 Hepatitis C. In 2022 Overdosed after doing cocaine laced with fentanyl. Has quit cocaine and marijiana. pt states she takes edibles. History of Any Multi-Drug Resistant Organisms: Other MDRO Past Surgical History: Hysterectomy, Joint Replacement, Orthopedic Surgery, Tonsillectomy Additional Past Surgical History / Comment(s): lt hip fx 07/05 with pins and screws. lt knee replacement x2. rt ring finger with screws. rt thumb I&D. bronch on 05/07/23 Past Anesthesia/Blood Transfusion Reactions: No Reported Reaction Additional Past Anesthesia/Blood Transfusion Reaction / Comment(s): previous blood transfusion with reaction Past Psychological History: Anxiety Smoking Status: Former smoker Past Alcohol Use History: None Reported Additional Past Alcohol Use History / Comment(s): smoked 20 years 1/2ppd quit 04/23/23 Past Drug Use History: None Reported Additional Drug Use History / Comment(s): cbd, edibles, quit cocaine in December 2021 - Past Family History Sister(s) Family Medical History: Coronary Artery Disease (CAD) Additional Family Medical History / Comment(s): born with hole in main valve surgery 8th grade, cabg x2 during 2nd open heart age 34 Father Family Medical History: Cancer, Myocardial Infarction (CA) Additional Family Medical History / Comment(s): from colon cancer Mother Family Medical History: Cancer Additional Family Medical History / Comment(s): from lung cancer Medications and Allergies Home Medications Medication Instructions Recorded Confirmed Type ALPRAZolam [Xanax] 0.5 mg PO TID PRN 04/30/19 05/12/23 History Albuterol Inhaler [Ventolin Hfa 1 - 2 puff INHALATION RT-Q6H PRN 04/30/19 05/12/23 History Inhaler] Metoprolol Tartrate [Lopressor] 50 mg PO DAILY 04/30/19 05/12/23 History Pantoprazole Sodium [Protonix] 40 mg PO DAILY 04/30/19 05/12/23 History amLODIPine [Norvasc] 5 mg PO DAILY 30 Days #30 tab 06/29/22 05/12/23 Rx Acetaminophen Tab [Tylenol] 650 mg PO Q6H PRN 04/27/23 05/12/23 History Ergocalciferol [Vitamin D2 (1250 1,250 mcg PO WE 04/27/23 05/12/23 History Mcg = 31226 Iu)] Furosemide [Lasix] 20 mg PO DAILY 04/27/23 05/12/23 History lisinopriL [Zestril] 20 mg PO DAILY 04/27/23 05/12/23 History Sulfamethox-Tmp 800-160Mg [Bactrim 1 tab PO BID 05/12/23 05/12/23 History DS 800-160 mg] predniSONE [Deltasone] See Taper PO DAILY 05/12/23 05/12/23 History Allergies Allergy/AdvReac Type Severity Reaction Status Date / Time adhesive tape Allergy Rash/Hives Verified 05/12/23 20:57 amoxicillin Allergy Rash/Hives Verified 05/12/23 20:57 losartan Allergy Swelling Verified 05/12/23 20:57 valsartan Allergy Swelling Verified 05/12/23 20:57 Physical Exam Osteopathic Statement: *. No significant issues noted on an osteopathic structural exam other than those noted in the History and Physical/Consult. Vitals: Vital Signs Temp Pulse Pulse Resp BP BP Pulse Ox 05/13/23 01:18 97.9 F 88 16 128/72 95 05/12/23 22:45 98.1 F 87 16 150/90 95 05/12/23 22:30 93 18 128/83 95 05/12/23 21:59 96 20 127/73 95 05/12/23 20:54 91 05/12/23 20:45 90 05/12/23 20:00 97 22 119/74 93 L 05/12/23 18:44 104 H 18 128/85 94 L 05/12/23 18:40 98.6 F 110 H 18 143/86 93 L Intake and Output 05/12/23 05/13/23 05/13/23 22:59 06:59 14:59 Other: Voiding Method Toilet # Voids 1 Weight 108.862 kg No acute distress, oriented 3. No respiratory distress. No conversational dyspnea. No use of accessory muscles. HEENT examination is grossly unremarkable. Mucous membranes are moist. No oral lesions. Neck supple. Full range of motion. No adenopathy thyromegaly or neck vein distention. Cardiovascular examination reveals regular rhythm rate. S1-S2 normal. No S3 or S4. No discernible murmur noted. Heart rate 88 bpm. Lungs reveal bilateral rhonchi. No wheezes or crackles. 2 L saturation is 95%. No respiratory distress. Breath sounds equal bilaterally. Abdomen soft bowel sounds are heard. No masses or tenderness. Extremities are intact. No cyanosis clubbing or edema. Skin is without rash or lesion. Neurologic examination is brief but nonfocal. Results - Laboratory Findings CBC and BMP: 05/12/23 19:18 05/12/23 19:18 PT/INR, D-dimer PT 10.2 sec (10.0-12.5) 05/12/23 19:18 INR 0.9 (<1.2) 05/12/23 19:18 Abnormal lab findings: Abnormal Labs 05/12/23 05/12/23 19:18 19:18 Plt Count 82 L Neutrophils # 9.5 H Lymphocytes # 0.7 L BUN 26 H Glucose 160 H ALT 37 H Albumin 3.4 L - Diagnostic Findings Chest x-ray: image reviewed Assessment and Plan Assessment: COPD exacerbation, with previous admission from April 27 to May 11, complicated by influenza, and a methicillin sensitive Staph aureus infection. History of COPD, secondary to tobacco use. History of hypertension. History of rheumatoid arthritis. History of hepatitis C. Previous history of drug abuse. Plan: Plan dated May 13, 2023. The patient is seen today in room 625. The patient was just recently discharged on 11 May. In our opinion, the patient probably did not need readmission to the hospital, and could have been treated as an outpatient with breathing treatments, prednisone, and Bactrim. Nonetheless, she was admitted to the hospital, and is currently on 2 L. The patient is currently on updrafts with albuterol sulfate and ipratropium bromide, Symbicort 160/4.5, 2 puffs twice a day, and prednisone, 40 mg a day. She continues on Bactrim. Additional recommendations and suggestions are forthcoming. Time with Patient: Greater than 30
[2023-05-13] MEDS: SYMBICORT 160-4.5 MCG INHALER INHALATION SCH (09:23)
--- NOTE | 2023-05-13 09:47 | P.HPIM ---
History of Present Illness H&P Date: 05/13/23 Alisa Cain, is a 63 year-old female who presented to [facility] with a chief complaint of worsening shortness of breath and wheezing. Patient was recently admitted from April 27 to may 11 in which she was diagnosed with influenza A and underwent bronchoscopy. Revealing methadone sensitive staph aureus and patient was discharged on Bactrim and Prednisone taper. Patient reports she is taking her meds as prescribed but had an episode of increased shortness of breath and herself to the hospital. Patient has past medical history of asthma, COPD, GERD, hypertension, rheumatoid arthritis, smoker quit on 04/23/2023, marijuana use and previous cocaine use. Chest x-ray completed showing stable exam no acute cardiopulmonary disease vital signs temp 97.9, heart rate 81, respiratory rate 18, blood pressure 150/90 pulse is 95%. Troponin negative. BNP 185 with blood cell within normal limits. Patient started on prednisone and Bactrim pulmonary service is consulted continue DuoNeb breathing treatments. Review of Systems Please for HPI otherwise unremarkable Past Medical History Past Medical History: Asthma, COPD, GERD/Reflux, Hypertension, Liver Disease, Rheumatoid Arthritis (RA) Additional Past Medical History / Comment(s): influenza A 04/27/23. 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 Hepatitis C. In 2022 Overdosed after doing cocaine laced with fentanyl. Has quit cocaine and marijiana. pt states she takes edibles. History of Any Multi-Drug Resistant Organisms: Other MDRO Past Surgical History: Hysterectomy, Joint Replacement, Orthopedic Surgery, Tonsillectomy Additional Past Surgical History / Comment(s): lt hip fx 07/05 with pins and screws. lt knee replacement x2. rt ring finger with screws. rt thumb I&D. bronch on 05/07/23 Past Anesthesia/Blood Transfusion Reactions: No Reported Reaction Additional Past Anesthesia/Blood Transfusion Reaction / Comment(s): previous blood transfusion with reaction Past Psychological History: Anxiety Smoking Status: Former smoker Past Alcohol Use History: None Reported Additional Past Alcohol Use History / Comment(s): smoked 20 years 1/2ppd quit 04/23/23 Past Drug Use History: None Reported Additional Drug Use History / Comment(s): cbd, edibles, quit cocaine in December 2021 - Past Family History Sister(s) Family Medical History: Coronary Artery Disease (CAD) Additional Family Medical History / Comment(s): born with hole in main valve surgery 8th grade, cabg x2 during 2nd open heart age 36 Father Family Medical History: Cancer, Myocardial Infarction (SD) Additional Family Medical History / Comment(s): from colon cancer Mother Family Medical History: Cancer Additional Family Medical History / Comment(s): from lung cancer Medications and Allergies Home Medications Medication Instructions Recorded Confirmed Type ALPRAZolam [Xanax] 0.5 mg PO TID PRN 04/30/19 05/12/23 History Albuterol Inhaler [Ventolin Hfa 1 - 2 puff INHALATION RT-Q6H PRN 04/30/19 05/12/23 History Inhaler] Metoprolol Tartrate [Lopressor] 50 mg PO DAILY 04/30/19 05/12/23 History Pantoprazole Sodium [Protonix] 40 mg PO DAILY 04/30/19 05/12/23 History amLODIPine [Norvasc] 5 mg PO DAILY 30 Days #30 tab 06/29/22 05/12/23 Rx Acetaminophen Tab [Tylenol] 650 mg PO Q6H PRN 04/27/23 05/12/23 History Ergocalciferol [Vitamin D2 (1250 1,250 mcg PO WE 04/27/23 05/12/23 History Mcg = 46338 Iu)] Furosemide [Lasix] 20 mg PO DAILY 04/27/23 05/12/23 History lisinopriL [Zestril] 20 mg PO DAILY 04/27/23 05/12/23 History Sulfamethox-Tmp 800-160Mg [Bactrim 1 tab PO BID 05/12/23 05/12/23 History DS 800-160 mg] predniSONE [Deltasone] See Taper PO DAILY 05/12/23 05/12/23 History Allergies Allergy/AdvReac Type Severity Reaction Status Date / Time adhesive tape Allergy Rash/Hives Verified 05/12/23 20:57 amoxicillin Allergy Rash/Hives Verified 05/12/23 20:57 losartan Allergy Swelling Verified 05/12/23 20:57 valsartan Allergy Swelling Verified 05/12/23 20:57 Physical Exam Vitals: Vital Signs Temp Pulse Pulse Resp BP BP Pulse Ox 05/13/23 01:18 97.9 F 88 16 128/72 95 05/12/23 22:45 98.1 F 87 16 150/90 95 05/12/23 22:30 93 18 128/83 95 05/12/23 21:59 96 20 127/73 95 05/12/23 20:54 91 05/12/23 20:45 90 05/12/23 20:00 97 22 119/74 93 L 05/12/23 18:44 104 H 18 128/85 94 L 05/12/23 18:40 98.6 F 110 H 18 143/86 93 L Intake and Output 05/12/23 05/13/23 05/13/23 22:59 06:59 14:59 Other: Voiding Method Toilet # Voids 1 Weight 108.862 kg Head normocephalic Neck supple Lungs diminished bilaterally with expiratory wheezing Heart regular rate and rhythm S1-S2, no rub or gallop Abdomen is soft nontender nondistended positive bowel sounds no hepatosplenomegaly Extremities no edema Neuro alert and orientated to 3 Results CBC & Chem 7: 05/12/23 19:18 05/12/23 19:18 Labs: Abnormal Lab Results - Last 24 Hours (Table) 05/12/23 05/12/23 Range/Units 19:18 19:18 Plt Count 82 L (150-450) k/uL Neutrophils # 9.5 H (1.3-7.7) k/uL Lymphocytes # 0.7 L (1.0-4.8) k/uL BUN 26 H (7-17) mg/dL Glucose 160 H (74-99) mg/dL ALT 37 H (4-34) U/L Albumin 3.4 L (3.5-5.0) g/dL Thrombosis Risk Factor Assmnt - Choose All That Apply Any of the Below Risk Factors Present?: Yes Each Factor Represents 1 point: Abnormal pulmonary function (COPD), Obesity (BMI >25) Each Risk Factor Represents 2 Points: Age 61-74 years Other congenital or acquired thrombophilia - If yes, enter type in comment: No Thrombosis Risk Factor Assessment Total Risk Factor Score: 4 Thrombosis Risk Factor Assessment Level: Moderate Risk Assessment and Plan Assessment: 1. Acute COPD exacerbation. 2. History of methyl and sensitive staph aureus infection discharged on Bactrim 3. Recent treatment for influenza A 4. History of COPD 5. History of nicotine dependence patient reported that she quit on 04/23/2022 4 6. History of rheumatoid arthritis 7. History of essential hypertension 8. History of hepatitis C 9. Previous history of drug abuse DVT prophylaxis Lovenox. GI prophylaxis Protonix Pulmonary services consulted patient continued on prednisone and Bactrim and updraft breathing treatments repeat labs ordered Time with Patient: Greater than 30 (Greater than 60% of the total time spent in counseling and coordination of care)
[2023-05-13] MEDS: amLODIPine 5 MG TAB PO SCH (11:10)
[2023-05-13] MEDS: METOPROLOL TARTRATE 50 MG TAB PO SCH (11:10)
[2023-05-13] MEDS: FUROSEMIDE 20 MG TAB PO SCH (11:10)
[2023-05-13] MEDS: lisinopriL 20 MG TAB PO SCH (11:11)
[2023-05-13] MEDS: predniSONE 20 MG TAB PO SCH (11:11)
[2023-05-13] MEDS: IPRATROPIUM-ALBUTEROL 3 ML NEB INHALATION PRN (16:36)
[2023-05-13] MEDS: IPRATROPIUM-ALBUTEROL 3 ML NEB INHALATION SCH (19:44)
[2023-05-13] MEDS: MELATONIN 3 MG TABLET PO SCH (20:54)
[2023-05-13] MEDS: traZODone HCL 50 MG TAB PO SCH (20:54)
[2023-05-13] MEDS: ACETAMINOPHEN TAB 325 MG TAB PO PRN (23:27)
[2023-05-14] MEDS: ENOXAPARIN 40 MG/0.4 ML SYRINGE SQ SCH (08:05)
[2023-05-14 11:19] LABS: ALT 35 U/L (8-44); AST 14 U/L (13-35); Albumin 3.2 g/dL (3.8-4.9); Albumin/Globulin Ratio 1.45 Ratio (1.60-3.17); Alkaline Phosphatase 38 U/L (41-126); BUN/Creat Ratio 22.33 Ratio (12.00-20.00); Basophils # (A) 0.01 X 10*3/uL (0.00-0.10); Basophils % (A) 0.1 %; Blood Urea Nitrogen 20.1 mg/dL (9.0-27.0); Calcium 9.3 mg/dL (8.7-10.3); Carbon Dioxide 27.4 mmol/L (21.6-31.8); Chloride 107 mmol/L (96-109); Eosinophils # (A) 0.01 X 10*3/uL (0.04-0.35); Eosinophils % (A) 0.1 %; Globulin 2.2 g/dL (1.6-3.3); Glucose 85 mg/dL (70-110); HCT 37.4 % (37.2-46.3); HGB 12.2 g/dL (12.0-15.0); Immature Platelet Fraction 19.3 % (1.1-6.1); Lymphocytes # (A) 1.39 X 10*3/uL (0.90-5.00); Lymphocytes % (A) 19.5 %; MCHC 32.6 g/dL (32.0-37.0); MCV 95.2 FL (80.0-97.0); Mean Platelet Volume 11.6 FL (9.5-12.2); Monocytes % (A) 4.2 %; NRBC Per 100 WBC 0 X 10*3/uL (0.00-0.01); Neutrophils # (A) 5.37 X 10*3/uL (1.80-7.70); Neutrophils % (A) 75.7 %; Platelet Count 42 X 10*3/uL (140-440); Potassium 4.4 mmol/L (3.5-5.5); RBC 3.93 X 10*6/uL (4.10-5.20); RDW 13.1 % (11.5-14.5); Sodium 142 mmol/L (135-145); Total Bilirubin 0.6 mg/dL (0.3-1.2); Total Protein 5.4 g/dL (6.2-8.2); WBC 7.11 X 10*3/uL (4.50-10.00)
--- NOTE | 2023-05-14 13:29 | P.PN ---
Subjective Progress Note Date: 05/14/23 Alisa Cain, is a 63 year-old female who presented to [facility] with a chief complaint of worsening shortness of breath and wheezing. Patient was recently admitted from April 27 to may 11 in which she was diagnosed with influenza A and underwent bronchoscopy. Revealing methadone sensitive staph aureus and patient was discharged on Bactrim and Prednisone taper. Patient reports she is taking her meds as prescribed but had an episode of increased shortness of breath and herself to the hospital. Patient has past medical history of asthma, COPD, GERD, hypertension, rheumatoid arthritis, smoker quit on 04/23/2023, marijuana use and previous cocaine use. Chest x-ray completed showing stable exam no acute cardiopulmonary disease vital signs temp 97.9, heart rate 81, respiratory rate 18, blood pressure 150/90 pulse is 95%. Troponin negative. BNP 185 with blood cell within normal limits. Patient started on prednisone and Bactrim pulmonary service is consulted continue DuoNeb breathing treatments. On 05/14/2023 patient was seen and examined on the medical floor, she is alert and oriented 3 in no apparent distress, she is still complaining of cough and shortness of breath and wheezing, she is complaining of multiple ulceration in her mouth, she is also complaining of bilateral lower extremity edema, otherwise she denies any complaints, there is no fever or chills no headache or dizziness no chest pain no nausea or vomiting no abdominal pain no diarrhea no blood in the stools no burning with urination no frequency or urgency no hematuria. Objective - Vital Signs Vital signs: Vital Signs Temp 98.0 F 05/14/23 07:05 Pulse 60 05/14/23 08:00 Resp 18 05/14/23 08:00 BP 118/68 05/14/23 07:05 Pulse Ox 95 05/14/23 07:05 FiO2 Intake & Output 05/13/23 05/14/23 05/14/23 18:59 06:59 18:59 Intake Total 826 236 Balance 826 236 Intake: Oral 826 236 Other: Voiding Method Toilet # Voids 2 1 - Exam In general patient is alert and oriented x 3 in no distress HEENT head normocephalic and atraumatic Neck is supple no JVD no goiter no lymphadenopathy no carotid bruit Chest examination reveals a few scattered rhonchi with wheezing Cardiac exam reveals regular heart sounds S1 and S2 no gallops no murmurs Abdomen is soft nontender no organomegaly with normal bowel sounds Extremity exam reveals no edema no cyanosis or clubbing Neurological examination reveals no gross focal deficits - Labs CBC & Chem 7: 05/14/23 06:35 05/14/23 06:35 Assessment and Plan Assessment: 1. Acute COPD exacerbation. 2. History of methyl and sensitive staph aureus infection discharged on Bactrim 3. Recent treatment for influenza A 4. History of COPD 5. History of nicotine dependence patient reported that she quit on 04/23/2022 4 6. History of rheumatoid arthritis 7. History of essential hypertension 8. History of hepatitis C 9. Previous history of drug abuse DVT prophylaxis Lovenox. GI prophylaxis Protonix Pulmonary services consulted patient continued on prednisone and Bactrim and updraft breathing treatments repeat labs ordered
[2023-05-14] MEDS: traMADol 50 MG TAB PO PRN (13:49)
[2023-05-14] MEDS: NYSTATIN 100,000 UNIT/ML SUSP 500,000 UNIT/5 ML CUP PO SCH (13:49)
[2023-05-14] MEDS: FUROSEMIDE 10 MG/ML 2 ML VIAL IV ONE (13:49)
--- NOTE | 2023-05-14 15:55 | P.PN ---
Subjective Progress Note Date: 05/14/23 This is a 63-year-old female with a history of COPD, who was in the hospital between April 27 and May 11. The patient was home less than 24 hours, and she came back to the emergency room, at 1831, on May 12. The patient came in complaining of being short of breath. The patient at that time, tested positive for influenza, and had a bronchoscopy, done on May 03, which revealed methicillin sensitive Staph aureus. The patient was treated, and eventually discharged home on Bactrim. Currently, she is on 2 L of oxygen. No IV fluids. Her chest x-ray was normal. Her complaints include primarily shortness of breath, chest congestion, and cough. Again, her chest x-ray was completely normal. No fever. No chills. She has a history of COPD, gastroesophageal reflux disease, hypertension, and rheumatoid arthritis. Patient does have a history of previous heavy tobacco use. Labs include a white count 10.6, hemoglobin 14.3, hematocrit 41.4, and a platelet count of 82,000. Coagulation studies were normal. Sodium 139, potassium 4.5, chlorides 107, CO2 25, BUN 26, and creatinine 0.87. Albumin is 3.4. N-terminal proBNP was 185. On today's evaluation of 05/14/2023, the patient is being seen for a follow-up. The patient is still having increased dyspnea cough chest tightness and wheezing. The patient had a previous hospitalization for influenza A infection history of exacerbation the patient had a bronchoscopy on 05/03/2023 and the patient also found to have MSSA in the sputum. The patient was discharged home on oral Bactrim. Patient presented yesterday for worsening shortness of breath And the chest x-ray was done that showed stable findings without any acute ca rdiopulmonary abnormalities. The patient had no airspace disease or consolidation. She did have some mild cardiomegaly and some chronic interstitial changes bilaterally. The white cell count is at 7.7, hemoglobin is at 12.2 with a platelet count of 42. Sodium is 142, potassium is at 4.4, BUN is at 20 with a creatinine of 0.9. The patient is currently on Symbicort as maintenance, DuoNeb updrafts [id number] and the patient is also on oral Bactrim. The patient is also receiving diuretics with Lasix 20 mg p.o. daily and she is on prednisone burst taper. CT scan of the chest was done on 05/08/2023 Showed few nodular densities in both lungs up to 1.7 cm in size in the left upper lobe and multifocal patchy groundglass pulmonary infiltrates bilaterally and recommended follow-up CAT scan in 4 to 6 months time. Enlarged pulmonary artery consistent with pulmonary hypertension. 4 cm fusiform ectasia of the ascending aorta. 4 cm right hepatic lobe lesion, likely hemangioma and mild hepatosplenomegaly was also noted. Objective - Vital Signs Vital signs: Vital Signs Temp 98.0 F 05/14/23 13:48 Pulse 84 05/14/23 15:07 Resp 16 05/14/23 14:00 BP 136/78 05/14/23 13:48 Pulse Ox 95 05/14/23 13:48 FiO2 Intake & Output 05/13/23 05/14/23 05/14/23 18:59 06:59 18:59 Intake Total 826 354 Balance 826 354 Intake: Oral 826 354 Other: Voiding Method Toilet # Voids 2 1 3 - Exam No acute distress, oriented 3. No respiratory distress. No conversational dyspnea. No use of accessory muscles. Patient is currently on 2 L of O2 nasal cannula HEENT examination is grossly unremarkable. Mucous membranes are moist. No oral lesions. Neck supple. Full range of motion. No adenopathy thyromegaly or neck vein distention. Cardiovascular examination reveals regular rhythm rate. S1-S2 normal. No S3 or S4. No discernible murmur noted. Lungs reveal bilateral rhonchi. No wheezes or crackles. 2 L saturation is 95%. No respiratory distress. Breath sounds equal bilaterally. Abdomen soft bowel sounds are heard. No masses or tenderness. Extremities are intact. No cyanosis clubbing or edema. Skin is without rash or lesion. Neurologic examination is brief but nonfocal. - Labs CBC & Chem 7: 05/14/23 06:35 05/14/23 06:35 Labs: Abnormal Lab Results - Last 24 Hours (Table) 05/14/23 05/14/23 Range/Units 06:35 06:35 RBC 3.93 L (4.10-5.20) X 10*6/uL Plt Count 42 L (140-440) X 10*3/uL Eosinophils # 0.01 L (0.04-0.35) X 10*3/uL Immature Plt Fraction 19.3 H (1.1-6.1) % BUN/Creatinine Ratio 22.33 H (12.00-20.00) Ratio Alkaline Phosphatase 38 L (41-126) U/L Total Protein 5.4 L (6.2-8.2) g/dL Albumin 3.2 L (3.8-4.9) g/dL Albumin/Globulin Ratio 1.45 L (1.60-3.17) Ratio Assessment and Plan Plan: COPD exacerbation, with previous admission from April 27 to May 11, complicated by influenza, and a methicillin sensitive Staph aureus infection. CAT scan of the chest was done during an earlier admission showed some limited groundglass bilateral pulmonary infiltrates which is consistent most of the vi ral infection rather than a bacterial infection. Shortness of breath related to COPD exacerbation, currently on Bactrim and prednisone burst taper at 40 mg p.o. daily. Acute hypoxic respiratory failure currently on 2 L of oxygen by nasal cannula History of COPD, secondary to tobacco use. History of hypertension. History of rheumatoid arthritis. History of hepatitis C. Previous history of drug abuse. Plan Agree on the current management. Continue bronchodilators. Continue steroids. Continue Bactrim. Continue prednisone burst taper. Will continue to follow.
--- NOTE | 2023-05-15 09:30 | P.PN ---
Subjective Progress Note Date: 05/15/23 Alisa Cain, is a 63 year-old female who presented to [facility] with a chief complaint of worsening shortness of breath and wheezing. Patient was recently admitted from April 27 to may 11 in which she was diagnosed with influenza A and underwent bronchoscopy. Revealing methadone sensitive staph aureus and patient was discharged on Bactrim and Prednisone taper. Patient reports she is taking her meds as prescribed but had an episode of increased shortness of breath and herself to the hospital. Patient has past medical history of asthma, COPD, GERD, hypertension, rheumatoid arthritis, smoker quit on 04/23/2023, marijuana use and previous cocaine use. Chest x-ray completed showing stable exam no acute cardiopulmonary disease vital signs temp 97.9, heart rate 81, respiratory rate 18, blood pressure 150/90 pulse is 95%. Troponin negative. BNP 185 with blood cell within normal limits. Patient started on prednisone and Bactrim pulmonary service is consulted continue DuoNeb breathing treatments. On 05/14/2023 patient was seen and examined on the medical floor, she is alert and oriented 3 in no apparent distress, she is still complaining of cough and shortness of breath and wheezing, she is complaining of multiple ulceration in her mouth, she is also complaining of bilateral lower extremity edema, otherwise she denies any complaints, there is no fever or chills no headache or dizziness no chest pain no nausea or vomiting no abdominal pain no diarrhea no blood in the stools no burning with urination no frequency or urgency no hematuria. On 05/15/2023 patient is alert and oriented x 3 patient is still complaining of back pain with coughing. Current vital signs Temp 97.9, heart rate 83, respiratory rate 17, blood pressure 101/65 with a pulse ox of 92% on room air. Patient remains on Bactrim and prednisone patient started on nystatin Objective - Vital Signs Vital signs: Vital Signs Temp 97.9 F 05/15/23 07:00 Pulse 84 05/15/23 07:54 Resp 17 05/15/23 07:00 BP 101/65 05/15/23 07:00 Pulse Ox 92 L 05/15/23 07:00 FiO2 Intake & Output 05/14/23 05/15/23 05/15/23 18:59 06:59 18:59 Intake Total 472 Balance 472 Intake: Oral 472 Other: Voiding Method Toilet Toilet # Voids 3 1 - Exam In general patient is alert and oriented x 3 in no distress HEENT head normocephalic and atraumatic Neck is supple no JVD no goiter no lymphadenopathy no carotid bruit Chest examination reveals a few scattered rhonchi with wheezing Cardiac exam reveals regular heart sounds S1 and S2 no gallops no murmurs Abdomen is soft nontender no organomegaly with normal bowel sounds Extremity exam reveals no edema no cyanosis or clubbing Neurological examination reveals no gross focal deficits - Labs CBC & Chem 7: 05/14/23 06:35 05/14/23 06:35 Labs: Abnormal Lab Results - Last 24 Hours (Table) 05/14/23 05/14/23 Range/Units 06:35 06:35 RBC 3.93 L (4.10-5.20) X 10*6/uL Plt Count 42 L (140-440) X 10*3/uL Eosinophils # 0.01 L (0.04-0.35) X 10*3/uL Immature Plt Fraction 19.3 H (1.1-6.1) % BUN/Creatinine Ratio 22.33 H (12.00-20.00) Ratio Alkaline Phosphatase 38 L (41-126) U/L Total Protein 5.4 L (6.2-8.2) g/dL Albumin 3.2 L (3.8-4.9) g/dL Albumin/Globulin Ratio 1.45 L (1.60-3.17) Ratio Assessment and Plan Assessment: 1. Acute COPD exacerbation. 2. History of methyl and sensitive staph aureus infection discharged on Bactrim 3. Recent treatment for influenza A 4. History of COPD 5. History of nicotine dependence patient reported that she quit on 04/23/2022 4 6. History of rheumatoid arthritis 7. History of essential hypertension 8. History of hepatitis C 9. Previous history of drug abuse DVT prophylaxis Lovenox. GI prophylaxis Protonix Pulmonary services consulted patient continued on prednisone and Bactrim and updraft breathing treatments repeat labs ordered
[2023-05-15] MEDS: FUROSEMIDE 10 MG/ML 2 ML VIAL IV ONE (10:40)
--- NOTE | 2023-05-15 14:49 | P.PN ---
Subjective Progress Note Date: 05/15/23 This is a 63-year-old female with a history of COPD, who was in the hospital between April 27 and May 11. The patient was home less than 24 hours, and she came back to the emergency room, at 1831, on May 12. The patient came in complaining of being short of breath. The patient at that time, tested positive for influenza, and had a bronchoscopy, done on May 03, which revealed methicillin sensitive Staph aureus. The patient was treated, and eventually discharged home on Bactrim. Currently, she is on 2 L of oxygen. No IV fluids. Her chest x-ray was normal. Her complaints include primarily shortness of breath, chest congestion, and cough. Again, her chest x-ray was completely normal. No fever. No chills. She has a history of COPD, gastroesophageal reflux disease, hypertension, and rheumatoid arthritis. Patient does have a history of previous heavy tobacco use. Labs include a white count 10.6, hemoglobin 14.3, hematocrit 41.4, and a platelet count of 82,000. Coagulation studies were normal. Sodium 139, potassium 4.5, chlorides 107, CO2 25, BUN 26, and creatinine 0.87. Albumin is 3.4. N-terminal proBNP was 185. On today's evaluation of 05/14/2023, the patient is being seen for a follow-up. The patient is still having increased dyspnea cough chest tightness and wheezing. The patient had a previous hospitalization for influenza A infection history of exacerbation the patient had a bronchoscopy on 05/03/2023 and the patient also found to have MSSA in the sputum. The patient was discharged home on oral Bactrim. Patient presented yesterday for worsening shortness of breath And the chest x-ray was done that showed stable findings without any acute ca rdiopulmonary abnormalities. The patient had no airspace disease or consolidation. She did have some mild cardiomegaly and some chronic interstitial changes bilaterally. The white cell count is at 7.7, hemoglobin is at 12.2 with a platelet count of 42. Sodium is 142, potassium is at 4.4, BUN is at 20 with a creatinine of 0.9. The patient is currently on Symbicort as maintenance, DuoNeb updrafts [id number] and the patient is also on oral Bactrim. The patient is also receiving diuretics with Lasix 20 mg p.o. daily and she is on prednisone burst taper. CT scan of the chest was done on 05/08/2023 Showed few nodular densities in both lungs up to 1.7 cm in size in the left upper lobe and multifocal patchy groundglass pulmonary infiltrates bilaterally and recommended follow-up CAT scan in 4 to 6 months time. Enlarged pulmonary artery consistent with pulmonary hypertension. 4 cm fusiform ectasia of the ascending aorta. 4 cm right hepatic lobe lesion, likely hemangioma and mild hepatosplenomegaly was also noted. 05/15/2023, the patient is being seen for a follow-up. No new complaints. She remains on Bactrim regarding MSSA in her sputum. She remains on bronchodilators patient is also on prednisone burst taper. She is on room air oxygen. Still complaining of cough and congestion and wheezing. No new labs are available from today. No other significant events otherwise for yesterday. She remains on Symbicort and DuoNeb updrafts. CAT scan of the chest that was done on 05/08/2023 showed new nodular densities in both lungs up to 1.7 cm in size in the left upper lobe with multifocal patchy groundglass pulmonary infiltrates bilaterally that needs to be subsequently followed up. The patient has no hemoptysis. No pleurisy. The patient is post bronchoscopy and the cultures indicated MSSA. Objective - Vital Signs Vital signs: Vital Signs Temp 97.9 F 05/15/23 07:00 Pulse 88 05/15/23 12:09 Resp 17 05/15/23 07:00 BP 101/65 05/15/23 07:00 Pulse Ox 92 L 05/15/23 07:00 FiO2 Intake & Output 05/14/23 05/15/23 05/15/23 18:59 06:59 18:59 Intake Total 472 Balance 472 Intake: Oral 472 Other: Voiding Method Toilet Toilet # Voids 3 1 - Exam No acute distress, oriented 3. No respiratory distress. No conversational dyspnea. No use of accessory muscles. Patient is currently on room air oxygen HEENT examination is grossly unremarkable. Mucous membranes are moist. No oral lesions. Neck supple. Full range of motion. No adenopathy thyromegaly or neck vein distention. Cardiovascular examination reveals regular rhythm rate. S1-S2 normal. No S3 or S4. No discernible murmur noted. Lungs reveal bilateral rhonchi. No wheezes or crackles. Scattered expiratory wheezes throughout the lung lópez bilaterally Abdomen soft bowel sounds are heard. No masses or tenderness. Extremities are intact. No cyanosis clubbing or edema. Skin is without rash or lesion. Neurologic examination is brief but nonfocal. - Labs CBC & Chem 7: 05/14/23 06:35 05/14/23 06:35 Assessment and Plan Plan: COPD exacerbation, with previous admission from April 27 to May 11, complicated by influenza, and a methicillin sensitive Staph aureus infection. CAT scan of the chest was done during an earlier admission showed some limited groundglass bilateral pulmonary infiltrates which is consistent most of the viral infection rather than a bacterial infection. Shortness of breath related to COPD exacerbation, currently on Bactrim and prednisone burst taper at 40 mg p.o. daily. Acute hypoxic respiratory failure currently on 2 L of oxygen by nasal cannula, improved and the patient is currently on room air oxygen History of COPD, secondary to tobacco use. History of hypertension. History of rheumatoid arthritis. History of hepatitis C. Previous history of drug abuse. Plan Continue [facility] Replace Symbicort with a combination of Perforomist and Pulmicort nebulized treatments twice a day Continue Bactrim Continue prednisone burst taper Patient has been weaned down to room air oxygen CAT scan findings are essentially inflammatory and postinfectious in nature Will continue to follow.
[2023-05-15] MEDS: FORMOTEROL FUMARATE 20 MCG/2 ML NEBU INHALATION SCH (18:19)
[2023-05-15] MEDS: BUDESONIDE 0.5 MG/2 ML NEBU INHALATION SCH (18:19)
[2023-05-16 08:47] VITALS: BP 138/88; RESP 16; TEMP 98.3
[2023-05-16] MEDS: ERGOCALCIFEROL 1,250 MCG (50,000 IU) CAPSULE PO SCH (10:46)
--- NOTE | 2023-05-16 11:16 | P.DS ---
Providers Date of admission: 05/12/23 20:21 Expected date of discharge: 05/16/23 Attending physician: Telma Potts Consults: 05/12/23 20:22 Consult Physician Routine Consulting Provider: Fernando Diaz Consult Reason/Comments: wheezing Do you want consulting provider notified?: Yes Primary care physician: Marichuy Chen MD Hospital Course: Discharge diagnosis 1. Acute COPD exacerbation. 2. History of methyl and sensitive staph aureus infection discharged on Bactrim 3. Recent treatment for influenza A 4. History of COPD 5. History of nicotine dependence patient reported that she quit on 04/23/2022 4 6. History of rheumatoid arthritis 7. History of essential hypertension 8. History of hepatitis C 9. Previous history of drug abuse Hospital course Alisa Cain, is a 63 year-old female who presented to [facility] with a chief complaint of worsening shortness of breath and wheezing. Patient was recently admitted from April 27 to may 11 in which she was diagnosed with influenza A and underwent bronchoscopy. Revealing methadone sensitive staph aureus and patient was discharged on Bactrim and Prednisone taper. Patient reports she is taking her meds as prescribed but had an episode of increased shortness of breath and herself to the hospital. Patient has past medical history of asthma, COPD, GERD, hypertension, rheumatoid arthritis, smoker quit on 04/23/2023, marijuana use and previous cocaine use. Chest x-ray completed showing stable exam no acute cardiopulmonary disease vital signs temp 97.9, heart rate 81, respiratory rate 18, blood pressure 150/90 pulse is 95%. Troponin negative. BNP 185 with blood cell within normal limits. Patient started on prednisone and Bactrim pulmonary service is consulted continue DuoNeb breathing treatments. On 05/14/2023 patient was seen and examined on the medical floor, she is alert and oriented 3 in no apparent distress, she is still complaining of cough and shortness of breath and wheezing, she is complaining of multiple ulceration in her mouth, she is also complaining of bilateral lower extremity edema, otherwise she denies any complaints, there is no fever or chills no headache or dizziness no chest pain no nausea or vomiting no abdominal pain no diarrhea no blood in the stools no burning with urination no frequency or urgency no hematuria. On 05/15/2023 patient is alert and oriented x 3 patient is still complaining of back pain with coughing. Current vital signs Temp 97.9, heart rate 83, respiratory rate 17, blood pressure 101/65 with a pulse ox of 92% on room air. Patient remains on Bactrim and prednisone patient started on nystatin On 05/16/2023 patient is alert and oriented x 3 discussed with pulmonary services patient cleared for discharge and will continue home dose of prednisone and Bactrim that she was discharged on. Patient remains on room air. Patient denies chest pain. Patient denies nausea vomiting or diarrhea. Patient denies any urinary burning or frequency. Patient to continue on dose of nystatin Patient Condition at Discharge: Stable Plan - Discharge Summary New Discharge Prescriptions: New Nystatin 100,000 Unit/ml Susp [Mycostatin Oral Susp] 500,000 unit PO QID 3 Days #120 ml Continue Albuterol Inhaler [Ventolin Hfa Inhaler] 1 - 2 puff INHALATION RT-Q6H PRN PRN Reason: Shortness Of Breath ALPRAZolam [Xanax] 0.5 mg PO TID PRN PRN Reason: Anxiety Pantoprazole Sodium [Protonix] 40 mg PO DAILY Metoprolol Tartrate [Lopressor] 50 mg PO DAILY amLODIPine [Norvasc] 5 mg PO DAILY 30 Days #30 tab Furosemide [Lasix] 20 mg PO DAILY Acetaminophen Tab [Tylenol] 650 mg PO Q6H PRN PRN Reason: Fever And/ Or Pain predniSONE [Deltasone] See Taper PO DAILY Sulfamethox-Tmp 800-160Mg [Bactrim DS 800-160 mg] 1 tab PO BID Ergocalciferol [Vitamin D2 (1250 Mcg = 84612 Iu)] 1,250 mcg PO WE lisinopriL [Zestril] 20 mg PO DAILY Discharge Medication List ALPRAZolam [Xanax] 0.5 mg PO TID PRN 04/30/19 [History] Albuterol Inhaler [Ventolin Hfa Inhaler] 1 - 2 puff INHALATION RT-Q6H PRN 04/30/19 [History] Metoprolol Tartrate [Lopressor] 50 mg PO DAILY 04/30/19 [History] Pantoprazole Sodium [Protonix] 40 mg PO DAILY 04/30/19 [History] amLODIPine [Norvasc] 5 mg PO DAILY 30 Days #30 tab 06/29/22 [Rx] Acetaminophen Tab [Tylenol] 650 mg PO Q6H PRN 04/27/23 [History] Ergocalciferol [Vitamin D2 (1250 Mcg = 05371 Iu)] 1,250 mcg PO WE 04/27/23 [History] Furosemide [Lasix] 20 mg PO DAILY 04/27/23 [History] lisinopriL [Zestril] 20 mg PO DAILY 04/27/23 [History] Sulfamethox-Tmp 800-160Mg [Bactrim DS 800-160 mg] 1 tab PO BID 05/12/23 [History] predniSONE [Deltasone] See Taper PO DAILY 05/12/23 [History] Nystatin 100,000 Unit/ml Susp [Mycostatin Oral Susp] 500,000 unit PO QID 3 Days #120 ml 05/16/23 [Rx] Follow up Appointment(s)/Referral(s): None,Stated [REFERRING] - 1-2 days Activity/Diet/Wound Care/Special Instructions: Patient to continue Bactrim and prednisone taper from previous discharge Discharge Disposition: HOME SELF-CARE
[2023-05-16 11:35] VITALS: PULSE 88
--- NOTE | 2023-05-16 19:51 | P.PN ---
Subjective Progress Note Date: 05/16/23 This is a 63-year-old female with a history of COPD, who was in the hospital between April 27 and May 11. The patient was home less than 24 hours, and she came back to the emergency room, at 1831, on May 12. The patient came in complaining of being short of breath. The patient at that time, tested positive for influenza, and had a bronchoscopy, done on May 03, which revealed methicillin sensitive Staph aureus. The patient was treated, and eventually discharged home on Bactrim. Currently, she is on 2 L of oxygen. No IV fluids. Her chest x-ray was normal. Her complaints include primarily shortness of breath, chest congestion, and cough. Again, her chest x-ray was completely normal. No fever. No chills. She has a history of COPD, gastroesophageal reflux disease, hypertension, and rheumatoid arthritis. Patient does have a history of previous heavy tobacco use. Labs include a white count 10.6, hemoglobin 14.3, hematocrit 41.4, and a platelet count of 82,000. Coagulation studies were normal. Sodium 139, potassium 4.5, chlorides 107, CO2 25, BUN 26, and creatinine 0.87. Albumin is 3.4. N-terminal proBNP was 185. On today's evaluation of 05/14/2023, the patient is being seen for a follow-up. The patient is still having increased dyspnea cough chest tightness and wheezing. The patient had a previous hospitalization for influenza A infection history of exacerbation the patient had a bronchoscopy on 05/03/2023 and the patient also found to have MSSA in the sputum. The patient was discharged home on oral Bactrim. Patient presented yesterday for worsening shortness of breath And the chest x-ray was done that showed stable findings without any acute ca rdiopulmonary abnormalities. The patient had no airspace disease or consolidation. She did have some mild cardiomegaly and some chronic interstitial changes bilaterally. The white cell count is at 7.7, hemoglobin is at 12.2 with a platelet count of 42. Sodium is 142, potassium is at 4.4, BUN is at 20 with a creatinine of 0.9. The patient is currently on Symbicort as maintenance, DuoNeb updrafts [id number] and the patient is also on oral Bactrim. The patient is also receiving diuretics with Lasix 20 mg p.o. daily and she is on prednisone burst taper. CT scan of the chest was done on 05/08/2023 Showed few nodular densities in both lungs up to 1.7 cm in size in the left upper lobe and multifocal patchy groundglass pulmonary infiltrates bilaterally and recommended follow-up CAT scan in 4 to 6 months time. Enlarged pulmonary artery consistent with pulmonary hypertension. 4 cm fusiform ectasia of the ascending aorta. 4 cm right hepatic lobe lesion, likely hemangioma and mild hepatosplenomegaly was also noted. 05/15/2023, the patient is being seen for a follow-up. No new complaints. She remains on Bactrim regarding MSSA in her sputum. She remains on bronchodilators patient is also on prednisone burst taper. She is on room air oxygen. Still complaining of cough and congestion and wheezing. No new labs are available from today. No other significant events otherwise for yesterday. She remains on Symbicort and DuoNeb updrafts. CAT scan of the chest that was done on 05/08/2023 showed new nodular densities in both lungs up to 1.7 cm in size in the left upper lobe with multifocal patchy groundglass pulmonary infiltrates bilaterally that needs to be subsequently followed up. The patient has no hemoptysis. No pleurisy. The patient is post bronchoscopy and the cultures indicated MSSA. On today's evaluation of 05/16/2023, the patient is slightly improved. No new complaints. She remains on budesonide and Perforomist nebulized treatments twice a day, DuoNeb updrafts [id number], Bactrim for MSSA infection. She is on room air oxygen. She is complaining of skeletal chest wall pain related to her coughing. This is essentially in her back. WBC count at 7 with hemoglobin 12.2 and a platelet count of 42. Sodium is at 142, potassium is at 4.4, BUN is at 20 with a creatinine of 0.9. No other new complaints otherwise for now. No major edema lower extremities. Objective - Vital Signs Vital signs: Vital Signs Temp 98.3 F 05/16/23 07:00 Pulse 88 05/16/23 11:21 Resp 16 05/16/23 07:00 BP 138/88 05/16/23 07:00 Pulse Ox 93 L 05/16/23 07:00 FiO2 Intake & Output 05/15/23 05/16/23 05/16/23 18:59 06:59 18:59 Other: Voiding Method Toilet # Voids 3 2 - Exam No acute distress, oriented 3. No respiratory distress. No conversational dyspnea. No use of accessory muscles. Patient is currently on room air oxygen HEENT examination is grossly unremarkable. Mucous membranes are moist. No oral lesions. Neck supple. Full range of motion. No adenopathy thyromegaly or neck vein distention. Cardiovascular examination reveals regular rhythm rate. S1-S2 normal. No S3 or S4. No discernible murmur noted. Lungs reveal bilateral rhonchi. No wheezes or crackles. Scattered expiratory wheezes throughout the lung lópez bilaterally Abdomen soft bowel sounds are heard. No masses or tenderness. Extremities are intact. No cyanosis clubbing or edema. Skin is without rash or lesion. Neurologic examination is brief but nonfocal. - Labs CBC & Chem 7: 05/14/23 06:35 05/14/23 06:35 Assessment and Plan Plan: COPD exacerbation, with previous admission from April 27 to May 11, complicated by influenza, and a methicillin sensitive Staph aureus infection. CAT scan of the chest was done during an earlier admission showed some limited groundglass bilateral pulmonary infiltrates which is consistent most of the viral infection rather than a bacterial infection. Clinically improved. Some limited skeletal chest wall pain related to coughing. Shortness of breath related to COPD exacerbation, currently on Bactrim and prednisone burst taper at 40 mg p.o. daily. Acute hypoxic respiratory failure currently on 2 L of oxygen by nasal cannula, improved and the patient is currently on room air oxygen History of COPD, secondary to tobacco use. History of hypertension. History of rheumatoid arthritis. History of hepatitis C. Previous history of drug abuse. Plan Clinically stable and the patient can be discharged home on a prednisone burst taper, Bactrim, Symbicort as maintenance and DuoNeb nebulized treatments [id number] CAT scan findings are essentially inflammatory and postinfectious in nature Will continue to follow the patient on outpatient basis
== END 2023-05-16 15:37 | disposition home or self-care (01) ==
LOC: EC 18:31 → 6NMEDSUR 20:21
PROVIDERS: ADMIT Internal Medicine; ATTEND Internal Medicine
DX: J44.1 Chronic obstructive pulmonary disease with (acute) exacerbation (principal); M06.9 Rheumatoid arthritis, unspecified; I10 Essential (primary) hypertension; K21.9 Gastro-esophageal reflux disease without esophagitis; F19.21 Other psychoactive substance dependence, in remission; Z86.14 Personal history of Methicillin resistant Staphylococcus aureus infection; Z87.891 Personal history of nicotine dependence; Z79.899 Other long term (current) drug therapy; Z86.19 Personal history of other infectious and parasitic diseases; Z88.0 Allergy status to penicillin; Z88.8 Allergy status to other drugs, medicaments and biological substances
CPT/HCPCS: 96376; 96372 ×3; 96374; 99285; 36415; 94640 ×8; 94760; 93005; 83880; 80053 ×2; 84484; 85025 ×2; 85610; 85730; 71046; G0378 ×5; J1940 ×2; J1650 ×3; J7512 ×4

== ENCOUNTER → 2023-06-25 | Outpatient (CLI) | payer MEDICARE, OTHER | END | disposition home or self-care (01) | LOC: LABPAT 11:44 | PROVIDERS: ATTEND Orthopaedic Surgery | DX: Z01.812 Encounter for preprocedural laboratory examination (principal); M17.11 Unilateral primary osteoarthritis, right knee; Z22.322 Carrier or suspected carrier of Methicillin resistant Staphylococcus aureus | CPT/HCPCS: 87070 ==

== ENCOUNTER → 2023-07-20 | Outpatient (CLI) | payer MEDICARE ==
--- NOTE | 2023-07-20 16:45 | US ---
EXAMINATION TYPE: US kidneys/renal and bladder DATE OF EXAM: 07/20/2023 COMPARISON: CT CLINICAL INDICATION: Female, 63 years old with history of R31.9 HEMATURIA, UNSPECIFIED,R10.9; Hematur ia EXAM MEASUREMENTS: Right Kidney: 12.1 x 4.6 x 5.2 cm Left Kidney: 11.5 x 4.2 x 4.1 cm Right Kidney: wnl, lower pole gassed out Left Kidney: wnl, lower pole gassed out Bladder: Limited views- pt unable to tolerate probe pressure during exam Bilateral Jets seen: No There is no evidence for hydronephrosis at this point in time. No nephrolithiasis is seen. No bea s are identified. The urinary bladder is anechoic. Bilateral ureteral jets are seen. IMPRESSION: 1. Limited evaluation with the lower poles of both kidneys not evaluated due to bowel gas. 2. No solid renal mass, renal calcification or hydronephrosis. 3. Mild diffuse thinning of the cortices
== END | disposition home or self-care (01) ==
LOC: RADUSWWP 14:01
PROVIDERS: ATTEND Internal Medicine
DX: R31.9 Hematuria, unspecified (principal); R10.9 Unspecified abdominal pain; R14.3 Flatulence
CPT/HCPCS: 76770

== ENCOUNTER 2023-07-31 11:17 | Day surgery (SDC) | payer MEDICARE, OTHER ==
--- NOTE | 2023-07-30 08:46 | P.HPOR ---
History of Present Illness H&P Date: 07/30/23 Chief Complaint: Right knee pain The patient is a 63-year-old retired female who presents with right knee pain for the past several years worsening recently. She has diffuse pain along with instability. She has intermittent buckling and locking. She does use a cane or a walker. She tried medications in addition to previous injections. She notes daily pain that limits her. Review of Systems As per HPI Past Medical History Past Medical History: Asthma, COPD, GERD/Reflux, Hypertension, Liver Disease, Osteoarthritis (OA), Rheumatoid Arthritis (RA) Additional Past Medical History / Comment(s): influenza A 04/27/23-was hospitalized for month, also had UTI @that time, resolving UTI currently- finishing A/B,. 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 for,. In 2022 Overdosed after doing cocaine laced with fentanyl. Has quit cocaine and marijiana. pt states she takes edibles. History of Any Multi-Drug Resistant Organisms: Other MDRO Past Surgical History: Hysterectomy, Joint Replacement, Orthopedic Surgery, Tonsillectomy Additional Past Surgical History / Comment(s): lt hip fx 07/05 with pins and screws. lt knee replacement x2. rt ring finger with screws. rt thumb I&D. bronch on 05/07/23 Past Anesthesia/Blood Transfusion Reactions: No Reported Reaction Additional Past Anesthesia/Blood Transfusion Reaction / Comment(s): previous blood transfusion without reaction Smoking Status: Former smoker - Past Family History Sister(s) Family Medical History: Coronary Artery Disease (CAD) Additional Family Medical History / Comment(s): born with hole in main valve surgery 8th grade, cabg x2 during 2nd open heart age 34 Father Family Medical History: Cancer, Myocardial Infarction ([place]) Additional Family Medical History / Comment(s): from colon cancer Mother Family Medical History: Cancer Additional Family Medical History / Comment(s): from lung cancer Medications and Allergies Home Medications Medication Instructions Recorded Confirmed Type ALPRAZolam [Xanax] 0.5 mg PO TID PRN 04/30/19 07/26/23 History Albuterol Inhaler [Ventolin Hfa 1 - 2 puff INHALATION RT-Q6H PRN 04/30/19 07/26/23 History Inhaler] Metoprolol Tartrate [Lopressor] 25 mg PO BID 04/30/19 07/26/23 History Pantoprazole Sodium [Protonix] 40 mg PO DAILY 04/30/19 07/26/23 History amLODIPine [Norvasc] 5 mg PO DAILY 30 Days #30 tab 06/29/22 07/26/23 Rx Ergocalciferol [Vitamin D2 (1250 1,250 mcg PO WE 04/27/23 07/26/23 History Mcg = 36628 Iu)] Furosemide [Lasix] 20 mg PO DAILY 04/27/23 07/26/23 History lisinopriL [Zestril] 20 mg PO DAILY 04/27/23 07/26/23 History Sulfamethox-Tmp 800-160Mg [Bactrim 1 tab PO BID 05/12/23 07/26/23 History DS 800-160 mg] Fluticasone/Umeclidin/Vilanter 1 inhalation INHALATION DAILY 30 05/16/2307/25 Rx [Trelegy Ellipta 100-62.5-25] Days #1 dispenser Allergies Allergy/AdvReac Type Severity Reaction Status Date / Time adhesive tape Allergy Rash/Hives Verified 07/26/23 11:33 amoxicillin Allergy Rash/Hives Verified 07/26/23 11:33 losartan Allergy Swelling Verified 07/26/23 11:33 valsartan Allergy Swelling Verified 07/26/23 11:33 Physical Examination - Knee right Appearance: effusion Effusion grade: grade 2 Valgus alignment in stance: 5 degrees Tenderness with palpation: anterior, medial, lateral Pain: throughout ROM Gait: limping ROM: extension: -15 degrees ROM: flexion: 100 degrees Crepitus with motion: Yes Strength: extension: 5/5 Strength: flexion: 5/5 Meniscal tests: medial meniscal tests: positive, lateral meniscal tests: positive, medial joint line pain: positive, lateral joint line pain: positive Results She is a well-developed well-nourished female approximately 5 foot 4, 220 pounds of endomorphic habitus. HEENT exam is nonfocal, neck is supple. She does have some limitation and pain with passive motion of her right hip. Examination of the right knee, she is tender about the medial and lateral joint line. She has genu valgum alignment. Collaterals stable, Pedro was negative, Mary's is equivocal. She has an antalgic gait pattern. Her distal neurovascular appears intact in the right lower extremity. - Diagnostic results Knee x-ray: image reviewed (3 views of the right knee obtained in the office show severe lateral and patellofemoral compartment with [id number] changes and subchondral sclerosis.) Assessment and Plan Assessment: Right knee severe lateral and patellofemoral compartment osteoarthrosis Obesity History of drug abuse Plan: I talked to the patient at length regarding her condition along with treatment options. This point she is quite limited having pain and mechanical symptoms related to her right knee osteonecrosis despite previous conservative measures. After a thorough discussion she opts to proceed with surgery. We will plan to proceed with right total knee arthroplasty. Risks and benefits were discussed at length in layman's terms. We will institute DVT prophylaxis.
[~2023-07-31 11:17] MED LIST changes: -ALBUTEROL NEBULIZED 2.5 MG/3 ML INHALATION ONE; -ALBUTEROL NEBULIZED 2.5 MG/3 ML INHALATION PRN; -ALPRAZolam 0.25 MG TAB PO PRN; -ALPRAZolam 0.5 MG TAB PO PRN; -ASPIRIN 325 MG TAB PO STA; -ASPIRIN 81 MG PO SCH; -ATORVASTATIN 80 MG TAB PO STA; -HEPARIN SODIUM 1,000 UN/ML (10ML VL) ONE; -HYDROcodone/APAP 10-325MG 1 EACH TAB PO PRN; -IOPAMIDOL-370 125ML BTL INJ ONE; -ISOSORBIDE MONONITRATE ER 30 MG TAB.ER.24H PO SCH; +LIDOCAINE 1% (10MG/ML) FOR IV START INTRADERMA PRN; -LIDOCAINE 1% INJ 10MG/ML (20 ML MDV) ONE; -LIDOCAINE 1% INJ 10MG/ML (20 ML MDV) SQ ONE; -LISINOPRIL 20 MG TAB PO SCH; -METOPROLOL TARTRATE 25 MG TAB PO SCH; -MIDAZOLAM 2 MG/2 ML VIAL IV ONE; +MIDAZOLAM 2 MG/2 ML VIAL IV PRN; -MONTELUKAST 10 MG TAB PO SCH; -NITROGLYCERIN SL TABS 0.4 MG TAB SUBLINGUAL PRN; -NON FORMULARY DRUG (Cannabidiol (Cbd) Extract [Epidiolex] 1 DOSE) PO PRN; -PANTOPRAZOLE 40 MG TABLET PO PRN; -RX INFO: IV CONTRAST WAS GIVEN 1 EACH MISC MISCELLANE PRN; -SODIUM CHLORIDE 0.9% 1,000 ML IV SCH; -SODIUM CHLORIDE 0.9% 1,000 ML in EMPTY BAG 1 BAG IV ONE; +TRANEXAMIC 1,000 MG/100ML-NACL 1,000 MG in SALINE 1 100ML.BAG IVPB PRN; -VERAPAMIL 2.5 MG/ML 2 ML AMP ONE; -fentaNYL (PF) 50 MCG/ML 2 ML AMP IV ONE; -fentaNYL (PF) 50 MCG/ML 2 ML AMP ONE
[2023-07-31] MEDS: LACTATED RINGERS 1,000 ML IV SCH (11:58)
[2023-07-31] MEDS: DEXAMETHASONE SOD PHOSPHATE 4 MG/ML 1 ML VIAL IV ONE (12:04)
[2023-07-31] MEDS: ONDANSETRON 4 MG/2 ML VIAL IVP ONE (12:04)
[2023-07-31] MEDS: ACETAMINOPHEN TAB 500 MG TAB PO PRN (12:04)
[2023-07-31] MEDS: MELOXICAM 7.5 MG TAB PO PRN (12:04)
[2023-07-31 12:41] LABS: Basophils % (A) 1 %; Eosinophils # (A) 0.1 k/uL (0-0.7); Eosinophils % (A) 3 %; HCT 35.8 % (34.0-46.0); HGB 11.8 gm/dL (11.4-16.0); Lymphocytes # (A) 1.6 k/uL (1.0-4.8); Lymphocytes % (A) 50 %; MCH 30.7 pg (25.0-35.0); MCHC 32.9 g/dL (31.0-37.0); MCV 93.5 fL (80.0-100.0); Mean Platelet Volume 8.9; Monocytes # (A) 0.2 k/uL (0-1.0); Monocytes % (A) 6 %; Neutrophils # (A) 1.2 k/uL (1.3-7.7); Neutrophils % (A) 38 %; Platelet Count 136 k/uL (150-450); RBC 3.83 m/uL (3.80-5.40); RDW 12.5 % (11.5-15.5); WBC 3.2 k/uL (3.8-10.6)
[2023-07-31] MEDS ORDERED: fentaNYL (PF) 50 MCG/ML 2 ML AMP ONE (12:44)
[2023-07-31] MEDS ORDERED: HYDROmorphone (PF) 1 MG/ML ONE (12:44)
[2023-07-31] MEDS ORDERED: SUCCINYLCHOLINE CHLORIDE 200 MG/10 ML VIAL IV ONE (12:44)
[2023-07-31] MEDS ORDERED: NEOSTIGMINE 1 MG/ML 10 ML VIAL ONE (12:44)
[2023-07-31] MEDS ORDERED: LIDOCAINE 1% INJ 10MG/ML (20 ML MDV) ONE (12:44)
[2023-07-31] MEDS ORDERED: ePHEDrine 50 MG/ML 1 ML VIAL ONE (12:44)
[2023-07-31] MEDS ORDERED: ROCURONIUM 10 MG/ML (5 ML VIAL) IV ONE (12:44)
[2023-07-31] MEDS ORDERED: PROPOFOL 10 MG/ML 20 ML VIAL IV ONE (12:44)
[2023-07-31] MEDS ORDERED: TRANEXAMIC 1,000 MG/100ML-NACL PREMIX BAG ONE (12:44)
[2023-07-31] MEDS ORDERED: MIDAZOLAM 2 MG/2 ML VIAL ONE (12:44)
[2023-07-31] MEDS ORDERED: GLYCOPYRROLATE 0.2 MG/ML 2 ML VIAL ONE (12:44)
[2023-07-31] MEDS: ceFAZolin 1,000 MG in SODIUM CHLORIDE 0.9% 1,000 ML IRRIGATION ONE (13:16)
[2023-07-31] MEDS: LACTATED RINGERS 1,000 ML IV ONE (13:29)
[2023-07-31] MEDS ORDERED: HYDROcodone/APAP 5-325MG 1 EACH TAB PO PRN (14:23)
[2023-07-31] MEDS ORDERED: NALOXONE 0.4 MG/ML 1 ML VIAL IV PRN (14:23)
[2023-07-31] MEDS ORDERED: hydrOXYzine pamoate 25 MG CAP PO PRN (14:23)
[2023-07-31] MEDS ORDERED: HYDROmorphone 0.5 MG/0.5 ML SYRINGE IVP PRN (14:23)
[2023-07-31] MEDS ORDERED: MAGNESIUM HYDROXIDE 2,400 MG/30 ML CUP PO PRN (14:23)
--- NOTE | 2023-07-31 14:43 | P.OP ---
Date of Procedure: 07/31/23 Preoperative Diagnosis: Right knee severe tricompartmental osteoarthrosis Postoperative Diagnosis: Same Procedure(s) Performed: Right total knee arthroplastycementedposterior stabilized Implants: Depuy Attune size 6 narrow cemented femoral component, size 5 cemented tibial component, 14 x 50 mm tibial stem, 10 mm articular surface. This is a posterior stabilized implant. Anesthesia: GETA Surgeon: Sherwin Bradley Artist Woodblock #1: Devang Perera Estimated Blood Loss (ml): 50 Pathology: none sent Condition: stable Disposition: PACU Indications for Procedure: The patient is a 63-year-old female who presents with progressive right knee pain secondary to osteoarthrosis despite conservative measures. A discussion of the risks and benefits of operative intervention versus continued conservative measures was made with the patient. She opted to proceed with surgery. Operative risks to include infection, neurovascular injury, development of blood clots, fracture, possible component loosening/failure and possible need for subsequent procedures was discussed. Informed consent was obtained. Operative Findings: As below Description of Procedure: The patient was brought to the operating room, and after induction of spinal anesthesia the right lower extremity was prepped and draped in a normal fashion. The tourniquet was inflated to 270 mm marker. A longitudinal incision extending 3 finger breaths above the superior pole of patella extending to the medial aspect the tibial tubercle was then made. The skin and subcutaneous tissues were divided sharply. Electrocautery was used for hemostasis. A medial parapatellar arthrotomy was performed. The medial soft tissues to include the superficial and deep portions of the medial collateral ligament were elevated subperiosteally. The patella was everted. A portion of the retropatellar fat pad was excised sharply. The anterior cruciate ligament was sacrificed. Blunt retractors were placed. A starting hole was made in the distal femur 1 cm anterior to the posterior cruciate ligament origin. An intramedullary femoral guide was then inserted planning on 5 valgus distal cut with 9 mm distal resection. The cutting block was pinned in place. The distal cut was then made. The posterior referencing sizing guide was utilized. I felt size 6 narrow was most appropriate. 3 of external rotation was built into the system and verified off the trans-epicondylar axis and the posterior condyles. The cutting block was pinned in place. The anterior, posterior, and chamfer cuts then made. Bone fragments were removed. The intercondylar guide was placed and the notch cut was made with a sagittal saw. The bone block was removed in one fragment. The trial component was then placed. There is good anterior to posterior and medial to lateral fit. The distal peg holes were drilled. The trial component was removed. Attention was then paid towards preparing the proximal tibia. An extra medullary guide was utilized in line with the tibial shaft and second metatarsal distally. I planned on 6 mm resection from the medial compartment. The cutting block was pinned in place. The proximal tibial cut was then made. The bone was removed in one fragment. The remnants of the medial and lateral menisci were excised at the capsular junction with electrocautery. The tibia sized most appropriately at size 5. The trial femoral and tibial components were placed along with a 10 mm articular surface. I was able to obtain full flexion and extension with internal and external rotation. After several flexion and extension cycles, the tibial rotation was marked with electrocautery line with the medial one third of the tibial tubercle. Attention was then paid towards preparing the patella. A patella reamer was utilized taking stem to 14 mm of bone stock. A good flush cut was made. The patella sized most appropriately 35 mm. The peg holes were drilled. The trial components placed. I had good patellofemoral tracking with no hands technique. The trial components were then removed. The tibia was prepared in the appropriate rotation with appropriate drill and keel punch, planning on a 14 mm x 50 mm stem extension. The posterior osteophytes were removed with a curved osteotome. The flexion and extension gaps were checked and felt to be symmetric at 10 mm. A trial components were then removed. The bony surfaces were prepared with pulsatile lavage and dried. The tibial component was then cemented place was fully seated. Excess cement was removed. The femoral component cemented place and was fully seated. Excess cement was removed. The trial 10 mm articular surface was placed and the knee was put in full extension. The patella component was cemented place. After the cement had sufficiently hardened, the knee was again taken through a range of motion. Again I was able to obtain full flexion and extension with varus and valgus stress. The trial 10 mm articular surface was removed and the final one inserted. This was fully seated. Care was taken to avoid any soft tissue interposition. Pulsatile lavage was again utilized. The medial parapatellar arthrotomy was closed with #2 Ethibond suture. The tourniquet was deflated with approximately 60 minutes total tourniquet time. Final hemostasis was obtained with the cautery. There was minimal bleeding therefore a deep drain was not placed. The subcutaneous tissues were reapproximated with interrupted 2-0 Vicryl sutures. The skin was reapproximated with 3-0 subcuticular strata fix suture. Skin tape and adhesive was applied. A sterile dressing was applied. The patient was awoken from sedation and transferred to recovery room in good condition. Blood loss was estimated at 50 mL. No complications were incurred. Sponge and needle counts were correct at the end of the case. Devang KLEIN assisted during the major components of this case to include exposure, bone resection, implantation, and c losure.
[2023-07-31] MEDS: HYDROmorphone 0.5 MG/0.5 ML SYRINGE IVP PRN ×2 (15:19→18:07)
--- NOTE | 2023-07-31 15:40 | XR ---
EXAMINATION TYPE: XR knee limited RT DATE OF EXAM: 07/31/2023 3:36 PM CLINICAL INDICATION:Female, 63 years old with history of Evaluation for Postop abnormality and alignm ent; COMPARISON: None. TECHNIQUE: XR knee limited RT; examined in Frontal, lateral and oblique projections. FINDINGS: Status post total knee arthroplasty changes with hardware in appropriate alignment and in tact. No evidence of fracture. Subcutaneous lucencies and lucencies within the joint consistent with surgical changes. IMPRESSION: Status post total knee arthroplasty changes with hardware intact and appropriate alignment. No fractu res identified.
[2023-07-31] MEDS: HYDROcodone/APAP 7.5-325MG 1 EACH TAB PO PRN (18:07)
[2023-07-31] MEDS: SENNOSIDES-DOCUSATE SODIUM 1 EACH TAB PO SCH (19:49)
[2023-07-31] MEDS ORDERED: ALBUTEROL NEBULIZED 2.5 MG/3 ML INHALATION PRN (21:45)
[2023-08-01] MEDS: ALPRAZolam 0.5 MG TAB PO PRN (00:27)
[2023-08-01] MEDS: PANTOPRAZOLE 40 MG TABLET PO SCH (07:50)
[2023-08-01] MEDS: METOPROLOL TARTRATE 25 MG TAB PO SCH (07:50)
[2023-08-01] MEDS: lisinopriL 20 MG TAB PO SCH (07:50)
[2023-08-01] MEDS: FUROSEMIDE 20 MG TAB PO SCH (07:50)
[2023-08-01] MEDS: RIVAROXABAN 10 MG TAB PO SCH (07:50)
[2023-08-01] MEDS: ERGOCALCIFEROL 1,250 MCG (50,000 IU) CAPSULE PO SCH (07:50)
[2023-08-01] MEDS: amLODIPine 5 MG TAB PO SCH (07:50)
[2023-08-01] MEDS: SYMBICORT 80-4.5 MCG INHALER INHALATION SCH (08:51)
[2023-08-01] MEDS: IPRATROPIUM 0.5 MG/2.5 ML NEBU INHALATION SCH (08:51)
[2023-08-01 10:30] LABS: Basophils # (A) 0 X 10*3/uL (0.00-0.10); Basophils % (A) 0 %; Eosinophils # (A) 0 X 10*3/uL (0.04-0.35); Eosinophils % (A) 0 %; HCT 33.2 % (37.2-46.3); HGB 10.9 g/dL (12.0-15.0); Lymphocytes # (A) 1.01 X 10*3/uL (0.90-5.00); MCH 31.5 pg (27.0-32.0); MCHC 32.8 g/dL (32.0-37.0); Mean Platelet Volume 12.1 FL (9.5-12.2); Monocytes # (A) 0.34 X 10*3/uL (0.20-1.00); Monocytes % (A) 5.4 %; NRBC Per 100 WBC 0 X 10*3/uL (0.00-0.01); Neutrophils # (A) 4.95 X 10*3/uL (1.80-7.70); Neutrophils % (A) 78.3 %; Platelet Count 143 X 10*3/uL (140-440); RBC 3.46 X 10*6/uL (4.10-5.20); RDW 11.9 % (11.5-14.5); WBC 6.32 X 10*3/uL (4.50-10.00)
--- NOTE | 2023-08-01 11:28 | P.PN ---
Subjective Progress Note Date: 08/01/23 This is a 63-year-old female patient who presented for an electiveRight knee arthroplasty with Dr. Landis on 07/31/2023.Patient has past medical history of asthma, COPD, GERD, hypertension, liver disease, osteoporosis, rheumatoid arthritis, influenza in UTI. Patient also has past medical history of recent nicotine use quitting in 04/23/2023 and previous cocaine use in December 2021. This time patient is resting comfortably in bed. Patient requesting you a to be completed due to concerns of possible urinary tract infection. Patient also complaining about right leg pain.Current vital signs 77.6, heart rate 82, respiratory rate 16, blood pressure 109/60 with pulse ox 98% on room air Objective - Vital Signs Vital signs: Vital Signs Temp 97.6 F 08/01/23 07:10 Pulse 82 08/01/23 07:10 Resp 16 08/01/23 07:10 BP 109/68 08/01/23 07:10 Pulse Ox 98 08/01/23 07:10 FiO2 Intake & Output 07/31/23 08/01/23 08/01/23 18:59 06:59 18:59 Intake Total 1851 Output Total 50 564 Balance 1801 -564 Weight 104.2 kg Intake: IV 1851 Output: Urine 282 Post Void Residual 282 Estimated Blood Loss 50 - Exam Head normocephalic Neck supple Lungs clear to auscultation bilaterally no wheezing or crackles Heart regular rate and rhythm S1-S2, no rub or gallop Abdomen is soft nontender nondistended positive bowel sounds no hepatospleno megaly Extremities no edema. Right leg dressing clean dry and intact Neuro alert and orientated to 3 - Labs CBC & Chem 7: 08/01/23 05:26 Labs: Abnormal Lab Results - Last 24 Hours (Table) 07/31/23 08/01/23 Range/Units 12:22 05:26 WBC 3.2 L (3.8-10.6) k/uL RBC 3.46 L (4.10-5.20) X 10*6/uL Hgb 10.9 L (12.0-15.0) g/dL Hct 33.2 L (37.2-46.3) % Plt Count 136 L (150-450) k/uL Neutrophils # 1.2 L (1.3-7.7) k/uL Eosinophils # 0 L (0.04-0.35) X 10*3/uL Assessment and Plan Assessment: 1. Status post total right knee arthroplasty. 2. History of COPD no exacerbation at this time 3. History of nicotine dependence patient states she quit in April 2023 4. Previous cocaine use 5. History of influenza 6. History of UTI 7. History of rheumatoid arthritis 8. History of essential hypertension 9. History of hepatitis C Thank you for this consultation we'll continue follow patient closely throughout stay UA has been ordered Repeat labs ordered
--- NOTE | 2023-08-01 11:34 | P.PN ---
Subjective Progress Note Date: 08/01/23 Principal diagnosis: Right knee osteoarthritis This patient was seen at bedside this morning sitting up in chair with legs elevated Davis bandage and dressing present over right knee. Patient says she did work with therapy and was able to walk around the room and onto the hallway but was unable to perform stairs. Patient says she is helping go home later today and would like to try stairs this afternoon. Patient says she has urinated since surgery yesterday without issue. Patient is not complaining of any nausea or dizziness when she got up. Patient says the pain is tolerable. She says at home she does have a walker or a cane as well as family to help her out. Patie nt denies any other issues at this time. Objective - Vital Signs Vital signs: Vital Signs Temp 97.6 F 08/01/23 07:10 Pulse 82 08/01/23 07:10 Resp 16 08/01/23 07:10 BP 109/68 08/01/23 07:10 Pulse Ox 98 08/01/23 07:10 FiO2 Intake & Output 07/31/23 08/01/23 08/01/23 18:59 06:59 18:59 Intake Total 1851 Output Total 50 564 Balance 1801 -564 Weight 104.2 kg Intake: IV 1851 Output: Urine 282 Post Void Residual 282 Estimated Blood Loss 50 - Exam Right knee: Incision is clean, dry, and intact. The exofin fusion tape is in good condition. There is minimal soft tissue swelling and ecchymosis surrounding the medial and lateral aspects of the incision. Calf is soft, no tenderness with palpation. Plantar flexion, dorsiflexion, EHL, FHL are intact. Sensory exam to light touch throughout the extremity is intact, dorsal pedis pulses 2+. - Labs CBC & Chem 7: 08/01/23 05:26 Labs: Abnormal Lab Results - Last 24 Hours (Table) 07/31/23 08/01/23 Range/Units 12:22 05:26 WBC 3.2 L (3.8-10.6) k/uL RBC 3.46 L (4.10-5.20) X 10*6/uL Hgb 10.9 L (12.0-15.0) g/dL Hct 33.2 L (37.2-46.3) % Plt Count 136 L (150-450) k/uL Neutrophils # 1.2 L (1.3-7.7) k/uL Eosinophils # 0 L (0.04-0.35) X 10*3/uL Assessment and Plan Assessment: 1. Right knee osteoarthritis -Postop day 1 status post right total knee arthroplasty Plan: 1. Right knee osteoarthritis -right total knee arthroplasty form yesterday, 07/31/2023. Patient stable at bedside this morning. Patient was able to get up and walk around a little bit with therapy but was unable to perform stairs. Plan for therapy to reassess this afternoon and if patient is able to do stairs discharge home this afternoon. If patient unable to perform stairs, plan is to keep patient 1 more night for additional pain control and therapy. Plan for discharge home tomorrow at that point. 2. Appreciate medical management 3. Pain management -[place] 4. DVT prophylaxis -Xarelto 5. GI prophylaxis -senna 6. PT/OT -weightbearing as tolerated with walker 7. Encourage incentive spirometer use 8. Discharge planning -Home later today versus tomorrow depending on PT/OT eval Time with Patient: Less than 30
[2023-08-01 15:56] LABS: Appearance,Urine Clear (Clear); Bilirubin,Urine Negative (Negative); Blood,Urine Negative (Negative); Color,Urine Colorless; Glucose,Urine (UA) Negative (Negative); Ketones,Urine Negative (Negative); Leukocyte Esterase,Urine Negative (Negative); Nitrite,Urine Negative (Negative); PH, Urine 5.5 (5.0-8.0); Protein,Urine Negative (Negative); Specific Gravity,Urine 1.008 (1.001-1.035); Urobilinogen,Urine <2.0 mg/dL (<2.0)
[2023-08-02 08:21] VITALS: BP 102/68; RESP 18; TEMP 98.3
[2023-08-02 08:41] LABS: Basophils # (A) 0.02 X 10*3/uL (0.00-0.10); Basophils % (A) 0.4 %; Eosinophils # (A) 0.02 X 10*3/uL (0.04-0.35); Eosinophils % (A) 0.4 %; HGB 10.5 g/dL (12.0-15.0); Lymphocytes # (A) 1.83 X 10*3/uL (0.90-5.00); Lymphocytes % (A) 35.5 %; MCH 31.1 pg (27.0-32.0); MCHC 32.8 g/dL (32.0-37.0); MCV 94.7 FL (80.0-97.0); Mean Platelet Volume 11.3 FL (9.5-12.2); Monocytes % (A) 7.8 %; NRBC Per 100 WBC 0 X 10*3/uL (0.00-0.01); Neutrophils # (A) 2.86 X 10*3/uL (1.80-7.70); Neutrophils % (A) 55.5 %; Platelet Count 146 X 10*3/uL (140-440); RBC 3.38 X 10*6/uL (4.10-5.20); RDW 12.1 % (11.5-14.5); WBC 5.15 X 10*3/uL (4.50-10.00)
[2023-08-02 08:56] LABS: ALT 52 U/L (8-44); AST 25 U/L (13-35); Albumin 3.6 g/dL (3.8-4.9); Albumin/Globulin Ratio 1.64 Ratio (1.60-3.17); Alkaline Phosphatase 52 U/L (41-126); BUN/Creat Ratio 15.78 Ratio (12.00-20.00); Blood Urea Nitrogen 14.2 mg/dL (9.0-27.0); Calcium 9.4 mg/dL (8.7-10.3); Carbon Dioxide 26.4 mmol/L (21.6-31.8); Chloride 106 mmol/L (96-109); Globulin 2.2 g/dL (1.6-3.3); Glucose 108 mg/dL (70-110); Potassium 4.4 mmol/L (3.5-5.5); Sodium 140 mmol/L (135-145); Total Bilirubin 0.5 mg/dL (0.3-1.2); Total Protein 5.8 g/dL (6.2-8.2)
--- NOTE | 2023-08-02 09:02 | P.DS ---
Providers Date of admission: 07/31/2023 Expected date of discharge: 08/02/23 Attending physician: Sherwin Bradley Consults: 07/31/23 14:23 Consult Physician Routine Consulting Provider: Telma Potts Consult Reason/Comments: medical management s/p right total knee arthroplasty Do you want consulting provider notified?: Yes Primary care physician: Telma Potts Hospital Course: Date of admission: 07/31/2023 Date of discharge: 08/02/2023 Admission diagnosis: Right knee osteoarthritis Discharge diagnosis: Same Attending physician: Dr. Bradley Surgical procedures: Right total knee arthroplasty Brief history: Patient is a 63-year-old female with a history of progressive primary right knee osteoarthritis. At this point patient has failed conservative treatment measures and has opted to proceed with a elective right total knee arthroplasty. Hospital course: Details of patient's surgery can be found in operative report. Patient tolerated the procedure well and was subsequently transported to orthopedic floor. Patient's orthopeidc and medical care was provided daily. Patient had daily laboratory tests performed for evaluation of overall blood counts. Patient had daily physical therapy to include strengthening range of motion as well as education with walker ambulation. Patient was treated with Xarelto for their postoperative DVT prophylaxis during their inpatient stay. Patient was noted to have a relatively uneventful postoperative course. Patient reported satisfactory pain control with oral pain medications by postoperative day 2. Patient showed satisfactory progress with physical therapy. Patient moved steadily through the program and had no difficulty meeting the goals by postoperative day 2. Given patient's otherwise satisfactory course and having met physical therapy goals, plan is to discharge patient home with health services on postoperative day 2. Discharge condition/disposition: Patient will be discharged home with health services in stable condition. Discharge medications: Instructions are given on resumption of patient's normal daily medications per primary care recommendation, in addition patient will be prescribed Dequincy; Eliquis 2.5 mg twice daily x 2 weeks; senna. Discharge instructions: 1. Wound care and infection precautions, keep incision dry and covered while showering, no lotions, creams, moisturizers. No soaking, tubs, pools, hottubs. Do not scrub over the incision. 2. Weight-bear as tolerated with walker / cane until follow-up. 3. Ice and elevate when necessary. Do not exceed 20 minutes per hour with ice pack. 4. Utilize compression sleeve until seen at first follow up appointment. 5. Visiting nursing care. 6. Home physical therapy including home CPM. 7. Pain meds and anticoagulants per prescription. 8. Pain medication has potential to cause constipation. Increase oral fluid and fiber intake. Contact primary care provider if you have not had a bowel movement within 48 hours after discharge 9. No anti-inflammatory medication until discussed at first post operative visit, this including Motrin, Aleve, Mobic, Diclofenac. 10. Follow up in office at 2 weeks postop with Mark Galindo PA-C / Devang Perera PA-C 11. Follow up with your primary care doctor 7-10 days after discharge. 12. Contact [facility] with any questions, . Keep incision clean, dry, intact. While showering, cover fusion tape with Saran wrap. Keep fusion tape on until follow-up appointment office in 2 weeks. Assessment: Right knee osteoarthritis Procedures: Right total knee arthroplasty Patient Condition at Discharge: Good Plan - Discharge Summary Discharge Rx Participant: No New Discharge Prescriptions: No Action Albuterol Inhaler [Ventolin Hfa Inhaler] 1 - 2 puff INHALATION RT-Q6H PRN PRN Reason: Shortness Of Breath ALPRAZolam [Xanax] 0.5 mg PO TID PRN PRN Reason: Anxiety Pantoprazole Sodium [Protonix] 40 mg PO DAILY Metoprolol Tartrate [Lopressor] 25 mg PO BID amLODIPine [Norvasc] 5 mg PO DAILY 30 Days #30 tab Furosemide [Lasix] 20 mg PO DAILY Sulfamethox-Tmp 800-160Mg [Bactrim DS 800-160 mg] 1 tab PO BID Fluticasone/Umeclidin/Vilanter [Trelegy Ellipta 100-62.5-25] 1 inhalation INHALATION DAILY 30 Days #1 dispenser Ergocalciferol [Vitamin D2 (1250 Mcg = 53211 Iu)] 1,250 mcg PO WE lisinopriL [Zestril] 20 mg PO DAILY Discharge Medication List ALPRAZolam [Xanax] 0.5 mg PO TID PRN 04/30/19 [History] Albuterol Inhaler [Ventolin Hfa Inhaler] 1 - 2 puff INHALATION RT-Q6H PRN 04/30/19 [History] Metoprolol Tartrate [Lopressor] 25 mg PO BID 04/30/19 [History] Pantoprazole Sodium [Protonix] 40 mg PO DAILY 04/30/19 [History] amLODIPine [Norvasc] 5 mg PO DAILY 30 Days #30 tab 06/29/22 [Rx] Ergocalciferol [Vitamin D2 (1250 Mcg = 05353 Iu)] 1,250 mcg PO WE 04/27/23 [History] Furosemide [Lasix] 20 mg PO DAILY 04/27/23 [History] lisinopriL [Zestril] 20 mg PO DAILY 04/27/23 [History] Sulfamethox-Tmp 800-160Mg [Bactrim DS 800-160 mg] 1 tab PO BID 05/12/23 [History] Fluticasone/Umeclidin/Vilanter [Trelegy Ellipta 100-62.5-25] 1 inhalation INHALATION DAILY 30 Days #1 dispenser 05/16/23 [Rx] Follow up Appointment(s)/Referral(s): Devang Perera, KOTA [PHYSICIAN CAN COVERER] - 08/15/23 9:50 am (With Kirk) [facility],Equipment [NON-STAFF] - As Needed (*Please call [facility] to arrange delivery of the Continuous Passive Motion (CPM) machine.) Patient Instructions/Handouts: Knee Replacement (DC) Activity/Diet/Wound Care/Special Instructions: Orthopedic Discharge Instructions: 1. Wound care and infection precautions, keep incision dry and covered while showering, no lotions, creams, moisturizers. No soaking, pools, hot tubs. Do not scrub over incision. 2. Weight-bear as tolerated with walker / cane until follow-up. 3. Ice and elevate when necessary. Do not exceed 20 minutes per hour with ice pack. 4. Utilize compression sleeve until seen at first follow up appointment. 5. Pain meds and anticoagulants per prescription. 6. Pain medication has potential to cause constipation. Increase oral fluid and fiber intake. Contact primary care provider if you have not had a bowel movement within 48 hours after discharge. 7. No anti-inflammatory medication until discussed at first post operative visit, this including Motrin, Aleve, Mobic, Diclofenac. 8. Follow up in office at 2 weeks postop with Mark Galindo PA-C / Devang Perera PA-C 9. Follow up with your primary care doctor 7-10 days after discharge. 10. Contact [facility] with any questions, . Keep incision clean, dry, intact. While showering, cover fusion tape with Saran wrap. Keep fusion tape on until follow-up appointment in office in 2 weeks. Discharge Disposition: HOME WITH HOME HEALTH SERVICES
--- NOTE | 2023-08-02 09:06 | P.PN ---
Subjective Progress Note Date: 08/02/23 Principal diagnosis: Right knee osteoarthritis This patient was seen at bedside this morning sitting up in chair with legs elevated dressing present over right knee doing breathing treatment. Patient says she did work with therapy and was able to do the stairs. Patient is not complaining of any nausea or dizziness when she got up. Patient says the pain is tolerable. Patient says she is looking forward to going home later today. Patient says she does have a walker at home. Patient denies any other issues at this time. Objective - Vital Signs Vital signs: Vital Signs Temp 98.3 F 08/02/23 07:06 Pulse 86 08/02/23 08:48 Resp 18 08/02/23 07:06 BP 102/68 08/02/23 07:06 Pulse Ox 96 08/02/23 07:06 FiO2 Intake & Output 08/01/23 08/02/23 08/02/23 18:59 06:59 18:59 Intake Total 630 Balance 630 Intake: Oral 630 Other: # Voids 2 6 # Bowel Movements 1 - Exam Right knee: Incision is clean, dry, and intact. The exofin fusion tape is in good condition. There is minimal soft tissue swelling and ecchymosis surrounding the medial and lateral aspects of the incision. Calf is soft, no tenderness with palpation. Plantar flexion, dorsiflexion, EHL, FHL are intact. Sensory exam to light touch throughout the extremity is intact, dorsal pedis pulses 2+. - Labs CBC & Chem 7: 08/02/23 06:10 08/02/23 06:10 Labs: Abnormal Lab Results - Last 24 Hours (Table) 08/01/23 08/02/23 08/02/23 Range/Units 05:26 06:10 06:10 RBC 3.46 L 3.38 L (4.10-5.20) X 10*6/uL Hgb 10.9 L 10.5 L (12.0-15.0) g/dL Hct 33.2 L 32.0 L (37.2-46.3) % Eosinophils # 0 L 0.02 L (0.04-0.35) X 10*3/uL ALT 52 H (8-44) U/L Total Protein 5.8 L (6.2-8.2) g/dL Albumin 3.6 L (3.8-4.9) g/dL Assessment and Plan Assessment: 1. Right knee osteoarthritis -Postop day 2 status post right total knee arthroplasty Plan: 1. Right knee osteoarthritis -right total knee arthroplasty performed 07/31/2023. Patient stable at bedside this morning. Patient was able to do stairs today with therapy. Discharge home today with health services. 2. Appreciate medical management 3. Pain management -[place] 4. DVT prophylaxis -Xarelto in hospital. Going home with Eliquis 2.5 mg twice daily x 2 weeks 5. GI prophylaxis -senna 6. PT/OT -weightbearing as tolerated with walker 7. Encourage incentive spirometer use 8. Discharge planning -discharge home with health services today Time with Patient: Less than 30
[2023-08-02 10:12] VITALS: PULSE 67
--- NOTE | 2023-08-02 10:36 | P.PN ---
Subjective Progress Note Date: 08/02/23 This is a 63-year-old female patient who presented for an elective Right knee arthroplasty with Dr. Landis on 07/31/2023.Patient has past medical history of asthma, COPD, GERD, hypertension, liver disease, osteoporosis, rheumatoid arthritis, influenza in UTI. Patient also has past medical history of recent nicotine use quitting in 04/23/2023 and previous cocaine use in December 2021. This time patient is resting comfortably in bed. Patient requesting you a to be completed due to concerns of possible urinary tract infection. Patient also complaining about right leg pain.Current vital signs 77.6, heart rate 82, respiratory rate 16, blood pressure 109/60 with pulse ox 98% on room air. on 08/02/2023 patient was seen and examined on the medical floor, she is alert and oriented 3 in no apparent distress, she denies any complaints at this time, there is no fever or chills no headache or dizziness no chest pain no shortness of breath no cough no nausea or vomiting no abdominal pain no diarrhea and no urinary symptoms, patient was evaluated by orthopedic surgery and plan is for discharge to home today. Patient is medically cleared for discharge. Objective - Vital Signs Vital signs: Vital Signs Temp 98.3 F 08/02/23 07:06 Pulse 86 08/02/23 08:48 Resp 18 08/02/23 08:00 BP 102/68 08/02/23 07:06 Pulse Ox 96 08/02/23 07:06 FiO2 Intake & Output 08/01/23 08/02/23 08/02/23 18:59 06:59 18:59 Intake Total 630 Balance 630 Intake: Oral 630 Other: # Voids 2 6 # Bowel Movements 1 - Exam Head normocephalic Neck supple Lungs clear to auscultation bilaterally no wheezing or crackles Heart regular rate and rhythm S1-S2, no rub or gallop Abdomen is soft nontender nondistended positive bowel sounds no hepatosplenomegaly Extremities no edema. Right leg dressing clean dry and intact Neuro alert and orientated to 3 - Labs CBC & Chem 7: 08/02/23 06:10 08/02/23 06:10 Labs: Abnormal Lab Results - Last 24 Hours (Table) 08/01/23 08/02/23 08/02/23 Range/Units 05:26 06:10 06:10 RBC 3.46 L 3.38 L (4.10-5.20) X 10*6/uL Hgb 10.9 L 10.5 L (12.0-15.0) g/dL Hct 33.2 L 32.0 L (37.2-46.3) % Eosinophils # 0 L 0.02 L (0.04-0.35) X 10*3/uL ALT 52 H (8-44) U/L Total Protein 5.8 L (6.2-8.2) g/dL Albumin 3.6 L (3.8-4.9) g/dL Assessment and Plan Assessment: 1. Status post total right knee arthroplasty. 2. History of COPD no exacerbation at this time 3. History of nicotine dependence patient states she quit in April 2023 4. Previous cocaine use 5. History of influenza 6. History of UTI 7. History of rheumatoid arthritis 8. History of essential hypertension 9. History of hepatitis C Thank you for this consultation we'll continue follow patient closely throughout stay UA has been ordered Repeat labs ordered
== END 2023-08-02 12:02 | disposition home health service (06) ==
LOC: OR 11:17 → 4SSUR 14:38 → OR 08-02 12:02
PROVIDERS: ATTEND Orthopaedic Surgery
DX: M17.11 Unilateral primary osteoarthritis, right knee (principal); I10 Essential (primary) hypertension; J44.89 Other specified chronic obstructive pulmonary disease; K21.9 Gastro-esophageal reflux disease without esophagitis; M06.9 Rheumatoid arthritis, unspecified; M81.0 Age-related osteoporosis without current pathological fracture; E66.9 Obesity, unspecified; K75.9 Inflammatory liver disease, unspecified; Z87.891 Personal history of nicotine dependence; Z87.440 Personal history of urinary (tract) infections; Z80.0 Family history of malignant neoplasm of digestive organs; Z88.0 Allergy status to penicillin; Z88.8 Allergy status to other drugs, medicaments and biological substances; Z79.899 Other long term (current) drug therapy
CPT/HCPCS: 94640 ×4; 97116; 97530; 97162; 97166; 80053; 85025 ×3; 81003; 73560; 27447; C1713 ×2; C1776; J2250; J0330; J1100; J2710; J0690 ×3; J2405; J2001; J3010; J1170 ×3; J2704

== ENCOUNTER → 2023-09-18 | Outpatient (CLI) | payer MEDICARE ==
--- NOTE | 2023-09-18 13:53 | US ---
EXAMINATION TYPE: US thyroid st tissue head/neck DATE OF EXAM: 09/18/2023 COMPARISON: NONE CLINICAL INDICATION: Female, 63 years old with history of E03.9 HYPERTHYROIDISM; abnormal labs GLAND SIZE: Right Lobe: 4.8 x 1.9 x 1.6 cm Overall Parenchyma: heterogeneous Left Lobe: 5.0 x 1.7 x 1.7 cm Overall Parenchyma: heterogeneous Isthmus Thickness: 0.4 cm NODULES RIGHT: # of nodules measured on right: 3 1. 1.2 X 1.0 x 0.8 cm, upper mid, solid or almost completely solid, hypoechoic nodule, which is wid er than tall, with smooth margins, without echogenic foci. TR 4. 2. 1.2 X 1.3 x 0.7 cm, mid mid, solid or almost completely solid, hypoechoic nodule, which is wider than tall, with smooth margins, with echogenic foci. TR 4. 3. 1.1 X 0.9 x 0.7 cm, lower mid, solid or almost completely solid, hypoechoic nodule, which is wid er than tall, with smooth margins, without echogenic foci. TR 4. LEFT: # of nodules measured on left: 1 1. 1.6 X 1.2 x 0.9 cm, sup/mid , solid or almost completely solid, hypoechoic nodule, which is wide r than tall, with ill-defined margins, without echogenic foci. TR 4. *Other nodules seen measuring subcentimeter ISTHMUS: # of nodules measured in the isthmus: 1 1. 1.2 X 1.2 x 0.9 cm mixed cystic and solid, hypoechoic nodule, which is wider than tall, with ill -defined margins, without echogenic foci. TR 3. Bilateral neck scanned, no evidence of lymphadenopathy. IMPRESSION: Multinodular thyroid gland as described above. ACR TI-RADS LEVEL: TR-RADS 4 - Moderately Suspicious: Follow if > 1 cm, FNA if > 1.5 cm *Highest TI-RADS level nodule reported
== END | disposition home or self-care (01) ==
LOC: RADUSWWP 12:45
PROVIDERS: ATTEND Internal Medicine
DX: E03.9 Hypothyroidism, unspecified (principal); E04.2 Nontoxic multinodular goiter; R22.0 Localized swelling, mass and lump, head
CPT/HCPCS: 76536

== ENCOUNTER 2023-10-02 04:18 | Observation (INO) | payer MEDICARE ==
--- NOTE | 2023-10-02 06:27 | ED ---
Dizziness HPI - General Chief Complaint: Dizziness Stated Complaint: Dizziness Time Seen by Provider: 10/02/23 06:25 Source: patient, RN notes reviewed Mode of arrival: EMS Limitations: no limitations - History of Present Illness Initial Comments: This is a 63-year-old female who presents to the emergency department for dizziness. States that it started approximately 30 minutes prior to arrival and seemed to wake her from her sleep. She had some associated shortness of breath and nausea. She has a history of vertigo but states that this feels different. Feels like the dizziness is "throughout her whole body" and she is also having a headache. She was just diagnosed with hyperthyroidism and is waiting for a referral, and has not yet started medication. States that this may be a contributing component. Denies any chest pain. MD Complaint: dizziness - Related Data Home Medications Medication Instructions Recorded Confirmed ALPRAZolam [Xanax] 0.5 mg PO TID PRN 04/30/19 10/02/23 Albuterol Inhaler [Ventolin Hfa 1 - 2 puff INHALATION RT-Q6H PRN 04/30/19 10/02/23 Inhaler] Metoprolol Tartrate [Lopressor] 25 mg PO BID 04/30/19 10/02/23 Pantoprazole Sodium [Protonix] 40 mg PO DAILY 04/30/19 10/02/23 Furosemide [Lasix] 20 mg PO DAILY 04/27/23 10/02/23 lisinopriL [Zestril] 20 mg PO DAILY 04/27/23 10/02/23 Aspirin EC [Ecotrin Low Dose] 81 mg PO DAILY 10/02/23 10/02/23 Previous Rx's Medication Instructions Recorded amLODIPine [Norvasc] 5 mg PO DAILY 30 Days #30 tab 06/29/22 Allergies Allergy/AdvReac Type Severity Reaction Status Date / Time adhesive tape Allergy Rash/Hives Verified 10/02/23 12:30 amoxicillin Allergy Rash/Hives Verified 10/02/23 12:30 losartan Allergy blurred Verified 10/02/23 12:30 vision,sweating,confusion,dizziness valsartan Allergy Swelling Verified 10/02/23 12:30 Review of Systems ROS Statement: Those systems with pertinent positive or pertinent negative responses have been documented in the HPI. ROS Other: All systems not noted in ROS Statement are negative. Past Medical History Past Medical History: Asthma, COPD, GERD/Reflux, Hypertension, Liver Disease, Rheumatoid Arthritis (RA) Additional Past Medical History / Comment(s): influenza A 04/27/23. 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 Hepatitis C. In 2022 Overdosed after doing cocaine laced with fentanyl. Has quit cocaine and marijiana. pt states she takes edibles. History of Any Multi-Drug Resistant Organisms: None Reported, Other MDRO Past Surgical History: Hysterectomy, Joint Replacement, Orthopedic Surgery, Tonsillectomy Additional Past Surgical History / Comment(s): lt hip fx 07/05 with pins and screws. lt knee replacement x2. rt ring finger with screws. rt thumb I&D. bronch on 05/07/23. right knee Past Anesthesia/Blood Transfusion Reactions: No Reported Reaction Additional Past Anesthesia/Blood Transfusion Reaction / Comment(s): previous blood transfusion with reaction Past Psychological History: Anxiety Smoking Status: Former smoker Past Alcohol Use History: None Reported Past Drug Use History: None Reported - Past Family History Sister(s) Family Medical History: Coronary Artery Disease (CAD) Additional Family Medical History / Comment(s): born with hole in main valve surgery 8th grade, cabg x2 during 2nd open heart age 34 Father Family Medical History: Cancer, Myocardial Infarction (ND) Additional Family Medical History / Comment(s): from colon cancer Mother Family Medical History: Cancer Additional Family Medical History / Comment(s): from lung cancer General Exam Limitations: no limitations General appearance: alert, in no apparent distress Head exam: Present: atraumatic, normocephalic, normal inspection Eye exam: Present: normal appearance, PERRL, EOMI. Absent: scleral icterus, conjunctival injection, periorbital swelling Respiratory exam: Present: normal lung sounds bilaterally. Absent: respiratory distress, wheezes, rales, rhonchi, stridor Cardiovascular Exam: Present: normal rhythm, tachycardia Neurological exam: Present: alert, oriented X3, CN II-XII intact Psychiatric exam: Present: normal affect, normal mood Skin exam: Present: warm, dry, intact, normal color. Absent: rash Course Vital Signs 10/02/23 10/02/23 10/02/23 04:22 08:00 11:18 Temperature 98.3 F Pulse Rate 77 82 79 Respiratory 164 H 16 18 Rate Blood Pressure 164/89 132/89 132/92 O2 Sat by Pulse 97 93 L 96 Oximetry Medical Decision Making - Medical Decision Making This is a 63 year old female who presents to the emergency department for dizziness. Was pt. sent in by a medical professional or institution? @ -No Did you speak to anyone other than the patient for history? @ -No Did you review nursing and triage notes? @ -Yes, and I agree, it is accurate with regards to the patient's symptoms. Were old charts reviewed? @ -No Differential Diagnosis? @ -Differential Dizziness: Benign paroxysmal positional Vertigo, Menieres disease, otitis media, acoustic neuroma, vertebrobasilar insufficiency, cerebellar stroke, encephalitis, hypovolemic, arrhythmia, coronary artery syndrome, anemia, this is not meant to be an all-inclusive list EKG interpreted by me (3pts min.)? @ -EKG interpreted by me demonstrating the following: Sinus rhythm. Ventricular rate 72 bpm, MD interval 163 ms, QRS duration 101 ms, QTc 395 ms. X-rays interpreted by me (1pt min.)? @ -Chest x-ray obtained. My interpretation identifies small bilateral pleural effusions. CT interpreted by me (1pt min.)? @ -CTA of the chest obtained. My interpretation identifies no evidence of a pulmonary embolus. CT scan of the brain obtained. My interpretation identifies no evidence of an acute intracranial hemorrhage. U/S interpreted by me (1pt. min.)? @ -Duplex ultrasound of the right lower extremity obtained. My interpretation identifies no evidence of a DVT. What testing was considered but not performed? (CT, X-rays, U/S, labs)? Why? @ -None What meds were considered but not given? Why? @ -None Did you discuss the management of the patient with other professionals? @ -Yes, Dr. Potts, who accepts the patient for admission. Did you reconcile home meds? @ -Yes Was smoking cessation discussed for >3mins.? @ -No Was critical care preformed (if so, how long)? @ -No Were there social determinants of health that impacted care today? How? (Homelessness, low income, unemployed, alcoholism, drug addiction, transportation, low edu. Level, literacy, decrease access to med. care, long-term, rehab)? @ -No Was there de-escalation of care discussed even if they declined? (Discuss DNR or withdrawal of care, Hospice)? @ -No What co-morbidities impacted this encounter? (DM, HTN, Smoking, COPD, CAD, Cancer, CVA, Hep., AIDS, mental health diagnosis, sleep apnea, morbid obesity)? @ -Asthma, COPD, HTN, hyperthyroidism Was patient admitted / discharged? @ -Admitted. Lab work demonstrates mild leukopenia. She also has an elevated D-dimer of 1.23. TSH is low at 0.283. Free T4 however is within normal limits at 0.93. Chest x-ray demonstrates suggestion of minimal subsegmental atelectasis of the right middle lobe, small bilateral posterior pleural effusions, and a suspected pleural plaque of the left mid lung. Given the elevated D-dimer, CTA of the chest was obtained. No evidence of a pulmonary embolus was identified. She is noted to have an ascending thoracic aortic aneurysm, gallstones, and a stable hypodensity in the liver. She was also complaining of some pain and swelling to the right leg and had a recent knee replacement. Because of this, a duplex ultrasound of the right lower extremity was obtained as well. No evidence of a DVT was identified. She does have a complex ill-defined hypoechoic collection medial to the right knee suggestive of a small postprocedural hematoma. She was initially treated with IV fluids, Toradol, and meclizine. She had some improvement in the dizziness at rest, but was still unable to move around without the dizziness returning. She was not comfortable being discharged home with the level of her dizziness. She was subsequently admitted to medicine for further management. Cepheid 4-plex testing and free T3 ordered with results pending at the time of admission. Undiagnosed new problem with uncertain prognosis? @ -None Drug Therapy requiring intensive monitoring for toxicity (Heparin, Nitro, Insulin, Cardizem)? @ -None Were any procedures done? @ -None Diagnosis/symptom? @ -Dizziness Acute, or Chronic, or Acute on Chronic? @ -Acute Uncomplicated (without systemic symptoms) or Complicated (systemic symptoms)? @ -Uncomplicated Side effects of treatment? @ -None Exacerbation, Progression, or Severe Exacerbation] @ -Not applicable Poses a threat to life or bodily function? @ -This will depend on the cause of her symptoms. This case was discussed in detail with the attending ED physician, Dr. Ruelas. Presentation, findings, and treatment plan discussed in detail as well. - Lab Data Result diagrams: 10/02/23 06:52 10/02/23 08:10 Lab Results 10/02/23 10/02/23 10/02/23 Range/Units 06:52 06:52 08:05 WBC 3.7 L (3.8-10.6) k/uL RBC 4.39 (3.80-5.40) m/uL Hgb 13.5 (11.4-16.0) gm/dL Hct 40.8 (34.0-46.0) % MCV 92.9 (80.0-100.0) fL MCH 30.8 (25.0-35.0) pg MCHC 33.2 (31.0-37.0) g/dL RDW 12.9 (11.5-15.5) % Plt Count 148 L (150-450) k/uL MPV 9.6 Neutrophils % 59 % Lymphocytes % 32 % Monocytes % 6 % Eosinophils % 2 % Basophils % 1 % Neutrophils # 2.2 (1.3-7.7) k/uL Lymphocytes # 1.2 (1.0-4.8) k/uL Monocytes # 0.2 (0-1.0) k/uL Eosinophils # 0.1 (0-0.7) k/uL Basophils # 0.0 (0-0.2) k/uL PT 10.7 (10.0-12.5) sec INR 1.0 (<1.2) APTT 30.9 H (22.0-30.0) sec D-Dimer 1.23 H (<0.60) mg/L FEU Sodium (137-145) mmol/L Potassium (3.5-5.1) mmol/L Chloride (98-107) mmol/L Carbon Dioxide (22-30) mmol/L Anion Gap mmol/L BUN (7-17) mg/dL Creatinine (0.52-1.04) mg/dL Est GFR (CKD-EPI)AfAm (>60 ml/min/1.73 sqM) Est GFR (CKD-EPI)NonAf (>60 ml/min/1.73 sqM) Glucose (74-99) mg/dL Calcium (8.4-10.2) mg/dL Total Bilirubin (0.2-1.3) mg/dL AST (14-36) U/L ALT (4-34) U/L Alkaline Phosphatase (38-126) U/L Troponin I (0.000-0.034) ng/mL Total Protein (6.3-8.2) g/dL Albumin (3.5-5.0) g/dL TSH (0.465-4.680) mIU/L Free T4 (0.78-2.19) ng/dL Urine Color Yellow Urine Appearance Clear (Clear) Urine pH 6.0 (5.0-8.0) Ur Specific [place] 1.023 (1.001-1.035) Urine Protein Trace H (Negative) Urine Glucose (UA) Negative (Negative) Urine Ketones Negative (Negative) Urine Blood Negative (Negative) Urine Nitrite Negative (Negative) Urine Bilirubin Negative (Negative) Urine Urobilinogen 2.0 (<2.0) mg/dL Ur Leukocyte Esterase Negative (Negative) 10/02/23 10/02/23 Range/Units 08:10 08:10 WBC (3.8-10.6) k/uL RBC (3.80-5.40) m/uL Hgb (11.4-16.0) gm/dL Hct (34.0-46.0) % MCV (80.0-100.0) fL MCH (25.0-35.0) pg MCHC (31.0-37.0) g/dL RDW (11.5-15.5) % Plt Count (150-450) k/uL MPV Neutrophils % % Lymphocytes % % Monocytes % % Eosinophils % % Basophils % % Neutrophils # (1.3-7.7) k/uL Lymphocytes # (1.0-4.8) k/uL Monocytes # (0-1.0) k/uL Eosinophils # (0-0.7) k/uL Basophils # (0-0.2) k/uL PT (10.0-12.5) sec INR (<1.2) APTT (22.0-30.0) sec D-Dimer (<0.60) mg/L FEU Sodium 141 (137-145) mmol/L Potassium 4.4 (3.5-5.1) mmol/L Chloride 107 (98-107) mmol/L Carbon Dioxide 29 (22-30) mmol/L Anion Gap 5 mmol/L BUN 13 (7-17) mg/dL Creatinine 0.72 (0.52-1.04) mg/dL Est GFR (CKD-EPI)AfAm >90 (>60 ml/min/1.73 sqM) Est GFR (CKD-EPI)NonAf 89 (>60 ml/min/1.73 sqM) Glucose 109 H (74-99) mg/dL Calcium 9.9 (8.4-10.2) mg/dL Total Bilirubin 0.7 (0.2-1.3) mg/dL AST 33 (14-36) U/L ALT 30 (4-34) U/L Alkaline Phosphatase 70 (38-126) U/L Troponin I <0.012 (0.000-0.034) ng/mL Total Protein 6.9 (6.3-8.2) g/dL Albumin 4.0 (3.5-5.0) g/dL TSH 0.283 L (0.465-4.680) mIU/L Free T4 0.93 (0.78-2.19) ng/dL Urine Color Urine Appearance (Clear) Urine pH (5.0-8.0) Ur Specific [place] (1.001-1.035) Urine Protein (Negative) Urine Glucose (UA) (Negative) Urine Ketones (Negative) Urine Blood (Negative) Urine Nitrite (Negative) Urine Bilirubin (Negative) Urine Urobilinogen (<2.0) mg/dL Ur Leukocyte Esterase (Negative) - Radiology Data Radiology results: report reviewed, image reviewed Disposition Clinical Impression: Dizziness Disposition: ADMITTED IP TO THIS HOSP
--- NOTE | 2023-10-02 06:58 | XR ---
EXAMINATION TYPE: XR chest 2V DATE OF EXAM: 10/02/2023 COMPARISON: 05/12/2023 INDICATION: TECHNIQUE: Frontal and lateral views of the chest are obtained. FINDINGS: The heart size is normal. Some prominence of the aortic arch may be present. Descending thoracic aor ta appears normal The pulmonary vasculature is normal. Left pleural plaque may be present. Follow-up is recommended. Mild subsegmental atelectasis is likely present at the right base. Minimal posterior pleural effusions may be present on the lateral project ion.. IMPRESSION: 1. Suggestion of minimal subsegmental atelectasis right middle lobe. 2. Small bilateral posterior pleural effusions. 3. Suspected pleural plaque left mid lung. Follow-up recommended
[2023-10-02 07:11] LABS: Basophils % (A) 1 %; Eosinophils # (A) 0.1 k/uL (0-0.7); Eosinophils % (A) 2 %; HCT 40.8 % (34.0-46.0); HGB 13.5 gm/dL (11.4-16.0); Lymphocytes # (A) 1.2 k/uL (1.0-4.8); Lymphocytes % (A) 32 %; MCH 30.8 pg (25.0-35.0); MCHC 33.2 g/dL (31.0-37.0); MCV 92.9 fL (80.0-100.0); Mean Platelet Volume 9.6; Monocytes # (A) 0.2 k/uL (0-1.0); Monocytes % (A) 6 %; Neutrophils # (A) 2.2 k/uL (1.3-7.7); Neutrophils % (A) 59 %; Platelet Count 148 k/uL (150-450); RBC 4.39 m/uL (3.80-5.40); RDW 12.9 % (11.5-15.5); WBC 3.7 k/uL (3.8-10.6)
[2023-10-02 07:40] LABS: Partial Thromboplastin Time 30.9 sec (22.0-30.0); Prothrombin Time 10.7 sec (10.0-12.5)
[2023-10-02 08:33] LABS: Appearance,Urine Clear (Clear); Bilirubin,Urine Negative (Negative); Blood,Urine Negative (Negative); Color,Urine Yellow; Glucose,Urine (UA) Negative (Negative); Ketones,Urine Negative (Negative); Leukocyte Esterase,Urine Negative (Negative); Nitrite,Urine Negative (Negative); Protein,Urine Trace (Negative); Specific Gravity,Urine 1.023 (1.001-1.035)
[2023-10-02 08:47] LABS: ALT 30 U/L (4-34); AST 33 U/L (14-36); African American GFR (CKD) >90 (>60 ml/min/1.73 sqM); Alkaline Phosphatase 70 U/L (38-126); Anion Gap 5 mmol/L; Blood Urea Nitrogen 13 mg/dL (7-17); Calcium 9.9 mg/dL (8.4-10.2); Carbon Dioxide 29 mmol/L (22-30); Chloride 107 mmol/L (98-107); Glucose 109 mg/dL (74-99); Non-African American GFR(CKD) 89 (>60 ml/min/1.73 sqM); Potassium 4.4 mmol/L (3.5-5.1); Sodium 141 mmol/L (137-145); Total Bilirubin 0.7 mg/dL (0.2-1.3); Total Protein 6.9 g/dL (6.3-8.2)
[2023-10-02] MEDS: SODIUM CHLORIDE 0.9% 1,000 ML IV STA (08:52)
[2023-10-02] MEDS: KETOROLAC 15 MG/ML 1 ML VIAL IVP STA (08:52)
[2023-10-02] MEDS: MECLIZINE 12.5 MG TAB PO STA (08:53)
--- NOTE | 2023-10-02 09:46 | CT ---
EXAMINATION TYPE: CT brain wo con DATE OF EXAM: 10/02/2023 COMPARISON: None INDICATION: dizziness DLP: 1142.4 mGycm, Automated exposure control for dose reduction was used. CONTRAST: None CT of the brain is performed utilizing 3 mm thick sections through the posterior fossa and 3 mm thick sections through the remaining calvarium. Study is performed within 24 hours of arrival to the hosp ital. No abnormal hyperdensity is present to suggest an acute intracranial hemorrhage. No mass lesion is evident. No acute infarcts are evident. Periventricular white matter hypodensity is present, likely on the bas is of chronic white matter ischemic changes. Ventricles and sulci are appropriate for the patient age. Paranasal sinuses and mastoid air cells within the [id number] are clear. IMPRESSION: 1. Mild periventricular white matter hypodensity, likely on the basis of chronic white matter ische zuly change. 2. No acute intracranial process. Follow-up MRI can be performed as clinically indicated.
[2023-10-02 09:55] LABS: T4, Free (Free Thyroxine) 0.93 ng/dL (0.78-2.19)
[2023-10-02] MEDS: SCOPOLAMINE 1 MG/72 HR PATCH TRANSDERM STA (10:01)
--- NOTE | 2023-10-02 10:28 | CT ---
CTA CHEST EXAMINATION TYPE: CT chest angio for PE DATE OF EXAM: 10/02/2023 INDICATION: elevated d-dimer CT DLP: 1425.5 mGycm, Automated exposure control for dose reduction was used. CONTRAST: Patient injected with 100 mL of Isovue 370. COMPARISON: None TECHNIQUE: CT of the chest is performed on a spiral scan at 2 mm thick sections. Study is performed with intravenous contrast timed for evaluation for pulmonary embolism. This will limit additional po rtions of the evaluation. 3-D MIP images reconstructed by the technologist are reviewed on the compu ter in the coronal and sagittal planes. FINDINGS: No persistent filling defects are evident to suggest an acute pulmonary embolism. No mediastinal or hilar adenopathy enlarged by CT criteria is evident. The ascending aorta diameter at the level of the main pulmonary artery is 4.3 cm. The main pulmonary artery diameter at the bifurcation is 3.2 cm. Lung windows are clear. Limited CT sections were through the upper abdomen. There is hypodensity within the posterior latera l right lobe liver, example series 401 image 124. This was present on a prior CT of 05/08/2023. Small gallstones of the neck of the gallbladder. Splenomegaly is likely present. IMPRESSION: 1. No acute pulmonary embolism. 2. Ascending thoracic aortic aneurysm of 4.3 cm. 3. Cholelithiasis. 4. Persistent stable appearing hypodensity posterior lateral right lobe liver
--- NOTE | 2023-10-02 11:21 | US ---
EXAMINATION TYPE: US venous doppler duplex LE RT DATE OF EXAM: 10/02/2023 10:44 AM COMPARISON: US 2016 CLINICAL INDICATION: Female, 63 years old with history of Leg pain and swelling, recent knee replacem ent; Swelling and pain x 1 week. Recent right knee replacement. Patient takes aspirin. No hx of DVT. SIDE PERFORMED: Right TECHNIQUE: The lower extremity deep venous system is examined utilizing real time linear array sonog joseph with graded compression, doppler sonography and color-flow sonography. VESSELS IMAGED: Common Femoral Vein Deep Femoral Vein Greater Saphenous Vein * Femoral Vein Popliteal Vein Small Saphenous Vein * Proximal Calf Veins (* superficial vessels) Right Leg: No evidence of DVT. *Complex fluid-appearing area seen medial right knee: 5.1 x 2.7 x 1.5 cm. IMPRESSION: 1. Right lower extremity ultrasound negative for deep venous thrombosis. 2. There is a complex ill-defined hypoechoic collection medial to the right knee. This could be a sma ll postprocedure hematoma. Follow-up can be performed as indicated.
[2023-10-02] MEDS: METOCLOPRAMIDE 5 MG/ML 2 ML VIAL IVP STA (11:54)
[2023-10-02] MEDS ORDERED: NALOXONE 0.4 MG/ML 1 ML VIAL IV PRN (12:01)
[2023-10-02] MEDS ORDERED: KETOROLAC 15 MG/ML 1 ML VIAL IVP PRN (12:01)
[2023-10-02] MEDS ORDERED: ONDANSETRON 4 MG/2 ML VIAL IVP PRN (12:01)
[2023-10-02] MEDS: SODIUM CHLORIDE 0.9% 1,000 ML IV SCH (12:49)
[2023-10-02] MEDS ORDERED: ALBUTEROL HFA INHALER INHALATION PRN (13:24)
--- NOTE | 2023-10-02 14:20 | US ---
EXAMINATION TYPE: US carotid duplex BILAT DATE OF EXAM: 10/02/2023 COMPARISON: NONE CLINICAL INDICATION: Female, 63 years old with history of Dizziness; Dizzy TECHNIQUE: Carotid duplex ultrasound examination. Indirect Doppler criteria was utilized. FINDINGS: EXAM MEASUREMENTS: RIGHT: Peak Systolic Velocity (PSV) cm/sec ----- Right CCA: 44.9 ----- Right ICA: 71.1 ----- Right ECA: 52.2 ICA/CCA ratio: 1.6 RIGHT: End Diastole cm/sec ----- Right CCA: 8.6 ----- Right ICA: 14.4 ----- Right ECA: 0 LEFT: Peak Systolic Velocity (PSV) cm/sec ----- Left CCA: 60.9 ----- Left ICA: 60.9 ----- Left ECA: 36.2 ICA/CCA ratio: 1.0 LEFT: End Diastole cm/sec ----- Left CCA: 17.3 ----- Left ICA: 18.8 ----- Left ECA: 8.9 VERTEBRALS (direction of flow): Right Vertebral: Antegrade Left Vertebral: Antegrade Rhythm: Normal [employer] NOTES: No significant stenosis seen IMPRESSION: No hemodynamically significant internal carotid artery stenosis on either side. Criteria for Assigning % of Stenosis / Diameter reduction (Estimation based on the indirect measurements of the internal carotid artery velocities (ICA PSV). 1. Normal (no stenosis)=ICA PSV < 125 cm/s: ratio < 2.0: ICA EDV<40 cm/s. 2. Less than 50% stenosis=ICA PSV < 125 cm/s: ratio < 2.0: ICA EDV<40 cm/s. 3. 50 to 69% stenosis=ICA PSV of 125 to 230 cm/s: ration 2.0 ? 4.0: ICA EDV 40-100 cm/s. 4. Greater than 70% stenosis to near occlusion= ICA PSV > 230 cm/s: ratio > 4.0: ICA EDV > 100 cm/s. 5. Near occlusion= ICA PSV velocities may be low or undetectable: variable ratio and ICA EDV. 6. Total occlusion=unable to detect flow.
[2023-10-02 15:37] LABS: Amphetamine Screen,Urine Not Detected (NotDetected); Barbiturate Screen,Urine Not Detected (NotDetected); Benzodiazepines Screen,Urine Detected (NotDetected); Cocaine Screen,Urine Not Detected (NotDetected); Methadone Screen, Urine Not Detected (NotDetected); Opiate Screen,Urine Detected (NotDetected); Oxycodone Screen, Urine Not Detected (NotDetected); Phencyclidine Screen,Urine Not Detected (NotDetected); Tricyclic Antidepressant,Urine Not Detected (NotDetected); Urn Cannabinoid Scrn Not Detected (NotDetected)
[2023-10-02] MEDS: MORPHINE SULFATE 4 MG/ML SYRINGE IV PRN (16:15)
[2023-10-02] MEDS: METOPROLOL TARTRATE 25 MG TAB PO SCH (21:14)
[2023-10-02] MEDS: ALPRAZolam 0.5 MG TAB PO PRN (21:14)
[2023-10-02] MEDS: HYDROcodone/APAP 5-325MG 1 EACH TAB PO PRN (21:14)
[2023-10-03] MEDS: ACETAMINOPHEN TAB 325 MG TAB PO PRN (01:06)
[2023-10-03] MEDS: ENOXAPARIN 40 MG/0.4 ML SYRINGE SQ SCH (08:45)
[2023-10-03] MEDS: PANTOPRAZOLE 40 MG TABLET PO SCH (08:45)
[2023-10-03] MEDS: FUROSEMIDE 20 MG TAB PO SCH (08:45)
[2023-10-03] MEDS: lisinopriL 20 MG TAB PO SCH (08:45)
[2023-10-03] MEDS: ASPIRIN 81 MG PO SCH (08:45)
[2023-10-03] MEDS: amLODIPine 5 MG TAB PO SCH (08:45)
--- NOTE | 2023-10-03 10:22 | P.HPIM ---
History of Present Illness H&P Date: 10/02/23 Alisa Cain, is a 63-year-old female who presented to [facility] with a chief complaint of dizziness and shortness of breath She was evaluated in the emergency room vital examination on presentation revealed a temperature of 98.4 pulse 77 respiration 16 blood pressure 164/89 Laboratory data reveals a white blood count of 3.7 hemoglobin 13.5 platelet count 148 D-dimer 1.23 sodium 141 potassium 4.4 chloride 107 CO2 29 BUN 13 creatinine 0.72 Testing in the emergency room revealed EKG revealed sinus rhythm with incomplete right bundle branch block, CT scan of the brain revealed mild periventricular white matter hypodensity likely on the basis of chronic white matter ischemic change, chest x-ray revealed atelectasis and small bilateral posterior pleural effusions, CT angiogram of the chest revealed no acute pulmonary embolism, ascending thoracic aortic aneurysm of 4.3 cm, cholelithiasis, and persistent stable appearing hypodensity in the posterior lateral right lobe of the liver. Patient was admitted to medical floor for further evaluation and treatment Past Medical History Past Medical History: Asthma, COPD, GERD/Reflux, Hypertension, Liver Disease, Rheumatoid Arthritis (RA) Additional Past Medical History / Comment(s): influenza A 04/27/23. 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 Hepatitis C. In 2022 Overdosed after doing cocaine laced with fentanyl. Has quit cocaine and marijiana. pt states she takes edibles. History of Any Multi-Drug Resistant Organisms: None Reported, Other MDRO Past Surgical History: Hysterectomy, Joint Replacement, Orthopedic Surgery, Tonsillectomy Additional Past Surgical History / Comment(s): lt hip fx 07/05 with pins and screws. lt knee replacement x2. rt ring finger with screws. rt thumb I&D. bronch on 05/07/23. right knee Past Anesthesia/Blood Transfusion Reactions: No Reported Reaction Additional Past Anesthesia/Blood Transfusion Reaction / Comment(s): previous blood transfusion with reaction Past Psychological History: Anxiety Smoking Status: Former smoker Past Alcohol Use History: None Reported Past Drug Use History: None Reported - Past Family History Sister(s) Family Medical History: Coronary Artery Disease (CAD) Additional Family Medical History / Comment(s): born with hole in main valve surgery 8th grade, cabg x2 during 2nd open heart age 34 Father Family Medical History: Cancer, Myocardial Infarction ([place]) Additional Family Medical History / Comment(s): from colon cancer Mother Family Medical History: Cancer Additional Family Medical History / Comment(s): from lung cancer Medications and Allergies Home Medications Medication Instructions Recorded Confirmed Type ALPRAZolam [Xanax] 0.5 mg PO TID PRN 04/30/19 10/02/23 History Albuterol Inhaler [Ventolin Hfa 1 - 2 puff INHALATION RT-Q6H PRN 04/30/19 10/02/23 History Inhaler] Metoprolol Tartrate [Lopressor] 25 mg PO BID 04/30/19 10/02/23 History Pantoprazole Sodium [Protonix] 40 mg PO DAILY 04/30/19 10/02/23 History amLODIPine [Norvasc] 5 mg PO DAILY 30 Days #30 tab 06/29/22 10/02/23 Rx Furosemide [Lasix] 20 mg PO DAILY 04/27/23 10/02/23 History lisinopriL [Zestril] 20 mg PO DAILY 04/27/23 10/02/23 History Aspirin EC [Ecotrin Low Dose] 81 mg PO DAILY 10/02/23 10/02/23 History Allergies Allergy/AdvReac Type Severity Reaction Status Date / Time adhesive tape Allergy Rash/Hives Verified 10/02/23 12:30 amoxicillin Allergy Rash/Hives Verified 10/02/23 12:30 losartan Allergy blurred Verified 10/02/23 12:30 vision,sweating,confusion,dizziness valsartan Allergy Swelling Verified 10/02/23 12:30 Physical Exam Vitals: Vital Signs Temp Pulse Resp BP Pulse Ox 10/02/23 11:18 79 18 132/92 96 10/02/23 08:00 82 16 132/89 93 L 10/02/23 04:22 98.3 F 77 164 H 164/89 97 Intake and Output 10/01/23 10/02/23 10/02/23 22:59 06:59 14:59 Other: Weight 102.058 kg In general patient is alert and oriented x 3 in no distress HEENT head normocephalic and atraumatic Neck is supple no JVD no goiter no lymphadenopathy no carotid bruit Chest examination is clear to auscultation no crackles no wheezing Cardiac exam reveals regular heart sounds S1 and S2 no gallops no murmurs Abdomen is soft nontender no organomegaly with normal bowel sounds Extremity exam reveals no edema no cyanosis or clubbing Neurological examination reveals no gross focal deficits Results CBC & Chem 7: 10/02/23 06:52 10/02/23 08:10 Labs: Abnormal Lab Results - Last 24 Hours (Table) 10/02/23 10/02/23 10/02/23 Range/Units 06:52 06:52 08:05 WBC 3.7 L (3.8-10.6) k/uL Plt Count 148 L (150-450) k/uL APTT 30.9 H (22.0-30.0) sec D-Dimer 1.23 H (<0.60) mg/L FEU Glucose (74-99) mg/dL TSH (0.465-4.680) mIU/L Urine Protein Trace H (Negative) 10/02/23 Range/Units 08:10 WBC (3.8-10.6) k/uL Plt Count (150-450) k/uL APTT (22.0-30.0) sec D-Dimer (<0.60) mg/L FEU Glucose 109 H (74-99) mg/dL TSH 0.283 L (0.465-4.680) mIU/L Urine Protein (Negative) Assessment and Plan Plan: Dizziness Episodes of shortness of breath Episodes of palpitation Elevated D-dimer without evidence of DVT or pulmonary embolism Recently diagnosed hyperthyroidism, patient has not seen endocrinology yet and has not been started on medications Underlying history of hypertension Underlying history of multinodular goiter Underlying history of tobacco abuse Underlying history of COPD Underlying history of rheumatoid arthritis Previous history of cocaine abuse History of hepatitis C At this time patient will be admitted to telemetry floor Home medications reviewed and reordered Echocardiogram and carotid Doppler ordered Urine toxicology screen ordered Cardiology consultation requested Will monitor closely
--- NOTE | 2023-10-03 11:11 | P.PN ---
Subjective Progress Note Date: 10/03/23 Alisa Cain, is a 63-year-old female who presented to [facility] with a chief complaint of dizziness and shortness of breath She was evaluated in the emergency room vital examination on presentation revealed a temperature of 98.4 pulse 77 respiration 16 blood pressure 164/89 Laboratory data reveals a white blood count of 3.7 hemoglobin 13.5 platelet count 148 D-dimer 1.23 sodium 141 potassium 4.4 chloride 107 CO2 29 BUN 13 creatinine 0.72 Testing in the emergency room revealed EKG revealed sinus rhythm with incomplete right bundle branch block, CT scan of the brain revealed mild periventricular white matter hypodensity likely on the basis of chronic white matter ischemic change, chest x-ray revealed atelectasis and small bilateral posterior pleural effusions, CT angiogram of the chest revealed no acute pulmonary embolism, ascending thoracic aortic aneurysm of 4.3 cm, cholelithiasis, and persistent stable appearing hypodensity in the posterior lateral right lobe of the liver. Patient was admitted to medical floor for further evaluation and treatment On 10/03/2023 patient is alert and oriented 3.carotid Doppler completed showing no hemodynamically significant internal carotid artery stenosis. Will consult neurology services for ongoing dizziness. Current vital signs temp 97.1, heart rate 64, respiratory rate 18, blood pressure 121/58 with pulse ox 96% on room air Objective - Vital Signs Vital signs: Vital Signs Temp 97.1 F L 10/03/23 06:39 Pulse 64 10/03/23 06:39 Resp 18 10/03/23 06:39 BP 121/58 10/03/23 06:39 Pulse Ox 96 10/03/23 06:39 FiO2 Intake & Output 10/02/23 10/03/23 10/03/23 18:59 06:59 18:59 Intake Total 1350 Balance 1350 Weight 102.058 kg Intake: IV 1350 Sodium Chloride 0.9% 1, 1350 000 ml @ 75 mls/hr IV . [id number] [facility] Rx#:[id number] Other: Voiding Method Toilet Toilet # Voids 1 - Exam In general patient is alert and oriented x 3 in no distress HEENT head normocephalic and atraumatic Neck is supple no JVD no goiter no lymphadenopathy no carotid bruit Chest examination is clear to auscultation no crackles no wheezing Cardiac exam reveals regular heart sounds S1 and S2 no gallops no murmurs Abdomen is soft nontender no organomegaly with normal bowel sounds Extremity exam reveals no edema no cyanosis or clubbing Neurological examination reveals no gross focal deficits - Labs CBC & Chem 7: 10/02/23 06:52 10/02/23 08:10 Labs: Abnormal Lab Results - Last 24 Hours (Table) 10/02/23 Range/Units 15:21 Urine Opiates Screen Detected H (NotDetected) U Benzodiazepines Scrn Detected H (NotDetected) Assessment and Plan Plan: Dizziness Episodes of shortness of breath Episodes of palpitation Elevated D-dimer without evidence of DVT or pulmonary embolism Recently diagnosed hyperthyroidism, patient has not seen endocrinology yet and has not been started on medications Underlying history of hypertension Underlying history of multinodular goiter Underlying history of tobacco abuse Underlying history of COPD Underlying history of rheumatoid arthritis Previous history of cocaine abuse History of hepatitis C At this time patient will be admitted to telemetry floor Home medications reviewed and reordered Echocardiogram and carotid Doppler ordered Urine toxicology screen ordered Cardiology consultation requested neurology services consulted Will monitor closely
--- NOTE | 2023-10-03 12:04 | P.CRDCN ---
History of Present Illness History of present illness: HISTORY OF PRESENT ILLNESS: This is a 63-year-old female with a past medical history significant for hypertension, former nicotine dependence, former cocaine use, and marijuana use. Patient follows in the office with Dr. Cutler. We have been asked to see the patient in consultation for dizziness. Patient examined at the bedside in the emergency room. Patient states she was sleeping yesterday when she woke up and was unable to sit up or stand up because she felt dizzy. She states that she had tunnel vision and fell like she was going to pass out. She reports feeling a strange sensation over her entire body. She states it is not worse if she turns her head [id number]. She reports having chest pain that has been chronic for the past 2 years. She states that she still feels slightly dizzy this morning when she was sitting on the side of the bed to eat breakfast. She denies any shortness of breath. Vital signs are stable. Bedside telemetry reveals sinus mechanism. DIAGNOSTICS: - EKG reveals sinus mechanism with no signs of acute ischemia. T wave inversions in lead III - Chest xray small bilateral pleural effusions. Suspected pleural plaque left midlung. - Chest CTA: Negative for pulmonary embolism, ascending thoracic aortic aneurysm of 4.3 cm, cholelithiasis, persistent stable appearing hypodensity posterior lateral right lobe liver - Carotid Doppler: No significant internal carotid artery stenosis bilaterally - Right lower extremity Doppler: Negative for DVT - Laboratory data: WBC 3.7. Hemoglobin 13.5. Platelet count 148. D-dimer 1.23. Sodium 141. Potassium 4.4. BUN 13. Creatinine 0.72. Troponin negative x 1. - Current home cardiac medications include aspirin 81 mg daily, Lasix 20 mg daily, lisinopril 20 mg daily, and amlodipine 5 mg daily. - Most recent echocardiogram obtained in March 2019 revealing normal EF, mild MR, mild TR - Cardiac catheterization history: 2019 revealing normal coronary arteries REVIEW OF SYSTEMS: At the time of my exam: CONSTITUTIONAL: Denies fever or chills. HEENT: Denies blurred vision, vision changes, or eye pain. Denies hemoptysis CARDIOVASCULAR: Denies chest pain. Denies orthopnea. Denies PND. Denies palpitations RESPIRATORY: Denies shortness of breath. GASTROINTESTINAL: Denies abdominal pain. Denies nausea or vomiting. HEMATOLOGIC: Denies bleeding disorders. GENITOURINARY: Denies any blood in urine. SKIN: Denies pruitis. Denies rash. PHYSICAL EXAM: VITAL SIGNS: Reviewed. GENERAL: Well-developed in no acute distress. HEENT: Head is normocephalic. Pupils are equal, round. Sclerae anicteric. Nystagmus with left gaze. Mucous membranes of the mouth are moist. Neck supple. No JVD or thyromegaly LUNGS: Respirations even and unlabored. Lungs essentially clear to auscultation bilaterally. HEART: Regular rate and rhythm. S1 and S2 heard. ABDOMEN: Soft. Nondistended. Nontender. EXTREMITIES: Normal range of motion. No clubbing or cyanosis. Peripheral pulses intact. No lower extremity edema NEUROLOGIC: Awake and alert. Oriented x 3. ASSESSMENT: Dizziness Hypertension Recent right total knee arthroplasty, 07/31/2023 Normal coronary arteries, per cardiac catheterization 2019 Former nicotine dependence Former cocaine use Marijuana use PLAN: Obtain 2D echo to assess cardiac structure and function Resume home cardiac medications Continue telemetry monitoring to assess for any arrhythmias Obtain orthostatic blood pressures Patient symptoms appear to be more neurologic related. Additionally, patient has nystagmus with left gaze. Recommend neurology consultation. Further recommendations pending patient course Nurse practitioner note has been reviewed by physician. Signing provider agrees with the documented findings, assessment, and plan of care documented by [employer] as a scribe. 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 Hepatitis C. In 2022 overdosed after doing cocaine laced with fentanyl. Has quit cocaine. Pt states she takes edibles. Leaking heart valve. Psoriasis. Hyperthyroid History of Any Multi-Drug Resistant Organisms: Other MDRO Past Surgical History: Hysterectomy, Joint Replacement, Orthopedic Surgery, Tonsillectomy Additional Past Surgical History / Comment(s): lt hip fx 07/05 with pins and screws. lt knee replacement x2. rt knee replacement. rt ring finger with screws. rt thumb I&D. bronch on 05/07/23. right knee Past Anesthesia/Blood Transfusion Reactions: No Reported Reaction Additional Past Anesthesia/Blood Transfusion Reaction / Comment(s): previous blood transfusion with reaction Past Psychological History: Anxiety, Depression Smoking Status: Former smoker Past Alcohol Use History: None Reported Additional Past Alcohol Use History / Comment(s): Smoked 25 years, 1/2 ppd, quit 04/23/23 Past Drug Use History: Cocaine, Marijuana - Past Family History Sister(s) Family Medical History: Coronary Artery Disease (CAD) Additional Family Medical History / Comment(s): born with hole in main valve surgery 8th grade, cabg x2 during 2nd open heart age 34 Father Family Medical History: Cancer, Myocardial Infarction ([place]) Additional Family Medical History / Comment(s): from colon cancer Mother Family Medical History: Cancer Additional Family Medical History / Comment(s): from lung cancer Medications and Allergies Home Medications Medication Instructions Recorded Confirmed Type ALPRAZolam [Xanax] 0.5 mg PO TID PRN 04/30/19 10/02/23 History Albuterol Inhaler [Ventolin Hfa 1 - 2 puff INHALATION RT-Q6H PRN 04/30/19 10/02/23 History Inhaler] Metoprolol Tartrate [Lopressor] 25 mg PO BID 04/30/19 10/02/23 History Pantoprazole Sodium [Protonix] 40 mg PO DAILY 04/30/19 10/02/23 History amLODIPine [Norvasc] 5 mg PO DAILY 30 Days #30 tab 06/29/22 10/02/23 Rx Furosemide [Lasix] 20 mg PO DAILY 04/27/23 10/02/23 History lisinopriL [Zestril] 20 mg PO DAILY 04/27/23 10/02/23 History Aspirin EC [Ecotrin Low Dose] 81 mg PO DAILY 10/02/23 10/02/23 History Allergies Allergy/AdvReac Type Severity Reaction Status Date / Time adhesive tape Allergy Rash/Hives Verified 10/02/23 12:30 amoxicillin Allergy Rash/Hives Verified 10/02/23 12:30 losartan Allergy blurred Verified 10/02/23 12:30 vision,sweating,confusion,dizziness valsartan Allergy Swelling Verified 10/02/23 12:30 Physical Exam Vitals: Vital Signs Temp Pulse Pulse Resp BP BP Pulse Ox 10/03/23 06:39 97.1 F L 64 18 121/58 96 10/03/23 01:14 60 18 122/74 98 10/03/23 00:00 79 16 128/74 97 10/02/23 20:52 78 15 125/75 97 10/02/23 18:00 75 17 132/92 98 10/02/23 12:00 132/92 97 10/02/23 11:18 79 18 132/92 96 10/02/23 11:00 132/89 98 10/02/23 10:00 132/89 94 L 10/02/23 09:00 132/89 96 Intake and Output 10/02/23 10/03/23 10/03/23 22:59 06:59 14:59 Intake Total 1350 Balance 1350 Intake: IV 1350 Sodium Chloride 0.9% 1, 1350 000 ml @ 75 mls/hr IV . [id number] [facility] Rx#:[id number] Other: Voiding Method Toilet Toilet # Voids 1 Weight 102.058 kg Results 10/02/23 06:52 10/02/23 08:10 Cardiac Enzymes 10/02/23 10/02/23 Range/Units 08:10 08:10 AST 33 (14-36) U/L Troponin I <0.012 (0.000-0.034) ng/mL Comprehensive Metabolic Panel 10/02/23 Range/Units 08:10 Sodium 141 (137-145) mmol/L Potassium 4.4 (3.5-5.1) mmol/L Chloride 107 (98-107) mmol/L Carbon Dioxide 29 (22-30) mmol/L BUN 13 (7-17) mg/dL Creatinine 0.72 (0.52-1.04) mg/dL Glucose 109 H (74-99) mg/dL Calcium 9.9 (8.4-10.2) mg/dL AST 33 (14-36) U/L ALT 30 (4-34) U/L Alkaline Phosphatase 70 (38-126) U/L Total Protein 6.9 (6.3-8.2) g/dL Albumin 4.0 (3.5-5.0) g/dL Current Medications Generic Name Dose Route Start Last Admin Trade Name Freq PRN Reason Stop Dose Admin Acetaminophen 650 mg 10/02/23 12:01 10/03/23 01:06 Acetaminophen Tab 325 Mg Tab PO 650 mg Q6HR PRN Administration Mild Pain or Fever > 100.5 Hydrocodone Bitart/Acetaminophen 1 each 10/02/23 12:01 10/03/23 06:50 Hydrocodone/Apap 5-325mg 1 Each Tab PO 1 each Q4HR PRN Administration Moderate Pain (Scale 4 to 6) Albuterol Sulfate 1 - 2 puff 10/02/23 13:24 Albuterol Hfa Inhaler INHALATION RT-Q6H PRN Shortness Of Breath Alprazolam 0.5 mg 10/02/23 13:24 10/02/23 21:14 Alprazolam 0.5 Mg Tab PO 0.5 mg TID PRN Administration Anxiety Amlodipine Besylate 5 mg 10/03/23 09:00 Amlodipine 5 Mg Tab PO DAILY [facility] Aspirin 81 mg 10/03/23 09:00 Aspirin 81 Mg PO DAILY [facility] Enoxaparin Sodium 40 mg 10/03/23 09:00 Enoxaparin 40 Mg/0.4 Ml Syringe SQ DAILY [facility] Furosemide 20 mg 10/03/23 09:00 Furosemide 20 Mg Tab PO DAILY [facility] Sodium Chloride 1,000 mls @ 75 mls/hr 10/02/23 12:15 10/03/23 02:46 Saline 0.9% IV 75 mls/hr .[id number] A[facility] Administration Ketorolac Tromethamine 15 mg 10/02/23 12:01 Ketorolac 15 Mg/Ml 1 Ml Vial IVP 10/05/23 12:01 Q6HR PRN Moderate Pain (Scale 4 to 6) Lisinopril 20 mg 10/03/23 09:00 Lisinopril 20 Mg Tab PO DAILY [facility] Metoprolol Tartrate 25 mg 10/02/23 21:00 10/02/23 21:14 Metoprolol Tartrate 25 Mg Tab PO 25 mg BID ASHLEY Administration Morphine Sulfate 4 mg 10/02/23 12:01 10/03/23 01:06 Morphine Sulfate 4 Mg/Ml Syringe IV 4 mg Q4HR PRN Administration Severe Pain (Scale 7 to 10) Naloxone HCl 0.2 mg 10/02/23 12:01 Naloxone 0.4 Mg/Ml 1 Ml Vial IV Q2M PRN Opioid Reversal Ondansetron HCl 4 mg 10/02/23 12:01 Ondansetron 4 Mg/2 Ml Vial IVP Q8HR PRN Nausea And Vomiting Pantoprazole Sodium 40 mg 10/03/23 09:00 Pantoprazole 40 Mg Tablet PO DAILY ASHLEY Intake and Output 10/02/23 10/03/23 10/03/23 22:59 06:59 14:59 Intake Total 1350 Balance 1350 Intake: IV 1350 Sodium Chloride 0.9% 1, 1350 000 ml @ 75 mls/hr IV . [id number] [facility] Rx#:[id number] Other: Voiding Method Toilet Toilet # Voids 1 Weight 102.058 kg 10/02/23 06:52 10/02/23 08:10
--- NOTE | 2023-10-03 12:23 | P.CNNES ---
History of Present Illness Consult date: 10/03/23 Requesting physician: Telma Potts Reason for Consult: dizziness History of Present Illness: This is a 63-year-old woman who presented emergency department because of dizziness. Patient states that she woke up today at 2:30 AM and felt dizzy and she felt the whole room spinning but she felt she is dizzy while resting and with position she felt nauseous and when she looked to the left she felt more dizzy. Denies any focal weakness numbness difficulty swallowing or difficulty getting her words out. No visual disturbance. Denies any head trauma or fall. Denies any ringing in the ears or hearing loss. Denies any recent sickness or fevers. Denies any history of stroke. States she has history of vertigo but th is felt different. She is on aspirin 81 mg daily. Denies any A-fib or flutter. Patient has underlying history of hypertension. She had a right knee replacement about 2 months ago. She also has thyroid issues and stated that she has 3 nodules. Some of the work-up during this hospital visit consisted of: TSH: 0.283 and free T4: 0.93 UDS: +ve opiates and benzo. CT head: Mild periventricular white matter hypodenisity, likely on the basis of chronic white matter ischemic change. No acute intracranial process. I personally reviewed CT head and agree there is no acute or subacute ischemic process. Carotid duplex: No hemodynamically significant internal carotid artery stenosis on either side. Review of Systems The positive and negative as per HPI. Past Medical History Past Medical History: Asthma, COPD, GERD/Reflux, Hypertension, Liver Disease, Rheumatoid Arthritis (RA) Additional Past Medical History / Comment(s): influenza A 04/27/23. 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 Hepatitis C. In 2022 Overdosed after doing cocaine laced with fentanyl. Has quit cocaine and marijiana. pt states she takes edibles. History of Any Multi-Drug Resistant Organisms: None Reported, Other MDRO Past Surgical History: Hysterectomy, Joint Replacement, Orthopedic Surgery, Tonsillectomy Additional Past Surgical History / Comment(s): lt hip fx 07/05 with pins and screws. lt knee replacement x2. rt ring finger with screws. rt thumb I&D. bronch on 05/07/23. right knee Past Anesthesia/Blood Transfusion Reactions: No Reported Reaction Additional Past Anesthesia/Blood Transfusion Reaction / Comment(s): previous blood transfusion with reaction Past Psychological History: Anxiety Smoking Status: Former smoker Past Alcohol Use History: None Reported Past Drug Use History: None Reported - Past Family History Sister(s) Family Medical History: Coronary Artery Disease (CAD) Additional Family Medical History / Comment(s): born with hole in main valve surgery 8th grade, cabg x2 during 2nd open heart age 34 Father Family Medical History: Cancer, Myocardial Infarction (NE) Additional Family Medical History / Comment(s): from colon cancer Mother Family Medical History: Cancer Additional Family Medical History / Comment(s): from lung cancer Medications and Allergies Home Medications Medication Instructions Recorded Confirmed Type ALPRAZolam [Xanax] 0.5 mg PO TID PRN 04/30/19 10/02/23 History Albuterol Inhaler [Ventolin Hfa 1 - 2 puff INHALATION RT-Q6H PRN 04/30/19 10/02/23 History Inhaler] Metoprolol Tartrate [Lopressor] 25 mg PO BID 04/30/19 10/02/23 History Pantoprazole Sodium [Protonix] 40 mg PO DAILY 04/30/19 10/02/23 History amLODIPine [Norvasc] 5 mg PO DAILY 30 Days #30 tab 06/29/22 10/02/23 Rx Furosemide [Lasix] 20 mg PO DAILY 04/27/23 10/02/23 History lisinopriL [Zestril] 20 mg PO DAILY 04/27/23 10/02/23 History Aspirin EC [Ecotrin Low Dose] 81 mg PO DAILY 10/02/23 10/02/23 History Allergies Allergy/AdvReac Type Severity Reaction Status Date / Time adhesive tape Allergy Rash/Hives Verified 10/02/23 12:30 amoxicillin Allergy Rash/Hives Verified 10/02/23 12:30 losartan Allergy blurred Verified 10/02/23 12:30 vision,sweating,confusion,dizziness valsartan Allergy Swelling Verified 10/02/23 12:30 Physical Examination - Vital Signs Vital Signs: Vital Signs Temp Pulse Pulse Resp BP BP Pulse Ox 10/03/23 06:39 97.1 F L 64 18 121/58 96 10/03/23 01:14 60 18 122/74 98 10/03/23 00:00 79 16 128/74 97 10/02/23 20:52 78 15 125/75 97 10/02/23 18:00 75 17 132/92 98 Intake and Output 10/02/23 10/03/23 10/03/23 22:59 06:59 14:59 Intake Total 1350 Balance 1350 Intake: IV 1350 Sodium Chloride 0.9% 1, 1350 000 ml @ 75 mls/hr IV . [id number] [facility] Rx#:[id number] Other: Voiding Method Toilet Toilet # Voids 1 Weight 102.058 kg GENERAL: The patient is lying in bed and is not in acute distress. NEUROLOGICAL: Higher mental function: The patient is awake, alert, oriented to self, place and time. Patient is following commands. No aphasia and no neglect. Cranial nerves: The pupils are round, equal and reactive to light and accommodation. Visual lópez are full to confrontation throughout. Extraocular movement is intact no nystagmus is noted. Facial sensation is normal to touch throughout. The facial strength is normal throughout. Hearing is normal bilaterally to hand rub. Tongue is midline and moved [id number] without any difficulty. No dysarthria is noted. Shoulder shrug is normal bilaterally. Motor: Gait is attempted but upon sitting the patient up she was dizzy so was aborted. The strength is 5 over 5 throughout uppers while lowers limited because of pain but has at least 4+ to 5- and no focality. Normal tone and bulk. Has scars over the bilateral knees (recent scar over the right knee from surgical intervention about 2 months ago). Cerebellum: Normal finger to nose heel to ortiz bilaterally. Sensation: Sensation is normal to touch throughout. Reflexes (right/left): 2+ uppers. Lowers: Patellar are 0 bilaterally (has knee replacement), ankles are 1+ bilaterally. Plantars are mute bilaterally. Results - Laboratory Findings CBC and BMP: 10/02/23 06:52 10/02/23 08:10 Abnormal Lab Findings: Abnormal Labs 10/02/23 10/02/23 10/02/23 06:52 06:52 08:05 WBC 3.7 L Plt Count 148 L APTT 30.9 H D-Dimer 1.23 H Glucose TSH Urine Protein Trace H Urine Opiates Screen U Benzodiazepines Scrn 10/02/23 10/02/23 08:10 15:21 WBC Plt Count APTT D-Dimer Glucose 109 H TSH 0.283 L Urine Protein Urine Opiates Screen Detected H U Benzodiazepines Scrn Detected H Assessment and Plan Assessment: This is a 63 y/o woman who presents because of waking-up at 2:30pm with dizziness at rest and with movement with nausea. Acute vertigo: Probable peripheral vertigo. Rule out central. Does not have any focal deficit. CT head and carotid duplex are unremarkable. Recent right knee replacement about 2 month ago Underlying history of Hypertension History of Hepattitis C History of Rheumatoid arthritis History of thyroid nodules. History of left knee replacement History of Drug use (overdose on cocaine and fentanlyl) Ex-tobacco use Plan: I ordered MRI Brain w/ and w/o. Ordered orthostatic vitals. Patient was given Meclizine 25mg once in the ED. I started the patient on Meclizine 25mg 1 tab tid schedule for 7 days and after that PRN. Cardiology is consulted. 2D echo is ordered. Patient is on home ASA 81mg daily. Will defer the rest of medical management to the primary team and other specialist. Time with Patient: Greater than 30
--- NOTE | 2023-10-03 13:03 | CA ---
Transthoracic Echo Report Name: Alisa Cain Age: 63 Gender: F : 1960 Exam Date: 10/03/2023 09:18 Exam Location: [facility] Ht (in): 64 Wt (lb): 225 Ordering Physician: Telma Potts MD Attending/Referring Phys: Manager [employer] Corinna Kaiser RDCS Procedure CPT: Indications: dizziness Cardiac Hx: Technical Quality: Fair Contrast 1: Total Dose (mL): Contrast 2: Total Dose (mL): MEASUREMENTS (Male / Female) Normal Values 2D ECHO LV Diastolic Diameter PLAX 4.6 cm 4.2 - 5.9 / 3.9 - 5.3 cm LV Systolic Diameter PLAX 3.2 cm IVS Diastolic Thickness 1.0 cm 0.6 - 1.0 / 0.6 - 0.9 cm LVPW Diastolic Thickness 1.2 cm 0.6 - 1.0 / 0.6 - 0.9 cm LV Relative Wall Thickness 0.5 RV Internal Dim ED PLAX 1.7 cm Aortic Root Diameter 3.6 cm LA Systolic Diameter LX 3.5 cm 3.0 - 4.0 / 2.7 - 3.8 cm LV Diastolic Volume MOD BP 62.6 cm??? 67 - 155 / 56 - 104 cm??? LV Systolic Volume MOD BP 20.3 cm??? 22 - 58 / 19 - 49 cm??? LV Ejection Fraction MOD BP 67.6 % >= 55 % LV Cardiac Index MOD BP 1367.0 cm???/min???m??? LV Diastolic Volume MOD 4C 54.5 cm??? LV Systolic Volume MOD 4C 23.2 cm??? LV Ejection Fraction MOD 4C 57.5 % LV Cardiac Index MOD 4C 1013.0 cm???/min???m??? LV Diastolic Length 4C 6.8 cm LV Systolic Length 4C 5.3 cm LV Diastolic Volume MOD 2C 67.8 cm??? LV Systolic Volume MOD 2C 17.3 cm??? LV Ejection Fraction MOD 2C 74.5 % LV Cardiac Index MOD 2C 1633.1 cm???/min???m??? LV Diastolic Length 2C 7.2 cm LV Systolic Length 2C 5.5 cm LA Volume 54.1 cm??? 18 - 58 / 22 - 52 cm??? LA Volume Index 24.6 cm???/m??? 16 - 28 cm???/m??? M-MODE Aortic Root Diameter MM 3.4 cm LA Systolic Diameter MM 3.8 cm LA Ao Ratio MM 1.1 AV Cusp Separation MM 1.6 cm DOPPLER MV Area PHT 2.1 cm??? Mitral E Point Velocity 59.9 cm/s Mitral A Point Velocity 91.2 cm/s Mitral E to A Ratio 0.7 MV Deceleration Time 368.4 ms TR Peak Velocity 262.7 cm/s TR Peak Gradient 27.6 mmHg Right Ventricular Systolic Press 32.1 mmHg FINDINGS Left Ventricle Left ventricular ejection fraction is estimated at 55-60 %. Mildly increased septal wall thickness. Mildly increased posterior wall thickness. Left ventricular cavity size normal. No obvious regional wall motion abnormalities. Right Ventricle Normal right ventricular size and function. Right ventricular systolic pressure within normal limits. Right Atrium Mild right atrial dilatation. Left Atrium Mildly increased left atrial volume. Mitral Valve Structurally normal mitral valve. Trace mitral regurgitation. No mitral stenosis. Aortic Valve Trileaflet aortic valve. Trace aortic regurgitation. No aortic stenosis. Tricuspid Valve Structurally normal tricuspid valve. Trace tricuspid regurgitation. No tricuspid stenosis. Pulmonic Valve Structurally normal pulmonic valve. Trace pulmonic regurgitation. Pericardium No pericardial or pleural effusion. Aorta Aorta at upper limits of normal. CONCLUSIONS Left ventricular ejection fraction 55-60% Mildly increased left ventricular wall thickness RVSP 32 Trace mitral regurgitation Trace aortic regurgitation No pericardial effusion Previewed by: Dr. Dragan Rodrigez DO (Electronically Signed) Final Date: 03 October 2023 13:02
[2023-10-03] MEDS: MECLIZINE 25 MG TAB PO SCH (13:31)
--- NOTE | 2023-10-03 17:21 | MR ---
EXAMINATION TYPE: MR brain wo/w con DATE OF EXAM: 10/03/2023 4:59 PM CLINICAL INDICATION:Female, 63 years old with history of intractable vertigo; PHH, Intractable vertig o COMPARISON: 10/02/2023 TECHNIQUE: Multi planar, multi sequence imaging was performed through the brain including: T1, T2, In version recovery, susceptibility weighted imaging and gradient echo imaging and Diffusion weighted im aging. The patient was then given intravenous contrast and multi planar, T1 fat-saturation images wer e obtained. IV Contrast: 10 cc Gadavist FINDINGS: The calvert-white junctions, ventricular system, basal cisterns appear unremarkable. Diffusion-weighted imaging shows no evidence of restricted diffusion to suggest acute/subacute infarct. Intracranial ar terial flow voids are maintained. Midline structures show no abnormality. Scattered foci of high T2 s ignal intensity are seen within the periventricular white matter. The susceptibility weighted images do not reveal any evidence for micro-hemorrhage. After administration of gadolinium, no abnormal enha ncement is seen. The bone marrow signal is within normal limits. Paranasal sinuses and mastoid air cells: No significant paranasal sinus disease. Visualized orbits: Orbital contents are intact. IMPRESSION: 1. No evidence of intracranial mass, acute/subacute infarct, or abnormal enhancement. 2. Nonspecific white matter changes, likely related to small vessel ischemic disease.
[2023-10-04 07:32] VITALS: RESP 15; TEMP 98.6
[2023-10-04 08:36] LABS: Basophils # (A) 0.04 X 10*3/uL (0.00-0.10); Basophils % (A) 0.9 %; Eosinophils # (A) 0.09 X 10*3/uL (0.04-0.35); Eosinophils % (A) 2.1 %; HCT 34.5 % (37.2-46.3); HGB 11.5 g/dL (12.0-15.0); Immature Grans, Automated 0 %; Lymphocytes # (A) 1.49 X 10*3/uL (0.90-5.00); Lymphocytes % (A) 34.7 %; MCH 30.7 pg (27.0-32.0); MCHC 33.3 g/dL (32.0-37.0); Mean Platelet Volume 11.7 FL (9.5-12.2); Monocytes # (A) 0.39 X 10*3/uL (0.20-1.00); Monocytes % (A) 9.1 %; NRBC Per 100 WBC 0 X 10*3/uL (0.00-0.01); Neutrophils # (A) 2.29 X 10*3/uL (1.80-7.70); Neutrophils % (A) 53.2 %; Platelet Count 114 X 10*3/uL (140-440); RBC 3.75 X 10*6/uL (4.10-5.20); RDW 12.7 % (11.5-14.5)
[2023-10-04 08:57] LABS: ALT 27 U/L (8-44); AST 26 U/L (13-35); Albumin 3.5 g/dL (3.8-4.9); Albumin/Globulin Ratio 1.67 Ratio (1.60-3.17); Alkaline Phosphatase 80 U/L (41-126); BUN/Creat Ratio 13.89 Ratio (12.00-20.00); Blood Urea Nitrogen 12.5 mg/dL (9.0-27.0); Calcium 9.3 mg/dL (8.7-10.3); Carbon Dioxide 26.8 mmol/L (21.6-31.8); Chloride 107 mmol/L (96-109); Globulin 2.1 g/dL (1.6-3.3); Glucose 96 mg/dL (70-110); Potassium 4.3 mmol/L (3.5-5.5); Sodium 142 mmol/L (135-145); Total Bilirubin 0.3 mg/dL (0.3-1.2); Total Protein 5.6 g/dL (6.2-8.2)
[2023-10-04 09:38] VITALS: BP 135/82; PULSE 78
--- NOTE | 2023-10-04 12:55 | P.PN ---
Subjective HISTORY OF PRESENT ILLNESS: This is a 63-year-old female with a past medical history significant for hypertension, former nicotine dependence, former cocaine use, and marijuana use. Patient follows in the office with Dr. Cutler. We have been asked to see the patient in consultation for dizziness. Patient examined at the bedside in the emergency room. Patient states she was sleeping yesterday when she woke up and was unable to sit up or stand up because she felt dizzy. She states that she had tunnel vision and fell like she was going to pass out. She reports feeling a strange sensation over her entire body. She states it is not worse if she turns her head [id number]. She reports having chest pain that has been chronic for the past 2 years. She states that she still feels slightly dizzy this morning when she was sitting on the side of the bed to eat breakfast. She denies any shortness of breath. Vital signs are stable. Bedside telemetry reveals sinus mechanism. DIAGNOSTICS: - EKG reveals sinus mechanism with no signs of acute ischemia. T wave inversions in lead III - Chest xray small bilateral pleural effusions. Suspected pleural plaque left midlung. - Chest CTA: Negative for pulmonary embolism, ascending thoracic aortic aneurysm of 4.3 cm, cholelithiasis, persistent stable appearing hypodensity posterior lateral right lobe liver - Carotid Doppler: No significant internal carotid artery stenosis bilaterally - Right lower extremity Doppler: Negative for DVT - Laboratory data: WBC 3.7. Hemoglobin 13.5. Platelet count 148. D-dimer 1.23. Sodium 141. Potassium 4.4. BUN 13. Creatinine 0.72. Troponin negative x 1. - Current home cardiac medications include aspirin 81 mg daily, Lasix 20 mg daily, lisinopril 20 mg daily, and amlodipine 5 mg daily. - Most recent echocardiogram obtained in March 2019 revealing normal EF, mild MR, mild TR - Cardiac catheterization history: 2019 revealing normal coronary arteries 10/03 patient seen and examined. Patient denies any chest pain or pressure. She is still feeling dizzy with positioning and with standing up. Orthostatics were negative. MRI of the brain was performed which showed no acute process. Neurology evaluated patient with likely peripheral vertigo. PHYSICAL EXAM: VITAL SIGNS: Reviewed. GENERAL: Well-developed in no acute distress. HEENT: Head is normocephalic. Pupils are equal, round. Sclerae anicteric. Nystagmus with left gaze. Mucous membranes of the mouth are moist. Neck supple. No JVD or thyromegaly LUNGS: Respirations even and unlabored. Lungs essentially clear to auscultation bilaterally. HEART: Regular rate and rhythm. S1 and S2 heard. ABDOMEN: Soft. Nondistended. Nontender. EXTREMITIES: Normal range of motion. No clubbing or cyanosis. Peripheral pulses intact. No lower extremity edema NEUROLOGIC: Awake and alert. Oriented x 3. ASSESSMENT: Dizziness Hypertension Recent right total knee arthroplasty, 07/31/2023 Normal coronary arteries, per cardiac catheterization 2019 Former nicotine dependence Former cocaine use Marijuana use PLAN: await 2-D echo however if unable to be performed today this may be performed outpatient. Symptoms appear more likely related to peripheral vertigo and do not appear perfusional related. Stable for discharge home with outpatient follow-up. Objective - Vital Signs Vital signs: Vital Signs Temp 98.6 F 10/04/23 07:00 Pulse 78 10/04/23 09:36 Resp 15 10/04/23 07:00 BP 135/82 10/04/23 09:36 Pulse Ox 96 10/04/23 07:00 FiO2 Intake & Output 10/03/23 10/04/23 10/04/23 18:59 06:59 18:59 Intake Total 120 240 Balance 120 240 Intake: Oral 120 240 Other: Voiding Method Toilet Toilet Toilet # Voids 4 - Labs CBC & Chem 7: 10/04/23 05:14 10/04/23 05:14 Labs: Abnormal Lab Results - Last 24 Hours (Table) 10/04/23 10/04/23 Range/Units 05:14 05:14 WBC 4.30 L (4.50-10.00) X 10*3/uL RBC 3.75 L (4.10-5.20) X 10*6/uL Hgb 11.5 L (12.0-15.0) g/dL Hct 34.5 L (37.2-46.3) % Plt Count 114 L (140-440) X 10*3/uL Total Protein 5.6 L (6.2-8.2) g/dL Albumin 3.5 L (3.8-4.9) g/dL
--- NOTE | 2023-10-04 13:42 | P.DS ---
Providers Date of admission: 10/02/23 11:56 Expected date of discharge: 10/04/23 Attending physician: Telma Potts Consults: 10/02/23 12:25 Consult Physician Routine Consulting Provider: Bhavana Cutler Consult Reason/Comments: dizziness Do you want consulting provider notified?: Yes 10/03/23 10:41 Consult Physician Routine Consulting Provider: Brady Diaz Consult Reason/Comments: Dizziness Do you want consulting provider notified?: Yes Primary care physician: Telmataylor Potts [facility] Course: Diagnosis on discharge: Dizziness Episodes of shortness of breath Episodes of palpitation Elevated D-dimer without evidence of DVT or pulmonary embolism Recently diagnosed hyperthyroidism, patient has not seen endocrinology yet and has not been started on medications Underlying history of hypertension Underlying history of multinodular goiter Underlying history of tobacco abuse Underlying history of COPD Underlying history of rheumatoid arthritis Previous history of cocaine abuse History of hepatitis C Hospital course: Alisa Cain, is a 63-year-old female who presented to [facility] with a chief complaint of dizziness and shortness of breath She was evaluated in the emergency room vital examination on presentation revealed a temperature of 98.4 pulse 77 respiration 16 blood pressure 164/89 Laboratory data reveals a white blood count of 3.7 hemoglobin 13.5 platelet count 148 D-dimer 1.23 sodium 141 potassium 4.4 chloride 107 CO2 29 BUN 13 creatinine 0.72 Testing in the emergency room revealed EKG revealed sinus rhythm with incomplete right bundle branch block, CT scan of the brain revealed mild periventricular white matter hypodensity likely on the basis of chronic white matter ischemic change, chest x-ray revealed atelectasis and small bilateral posterior pleural effusions, CT angiogram of the chest revealed no acute pulmonary embolism, ascending thoracic aortic aneurysm of 4.3 cm, cholelithiasis, and persistent stable appearing hypodensity in the posterior lateral right lobe of the liver. Patient was admitted to medical floor for further evaluation and treatment On 10/03/2023 patient is alert and oriented 3.carotid Doppler completed showing no hemodynamically significant internal carotid artery stenosis. Will consult neurology services for ongoing dizziness. Current vital signs temp 97.1, heart rate 64, respiratory rate 18, blood pressure 121/58 with pulse ox 96% on room air On 10/04/2023 patient was seen and examined on the medical floor she is alert and oriented x 3 in no apparent distress she is still complaining of dizziness when she gets up otherwise she denies any complaints there is no fever or chills no headache no chest pain no shortness of breath no cough no nausea or vomiting no abdominal pain no diarrhea no urinary symptoms. Patient was evaluated by cardiology and neurology during this admission she was cleared for discharge, she was given a prescription for meclizine, she will be followed in our office within 1 week. Plan - Discharge Summary Discharge Rx Participant: Yes New Discharge Prescriptions: New Meclizine [Antivert] 25 mg PO TID 15 Days #45 tab Continue Albuterol Inhaler [Ventolin Hfa Inhaler] 1 - 2 puff INHALATION RT-Q6H PRN PRN Reason: Shortness Of Breath ALPRAZolam [Xanax] 0.5 mg PO TID PRN PRN Reason: Anxiety Pantoprazole Sodium [Protonix] 40 mg PO DAILY Metoprolol Tartrate [Lopressor] 25 mg PO BID amLODIPine [Norvasc] 5 mg PO DAILY 30 Days #30 tab Furosemide [Lasix] 20 mg PO DAILY lisinopriL [Zestril] 20 mg PO DAILY Aspirin EC [Ecotrin Low Dose] 81 mg PO DAILY Discharge Medication List ALPRAZolam [Xanax] 0.5 mg PO TID PRN 04/30/19 [History] Albuterol Inhaler [Ventolin Hfa Inhaler] 1 - 2 puff INHALATION RT-Q6H PRN 04/30/19 [History] Metoprolol Tartrate [Lopressor] 25 mg PO BID 04/30/19 [History] Pantoprazole Sodium [Protonix] 40 mg PO DAILY 04/30/19 [History] amLODIPine [Norvasc] 5 mg PO DAILY 30 Days #30 tab 06/29/22 [Rx] Furosemide [Lasix] 20 mg PO DAILY 04/27/23 [History] lisinopriL [Zestril] 20 mg PO DAILY 04/27/23 [History] Aspirin EC [Ecotrin Low Dose] 81 mg PO DAILY 10/02/23 [History] Meclizine [Antivert] 25 mg PO TID 15 Days #45 tab 10/04/23 [Rx] Follow up Appointment(s)/Referral(s): Telma Potts MD [Primary Care Provider] - 1-2 days
--- NOTE | 2023-10-04 16:33 | P.PN ---
Subjective Progress Note Date: 10/04/23 I am following up with the patient and she feels her dizziness is improving today compared to yesterday. Denies of any new neurological issues. Objective - Vital Signs Vital signs: Vital Signs Temp 98.6 F 10/04/23 07:00 Pulse 78 10/04/23 09:36 Resp 15 10/04/23 07:00 BP 135/82 10/04/23 09:36 Pulse Ox 96 10/04/23 07:00 FiO2 Intake & Output 10/03/23 10/04/23 10/04/23 18:59 06:59 18:59 Intake Total 120 240 Balance 120 240 Intake: Oral 120 240 Other: Voiding Method Toilet Toilet Toilet # Voids 4 - Exam GENERAL: The patient is lying in bed and is not in acute distress. NEUROLOGICAL: Higher mental function: The patient is awake, alert, oriented to self, place and time. Patient is following commands. No aphasia and no neglect. Cranial nerves: The pupils are round, equal and reactive to light and accommodation. Visual lópez are full to confrontation throughout. Extraocular movement is intact no nystagmus is noted. Facial sensation is normal to touch throughout. The facial strength is normal throughout. Hearing is normal bilaterally to hand rub. Tongue is midline and moved [id number] without any difficulty. No dysarthria is noted. Shoulder shrug is normal bilaterally. Motor: The strength is 5 over 5 throughout uppers while lowers limited because of pain but has at least 4+ to 5- and no focality. Normal tone and bulk. Has scars over the bilateral knees (recent scar over the right knee from surgical intervention about 2 months ago). Cerebellum: Normal finger to nose heel to ortiz bilaterally. Sensation: Sensation is normal to touch throughout. Reflexes (right/left): 2+ uppers. Lowers: Patellar are 0 bilaterally (has knee replacement), ankles are 1+ bilaterally. Plantars are mute bilaterally. Some of the work-up during this hospital visit consisted of: Orthostatic are negative. TSH: 0.283 and free T4: 0.93 UDS: +ve opiates and benzo. CT head: Mild periventricular white matter hypodenisity, likely on the basis of chronic white matter ischemic change. No acute intracranial process. I per sonally reviewed CT head and agree there is no acute or subacute ischemic process. Carotid duplex: No hemodynamically significant internal carotid artery stenosis on either side. MRI of the brain is reported as no evidence of intracranial mass, acute/subacute infarct or abnormal enhancement. Nonspecific white matter changes, likely related to small vessel ischemic disease. The echo was reported as left ventricle ejection fraction 55 to 60%. Mild increased left ventricular wall thickness. - Labs CBC & Chem 7: 10/04/23 05:14 10/04/23 05:14 Labs: Abnormal Lab Results - Last 24 Hours (Table) 10/04/23 10/04/23 Range/Units 05:14 05:14 WBC 4.30 L (4.50-10.00) X 10*3/uL RBC 3.75 L (4.10-5.20) X 10*6/uL Hgb 11.5 L (12.0-15.0) g/dL Hct 34.5 L (37.2-46.3) % Plt Count 114 L (140-440) X 10*3/uL Total Protein 5.6 L (6.2-8.2) g/dL Albumin 3.5 L (3.8-4.9) g/dL Assessment and Plan Assessment: This is a 63 y/o woman who presents because of waking-up at 2:30pm with dizziness at rest and with movement with nausea. Acute vertigo: Probable peripheral vertigo. Rule out central. Does not have any focal deficit. MRI of the brain is unremarkable for acute or subacute process. Patient's symptoms is improving Recent right knee replacement about 2 month ago Underlying history of Hypertension History of Hepattitis C History of Rheumatoid arthritis History of thyroid nodules. History of left knee replacement History of Drug use (overdose on cocaine and fentanlyl) Ex-tobacco use Plan: MRI of the brain is unremarkable. Orthostatic is negative. Patient was given Meclizine 25mg once in the ED. I started the patient on Meclizine 25mg 1 tab tid schedule for 7 days and after that PRN. Patient continues to have dizziness recommend ENT as an outpatient and follow-up with vestibular rehab therapy. Cardiology is consulted. Patient is on home ASA 81mg daily. Will defer the rest of medical management to the primary team and other specialist. No further neurological workup. Will sign off. Please reconsult if needed. Time with Patient: Less than 30
== END 2023-10-04 14:23 | disposition home or self-care (01) ==
LOC: EC 04:18 → 6NMEDSUR 11:56
PROVIDERS: ADMIT Internal Medicine; ATTEND Internal Medicine
DX: R42 Dizziness and giddiness (principal); R06.02 Shortness of breath; E05.90 Thyrotoxicosis, unspecified without thyrotoxic crisis or storm; R79.89 Other specified abnormal findings of blood chemistry; R00.2 Palpitations; J44.9 Chronic obstructive pulmonary disease, unspecified; K21.9 Gastro-esophageal reflux disease without esophagitis; F41.9 Anxiety disorder, unspecified; I10 Essential (primary) hypertension; F12.90 Cannabis use, unspecified, uncomplicated; F32.A Depression, unspecified; F14.11 Cocaine abuse, in remission; M06.9 Rheumatoid arthritis, unspecified; E04.2 Nontoxic multinodular goiter; Z86.19 Personal history of other infectious and parasitic diseases; Z87.891 Personal history of nicotine dependence; Z96.653 Presence of artificial knee joint, bilateral; Z79.899 Other long term (current) drug therapy; Z79.82 Long term (current) use of aspirin; Z88.0 Allergy status to penicillin; Z11.52 Encounter for screening for COVID-19
CPT/HCPCS: 96361 ×4; 96372 ×2; 96376 ×2; 96374; 96375; 99285; 36415; 93005; 93306; 97162; 85379; 84439; 84481; 80053 ×2; 84443; 84484; 85025 ×2; 85610; 85730; 81003; 80306; 87636; 71046; 93971; 93880; 70450; 71275; 70553; G0378 ×3; J2270 ×2; J2765; J1650 ×2; J1885; Q9967; A9585

== ENCOUNTER → 2024-01-14 | Outpatient (CLI) | payer MEDICARE ==
--- NOTE | 2024-01-14 10:37 | CT ---
EXAMINATION TYPE: CT chest wo con CT DLP: 637.4 mGycm, Automated exposure control for dose reduction was used. DATE OF EXAM: 01/14/2024 10:07 AM COMPARISON: CTA chest 10/02/2023, CT chest 05/08/2023, 07/25/2022, CT abdomen 08/04/2022 CLINICAL INDICATION:Female, 63 years old with history of I71.20 thoracic aneurysm; PHH, thoracic aort ic aneurysm TECHNIQUE: Multiple axial images were obtained through the chest without IV contrast. Lack of IV or o ral contrast limits evaluation of solid and hollow organ viscera. . Coronal and sagittal reformats re viewed. FINDINGS: LUNGS/ PLEURA: No pleural effusion, pneumothorax, focal consolidation. Few slightly diminished nodula r densities within the periphery of the right midlung laterally. Measures up to 4 mm. No new suspicio us pulmonary nodule or mass. AIRWAY: Patent and unremarkable.. HEART: Size within normal limits. No pericardial effusion. Small coronary artery calcifications. MEDIASTINUM: No gross evidence of adenopathy. VASCULATURE: Stable aneurysm dilatation of the ascending thoracic aorta measuring up to 4.2 cm at th e level of the main pulmonary artery. MUSCULOSKELETAL: Mild disc degeneration changes are present throughout the thoracolumbar spine. SOFT TISSUES/LYMPH NODES: Unremarkable. LOWER NECK: No significant findings. UPPER ABDOMEN: Cholelithiasis. Mildly enlarged spleen measuring 15.3 cm in AP dimension. Relatively s table 4.3 cm hypodense lesion within the posterior right hepatic lobe. IMPRESSION: 1. Stable ascending thoracic aortic aneurysm measuring up to 4.2 cm. 2. Slightly diminished nodular peripheral small densities within the right lateral midlung. No new o r enlarging pulmonary nodularity. Probable infectious/inflammatory etiology. 3. Mildly enlarged spleen redemonstrated. 4. Relatively stable hypodense lesion within the posterior right hepatic lobe which is previously re ported as a hemangioma. 5. Cholelithiasis. [facility], , 01/14/2024 10:34 AM
== END | disposition home or self-care (01) ==
LOC: RADCTMAIN 09:50
PROVIDERS: ATTEND Surgery
CPT/HCPCS: 71250

== ENCOUNTER → 2024-01-18 | Outpatient (CLI) | payer MEDICARE ==
--- NOTE | 2024-01-18 11:51 | US ---
EXAMINATION TYPE: US abdomen complete DATE OF EXAM: 01/18/2024 COMPARISON: 07/20/2023, CT 10/02/2023 CLINICAL INDICATION: Female, 63 years old with history of R10.84 GENERALIZED ABDOMINAL PAIN; Abdomina l pain TECHNIQUE: Grayscale imaging of the abdomen was performed. FINDINGS: EXAM MEASUREMENTS: Liver Length: 18.2 cm Gallbladder Wall: 0.3 cm Spleen: 16.7 cm Right Kidney: 11.2 x 4.2 x 4.1 cm Left Kidney: 12.5 x 4.4 x 4.2 cm PROFESSOR OF GRAPHIC DESIGN NOTES: Technical limitations due to patient's body habitus and large amount of overlyin g bowel gas Pancreas: Obscured by bowel gas Liver: limited evaluation, enlarged Gallbladder: stone = 0.7cm Evidence for sonographic Liao's sign: yes CBD: Obscured by overlying bowel gas Spleen: enlarged Right Kidney: no evidence of hydronephrosis Left Kidney: no evidence of hydronephrosis Upper IVC: wnl Abd Aorta: Obscured by overlying bowel gas The liver is homogenous. The intrahepatic portion of the IVC and proximal abdominal aorta are within normal limits. There is no evidence of cholelithiasis. Common bile duct is unremarkable. The visu alized portions of the pancreas are homogenous. The spleen is unremarkable. Kidneys are symmetric a nd free of hydronephrosis. No renal lesions are seen. IMPRESSION: No evidence for acute process. Cholelithiasis. [facility], , 01/18/2024 11:49 AM
== END | disposition home or self-care (01) ==
LOC: RADUSWWP 09:54
PROVIDERS: ATTEND Internal Medicine
DX: K80.20 Calculus of gallbladder without cholecystitis without obstruction (principal)
CPT/HCPCS: 76700

== ENCOUNTER 2024-02-12 07:15 | Day surgery (SDC) | payer MEDICARE ==
[2024-02-08 17:16] VITALS: BMI 38.9
[~2024-02-12 07:15] MED LIST changes: -LIDOCAINE 1% (10MG/ML) FOR IV START INTRADERMA PRN; -TRANEXAMIC 1,000 MG/100ML-NACL 1,000 MG in SALINE 1 100ML.BAG IVPB PRN; +fentaNYL (PF) 50 MCG/ML 2 ML AMP IVP PRN
[2024-02-12] MEDS: ONDANSETRON 4 MG/2 ML VIAL IVP ONE (07:44)
[2024-02-12] MEDS: HEPARIN SODIUM,PORCINE 5,000 UNIT/ML 1 ML VIAL SQ PRN (07:44)
[2024-02-12] MEDS: LACTATED RINGERS 1,000 ML IV SCH (07:45)
[2024-02-12] MEDS: ACETAMINOPHEN TAB 500 MG TAB PO PRN (07:45)
[2024-02-12] MEDS: DEXAMETHASONE SOD PHOSPHATE 4 MG/ML 1 ML VIAL IV ONE (07:45)
[2024-02-12] MEDS: IV FLUID CONTINUATION 1,000 ML IV ONE ×3 (07:46→11:24)
[2024-02-12 07:53] LABS: Basophils % (A) 1 %; Eosinophils # (A) 0.1 k/uL (0-0.7); Eosinophils % (A) 4 %; HCT 38.9 % (34.0-46.0); HGB 13.2 gm/dL (11.4-16.0); Lymphocytes # (A) 1.2 k/uL (1.0-4.8); Lymphocytes % (A) 41 %; MCHC 33.9 g/dL (31.0-37.0); MCV 91.6 fL (80.0-100.0); Mean Platelet Volume 8.7; Monocytes # (A) 0.2 k/uL (0-1.0); Monocytes % (A) 7 %; Neutrophils # (A) 1.3 k/uL (1.3-7.7); Neutrophils % (A) 46 %; Platelet Count 109 k/uL (150-450); RBC 4.25 m/uL (3.80-5.40); RDW 12.7 % (11.5-15.5); WBC 2.8 k/uL (3.8-10.6)
[2024-02-12] MEDS ORDERED: PHENYLEPHRINE-0.9% NACL SYG 1,000 MCG/10 ML SYRINGE ONE (07:55)
[2024-02-12] MEDS ORDERED: ROCURONIUM 10 MG/ML (5 ML VIAL) IV ONE (07:55)
[2024-02-12] MEDS ORDERED: SUCCINYLCHOLINE CHLORIDE 200 MG/10 ML VIAL IV ONE (07:55)
[2024-02-12] MEDS ORDERED: GLYCOPYRROLATE 0.2 MG/ML 2 ML VIAL ONE (07:55)
[2024-02-12] MEDS ORDERED: PROPOFOL 10 MG/ML 20 ML VIAL IV ONE (07:55)
[2024-02-12] MEDS ORDERED: NEOSTIGMINE 1 MG/ML 10 ML VIAL ONE (07:55)
[2024-02-12] MEDS ORDERED: fentaNYL (PF) 50 MCG/ML 2 ML AMP ONE (07:55)
[2024-02-12] MEDS ORDERED: MIDAZOLAM 2 MG/2 ML VIAL ONE (07:55)
[2024-02-12 08:11] LABS: INR 0.9 (<1.2); Partial Thromboplastin Time 34.4 sec (22.0-30.0); Prothrombin Time 10.4 sec (10.0-12.5)
[2024-02-12] MEDS: LIDOCAINE 1%-EPI 1:100,000 20 ML VIAL SQ ONE (08:22)
[2024-02-12 08:32] LABS: ALT 26 U/L (4-34); AST 25 U/L (14-36); African American GFR (CKD) 76 (>60 ml/min/1.73 sqM); Albumin 3.8 g/dL (3.5-5.0); Alkaline Phosphatase 76 U/L (38-126); Anion Gap 7 mmol/L; Blood Urea Nitrogen 13 mg/dL (7-17); Calcium 9.4 mg/dL (8.4-10.2); Carbon Dioxide 26 mmol/L (22-30); Chloride 108 mmol/L (98-107); Glucose 119 mg/dL (74-99); Non-African American GFR(CKD) 66 (>60 ml/min/1.73 sqM); Potassium 3.9 mmol/L (3.5-5.1); Sodium 141 mmol/L (137-145); Total Bilirubin 0.6 mg/dL (0.2-1.3); Total Protein 6.7 g/dL (6.3-8.2)
--- NOTE | 2024-02-12 08:50 | P.OP ---
Date of Procedure: 02/12/24 Preoperative Diagnosis: Cholecystitis Cholelithiasis Postoperative Diagnosis: Cholecystitis Cholelithiasis Procedure(s) Performed: Laparoscopic cholecystectomy Anesthesia: CHIDI Surgeon: Abdi Rolon Estimated Blood Loss (ml): 5 Pathology: other (Gallbladder) Condition: stable Disposition: PACU Description of Procedure: The patient's placed on the operative table in the supine position. The patient received general endotracheal anesthesia. His abdomen was prepped with sterile fashion. An infraumbilical skin incision was made. The Veress needles positioned into the peritoneal cavity. Position of the Veress needle was confirmed with a positive drop test. The abdomen was then insufflated. After adequate insufflation a 5 mm trochars placed. Cavity. Next the laparoscope placed. Cavity. A 8 mm robotic trocar was placed in the left mid abdomen. A a 8 mm robotic trochars placed in the right lateral position and then the right mid abdomen position. The patient was then placed in reverse Trendelenburg. Patient with was docked to the robot. There were adhesions to the dome of the gallbladder. These were lysed using the hook cautery. The gallbladder fundus was then grasped with a pro-grasp grasper. And then the gallbladder was retracted cephalad. There were adhesions along the body of the gallbladder. These were lysed with sharp dissection. The fundus of the gallbladder was then grasped in the lateral traction was placed in the fundus. And then using blunt and sharp dissection the cystic duct was identified. Using firing applied the cystic duct was identified. A critical view of safety was achieved. The cystic duct was seen entering the common bile duct the common hepatic duct was seen. The cystic duct had been completely dissected and then the cystic duct was clipped and divided. The cystic artery was then identified and then clipped and divided. The gallbladder was then removed from liver bed using left cautery. The gallbladder was placed in a 5 mm Endo Catch bag. The liver bed was hemostasis. There is no bleeding seen. The abdomen was irrigated. No bleeding was seen. The patient was then undocked from the robot. The gallbladder was extracted through the umbilical port site. The umbilical port site was then closed with 0 Ethibond suture. The trochars withdrawn. Skin was closed interrupted 3-0 Monocryl suture. Dermabond dressing applied. Patient top she will was sent to recovery room in stable condition.
[2024-02-12 08:58] VITALS: TEMP 97
[2024-02-12] MEDS: HYDROmorphone 0.5 MG/0.5 ML SYRINGE IVP PRN (09:00)
[2024-02-12 10:14] VITALS: RESP 18
[2024-02-12] MEDS: LIDOCAINE 1% (10MG/ML) FOR IV START INTRADERMA PRN (11:22)
[2024-02-12 11:51] VITALS: BP 111/78; PULSE 76
== END 2024-02-12 11:57 | disposition home or self-care (01) ==
LOC: OR 07:15
PROVIDERS: ATTEND Surgery
DX: K80.10 Calculus of gallbladder with chronic cholecystitis without obstruction (principal); I10 Essential (primary) hypertension; I71.9 Aortic aneurysm of unspecified site, without rupture; B19.20 Unspecified viral hepatitis C without hepatic coma; J45.909 Unspecified asthma, uncomplicated; K21.9 Gastro-esophageal reflux disease without esophagitis; M19.90 Unspecified osteoarthritis, unspecified site; Z79.2 Long term (current) use of antibiotics; Z79.899 Other long term (current) drug therapy; Z87.01 Personal history of pneumonia (recurrent); Z96.652 Presence of left artificial knee joint; Z88.8 Allergy status to other drugs, medicaments and biological substances; Z80.0 Family history of malignant neoplasm of digestive organs
CPT/HCPCS: 47562; S2900; 80053; 85025; 85610; 85730; 88304

== ENCOUNTER 2024-02-18 19:47 | Emergency (ER) | payer MEDICARE ==
[2024-02-18 22:14] LABS: Basophils % (A) 1 %; Eosinophils # (A) 0.2 k/uL (0-0.7); Eosinophils % (A) 3 %; HCT 41.2 % (34.0-46.0); HGB 13.5 gm/dL (11.4-16.0); Lymphocytes # (A) 1.5 k/uL (1.0-4.8); Lymphocytes % (A) 31 %; MCHC 32.8 g/dL (31.0-37.0); MCV 91.3 fL (80.0-100.0); Mean Platelet Volume 8.3; Monocytes # (A) 0.3 k/uL (0-1.0); Monocytes % (A) 6 %; Neutrophils # (A) 2.7 k/uL (1.3-7.7); Neutrophils % (A) 57 %; Platelet Count 125 k/uL (150-450); RBC 4.52 m/uL (3.80-5.40); RDW 12.9 % (11.5-15.5); WBC 4.7 k/uL (3.8-10.6)
[2024-02-18 22:38] LABS: ALT 21 U/L (4-34); AST 19 U/L (14-36); African American GFR (CKD) 64 (>60 ml/min/1.73 sqM); Alkaline Phosphatase 65 U/L (38-126); Amylase 41 U/L (30-110); Anion Gap 8 mmol/L; Blood Urea Nitrogen 11 mg/dL (7-17); Calcium 9.5 mg/dL (8.4-10.2); Carbon Dioxide 29 mmol/L (22-30); Chloride 103 mmol/L (98-107); Glucose 115 mg/dL (74-99); Lipase 59 U/L (23-300); Non-African American GFR(CKD) 55 (>60 ml/min/1.73 sqM); Potassium 4.1 mmol/L (3.5-5.1); Sodium 140 mmol/L (137-145); Total Bilirubin 0.8 mg/dL (0.2-1.3); Total Protein 6.7 g/dL (6.3-8.2)
[2024-02-18 23:57] LABS: Appearance,Urine Clear (Clear); Bilirubin,Urine Negative (Negative); Blood,Urine Negative (Negative); Color,Urine Yellow; Glucose,Urine (UA) Negative (Negative); Ketones,Urine Negative (Negative); Leukocyte Esterase,Urine Negative (Negative); Nitrite,Urine Negative (Negative); PH, Urine 7.5 (5.0-8.0); Protein,Urine Trace (Negative); Specific Gravity,Urine 1.018 (1.001-1.035)
--- NOTE | 2024-02-19 01:41 | CT ---
EXAM: CT Cervical Spine Without Intravenous Contrast CLINICAL HISTORY: ITS.REASON CT Reason: fall down stairs, neck pain TECHNIQUE: Axial computed tomography images of the cervical spine without intravenous contrast. CTDI is 21.9 mGy and DLP is 521.4 mGy-cm. This CT exam was performed using one or more of the following dose reduction techniques: automated exposure control, adjustment of the mA and/or kV according to patient size, and/or use of iterative reconstruction technique. COMPARISON: No relevant prior studies available. FINDINGS: Brain and extra-axial spaces: Low attenuation area in the posterior RIGHT hepatic lobe measures approximately 3.6 x 2.4 cm. Recommend nonemergent abdominal ultrasound. Vertebrae: Unremarkable. No acute fracture. Discs/spinal canal/neural foramina: Degenerative changes of the spine. No spinal canal stenosis. Soft tissues: Unremarkable. Vasculature: Atherosclerotic changes of the aorta. Other findings: Diverticulosis, without acute diverticulitis. No small bowel obstruction. No free intraperitoneal air. Hysterectomy. Splenomegaly measuring up to 16 cm. LEFT hip ORIF. No acute appendicitis. IMPRESSION: 1. Diverticulosis, without acute diverticulitis. No small bowel obstruction. No free intraperitoneal air. 2. Hysterectomy. 3. Splenomegaly measuring up to 16 cm. 4. Low attenuation area in the posterior RIGHT hepatic lobe measures approximately 3.6 x 2.4 cm. Recommend nonemergent abdominal ultrasound.
--- NOTE | 2024-02-19 01:58 | XR ---
EXAM: XR Chest, 1 View CLINICAL HISTORY: ITS.REASON XR Reason: fall, left clavicle pain TECHNIQUE: Frontal view of the chest. COMPARISON: No relevant prior studies available. FINDINGS: Lungs: Unremarkable. No consolidation. Pleural space: Trace bilateral pleural effusions. No pneumothorax. Heart: Unremarkable. No cardiomegaly. Mediastinum: Unremarkable. Normal mediastinal contour. Bones/joints: Unremarkable. No acute fracture. IMPRESSION: Trace bilateral pleural effusions.
--- NOTE | 2024-02-19 02:13 | US ---
EXAM: US Duplex Bilateral Lower Extremities Veins CLINICAL HISTORY: ITS.REASON US Reason: leg swelling, post surgery TECHNIQUE: Real-time duplex ultrasound scan of the bilateral lower extremity veins integrating B-mode two-dimensional vascular structure, Doppler spectral analysis, color flow Doppler aging and Impression. COMPARISON: No relevant prior studies available. FINDINGS: Right deep veins: Unremarkable. No DVT in the right common femoral, femoral, proximal deep femoral or popliteal veins. The veins demonstrate normal color flow, are normally compressible, with normal phasic flow and/or augmentation response. Right superficial veins: Unremarkable. No thrombus in the visualized right great saphenous vein. Left deep veins: Unremarkable. No DVT in the left common femoral, femoral, proximal deep femoral or popliteal veins. The veins demonstrate normal color flow, are normally compressible, with normal phasic flow and/or augmentation response. Left superficial veins: Unremarkable. No thrombus in the visualized left great saphenous vein. Soft tissues: RIGHT Church cyst, measures 3.2 x 1.8 x 2.0 cm. IMPRESSION: No DVT in the bilateral lower extremities.
--- NOTE | 2024-02-19 02:46 | XR ---
EXAM: XR Left Shoulder Complete, 2 or More Views CLINICAL HISTORY: ITS.REASON XR Reason: pain after fall TECHNIQUE: Two or more views of the left shoulder. COMPARISON: No relevant prior studies available. FINDINGS: Bones/joints: Diffuse osseous demineralization. Old fracture of the LEFT proximal humerus surgical neck. No acute fracture or dislocation. Soft tissues: Unremarkable. IMPRESSION: 1. No acute fracture or dislocation. 2. Old fracture of the LEFT proximal humerus surgical neck.
--- NOTE | 2024-02-19 03:00 | CT ---
EXAM: CT Abdomen and Pelvis With Intravenous Contrast CLINICAL HISTORY: ITS.REASON CT Reason: fall, abd pain, recent surgery, bleeding from site TECHNIQUE: Axial computed tomography images of the abdomen and pelvis with intravenous contrast. CTDI is 34.4 mGy and DLP is 1599.3 mGy-cm. This CT exam was performed using one or more of the following dose reduction techniques: automated exposure control, adjustment of the mA and/or kV according to patient size, and/or use of iterative reconstruction technique. COMPARISON: No relevant prior studies available. FINDINGS: Lung bases: Unremarkable. No mass. No consolidation. ABDOMEN: Liver: Low-attenuation lesion in the RIGHT hepatic lobe measures 3.6 x 2.4 cm. Recommend nonemergent ultrasound correlation. Gallbladder and bile ducts: Cholecystectomy. No ductal dilation. Pancreas: Unremarkable. No mass. No ductal dilation. Spleen: Splenomegaly, measures up to 16 cm. Adrenals: Unremarkable. No mass. Kidneys and ureters: Unremarkable. No solid mass. No hydronephrosis. Stomach and bowel: Diverticulosis, without acute diverticulitis. No small bowel obstruction. No free intraperitoneal air. PELVIS: Appendix: No findings to suggest acute appendicitis. Bladder: Unremarkable. No mass. Reproductive: Hysterectomy. ABDOMEN and PELVIS: Intraperitoneal space: Unremarkable. No free air. No significant fluid collection. Bones/joints: Degenerative changes of the spine. LEFT hip ORIF. No acute fracture. No dislocation. Soft tissues: Unremarkable. Vasculature: Atherosclerotic changes of the aorta. No abdominal aortic aneurysm. Lymph nodes: Unremarkable. No enlarged lymph nodes. IMPRESSION: 1. Low-attenuation lesion in the RIGHT hepatic lobe measures 3.6 x 2.4 cm. Recommend nonemergent ultrasound correlation. 2. Splenomegaly, measures up to 16 cm. 3. Cholecystectomy. 4. Hysterectomy. 5. LEFT hip ORIF. 6. Diverticulosis, without acute diverticulitis. No small bowel obstruction. No free intraperitoneal air.
--- NOTE | 2024-02-19 03:43 | ED ---
Abdominal Pain HPI - General Chief Complaint: Abdominal Pain Stated Complaint: Fall-Abd Pain-Post Surgery Time Seen by Provider: 02/18/24 21:00 Source: patient Mode of arrival: ambulatory Limitations: no limitations - History of Present Illness Initial Comments: 63-year-old female presents emergency department with abdominal pain, Left shoulder pain and head injury. Patient reports to recently having her gallbladder taken out. She had a fall on Sunday night where she hit the back of her head. Denies loss of consciousness. Does admit to some acute right- sided neck pain. She also began having some left shoulder pain and right upper quadrant abdominal pain. Patient does not take any blood thinners. Denies any chest pain or difficulty breathing. No changes in her bowel or bladder habits. Denies any visual changes, headache. No numbness, tingling or weakness in her extremities. No other alleviating, precipitating modifying factors - Related Data Home Medications Medication Instructions Recorded Confirmed ALPRAZolam [Xanax] 0.5 mg PO TID PRN 04/30/19 02/08/24 Albuterol Inhaler [Ventolin Hfa 1 - 2 puff INHALATION RT-Q6H PRN 04/30/19 02/12/24 Inhaler] Metoprolol Tartrate [Lopressor] 25 mg PO BID 04/30/19 02/12/24 Pantoprazole Sodium [Protonix] 40 mg PO QAM 04/30/19 02/08/24 Furosemide [Lasix] 20 mg PO QAM 04/27/23 02/12/24 lisinopriL [Zestril] 20 mg PO QAM 04/27/23 02/08/24 Aspirin EC [Ecotrin Low Dose] 81 mg PO DAILY 10/02/23 02/08/24 Potassium Chloride [Klor-Con M10] 10 meq PO QAM 02/08/24 02/08/24 Vit D(Unknown Dose) 1 dose PO QMONTHLY 02/08/24 02/08/24 amLODIPine [Norvasc] 5 mg PO QAM 02/08/24 02/08/24 Previous Rx's Medication Instructions Recorded Acetaminophen Tab [Tylenol] 650 mg PO Q6H #30 tab 02/12/24 Docusate [Colace] 100 mg PO BID #20 capsule 02/12/24 Ibuprofen [Motrin] 600 mg PO Q6HR PRN #40 tab 02/12/24 oxyCODONE HCL [OxyIR] 5 mg PO Q6H PRN 3 Days #10 tab 02/12/24 oxyCODONE HCL [oxyCODONE HCL (IR)] 5 mg PO Q6H PRN 3 Days #12 cap 02/19/24 Allergies Allergy/AdvReac Type Severity Reaction Status Date / Time adhesive tape Allergy Rash/Hives Verified 02/18/24 20:02 amoxicillin Allergy Rash/Hives Verified 02/18/24 20:02 losartan Allergy blurred Verified 02/18/24 20:02 vision,sweating,confusion,dizziness valsartan Allergy Swelling Verified 02/18/24 20:02 Review of Systems ROS Statement: Those systems with pertinent positive or pertinent negative responses have been documented in the HPI. ROS Other: All systems not noted in ROS Statement are negative. Past Medical History Past Medical History: Asthma, Chest Pain / Angina, GERD/Reflux, Hypertension, Liver Disease, Rheumatoid Arthritis (RA), Thyroid Disorder Additional Past Medical History / Comment(s): influenza A 04/27/23. Recent pneumonia- 3 weeks ago-Jan 2024. 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 Hepatitis C. In 2022 Overdosed after doing cocaine laced with fentanyl. Has quit cocaine. pt states she takes Marijuana edibles. History of Any Multi-Drug Resistant Organisms: None Reported, Other MDRO Past Surgical History: Hysterectomy, Joint Replacement, Orthopedic Surgery, Tonsillectomy Additional Past Surgical History / Comment(s): lt hip fx 07/05 with pins and screws Rt total knee 2023. Colonoscopy x 2, EGD, "Chest flush"-2023. lt knee replacement x2. rt ring finger with screws. rt thumb I&D. bronch on 05/07/23. right knee Past Anesthesia/Blood Transfusion Reactions: No Reported Reaction Additional Past Anesthesia/Blood Transfusion Reaction / Comment(s): previous blood transfusion with reaction Past Psychological History: Anxiety Smoking Status: Former smoker - Past Family History Sister(s) Family Medical History: Coronary Artery Disease (CAD) Additional Family Medical History / Comment(s): born with hole in main valve surgery 8th grade, cabg x2 during 2nd open heart age 36 Father Family Medical History: Cancer, Myocardial Infarction ([place]) Additional Family Medical History / Comment(s): from colon cancer Mother Family Medical History: Cancer Additional Family Medical History / Comment(s): from lung cancer General Exam Limitations: no limitations General appearance: alert, in no apparent distress Head exam: Present: atraumatic, normocephalic, normal inspection Eye exam: Present: normal appearance, PERRL, EOMI. Absent: scleral icterus, conjunctival injection, periorbital swelling ENT exam: Present: normal exam, mucous membranes moist Neck exam: Present: tenderness (Paraspinal tenderness on the right side. No midline pain). Absent: meningismus, lymphadenopathy Respiratory exam: Present: normal lung sounds bilaterally. Absent: respiratory distress, wheezes, rales, rhonchi, stridor Cardiovascular Exam: Present: regular rate, normal rhythm, normal heart sounds. Absent: systolic murmur, diastolic murmur, rubs, gallop, clicks GI/Abdominal exam: Present: soft, tenderness (Mild right upper quadrant pain with some dried blood near the patient's umbilical incision), normal bowel sounds. Absent: distended, guarding, rebound, rigid Extremities exam: Present: normal inspection, normal capillary refill, other (Decreased range of motion of the left arm due to pain. Patient cannot elevate above 90 degrees. Equal wholesale buyer strength). Absent: tenderness, pedal edema, joint swelling, calf tenderness Back exam: Present: normal inspection Neurological exam: Present: alert, oriented X3, CN II-XII intact Psychiatric exam: Present: normal affect, normal mood Skin exam: Present: warm, dry, intact, normal color. Absent: rash Course Vital Signs 02/18/24 02/18/24 02/19/24 20:00 23:08 03:42 Temperature 98.6 F 99.2 F Pulse Rate 103 H 95 92 Respiratory 16 18 16 Rate Blood Pressure 120/85 147/86 128/71 O2 Sat by Pulse 98 97 96 Oximetry Medical Decision Making - Medical Decision Making Was pt. sent in by a medical professional or institution (, PA, FORENSIC INVESTIGATOR, urgent care, hospital, or [facility]...) When possible be specific @ -No Did you speak to anyone other than the patient for history (EMS, parent, family, police, friend...)? What history was obtained from this source @ -No Did you review nursing and triage notes (agree or disagree)? Why? @ -I reviewed and agree with nursing and triage notes Were old charts reviewed (outside hosp., previous admission, EMS record, old EKG, old radiological studies, urgent care reports/EKG's, [facility] records)? Report findings @ -I reviewed the patient's operative report from her recent cholecystectomy Differential Diagnosis (chest pain, altered mental status, abdominal pain women, abdominal pain men, vaginal bleeding, weakness, fever, dyspnea, syncope, headache, dizziness, GI bleed, back pain, seizure, CVA, palpatations, mental health, musculoskeletal)? @ -Differential Abdominal Pain Women: Appendicitis, Cholecystitis, diverticulosis, ischemic bowel, pancreatitis, hepatitis, UTI, gastroenteritis, AAA, incarcerated hernia, bowel obstruction, constipation, inflammatory bowel, hepatitis, peptic ulcer disease, splenic infarction, perforated viscus, vulvitis, ovarian torsion, PID, kidney stone, placenta abruption, this is not meant to be an all-inclusive list EKG interpreted by me (3pts min.). @ -Not done X-rays interpreted by me (1pt min.). @ -Yes which demonstrates no acute injuries CT interpreted by me (1pt min.). @ -Yes which demonstrates no acute injuries U/S interpreted by me (1pt. min.). @ -None done What testing was considered but not performed or refused? (CT, X-rays, U/S, labs)? Why? @ -None What meds were considered but not given or refused? Why? @ -None Did you discuss the management of the patient with other professionals (professionals i.e. , PA, FORENSIC INVESTIGATOR, lab, RT, psych nurse, healthcare social worker, probate lawyer, teacher, sewage reticulation drafting officer, case filler)? Give summary @ -No Was smoking cessation discussed for >3mins.? @ -No Was critical care preformed (if so, how long)? @ -No Were there social determinants of health that impacted care today? How? (Homelessness, low income, unemployed, alcoholism, drug addiction, transportation, low edu. Level, literacy, decrease access to med. care, longterm, rehab)? @ -No Was there de-escalation of care discussed even if they declined (Discuss DNR or withdrawal of care, Hospice)? DNR status @ -No What co-morbidities impacted this encounter? (DM, HTN, Smoking, COPD, CAD, Cancer, CVA, ARF, Chemo, Hep., AIDS, mental health diagnosis, sleep apnea, morb id obesity)? @ -Rheumatoid arthritis, hypertension Was patient admitted / discharged? Hospital course, mention meds given and route, prescriptions, significant lab abnormalities, going to OR and other pertinent info. @ -Upon arrival patient seen and evaluated in bed 20. Thorough history and physical exam was performed. IV was established. Patient was administered pain medications. She does go over for several CTs and x-rays all of which are reviewed and demonstrate no acute injury. Results are discussed with the patient. She is comforted by this news. She is agreeable to discharge home. I will give her a short prescription for pain medications as she states that she is almost out of the postop medication she was provided. She has a follow-up appointment within the next week with her surgeon. I also recommend that she follow-up with her primary care doctor within 2 to 4 days. Return for any new or worsening symptoms. Patient was agreeable to plan she was discharged in stab le condition Undiagnosed new problem with uncertain prognosis? @ -No Drug Therapy requiring intensive monitoring for toxicity (Heparin, Nitro, Insulin, Cardizem)? @ -No Were any procedures done? @ -No Diagnosis/symptom? @ -Acute fall, acute left arm pain, acute neck pain, acute abdominal pain st atus post cholecystectomy Acute, or Chronic, or Acute on Chronic? @ -Acute Uncomplicated (without systemic symptoms) or Complicated (systemic symptoms)? @ -Complicated Side effects of treatment? @ -None Exacerbation, Progression, or Severe Exacerbation? @ -No Poses a threat to life or bodily function? How? (Chest pain, [place], [place], pneumonia, PE, COPD, DKA, ARF, appy, cholecystitis, CVA, Diverticulitis, Homicidal, Suicidal, threat to staff... and all critical care pts) @ -No - Lab Data Result diagrams: 02/18/24 21:36 02/18/24 21:36 Lab Results 02/18/24 02/18/24 02/18/24 Range/Units 21:36 21:36 21:36 WBC 4.7 (3.8-10.6) k/uL RBC 4.52 (3.80-5.40) m/uL Hgb 13.5 (11.4-16.0) gm/dL Hct 41.2 (34.0-46.0) % MCV 91.3 (80.0-100.0) fL MCH 30.0 (25.0-35.0) pg MCHC 32.8 (31.0-37.0) g/dL RDW 12.9 (11.5-15.5) % Plt Count 125 L (150-450) k/uL MPV 8.3 Neutrophils % 57 % Lymphocytes % 31 % Monocytes % 6 % Eosinophils % 3 % Basophils % 1 % Neutrophils # 2.7 (1.3-7.7) k/uL Lymphocytes # 1.5 (1.0-4.8) k/uL Monocytes # 0.3 (0-1.0) k/uL Eosinophils # 0.2 (0-0.7) k/uL Basophils # 0.0 (0-0.2) k/uL Sodium 140 (137-145) mmol/L Potassium 4.1 (3.5-5.1) mmol/L Chloride 103 (98-107) mmol/L Carbon Dioxide 29 (22-30) mmol/L Anion Gap 8 mmol/L BUN 11 (7-17) mg/dL Creatinine 1.06 H (0.52-1.04) mg/dL Est GFR (CKD-EPI)AfAm 64 (>60 ml/min/1.73 sqM) Est GFR (CKD-EPI)NonAf 55 (>60 ml/min/1.73 sqM) Glucose 115 H (74-99) mg/dL Plasma Lactic Acid Vivek 1.3 (0.7-2.0) mmol/L Calcium 9.5 (8.4-10.2) mg/dL Total Bilirubin 0.8 (0.2-1.3) mg/dL AST 19 (14-36) U/L ALT 21 (4-34) U/L Alkaline Phosphatase 65 (38-126) U/L Total Protein 6.7 (6.3-8.2) g/dL Albumin 4.0 (3.5-5.0) g/dL Amylase 41 (30-110) U/L Lipase 59 (23-300) U/L Urine Color Urine Appearance (Clear) Urine pH (5.0-8.0) Ur Specific [place] (1.001-1.035) Urine Protein (Negative) Urine Glucose (UA) (Negative) Urine Ketones (Negative) Urine Blood (Negative) Urine Nitrite (Negative) Urine Bilirubin (Negative) Urine Urobilinogen (<2.0) mg/dL Ur Leukocyte Esterase (Negative) 02/18/24 Range/Units 23:00 WBC (3.8-10.6) k/uL RBC (3.80-5.40) m/uL Hgb (11.4-16.0) gm/dL Hct (34.0-46.0) % MCV (80.0-100.0) fL MCH (25.0-35.0) pg MCHC (31.0-37.0) g/dL RDW (11.5-15.5) % Plt Count (150-450) k/uL MPV Neutrophils % % Lymphocytes % % Monocytes % % Eosinophils % % Basophils % % Neutrophils # (1.3-7.7) k/uL Lymphocytes # (1.0-4.8) k/uL Monocytes # (0-1.0) k/uL Eosinophils # (0-0.7) k/uL Basophils # (0-0.2) k/uL Sodium (137-145) mmol/L Potassium (3.5-5.1) mmol/L Chloride (98-107) mmol/L Carbon Dioxide (22-30) mmol/L Anion Gap mmol/L BUN (7-17) mg/dL Creatinine (0.52-1.04) mg/dL Est GFR (CKD-EPI)AfAm (>60 ml/min/1.73 sqM) Est GFR (CKD-EPI)NonAf (>60 ml/min/1.73 sqM) Glucose (74-99) mg/dL Plasma Lactic Acid Vivek (0.7-2.0) mmol/L Calcium (8.4-10.2) mg/dL Total Bilirubin (0.2-1.3) mg/dL AST (14-36) U/L ALT (4-34) U/L Alkaline Phosphatase (38-126) U/L Total Protein (6.3-8.2) g/dL Albumin (3.5-5.0) g/dL Amylase (30-110) U/L Lipase (23-300) U/L Urine Color Yellow Urine Appearance Clear (Clear) Urine pH 7.5 (5.0-8.0) Ur Specific [place] 1.018 (1.001-1.035) Urine Protein Trace H (Negative) Urine Glucose (UA) Negative (Negative) Urine Ketones Negative (Negative) Urine Blood Negative (Negative) Urine Nitrite Negative (Negative) Urine Bilirubin Negative (Negative) Urine Urobilinogen 8.0 (<2.0) mg/dL Ur Leukocyte Esterase Negative (Negative) Disposition Clinical Impression: Fall, Left shoulder pain, Leg swelling, Abdominal pain Disposition: HOME SELF-CARE Condition: Stable Instructions (If sedation given, give patient instructions): Fall Prevention (ED) Additional Instructions: Please use the pain medications as prescribed. Follow-up with your surgeon at your scheduled appointment and return for any new or worsening symptoms Prescriptions: oxyCODONE HCL [oxyCODONE HCL (IR)] 5 mg PO Q6H PRN 3 Days #12 cap PRN Reason: pain Is patient prescribed a controlled substance at d/c from ED?: Yes When asked, does pt state using other controlled substances?: No If prescribed controlled substance>3 days was MAPS reviewed?: Prescribed <3 Days If opioid is for acute pain is fill amount 7 days or less?: Yes Referrals: Telma Potts MD [Primary Care Provider] - 1-2 days Abdi Rolon MD [STAFF PHYSICIAN] - 1-2 days Time of Disposition: 03:43
[2024-02-19 03:44] VITALS: BP 128/71; PULSE 92; RESP 16; TEMP 99.2
== END 2024-02-19 03:50 | disposition home or self-care (01) ==
LOC: EC 19:47
DX: R10.11 Right upper quadrant pain (principal); M25.512 Pain in left shoulder; M79.605 Pain in left leg; M54.2 Cervicalgia; Z87.891 Personal history of nicotine dependence; Z88.8 Allergy status to other drugs, medicaments and biological substances; Z88.1 Allergy status to other antibiotic agents; W10.9XXA Fall (on) (from) unspecified stairs and steps, initial encounter
CPT/HCPCS: 36415; 80053; 82150; 83605; 83690; 85025; 81003; 73030; 71045; 93970; 72125; 74177; 99284; Q9967

== ENCOUNTER → 2024-03-31 | Outpatient (CLI) | payer MEDICARE | END | disposition home or self-care (01) | LOC: LABWHC1 10:48 | PROVIDERS: ATTEND Orthopaedic Surgery | DX: M16.11 Unilateral primary osteoarthritis, right hip (principal) | CPT/HCPCS: 86850; 86900; 86901; 87070 ==

== ENCOUNTER 2024-04-09 11:05 | Observation (INO) | payer MEDICARE ==
--- NOTE | 2024-04-07 09:11 | P.HPOR ---
History of Present Illness H&P Date: 04/07/24 Chief Complaint: Right hip pain Patient is a 63-year-old female who presents with progressive right hip pain for the past 6 months. She is having anterior groin and thigh pain with weightbearing activities. She has been limping. She is having night symptoms. She does use a walker. She has tried medications without much relief. Review of Systems Per HPI Past Medical History Past Medical History: Asthma, Chest Pain / Angina, GERD/Reflux, Hypertension, Liver Disease, Rheumatoid Arthritis (RA), Thyroid Disorder Additional Past Medical History / Comment(s): influenza A 04/27/23. Recent pneumonia- 3 weeks ago-Jan 2024. 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 Hepatitis C. In 2022 Overdosed after doing cocaine laced with fentanyl. Has quit cocaine. pt states she takes Marijuana edibles. History of Any Multi-Drug Resistant Organisms: None Reported, Other MDRO Past Surgical History: Hysterectomy, Joint Replacement, Orthopedic Surgery, Tonsillectomy Additional Past Surgical History / Comment(s): lt hip fx 07/05 with pins and screws Rt total knee 2023. Colonoscopy x 2, EGD, "Chest flush"-2023. lt knee replacement x2. rt ring finger with screws. rt thumb I&D. bronch on 05/07/23. right knee Past Anesthesia/Blood Transfusion Reactions: No Reported Reaction Additional Past Anesthesia/Blood Transfusion Reaction / Comment(s): previous blood transfusion with reaction Past Psychological History: Anxiety Smoking Status: Former smoker - Past Family History Sister(s) Family Medical History: Coronary Artery Disease (CAD) Additional Family Medical History / Comment(s): born with hole in main valve surgery 8th grade, cabg x2 during 2nd open heart age 34 Father Family Medical History: Cancer, Myocardial Infarction ([place]) Additional Family Medical History / Comment(s): from colon cancer Mother Family Medical History: Cancer Additional Family Medical History / Comment(s): from lung cancer Medications and Allergies Home Medications Medication Instructions Recorded Confirmed Type ALPRAZolam [Xanax] 0.5 mg PO TID PRN 04/30/19 02/08/24 History Albuterol Inhaler [Ventolin Hfa 1 - 2 puff INHALATION RT-Q6H PRN 04/30/19 02/12/24 History Inhaler] Metoprolol Tartrate [Lopressor] 25 mg PO BID 04/30/19 02/12/24 History Pantoprazole Sodium [Protonix] 40 mg PO QAM 04/30/19 02/08/24 History Furosemide [Lasix] 20 mg PO QAM 04/27/23 02/12/24 History lisinopriL [Zestril] 20 mg PO QAM 04/27/23 02/08/24 History Aspirin EC [Ecotrin Low Dose] 81 mg PO DAILY 10/02/23 02/08/24 History Potassium Chloride [Klor-Con M10] 10 meq PO QAM 02/08/24 02/08/24 History Vit D(Unknown Dose) 1 dose PO QMONTHLY 02/08/24 02/08/24 History amLODIPine [Norvasc] 5 mg PO QAM 02/08/24 02/08/24 History Acetaminophen Tab [Tylenol] 650 mg PO Q6H #30 tab 02/12/24 Rx Docusate [Colace] 100 mg PO BID #20 capsule 02/12/24 Rx Ibuprofen [Motrin] 600 mg PO Q6HR PRN #40 tab 02/12/24 Rx oxyCODONE HCL [OxyIR] 5 mg PO Q6H PRN 3 Days #10 tab 02/12/24 Rx oxyCODONE HCL [oxyCODONE HCL (IR)] 5 mg PO Q6H PRN 3 Days #12 cap 02/19/24 Rx Allergies Allergy/AdvReac Type Severity Reaction Status Date / Time adhesive tape Allergy Rash/Hives Verified 02/18/24 20:02 amoxicillin Allergy Rash/Hives Verified 02/18/24 20:02 losartan Allergy blurred Verified 02/18/24 20:02 vision,sweating,confusion,dizziness valsartan Allergy Swelling Verified 02/18/24 20:02 Physical Examination - Hip right Gait: antalgic Tenderness with palpation: anterior Pain with motion: internal rotation and hip flexion ROM: flexion: 70 degrees ROM: internal rotation: 0 degrees ROM: external rotation: 50 degrees Crepitus with motion: Yes Strength: extension: 5/5 Strength: flexion: 5/5 Strength: abduction: 5/5 Results The patient is a well-developed well-nourished female approximately 5 foot 4, 220 pounds of endomorphic habitus. HEENT exam is nonfocal, neck is supple. She has painful passive motion of the right hip. Straight leg raise is negative. She has an antalgic gait pattern. Her distal neurovascular exam appears intact in the right lower extremity. - Diagnostic results Hip x-ray: image reviewed (X-rays of the right hip obtained the office show severe osteoarthrosis with [id number] changes.) Assessment and Plan Assessment: Right hip severe osteoarthrosis Plan: I talked to the patient at length regarding her condition along with treatment options. At this point she is quite symptomatic having pain related to her right hip osteoarthrosis despite previous conservative measures. After a thorough discussion she opts to proceed with surgery. We will plan to proceed with right total hip arthroplasty utilizing an anterior approach. Risks and benefits were discussed at length in layman's terms. We will institute DVT prophylaxis postoperatively.
[~2024-04-09 11:05] MED LIST changes: +LIDOCAINE 1% (10MG/ML) FOR IV START INTRADERMA PRN; -MIDAZOLAM 2 MG/2 ML VIAL IV PRN; +TRANEXAMIC 1,000 MG/100ML-NACL 1,000 MG in SALINE 1 100ML.BAG IVPB PRN; -fentaNYL (PF) 50 MCG/ML 2 ML AMP IVP PRN
[2024-04-09] MEDS: DEXAMETHASONE SOD PHOSPHATE 4 MG/ML 1 ML VIAL IV ONE (12:23)
[2024-04-09] MEDS: LACTATED RINGERS 1,000 ML IV SCH (12:23)
[2024-04-09] MEDS: MELOXICAM 7.5 MG TAB PO PRN (12:23)
[2024-04-09] MEDS: ACETAMINOPHEN TAB 500 MG TAB PO PRN (12:23)
[2024-04-09] MEDS: ONDANSETRON 4 MG/2 ML VIAL IVP ONE (12:23)
[2024-04-09] MEDS: fentaNYL (PF) 50 MCG/ML 2 ML AMP IVP STA (12:28)
[2024-04-09] MEDS: MIDAZOLAM 2 MG/2 ML VIAL IV ONE (12:29)
[2024-04-09 12:30] LABS: Basophils % (A) 1 %; Eosinophils # (A) 0.1 k/uL (0-0.7); Eosinophils % (A) 2 %; HCT 35.8 % (34.0-46.0); HGB 12.4 gm/dL (11.4-16.0); Lymphocytes % (A) 34 %; MCH 30.5 pg (25.0-35.0); MCHC 34.6 g/dL (31.0-37.0); MCV 88.1 fL (80.0-100.0); Mean Platelet Volume 8.9; Monocytes # (A) 0.3 k/uL (0-1.0); Monocytes % (A) 8 %; Neutrophils # (A) 1.6 k/uL (1.3-7.7); Neutrophils % (A) 53 %; Platelet Count 127 k/uL (150-450); RBC 4.07 m/uL (3.80-5.40); RDW 13.7 % (11.5-15.5)
[2024-04-09] MEDS ORDERED: ROPIVACAINE 5 MG/ML 30 ML VIAL ONE (12:35)
[2024-04-09] MEDS ORDERED: LIDOCAINE 1% INJ 10MG/ML (20 ML MDV) ONE (12:35)
[2024-04-09] MEDS ORDERED: TRANEXAMIC 1,000 MG/100ML-NACL PREMIX BAG ONE (12:35)
[2024-04-09] MEDS ORDERED: MIDAZOLAM 2 MG/2 ML VIAL ONE (12:35)
[2024-04-09] MEDS ORDERED: HYDROmorphone (PF) 1 MG/ML ONE (12:35)
[2024-04-09] MEDS ORDERED: ROCURONIUM 10 MG/ML (5 ML VIAL) IV ONE (12:35)
[2024-04-09] MEDS ORDERED: GLYCOPYRROLATE 0.2 MG/ML 2 ML VIAL ONE (12:35)
[2024-04-09] MEDS ORDERED: WATER FOR INJECTION, STERILE 10 ML VIAL IV ONE (12:35)
[2024-04-09] MEDS ORDERED: SUCCINYLCHOLINE CHLORIDE 200 MG/10 ML VIAL IV ONE (12:35)
[2024-04-09] MEDS ORDERED: ePHEDrine 50 MG/ML 1 ML VIAL ONE (12:35)
[2024-04-09] MEDS ORDERED: PROPOFOL 10 MG/ML 20 ML VIAL IV ONE (12:35)
[2024-04-09] MEDS ORDERED: fentaNYL (PF) 50 MCG/ML 2 ML AMP ONE (12:35)
[2024-04-09] MEDS ORDERED: VASOPRESSIN 20 UNIT/ML 1 ML VIAL ONE (12:35)
[2024-04-09] MEDS ORDERED: NEOSTIGMINE 1 MG/ML 10 ML VIAL ONE (12:35)
[2024-04-09] MEDS: IV FLUID CONTINUATION 1,000 ML IV ONE (12:39)
[2024-04-09] MEDS: ceFAZolin 1,000 MG in SODIUM CHLORIDE 0.9% 1,000 ML IRRIGATION ONE (12:40)
--- NOTE | 2024-04-09 13:52 | P.ANPRN ---
Procedure Note - Anesthesia - Nerve Block Performed Right Papi Single Time Out Performed: Yes ([id number]) Date of Procedure: 04/09/24 Procedure Start Time: 12:29 Procedure Stop Time: 12:33 Location of Patient: PreOp Indication: Acute Post-Operative Pain, Requested by Surgeon Specifically requested for management of pain by DrDae: Sherwin Bradley Sedation Type: Sedate with meaningful contact maintained Preparation: Sterile Prep Position: Supine Catheter: None Needle Types: Pajunk Needle Gauge: 21 Ultrasound used to visualize needle placement: Yes Ultrasound used to observe medication spread: Yes Injectate: 0.5% Ropivacaine (see comment for volume) (30cc) Blood Aspirated: No Pain Paresthesia on Injection Noted: No Resistance on Injection: Normal Image Stored and Saved: Yes Events: Uneventful and Well Tolerated
[2024-04-09] MEDS: LACTATED RINGERS 1,000 ML IV ONE (13:53)
[2024-04-09] MEDS ORDERED: NALOXONE 0.4 MG/ML 1 ML VIAL IV PRN (14:21)
[2024-04-09] MEDS ORDERED: HYDROcodone/APAP 5-325MG 1 EACH TAB PO PRN ×2 (14:21→17:19)
[2024-04-09] MEDS ORDERED: hydrOXYzine pamoate 25 MG CAP PO PRN (14:21)
[2024-04-09] MEDS ORDERED: MAGNESIUM HYDROXIDE 2,400 MG/30 ML CUP PO PRN (14:21)
--- NOTE | 2024-04-09 14:27 | FL ---
EXAMINATION TYPE: FL guidance operating room, XR Hip Limited RT DATE OF EXAM: 04/09/2024 2:23 PM COMPARISON: Pre Operative Images if available both CT/MRI or plain film CLINICAL INDICATION: Female, 63 years old with history of RT ANTERIOR HIP; TECHNIQUE: FL guidance operating room, XR Hip Limited RT, multiple fluoroscopic images provided for p rocedure. Total fluoroscopy time: 16.9 seconds Total submitted images to PACS: 5 DAP: 1.3673 mGym2 Gycm2 uGym2 cGycm2 or equivalent. FINDINGS: Fluoroscopic images during internal fixation/arthroplasty demonstrate hardware in appropriate positio n. Hardware appears intact. No immediate complication identified. IMPRESSION: 1. No evidence for intraoperative complication. 2. Please see the operative/procedural note for further details. [facility], , 04/09/2024 2:24 PM
--- NOTE | 2024-04-09 14:36 | P.OP ---
Date of Procedure: 04/09/24 Preoperative Diagnosis: Right hip severe osteoarthrosis Postoperative Diagnosis: Same Procedure(s) Performed: Right total hip arthroplastyanterior approachpress-fit Implants: DePuy Corail size 12/135 degree standard collared press-fit femoral stem, 36mm+1.5 mm cobalt chrome femoral head, 54 mm Fisk acetabular shell with neutral polyethylene liner. Anesthesia: GETA Surgeon: Sherwin Bradley Furnace Installer Helper #1: Devang Perera Estimated Blood Loss (ml): 150 Pathology: none sent Condition: stable Disposition: PACU Indications for Procedure: The patient is a 63-year-old female who presents with progressive right hip pain secondary to osteoarthrosis despite conservative measures. A discussion of the risks and benefits of operative intervention versus continued conservative measures was made with the patient. She opted proceed with surgery. Operative risks include infection, neurovascular injury, development of blood clots, leg length discrepancy, fracture, possible instability, possible component loosening/failure and possible need for subsequent procedures was discussed. Informed consent was obtained. Operative Findings: As below Description of Procedure: The patient was brought to the operating room, and after induction of spinal anesthesia was placed supine on the Padma table. Positioning was checked with fluoroscopy. The right hip was then prepped and draped in a normal fashion. A 12 cm incision was then made starting 2 fingerbreadths distal and 3 finger breaths posterior to the ASIS in line with the proximal femur. The skin was incised sharply. Subcutaneous tissues were divided sharply. Electrocautery was used for hemostasis. The fascia was split in line with skin incision. The interval between the sartorius and tensor fascia chance was then bluntly developed. The posterior fascia was opened with electrocautery. The lateral circumflex vessels were identified and cauterized prior to sectioning. A retractor was placed along the superior femoral neck as well as the anterior acetabular rim. A wide capsulotomy was performed. The neck cut was then made at a 45 angle to the shaft approximately 1 1/2 cm above the level of the lesser trochanter. The head was extracted. Attention was then paid towards preparing the acetabulum. Anterior and posterior retractors were placed. The remaining capsular labral tissue sharply debrided clearly defining the acetabular margins. I began reaming with a 51 mm reamer taking care to initially medialize then reaming at 45 of abduction and 20 of anteversion. Sequential reaming is performed up to 55 mm. A trial 56 mm acetabular shell was inserted in the same orientation and was fully seated. There was good rim fit and stability. Positioning was checked with fluoroscopy. The final 56 mm acetabular shell was inserted again at 45 of abduction and 20 of anteversion. This was fully seated. There was good rim fit and stability. Again fluoroscopy was used to check the adequacy of placement. A neutral polyethylene liner was gently impacted. Care was taken to avoid any soft tissue interposition. Pulsatile lavage was utilized. Attention was then paid towards preparing the proximal femur. The central region was cleared of soft tissue. A canal finder was used to find the femoral canal. Sequential broaching was performed up to size 12 taking care to lateralize proximally. A calcar mill was used to fashion the medial calcar. There was good rotational stability. A standard neck along with a 36 mm +1.5 head was placed. The hip was gently reduced. Fluoroscopy was used to check the adequacy of positioning along with leg lengths. I felt both were good. The hip was gently dislocated. The trial components were removed. The final size 12-135 degree collared standard press- fit femoral stem was inserted parallel to the posterior cortex. This was fully seated and there was good rotational stability. A 36 mm +1.5 cobalt chrome femoral head was placed. This was gently impacted. The hip was then gently reduced. Final fluoroscopic view showed adequate placement implant along with zoroastrianism of leg length. Stability was checked with 80 of external rotation and 60 of extension of the right hip. The wound was irrigated with sterile lavage. The fascia was closed with running 0 Vicryl suture. There was minimal drainage therefore a deep drain was not placed. The second dose of IV TXA was given. The subcutaneous tissues were reapproximated interrupted 2-0 Vicryl sutures. The skin was reapproximated with 3-0 subcuticular strata fix suture. Skin tape and adhesive was applied. A sterile dressing was applied. The patient was then awoken from sedation and transferred to recovery room in good condition. Blood loss was estimated at 150 mL. No complications were incurred. Sponge and needle counts were correct at the end of the case. Devang KLEIN assisted during the major components is case to include exposure, bone resection, implantation, and closure.
[2024-04-09] MEDS: HYDROmorphone 0.5 MG/0.5 ML SYRINGE IVP PRN ×2 (15:01→20:41)
[2024-04-09] MEDS: diphenhydrAMINE 50 MG/ML 1 ML VIAL IVP STA (15:02)
--- NOTE | 2024-04-09 15:04 | XR ---
EXAMINATION TYPE: XR Hip Limited RT DATE OF EXAM: 04/09/2024 2:56 PM COMPARISON: None. CLINICAL INDICATION: Female, 63 years old with history of Status post hip surgery, assess surgical al ignment, pain TECHNIQUE: Single AP portable view of the right hip is obtained immediately postoperatively. FINDINGS: Metallic hardware from right hip arthroplasty is seen and appears satisfactory in alignmen t and position on frontal projection. There is evidence of recent surgery with subcutaneous gas note d laterally. IMPRESSION: Metallic hardware from right hip arthroplasty is satisfactory in position. [facility], , 04/09/2024 3:02 PM
[2024-04-09] MEDS: droPERidol 5 MG/2 ML VIAL IVP ONE (17:08)
[2024-04-09] MEDS ORDERED: IBUPROFEN 600 MG TAB PO PRN (17:19)
[2024-04-09] MEDS ORDERED: VIT D PO SCH (17:30)
[2024-04-09] MEDS: HYDROcodone/APAP 7.5-325MG 1 EACH TAB PO PRN (17:32)
[2024-04-09] MEDS: METOPROLOL TARTRATE 25 MG TAB PO SCH (21:38)
[2024-04-09] MEDS: SENNOSIDES-DOCUSATE SODIUM 1 EACH TAB PO SCH (21:45)
[2024-04-09] MEDS: ALBUTEROL NEBULIZED 2.5 MG/3 ML INHALATION PRN (22:54)
[2024-04-10] MEDS: ALPRAZolam 0.5 MG TAB PO PRN (00:08)
[2024-04-10] MEDS: HYDROmorphone 1 MG/ML 1 ML SYRINGE IVP PRN (05:26)
[2024-04-10] MEDS: PANTOPRAZOLE 40 MG TABLET PO SCH (05:34)
[2024-04-10 08:44] VITALS: BP 110/74; RESP 22; TEMP 98
[2024-04-10] MEDS: amLODIPine 5 MG TAB PO SCH (09:13)
[2024-04-10] MEDS: lisinopriL 20 MG TAB PO SCH (09:13)
[2024-04-10] MEDS: RIVAROXABAN 10 MG TAB PO SCH (09:13)
[2024-04-10] MEDS: FUROSEMIDE 20 MG TAB PO SCH (09:13)
[2024-04-10 09:18] LABS: Basophils # (A) 0.01 X 10*3/uL (0.00-0.10); Basophils % (A) 0.2 %; Eosinophils # (A) 0 X 10*3/uL (0.04-0.35); Eosinophils % (A) 0 %; HCT 30.2 % (37.2-46.3); Lymphocytes % (A) 10.9 %; MCH 29.4 pg (27.0-32.0); MCHC 33.1 g/dL (32.0-37.0); MCV 88.8 FL (80.0-97.0); Mean Platelet Volume 11.8 FL (9.5-12.2); Monocytes # (A) 0.38 X 10*3/uL (0.20-1.00); Monocytes % (A) 6.9 %; NRBC Per 100 WBC 0 X 10*3/uL (0.00-0.01); Neutrophils # (A) 4.52 X 10*3/uL (1.80-7.70); Neutrophils % (A) 81.8 %; Platelet Count 113 X 10*3/uL (140-440); RDW 13.2 % (11.5-14.5); WBC 5.52 X 10*3/uL (4.50-10.00)
--- NOTE | 2024-04-10 10:03 | P.PN ---
Subjective Progress Note Date: 04/10/24 Principal diagnosis: Right hip osteoarthritis Patient was seen at bedside this morning lying in the semicomposition with dressing over right hip. Patient states she has been up a little bit since surgery yesterday and has been having moderate pain to the right hip. She says oral medication does help little bit with pain. Patient says she has urinated since surgery yesterday without issue. No bowel movement yet, however, she says she is passing gas. Patient says she is hoping to stay 1 more night for additional therapy and pain control. Patient does need a walker for home. Patient looking forward to working with therapy. Patient denies any other issues at this time. Objective - Vital Signs Vital signs: Vital Signs Temp 98 F 04/10/24 07:41 Pulse 76 04/10/24 08:08 Resp 22 04/10/24 07:41 BP 110/74 04/10/24 07:41 Pulse Ox 95 04/10/24 07:41 FiO2 Intake & Output 04/09/24 04/10/24 04/10/24 18:59 06:59 18:59 Intake Total 1651 Output Total 150 Balance 1501 Weight 107.1 kg Intake: IV 1651 Output: Urine 0 Stool 0 Estimated Blood Loss 150 Other: # Voids 2 - Exam Right hip: Incision is clean, dry, and intact. The postoperative dressing is in good condition. There is minimal soft tissue swelling and ecchymosis surrounding the medial and lateral aspects of the incision. Calf is soft, no tenderness with palpation. Plantar flexion, dorsiflexion, EHL, FHL are intact. Sensory exam to light touch throughout the extremity is intact, dorsal pedis pulses 2+. - Labs CBC & Chem 7: 04/10/24 03:55 Labs: Abnormal Lab Results - Last 24 Hours (Table) 04/09/24 Range/Units 11:56 WBC 3.0 L (3.8-10.6) k/uL Plt Count 127 L (150-450) k/uL Assessment and Plan Assessment: 1. Right hip osteoarthritis -Postop day #1 status post direct anterior right total hip arthroplasty Plan: 1. Right hip osteoarthritis -direct anterior right total hip arthroplasty performed yesterday, 04/09/2024. Patient stable at bedside this morning with postoperative dressing present over right hip. Patient does need a walker for home. Prescription for walker was signed. Case management working on this. Plan to keep patient 1 more night in hospital for additional pain control and therapy. Plan for discharge home tomorrow with health services. 2. Appreciate medical management 3. Pain management -[place]; Vistaril 4. DVT prophylaxis -Xarelto in hospital 5. GI prophylaxis - senna 6. PT/OT -weightbearing as tolerated with walker 7. Encourage incentive spirometer use 8. Discharge planning -discharge home with health services tomorrow Time with Patient: Less than 30
--- NOTE | 2024-04-10 10:09 | P.CONS ---
History of Present Illness - Reason for Consult Consult date: 04/09/24 - History of Present Illness Alisa Cain, is a 63-year-old female who presented for an elective right hip arthroplasty with Dr. Landis. Patient has had progressive right hip pain for the past 6 months with failed conservative management. Additional medical history includes asthma, chest pain, hypertension, rheumatoid arthritis, liver disease, thyroid disorder, previous joint replacement and ex-smoker current vit al signs temp 98.6, heart rate 82, respiratory rate 16, blood pressure 112/58 with a pulse ox of 95% on 6 L. Patient is currently postoperatively day 0. Patient denies chest pain or shortness of breath. Patient denies nausea vomiting or diarrhea. Patient denies any urinary burning or frequency. 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 Colonoscopy x 2, EGD,. lt knee replacement x2. rt ring finger with screws. rt thumb I&D. bronch on 05/07/23 Past Anesthesia/Blood Transfusion Reactions: No Reported Reaction Additional Past Anesthesia/Blood Transfusion Reaction / Comm: previous blood transfusion with reaction-unsure about any reaction Smoking Status: Former smoker - Past Family History Sister(s) Family Medical History: Coronary Artery Disease (CAD) Additional Family Medical History / Comment(s): born with hole in main valve surgery 8th grade, cabg x2 during 2nd open heart age 34 Father Family Medical History: Cancer, Myocardial Infarction (HI) Additional Family Medical History / Comment(s): from colon cancer Mother Family Medical History: Cancer Additional Family Medical History / Comment(s): from lung cancer Medications and Allergies Home Medications Medication Instructions Recorded Confirmed Type ALPRAZolam [Xanax] 0.5 mg PO TID PRN 04/30/19 04/09/24 History Albuterol Inhaler [Ventolin Hfa 1 - 2 puff INHALATION RT-Q6H PRN 04/30/19 04/09/24 History Inhaler] Metoprolol Tartrate [Lopressor] 25 mg PO BID 04/30/19 04/09/24 History Pantoprazole Sodium [Protonix] 40 mg PO QAM 04/30/19 04/09/24 History Furosemide [Lasix] 20 mg PO QAM 04/27/23 04/09/24 History lisinopriL [Zestril] 20 mg PO QAM 04/27/23 04/09/24 History Vit D(Unknown Dose) 1 dose PO QMONTHLY 02/08/24 04/09/24 History amLODIPine [Norvasc] 5 mg PO QAM 02/08/24 04/09/24 History Ibuprofen [Motrin] 600 mg PO Q6HR PRN #40 tab 02/12/24 04/09/24 Rx HYDROcodone/APAP 5-325MG [[place] 1 tab PO Q6HR PRN 04/07/24 04/09/24 History 5-325] Allergies Allergy/AdvReac Type Severity Reaction Status Date / Time adhesive tape Allergy Rash/Hives Verified 04/09/24 11:43 amoxicillin Allergy Rash/Hives Verified 04/09/24 11:43 losartan Allergy blurred Verified 04/09/24 11:43 vision,sweating,confusion,dizziness valsartan Allergy Swelling Verified 04/09/24 11:43 Physical Exam Vitals: Vital Signs Temp Pulse Pulse Resp BP Pulse Ox 04/09/24 16:16 80 16 108/65 96 04/09/24 15:40 65 14 107/68 95 04/09/24 15:25 68 14 109/68 95 04/09/24 15:10 64 16 118/66 96 04/09/24 14:55 71 18 107/59 99 04/09/24 14:40 98.6 F 82 16 112/58 95 04/09/24 12:35 65 16 121/72 97 04/09/24 11:42 97.5 F L 68 18 121/72 97 Intake and Output 01/22/25 01/22/25 01/22/25 06:59 14:59 22:59 Intake Total 1651 Output Total 150 Balance 1501 Intake: IV 1651 Output: Estimated Blood Loss 150 Other: Weight 107.1 kg 107.1 kg Head normocephalic Neck supple Lungs clear to auscultation bilaterally no wheezing or crackles Heart regular rate and rhythm S1-S2, no rub or gallop Abdomen is soft nontender nondistended positive bowel sounds no hepatosplenomegaly Extremities no edema. Right hip dressing clean dry and intact Neuro alert and orientated to 3 Results CBC & Chem 7: 04/10/24 03:55 Labs: Abnormal Lab Results - Last 24 Hours (Table) 04/09/24 Range/Units 11:56 WBC 3.0 L (3.8-10.6) k/uL Plt Count 127 L (150-450) k/uL Assessment and Plan Assessment: 1. Status post right hip arthroplasty with Dr. Landis 2. History of hypothyroidism 3. History of essential hypertension 4. History of multinodular goiter 5. History of COPD 6. History of rheumatoid arthritis 7. Previous history of cocaine abuse 8. History of hepatitis C Thank you for this consultation we will continue to follow patient closely throughout stay. DVT prophylaxis Xarelto per orthopedic services
[2024-04-10 10:50] VITALS: PULSE 69
--- NOTE | 2024-04-10 11:09 | P.DS ---
Providers Date of admission: 04/09/2024 Expected date of discharge: 04/10/24 Attending physician: Sherwin Bradley Consults: 04/09/24 14:21 Consult Physician Routine Consulting Provider: Telma Potts Consult Reason/Comments: medical management s/p direct anterior right total hip arthroplasty Do you want consulting provider notified?: Yes Primary care physician: Telma Potts [facility] Course: Date of admission: 04/09/2024 Date of discharge: 04/10/2024 Admission diagnosis: Right hip osteoarthritis Discharge diagnosis: Same Attending physician: Dr. Bradley Surgical procedures: Direct anterior right total hip arthroplasty Brief history: Patient is a 63-year-old female with a history of progressive primary right hip osteoarthritis. At this point patient has failed conservative treatment measures and has opted to proceed with a elective direct anterior right total hip arthroplasty. Hospital course: Details of patient's surgery can be found in operative report. Patient tolerated the procedure well and was subsequently transported to orthopedic floor. Patient's orthopeidc and medical care was provided daily. Patient had daily laboratory tests performed for evaluation of overall blood counts. Patient had daily physical therapy to include strengthening range of motion as well as education with walker ambulation. Patient was treated with Xarelto for their postoperative DVT prophylaxis during their inpatient stay. Patient was noted to have a relatively uneventful postoperative course. Patient reported satisfactory pain control with oral pain medications by postoperative day 1. Patient showed satisfactory progress with physical therapy. Patient moved steadily through the program and had no difficulty meeting the goals by postoperative day 1. Given patient's otherwise satisfactory course and having met physical therapy goals, plan is to discharge patient home with health services on postoperative day 1. Discharge condition/disposition: Patient will be discharged home with health services in stable condition. Discharge medications: Instructions are given on resumption of patient's normal daily medications per primary care recommendation, in addition patient will be prescribed [place]; senna; aspirin. Discharge instructions: 1. Wound care and infection precautions, keep incision dry and covered while showering, no lotions, creams, moisturizers. No soaking, tubs, pools, hottubs. Do not scrub over the incision. 2. Weight-bear as tolerated with walker / cane until follow-up. 3. Ice and elevate when necessary. Do not exceed 20 minutes per hour with ice pack. 4. Utilize compression sleeve until seen at first follow up appointment. 5. Visiting nursing care. 6. Home physical therapy. 7. Pain meds and anticoagulants per prescription. 8. Pain medication has potential to cause constipation. Increase oral fluid and fiber intake. Contact primary care provider if you have not had a bowel movement within 48 hours after discharge 9. No anti-inflammatory medication until discussed at first post operative visit, this including Motrin, Aleve, Mobic, Diclofenac. 10. Follow up in office at 2 weeks postop with Mark Galindo PA-C / Dveang Perera PA-C 11. Follow up with your primary care doctor 7-10 days after discharge. 12. Contact [facility] with any questions, . Assessment: Right hip osteoarthritis Procedures: Direct anterior right total hip arthroplasty Patient Condition at Discharge: Good Plan - Discharge Summary Discharge Rx Participant: Yes New Discharge Prescriptions: New Aspirin 325 mg PO DAILY #21 tab HYDROcodone/APAP 7.5-325MG [[place] 7.5-325] 1 tab PO Q6HR PRN #28 tab PRN Reason: Pain Sennosides/Docusate Sodium [Senna Plus 8.6-50 mg Softgel] 1 each PO DAILY #20 capsule No Action Albuterol Inhaler [Ventolin Hfa Inhaler] 1 - 2 puff INHALATION RT-Q6H PRN PRN Reason: Shortness Of Breath ALPRAZolam [Xanax] 0.5 mg PO TID PRN PRN Reason: Anxiety Pantoprazole Sodium [Protonix] 40 mg PO QAM Metoprolol Tartrate [Lopressor] 25 mg PO BID Furosemide [Lasix] 20 mg PO QAM amLODIPine [Norvasc] 5 mg PO QAM lisinopriL [Zestril] 20 mg PO QAM Vit D(Unknown Dose) 1 dose PO QMONTHLY Ibuprofen [Motrin] 600 mg PO Q6HR PRN #40 tab PRN Reason: Pain HYDROcodone/APAP 5-325MG [[place] 5-325] 1 tab PO Q6HR PRN PRN Reason: Pain Discharge Medication List ALPRAZolam [Xanax] 0.5 mg PO TID PRN 04/30/19 [History] Albuterol Inhaler [Ventolin Hfa Inhaler] 1 - 2 puff INHALATION RT-Q6H PRN 04/30/19 [History] Metoprolol Tartrate [Lopressor] 25 mg PO BID 04/30/19 [History] Pantoprazole Sodium [Protonix] 40 mg PO QAM 04/30/19 [History] Furosemide [Lasix] 20 mg PO QAM 04/27/23 [History] lisinopriL [Zestril] 20 mg PO QAM 04/27/23 [History] Vit D(Unknown Dose) 1 dose PO QMONTHLY 02/08/24 [History] amLODIPine [Norvasc] 5 mg PO QAM 02/08/24 [History] Ibuprofen [Motrin] 600 mg PO Q6HR PRN #40 tab 02/12/24 [Rx] HYDROcodone/APAP 5-325MG [[place] 5-325] 1 tab PO Q6HR PRN 04/07/24 [History] Aspirin 325 mg PO DAILY #21 tab 04/10/24 [Rx] HYDROcodone/APAP 7.5-325MG [[place] 7.5-325] 1 tab PO Q6HR PRN #28 tab 04/10/24 [Rx] Sennosides/Docusate Sodium [Senna Plus 8.6-50 mg Softgel] 1 each PO DAILY #20 capsule 04/10/24 [Rx] Follow up Appointment(s)/Referral(s): Devang Perera, KOTA [PHYSICIAN DRY CLEANING MACHINE OPERATOR HELPER] - 2 Weeks [facility],Equipment [NON-STAFF] - As Needed (cane) [facility], [NON-STAFF] - As Needed Patient Instructions/Handouts: Anterior Hip Replacement (GEN) Activity/Diet/Wound Care/Special Instructions: Orthopedic Discharge Instructions: 1. Wound care and infection precautions, keep incision dry and covered while showering, no lotions, creams, moisturizers. No soaking, pools, hot tubs. Do not scrub over incision. 2. Weight-bear as tolerated with walker / cane until follow-up. 3. Ice and elevate when necessary. Do not exceed 20 minutes per hour with ice pack. 4. Utilize compression sleeve until seen at first follow up appointment. 5. Pain meds and anticoagulants per prescription. 6. Pain medication has potential to cause constipation. Increase oral fluid and fiber intake. Contact primary care provider if you have not had a bowel movement within 48 hours after discharge. 7. No anti-inflammatory medication until discussed at first post operative visit, this including Motrin, Aleve, Mobic, Diclofenac. 8. Follow up in office at 2 weeks postop with Mark Galindo PA-C / Devang Perera PA-C 9. Follow up with your primary care doctor 7-10 days after discharge. 10. Contact [facility] with any questions, . Keep incision clean, dry contact. While showering, cover fusion tape with Saran wrap. Keep fusion tape on until follow-up appointment in office in 2 weeks Discharge Disposition: HOME WITH HOME HEALTH SERVICES
== END 2024-04-10 14:29 | disposition home or self-care (01) ==
LOC: OR 11:05 → 4SSUR 11:06 → OR 11:06 → 4SSUR 14:25
PROVIDERS: ADMIT Orthopaedic Surgery; ATTEND Orthopaedic Surgery
DX: M16.11 Unilateral primary osteoarthritis, right hip (principal); I10 Essential (primary) hypertension; E04.2 Nontoxic multinodular goiter; E03.9 Hypothyroidism, unspecified; J44.89 Other specified chronic obstructive pulmonary disease; M06.9 Rheumatoid arthritis, unspecified; B19.20 Unspecified viral hepatitis C without hepatic coma; I71.20 Thoracic aortic aneurysm, without rupture, unspecified; D18.09 Hemangioma of other sites; G89.29 Other chronic pain; K21.9 Gastro-esophageal reflux disease without esophagitis; Z79.82 Long term (current) use of aspirin; Z79.899 Other long term (current) drug therapy; Z88.0 Allergy status to penicillin; Z88.8 Allergy status to other drugs, medicaments and biological substances; Z91.048 Other nonmedicinal substance allergy status; Z87.891 Personal history of nicotine dependence; Z87.898 Personal history of other specified conditions; Z96.653 Presence of artificial knee joint, bilateral
CPT/HCPCS: 27130; 94640 ×2; 97161; 97166; 64999; 85025 ×2; 73501; G0378 ×2; C1776; J2250; J0330; J1200; J1100; J2710; J0690 ×3; J2405; J2003; J3010; J1171 ×3; J2795; J2704; J1596

== ENCOUNTER → 2024-07-08 | Outpatient (CLI) | payer MEDICARE ==
--- NOTE | 2024-07-08 10:58 | XR ---
EXAMINATION TYPE: XR chest 2V DATE OF EXAM: 07/08/2024 10:52 AM COMPARISON: Chest radiographs from 02/19/2024, CT chest 01/14/2024 TECHNIQUE: XR chest 2V Frontal and lateral views of the chest. CLINICAL INDICATION:Female, 64 years old with history of R05.8 DRY COUGH; FINDINGS: Lungs/Pleura: There is no evidence of pleural effusion, focal consolidation, or pneumothorax. Pulmonary vascularity: Unremarkable. Heart/mediastinum: Cardiomediastinal silhouette is unremarkable. Atherosclerotic calcifications are seen in the aorta. Musculoskeletal: Multiple level degenerative disc disease changes seen throughout the spine. IMPRESSION: No acute cardiopulmonary disease/process. [facility], , 07/08/2024 10:56 AM
== END | disposition home or self-care (01) ==
LOC: RADXRMAIN 10:35
DX: R05.8 Other specified cough (principal)
CPT/HCPCS: 71046